=== PATIENT | female | born 1980 | race Caucasian/White ===

== ENCOUNTER 2017-06-18 05:46 | Day surgery (SDC) | payer OTHER ==
[2017-06-13 16:40] VITALS: BMI 28.3
[~2017-06-18 05:46] MED LIST: LACTATED RINGERS 1,000 ML IV SCH; LIDOCAINE 1% 20 ML VIAL (10MG/ML) FOR IV START INTRADERMA PRN
[2017-06-18 06:24] VITALS: TEMP 97.4
[2017-06-18] MEDS ORDERED: PROPOFOL 10 MG/ML 20 ML VIAL IV ONE (07:05)
[2017-06-18 07:39] VITALS: RESP 16
--- NOTE | 2017-06-18 07:56 | PCN ---
PROCEDURE NOTE PROCEDURE: Bone marrow aspirate and biopsy. PREOPERATIVE DIAGNOSIS: Leukocytosis. POSTOPERATIVE DIAGNOSIS: Leukocytosis. SITE: Right iliac crest. ANESTHESIA: Local with IV systemic sedation. DETAILS: Utilizing sterile technique, the skin overlying the right iliac crest was prepared with Betadine and alcohol, and after adequate sterile draping, local anesthesia with 1% lidocaine and systemic sedation, size 11, 4-inch Jamshidi needle was utilized to access the periosteum with ease. A total of 16 mL of aspirate as well as 3 cm bone core biopsies were obtained. The patient tolerated the procedure very well. There was no immediate procedure related complications. TOTAL BLOOD LOSS: Less than 1 mL. RESULTS: Pending. MMODL / IJN: [id number] /
[2017-06-18 08:19] VITALS: BP 124/80; PULSE 71
[2017-06-18 08:49] LABS: Basophils # (A) 0.1 k/uL (0-0.2); Basophils % (A) 1 %; Eosinophils # (A) 0.3 k/uL (0-0.7); Eosinophils % (A) 2 %; HCT 40.3 % (34.0-46.0); HGB 13.6 gm/dL (11.4-16.0); Lymphocytes # (A) 3.4 k/uL (1.0-4.8); Lymphocytes % (A) 24 %; MCH 31.1 pg (25.0-35.0); MCHC 33.9 g/dL (31.0-37.0); MCV 91.8 fL (80.0-100.0); Monocytes # (A) 0.9 k/uL (0-1.0); Monocytes % (A) 6 %; Neutrophils # (A) 9.5 k/uL (1.3-7.7); Neutrophils % (A) 66 %; Platelet Count 343 k/uL (150-450); RBC 4.39 m/uL (3.80-5.40); RDW 12.5 % (11.5-15.5); WBC 14.4 k/uL (3.8-10.6)
== END 2017-06-18 08:38 | disposition home or self-care (01) ==
LOC: OR 05:46
PROVIDERS: ATTEND Internal Medicine Hematology & Oncology
DX: D72.829 Elevated white blood cell count, unspecified (principal); R71.8 Other abnormality of red blood cells; N80.9 Endometriosis, unspecified; I10 Essential (primary) hypertension; K58.9 Irritable bowel syndrome, unspecified; F41.1 Generalized anxiety disorder; F32.9 Major depressive disorder, single episode, unspecified; J45.909 Unspecified asthma, uncomplicated; M19.90 Unspecified osteoarthritis, unspecified site; K21.9 Gastro-esophageal reflux disease without esophagitis; F17.210 Nicotine dependence, cigarettes, uncomplicated; Z86.19 Personal history of other infectious and parasitic diseases; Z79.3 Long term (current) use of hormonal contraceptives; Z79.899 Other long term (current) drug therapy; Z88.8 Allergy status to other drugs, medicaments and biological substances
CPT/HCPCS: 81025; 85025; 38222; J2704

== ENCOUNTER → 2019-07-21 | Outpatient (CLI) | payer OTHER | END | disposition home or self-care (01) | LOC: LABWHC1 09:41 | PROVIDERS: ATTEND Internal Medicine Critical Care Medicine | DX: Z11.59 Encounter for screening for other viral diseases (principal) | CPT/HCPCS: 87635 ==

== ENCOUNTER 2019-07-23 08:40 | Day surgery (SDC) | payer OTHER ==
[2019-07-21 15:13] VITALS: BMI 28.3
[~2019-07-23 08:40] MED LIST changes: +ALBUTEROL NEB (CONC) 2.5 MG/0.5 ML INHALATION ONE; +LIDOCAINE 1% (10MG/ML) FOR IV START INTRADERMA PRN; -LIDOCAINE 1% 20 ML VIAL (10MG/ML) FOR IV START INTRADERMA PRN; +LIDOCAINE 2% (PF) 20 MG/ML 5 ML VIAL INHALATION ONE; +LIDOCAINE VISCOUS 300 MG/15 ML CUP MUCOUS MEM ONE; +SODIUM CHLORIDE 0.9% 1,000 ML IV SCH
--- NOTE | 2019-07-23 10:35 | CT ---
EXAMINATION TYPE: CT Chest wo con Veran Protocol DATE OF EXAM: 07/23/2019 COMPARISON: Chest x-ray dated 03/06/2019 HISTORY: pre veran bronchial navigation for pulmonary nodule CT DLP: 593 mGycm Automated exposure control for dose reduction was used. FINDINGS: LUNGS: There is a 2.3 x 2.0 cm left lower lobe nodule near the interlobar fissure at the border of th e lingula on series 6 image 48 that appears solid on soft tissue algorithm. In the right upper lobe there is a spiculated density anteriorly on image 34 that could represent an area of scarring or small nodule with the epicenter measuring approximately 4 mm. This is marked on i mage 34 of series 6. There is a faint 2 mm pulmonary nodule in the posterior right upper lobe on image 22. This appears so lid. Minimal bibasilar subsegmental atelectasis. No focal consolidation, pleural effusion or pneumothorax. MEDIASTINUM: Lack of intravenous contrast limits evaluation of the mediastinum for adenopathy however no pathologically enlarged lymph nodes are identified. Strand-like density in the anterior superior mediastinum most commonly relates to a small amount of residual thymic tissue. Heart is not enlarged. No pericardial effusion. OTHER: Limited images of the unenhanced upper abdomen are grossly unremarkable. Mild multilevel degen erative change of the spine seen. Evaluation of the spinal canal is limited on CT. IMPRESSION: 1. 2.3 cm left lower lobe nodule for which navigational bronchoscopy will be performed subsequently. 2. Right-sided 4 mm into millimeter pulmonary nodules. Appropriate follow-up should be determined cli nically after biopsy results of the left lower lobe pulmonary nodule.
[2019-07-23] MEDS ORDERED: MIDAZOLAM 2 MG/2 ML VIAL IV ONE (10:40)
[2019-07-23] MEDS ORDERED: ONDANSETRON 4 MG/2 ML VIAL IVP ONE (10:40)
[2019-07-23] MEDS ORDERED: DEXAMETHASONE SOD PHOSPHATE 10 MG/ML 1 ML VIAL IV ONE (10:40)
[2019-07-23] MEDS ORDERED: GLYCOPYRROLATE 0.2 MG/ML 2 ML VIAL ONE (11:40)
[2019-07-23] MEDS ORDERED: SUCCINYLCHOLINE CHLORIDE 100 MG/5 ML SYR IV ONE (11:40)
[2019-07-23] MEDS ORDERED: NEOSTIGMINE 1 MG/ML 10 ML VIAL ONE (11:40)
[2019-07-23] MEDS ORDERED: PROPOFOL 10 MG/ML 20 ML VIAL IV ONE (11:40)
[2019-07-23] MEDS ORDERED: LIDOCAINE 1% INJ 10MG/ML (20 ML MDV) ONE (11:40)
[2019-07-23] MEDS ORDERED: ROCURONIUM BROMIDE 10 MG/ML 5 ML VIAL IV ONE (11:40)
--- NOTE | 2019-07-23 12:49 | P.PCN ---
Date of Procedure: 07/23/19 Preoperative Diagnosis: left lower lobe mass Postoperative Diagnosis: left lower lobe mass Procedure(s) Performed: navigational bronchoscopy, transbronchial biopsy of the left lower lobe mass, transbronchial brushing of the left lower lobe mass, bronchioloalveolar lavage of the left lower lobe anterior segment Anesthesia: PAULA Surgeon: Joan Breaux Estimated Blood Loss (ml): 0 Pathology: other Condition: stable Disposition: same day Description of Procedure: This procedure was done in the operating room under general anesthesia. The patient has a left lower lobe mass. The patient came in to undergo a computed tomography scan of the chest using the VERAN and protocol. The appropriate VPADS were applied to the patient's chest. The CAT scan was completed. Images were uploaded into the system and the left lower lobe mass was identified and was mass. There were 2 rejected easily identified leading to the left lower lobe mass and accordingly the patient was brought into the endoscopy suite and under general anesthesia the procedure was completed. The intubation and sedation processes was taking care of it anesthesia. The patient was intubated by #8 orotracheal tube. After achieving adequate sedation, the flexible bronchoscope was introduced into the orotracheal tube in place advanced into the lower trachea. The tip of the orotracheal tube was seen the centimeters above the alejandro. Adequate airway inspection was done and the visualized airways included the distal trachea, alejandro, bilateral mainstem bronchi, right upper lobe bronchus, bronchus intermedius, right middle lobe bronchus and right lower lobe bronchus, left upper lobe bronchus, lingular segment and left lower lobe bronchus and all of these airways were patent and within normal limits. No endobronchial tumors lesions or abnormalities were noted. All of the segments and subsegments were inspected. Following that, the appropriate calibration was done using the main alejandro and the secondary alejandro on the left. Following that, using an navigational guidance, the flexible bronchoscope was directed to the anterior segment of the left upper lobe and underwent navigational guidance, chest bronchodilators of the left lung mass was done with great accuracy. Transbronchial brushings were also done. At the completion of the procedure, and lavage of the left lower lobe anterior segment was done with a total of 80 mL of fluid was infused and 10 mL were suctioned back. The aspirate was nonbloody. The procedure was completed. The bronchoscope was removed. The patient was extubated. The patient was returned back to recovery in stable condition. Chest x-rays to follow. Discharged to follow.
[2019-07-23 12:53] VITALS: TEMP 97.1
[2019-07-23] MEDS ORDERED: HYDROmorphone 0.5 MG/0.5 ML SYRINGE IVP ONE (13:12)
[2019-07-23 13:14] VITALS: RESP 16
--- NOTE | 2019-07-23 13:27 | XR ---
EXAMINATION TYPE: XR chest 1V DATE OF EXAM: 07/23/2019 COMPARISON: Chest x-ray 03/06/2019, CT chest 07/23/2019 HISTORY: Postbiopsy TECHNIQUE: Single frontal view of the chest is obtained. FINDINGS: There is airspace disease in the left lower lobe. No evident pneumothorax. Heart size is w ithin normal limits. Bones are unremarkable. IMPRESSION: Probable postbiopsy changes are likely, difficult to exclude effusion, hemorrhage, follo w-up as indicated.
[2019-07-23 15:30] VITALS: BP 114/78; PULSE 65
== END 2019-07-23 15:50 | disposition home or self-care (01) ==
LOC: ORWHC2ENDO 08:40
PROVIDERS: ATTEND Internal Medicine Critical Care Medicine
DX: R91.8 Other nonspecific abnormal finding of lung field (principal); I10 Essential (primary) hypertension; D25.9 Leiomyoma of uterus, unspecified; F32.9 Major depressive disorder, single episode, unspecified; F41.9 Anxiety disorder, unspecified; K21.9 Gastro-esophageal reflux disease without esophagitis; F17.210 Nicotine dependence, cigarettes, uncomplicated; Z88.8 Allergy status to other drugs, medicaments and biological substances; Z79.890 Hormone replacement therapy; Z79.1 Long term (current) use of non-steroidal anti-inflammatories (NSAID); Z79.899 Other long term (current) drug therapy; Z90.710 Acquired absence of both cervix and uterus; Z83.3 Family history of diabetes mellitus; Z82.49 Family history of ischemic heart disease and other diseases of the circulatory system
CPT/HCPCS: 87798 ×3; 87496; 87498; 87529; 88108; 88305; 87252; 87502; 87634; 87070; 87205; 87116; 87102; 87206; 71045; 71250; 31628; 31623; 31624; 31627; J2250; J1100; J2710; J2405; J2001; J0330; J2704; J1170; 31625

== ENCOUNTER 2019-10-04 23:56 | Inpatient (IN) | payer OTHER ==
[2019-10-05 00:52] LABS: Appearance,Urine Clear (Clear); Bilirubin,Urine Negative (Negative); Blood,Urine Negative (Negative); Color,Urine Light Yellow; Glucose,Urine (UA) Negative (Negative); Ketones,Urine Negative (Negative); Leukocyte Esterase,Urine Negative (Negative); Nitrite,Urine Negative (Negative); PH, Urine 5.5 (5.0-8.0); Protein,Urine Negative (Negative); Specific Gravity,Urine 1.005 (1.001-1.035); Urobilinogen,Urine <2.0 mg/dL (<2.0)
[2019-10-05 00:53] LABS: Basophils # (A) 0.1 k/uL (0-0.2); Basophils % (A) 1 %; Eosinophils # (A) 0.4 k/uL (0-0.7); Eosinophils % (A) 2 %; HCT 36.4 % (34.0-46.0); HGB 12.1 gm/dL (11.4-16.0); Lymphocytes # (A) 3.6 k/uL (1.0-4.8); Lymphocytes % (A) 22 %; MCH 31.4 pg (25.0-35.0); MCHC 33.2 g/dL (31.0-37.0); MCV 94.7 fL (80.0-100.0); Mean Platelet Volume 7.2; Monocytes # (A) 1.1 k/uL (0-1.0); Monocytes % (A) 7 %; Neutrophils # (A) 10.7 k/uL (1.3-7.7); Neutrophils % (A) 67 %; Platelet Count 446 k/uL (150-450); RBC 3.84 m/uL (3.80-5.40); RDW 12.5 % (11.5-15.5); WBC 16.1 k/uL (3.8-10.6)
[2019-10-05 00:54] LABS: INR 0.9 (<1.2); Partial Thromboplastin Time 26.2 sec (22.0-30.0); Prothrombin Time 9.5 sec (9.0-12.0)
[2019-10-05 00:55] LABS: ALT 14 U/L (4-34); AST 19 U/L (14-36); African American GFR (CKD) >90 (>60 ml/min/1.73 sqM); Albumin 4.3 g/dL (3.5-5.0); Alkaline Phosphatase 115 U/L (38-126); Anion Gap 8 mmol/L; Blood Urea Nitrogen 10 mg/dL (7-17); Calcium 9.8 mg/dL (8.4-10.2); Carbon Dioxide 23 mmol/L (22-30); Chloride 109 mmol/L (98-107); Glucose 106 mg/dL (74-99); Non-African American GFR(CKD) >90 (>60 ml/min/1.73 sqM); Sodium 140 mmol/L (137-145); Total Bilirubin 0.4 mg/dL (0.2-1.3); Total Protein 7.2 g/dL (6.3-8.2)
--- NOTE | 2019-10-05 01:06 | ED ---
General Adult HPI - General Chief complaint: ENT Stated complaint: coughing up blood Time Seen by Provider: 10/05/19 00:08 Source: patient, RN notes reviewed, old records reviewed Mode of arrival: ambulatory Limitations: no limitations - History of Present Illness Initial comments: 38-year-old female patient in CDU chief complaint of hemoptysis. Patient r eports that she has been having hemoptysis for the last few months. Reports that she did have a bronchoscopy with abscess taken which were negative for cancer. She reports that for the last few months she has been having persistent coughing up blood as well as some chest tightness. She is a smoker currently. She has history of hysterectomy. As well as endometriosis. Denies any other acute complaints. Systemic: Pt denies fatigue, fever/chills, rash. Pt denies weakness, night sweats, weight loss. Neuro: Pt denies headache, visual disturbances, syncope or pre-syncope. HEENT: Pt denies ocular discharge or irritation, otalgia, rhinorrhea, pharyngitis or notable lymphadenopathy. Cardiopulmonary: Pt denies , heart palpitations, dyspnea on exertion. Abdominal/GI: Pt denies abdominal pain, n/v/d. : Pt denies dysuria, burning w/ urination, frequency/urgency. Denies new onset urinary or bowel incontinence. MSK: Pt denies myalgia, loss of strength or function in extremities. Neuro: Pt denies new onset weakness, paresthesias. - Related Data Home Medications Medication Instructions Recorded Confirmed Cetirizine HCl [Zyrtec] 10 mg PO HS 06/12/17 07/23/19 Citalopram Hydrobromide [CeleXA] 20 mg PO HS 06/12/17 07/23/19 Famotidine [Pepcid] 20 mg PO TID PRN 06/12/17 07/23/19 amLODIPine [Norvasc] 5 mg PO HS 06/12/17 07/23/19 lisinopriL 40 mg PO HS 06/12/17 07/23/19 Acetaminophen Tab [Tylenol Tab] 1,000 mg PO Q6HR PRN 07/21/19 07/23/19 Bone Nutrient 1 cap PO BID 07/21/19 07/23/19 Ibuprofen [Motrin] 800 mg PO Q8H PRN 07/21/19 07/23/19 L.acidoph,Paracasei, B.lactis 1 cap PO DAILY 07/21/19 07/23/19 [Probiotic] Tri Ease Seasonal Blend 1 cap PO BID 07/21/19 07/23/19 estradioL [Estrace] 1 mg PO DAILY 07/21/19 07/23/19 Allergies Allergy/AdvReac Type Severity Reaction Status Date / Time prochlorperazine Allergy See Comment Unverified 07/23/19 09:00 [From Compazine] Review of Systems ROS Statement: Those systems with pertinent positive or pertinent negative responses have been documented in the HPI. ROS Other: All systems not noted in ROS Statement are negative. Past Medical History Past Medical History: GERD/Reflux, Hypertension, Osteoarthritis (OA) Additional Past Medical History / Comment(s): Endometriosis, constant nasal congestion, bloating, nausea, and IBS. History of Any Multi-Drug Resistant Organisms: None Reported Past Surgical History: Hysterectomy Additional Past Surgical History / Comment(s): laproscopic surgeries for endometriosis, sinus surgery, surgery right wrist for ganglion cyst, colonoscopies. left lung nodule biopsy. Past Anesthesia/Blood Transfusion Reactions: Postoperative Nausea & Vomiting (PONV) Past Psychological History: Anxiety, Depression Smoking Status: Current every day smoker Past Alcohol Use History: None Reported Past Drug Use History: None Reported - Past Family History Mother Family Medical History: No Reported History General Exam - General Exam Comments Initial Comments: Constitutional: NAD, AOX3, Pt has pleasant affect. HEENT: NC/AT, trachea midline, neck supple, no lymphadenopathy. External ears appear normal, without discharge. Mucous membranes moist. EOM intact. There is no scleral icterus. No pallor noted. Cardiopulmonary: RRR, no murmurs, rubs or gallops, no JVD noted. Lungs CTAB in anterior and posterior trammell. No peripheral edema. Abdominal exam: Abdomen soft and non-distended. Abdomen non-tender to palpation in all 4 quadrants. Bowel sounds active in LLQ. No hepatosplenomegaly. No ecchymosis Neuro: CN II-XII grossly intact. MSK: No posterior calf tenderness bilaterally, homans sign negative bilaterally. Posterior tibialis and radial pulse +2 bilaterally. Sensation intact in upper and lower extremities. Full active ROM in upper and lower extremities, 5/5 stregnth. Limitations: no limitations Course Vital Signs 10/04/19 10/05/19 23:59 02:37 Temperature 98.6 F 97.7 F Pulse Rate 92 63 Respiratory 18 16 Rate Blood Pressure 136/86 104/58 O2 Sat by Pulse 98 97 Oximetry Medical Decision Making - Medical Decision Making 39-year-old female patient presents to ED for evaluation of hemoptysis which has been ongoing for months. Patient was found to have lung mass communicates with her heart. This was present back in June however it is now significantly larger. Laboratory investigations revealed mild leukocytosis but are overall unremarkable. Patient admitted for further evaluation. Case discussed with Dr. Tesfaye. - Lab Data Result diagrams: 10/05/19 00:29 10/05/19 00:29 Lab Results 10/05/19 10/05/19 10/05/19 Range/Units 00:29 00:29 00:29 WBC 16.1 H (3.8-10.6) k/uL RBC 3.84 (3.80-5.40) m/uL Hgb 12.1 (11.4-16.0) gm/dL Hct 36.4 (34.0-46.0) % MCV 94.7 (80.0-100.0) fL MCH 31.4 (25.0-35.0) pg MCHC 33.2 (31.0-37.0) g/dL RDW 12.5 (11.5-15.5) % Plt Count 446 (150-450) k/uL Neutrophils % 67 % Lymphocytes % 22 % Monocytes % 7 % Eosinophils % 2 % Basophils % 1 % Neutrophils # 10.7 H (1.3-7.7) k/uL Lymphocytes # 3.6 (1.0-4.8) k/uL Monocytes # 1.1 H (0-1.0) k/uL Eosinophils # 0.4 (0-0.7) k/uL Basophils # 0.1 (0-0.2) k/uL PT 9.5 (9.0-12.0) sec INR 0.9 (<1.2) APTT 26.2 (22.0-30.0) sec Sodium (137-145) mmol/L Potassium (3.5-5.1) mmol/L Chloride (98-107) mmol/L Carbon Dioxide (22-30) mmol/L Anion Gap mmol/L BUN (7-17) mg/dL Creatinine (0.52-1.04) mg/dL Est GFR (CKD-EPI)AfAm (>60 ml/min/1.73 sqM) Est GFR (CKD-EPI)NonAf (>60 ml/min/1.73 sqM) Glucose (74-99) mg/dL Calcium (8.4-10.2) mg/dL Total Bilirubin (0.2-1.3) mg/dL AST (14-36) U/L ALT (4-34) U/L Alkaline Phosphatase (38-126) U/L Troponin I (0.000-0.034) ng/mL NT-Pro-B Natriuret Pep pg/mL Total Protein (6.3-8.2) g/dL Albumin (3.5-5.0) g/dL Urine Color Light Yellow Urine Appearance Clear (Clear) Urine pH 5.5 (5.0-8.0) Ur Specific Martin 1.005 (1.001-1.035) Urine Protein Negative (Negative) Urine Glucose (UA) Negative (Negative) Urine Ketones Negative (Negative) Urine Blood Negative (Negative) Urine Nitrite Negative (Negative) Urine Bilirubin Negative (Negative) Urine Urobilinogen <2.0 (<2.0) mg/dL Ur Leukocyte Esterase Negative (Negative) Urine HCG, Qual (Not Detectd) 10/05/19 10/05/19 10/05/19 Range/Units 00:29 00:29 00:29 WBC (3.8-10.6) k/uL RBC (3.80-5.40) m/uL Hgb (11.4-16.0) gm/dL Hct (34.0-46.0) % MCV (80.0-100.0) fL MCH (25.0-35.0) pg MCHC (31.0-37.0) g/dL RDW (11.5-15.5) % Plt Count (150-450) k/uL Neutrophils % % Lymphocytes % % Monocytes % % Eosinophils % % Basophils % % Neutrophils # (1.3-7.7) k/uL Lymphocytes # (1.0-4.8) k/uL Monocytes # (0-1.0) k/uL Eosinophils # (0-0.7) k/uL Basophils # (0-0.2) k/uL PT (9.0-12.0) sec INR (<1.2) APTT (22.0-30.0) sec Sodium 140 (137-145) mmol/L Potassium 4.0 (3.5-5.1) mmol/L Chloride 109 H (98-107) mmol/L Carbon Dioxide 23 (22-30) mmol/L Anion Gap 8 mmol/L BUN 10 (7-17) mg/dL Creatinine 0.61 (0.52-1.04) mg/dL Est GFR (CKD-EPI)AfAm >90 (>60 ml/min/1.73 sqM) Est GFR (CKD-EPI)NonAf >90 (>60 ml/min/1.73 sqM) Glucose 106 H (74-99) mg/dL Calcium 9.8 (8.4-10.2) mg/dL Total Bilirubin 0.4 (0.2-1.3) mg/dL AST 19 (14-36) U/L ALT 14 (4-34) U/L Alkaline Phosphatase 115 (38-126) U/L Troponin I <0.012 (0.000-0.034) ng/mL NT-Pro-B Natriuret Pep pg/mL Total Protein 7.2 (6.3-8.2) g/dL Albumin 4.3 (3.5-5.0) g/dL Urine Color Urine Appearance (Clear) Urine pH (5.0-8.0) Ur Specific Martin (1.001-1.035) Urine Protein (Negative) Urine Glucose (UA) (Negative) Urine Ketones (Negative) Urine Blood (Negative) Urine Nitrite (Negative) Urine Bilirubin (Negative) Urine Urobilinogen (<2.0) mg/dL Ur Leukocyte Esterase (Negative) Urine HCG, Qual Not Detected (Not Detectd) 10/05/19 Range/Units 00:29 WBC (3.8-10.6) k/uL RBC (3.80-5.40) m/uL Hgb (11.4-16.0) gm/dL Hct (34.0-46.0) % MCV (80.0-100.0) fL MCH (25.0-35.0) pg MCHC (31.0-37.0) g/dL RDW (11.5-15.5) % Plt Count (150-450) k/uL Neutrophils % % Lymphocytes % % Monocytes % % Eosinophils % % Basophils % % Neutrophils # (1.3-7.7) k/uL Lymphocytes # (1.0-4.8) k/uL Monocytes # (0-1.0) k/uL Eosinophils # (0-0.7) k/uL Basophils # (0-0.2) k/uL PT (9.0-12.0) sec INR (<1.2) APTT (22.0-30.0) sec Sodium (137-145) mmol/L Potassium (3.5-5.1) mmol/L Chloride (98-107) mmol/L Carbon Dioxide (22-30) mmol/L Anion Gap mmol/L BUN (7-17) mg/dL Creatinine (0.52-1.04) mg/dL Est GFR (CKD-EPI)AfAm (>60 ml/min/1.73 sqM) Est GFR (CKD-EPI)NonAf (>60 ml/min/1.73 sqM) Glucose (74-99) mg/dL Calcium (8.4-10.2) mg/dL Total Bilirubin (0.2-1.3) mg/dL AST (14-36) U/L ALT (4-34) U/L Alkaline Phosphatase (38-126) U/L Troponin I (0.000-0.034) ng/mL NT-Pro-B Natriuret Pep 24 pg/mL Total Protein (6.3-8.2) g/dL Albumin (3.5-5.0) g/dL Urine Color Urine Appearance (Clear) Urine pH (5.0-8.0) Ur Specific Martin (1.001-1.035) Urine Protein (Negative) Urine Glucose (UA) (Negative) Urine Ketones (Negative) Urine Blood (Negative) Urine Nitrite (Negative) Urine Bilirubin (Negative) Urine Urobilinogen (<2.0) mg/dL Ur Leukocyte Esterase (Negative) Urine HCG, Qual (Not Detectd) - EKG Data -: EKG Interpreted by Me (and Dr. Tesfaye ) EKG Comments: ventricular at 75, MI interval 178, QRS 88, QT/QTC 394/439. Normal sensory r hythm, normal EKG, no concern for acute ischemia. Disposition Clinical Impression: Lung mass, Hemoptysis Disposition: ADMITTED IP TO THIS HOSP Condition: Serious
--- NOTE | 2019-10-05 01:22 | CT ---
EXAMINATION TYPE: CT chest angio for PE DATE OF EXAM: 10/05/2019 COMPARISON: None HISTORY: R/O PE CT DLP: 316.1 mGycm Automated exposure control for dose reduction was used. CONTRAST: Performed with IV Contrast, patient injected with 80 mL of Isovue 370. There are 3-D post processed images. There is minimal atelectasis left lung base. There is no pleural effusion. There is rounded 5 cm low- density mass at the lateral left lung base above the diaphragm. This is mostly fluid density. Heart a ppears normal. There is no pericardial effusion. There are no hilar masses. There is no mediastinal a denopathy. Thoracic aorta is intact. There is no aneurysm or dissection. There is normal contrast opacification of the pulmonary arteries. There are no filling defects. The t horacic spine is intact. Upper abdominal soft tissues are intact. IMPRESSION: No evidence of pulmonary embolism. 5 cm cystic mass in the lateral left lung base in the region of the anterior basal segment left lower lobe that is contiguous with a heart. Origin of this mass is not clear. I would consider possibiliti es of pericardial cyst, bronchogenic cyst or loculated pleural fluid. This is also present on the old exam of 07/15/2019 and much larger in size. Previous exam measures 1.6 cm. Necrotic tumor not exclude d.
[2019-10-05] MEDS ORDERED: SODIUM CHLORIDE 0.9% 500 ML 500 ML IV ONE (03:09)
[2019-10-05] MEDS: SODIUM CHLORIDE 0.9% 1,000 ML IV SCH ×3 (04:32→23:08)
--- NOTE | 2019-10-05 10:46 | P.GSCN ---
History of Present Illness Consult date: 10/05/19 Reason for Consult: Left lower lobe mass, increasing in size Requesting physician: Arvind Edgar History of present illness: This is a 39-year-old female who follows in an outpatient basis with Dr. Jorden Paz. She has a previous medical history of endometriosis status post multiple D&Cs and hysterectomy, hypertension, and current tobacco dependence. She has been followed on an outpatient basis by Dr. Edgar for a mass in the left lower lobe of her lung. Chest CT in June 2019 demonstrated left lower lobe mass measuring 2.3 x 2.0 cm located near the interlobar fissure at the border of the lingula. She underwent navigational bronchoscopy with needle biopsy at that time by Dr. Breaux which demonstrated no malignancy. She was supposed to follow up with further CT scans. Apparently she had a PET scan completed at some point earlier this year at another hospital, report not available, per Dr. Edgar the patient had positive uptake in this mass with an SUV of 4.4. She reported to [facility] emergency room at this morning with complaints of intermittent hemoptysis for the last 6 months, worse last night causing her concern. Chest CTA completed in the emergency room demonstrated increased size in the mass in her left lower lobe, measuring 5 cm per radiology. Other symptoms patient reports are chills, night sweats, mild chest discomfort, and severe fatigue. She denies any fever or weight loss. She was admitted for evaluation and treatment with consultation placed to cardiology and pulmonology. Subsequently Dr. Edgar placed consultation for Dr. Bowser from cardiothoracic surgery for consideration for left lower lobectomy. Review of Systems Review of systems was completed and was negative except as noted - Constitutional Reports fatigue, Reports night sweats - Cardiovascular Reports as per HPI, Reports chest pain - Respiratory Reports as per HPI, Reports hemoptysis Past Medical History Past Medical History: GERD/Reflux, Hypertension, Osteoarthritis (OA) Additional Past Medical History / Comment(s): Endometriosis, constant nasal congestion, bloating, nausea, and IBS. 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 left lung nodule biopsy. Past Anesthesia/Blood Transfusion Reactions: Postoperative Nausea & Vomiting (PONV) Past Psychological History: Anxiety, Depression Smoking Status: Current every day smoker Past Alcohol Use History: None Reported Past Drug Use History: None Reported - Past Family History Mother Family Medical History: No Reported History Father Family Medical History: Diabetes Mellitus, Hypertension Medications and Allergies Home Medications Medication Instructions Recorded Confirmed Type Cetirizine HCl [Zyrtec] 10 mg PO HS 06/12/17 10/05/19 History Citalopram Hydrobromide [CeleXA] 20 mg PO HS 06/12/17 10/05/19 History Famotidine [Pepcid] 20 mg PO TID PRN 06/12/17 10/05/19 History amLODIPine [Norvasc] 5 mg PO HS 06/12/17 10/05/19 History lisinopriL 40 mg PO HS 06/12/17 10/05/19 History Acetaminophen Tab [Tylenol Tab] 1,000 mg PO Q6HR PRN 07/21/19 10/05/19 History Ibuprofen [Motrin] 800 mg PO Q8H PRN 07/21/19 10/05/19 History estradioL [Estrace] 1 mg PO DAILY 07/21/19 10/05/19 History Albuterol Inhaler [Ventolin Hfa 2 puff INHALATION RT-Q6H PRN 10/05/19 10/05/19 History Inhaler] Allergies Allergy/AdvReac Type Severity Reaction Status Date / Time prochlorperazine AdvReac Extreme Verified 10/05/19 09:18 [From Compazine] anxiety Surgical - Exam Vital Signs Temp Pulse Resp BP Pulse Ox 98.6 F 92 18 136/86 98 10/04/19 23:59 10/04/19 23:59 10/04/19 23:59 10/04/19 23:59 10/04/19 23:59 - General well developed, well nourished, no distress, no pain - Eyes PERRL, normal ocular movement - ENT no hearing loss - Neck no masses, no bruits, trachea midline - Respiratory Lungs sounds clear bilaterally. Respirations even, nonlabored. Currently on room air with oxygen saturation 95%. No chest wall deformities. No clubbing or cyanosis present. - Cardiovascular S1, S2 present. Regular rate and rhythm, sinus rhythm on telemetry. Palpable peripheral pulses bilaterally. No edema present. No calf pain or tenderness noted. - Abdomen Abdomen: soft, non tender, bowel sounds - Genitourinary Deferred - Rectum Deferred - Neurologic normal coordination, normal sensation - Musculoskeletal normal gait, normal posture - Psychiatric oriented to time, oriented to person, oriented to place, speech is normal, memory intact Results - Labs 10/05/19 00:29 10/05/19 00:29 Abnormal Lab Results - Last 24 Hours (Table) 10/05/19 10/05/19 Range/Units 00:29 00:29 WBC 16.1 H (3.8-10.6) k/uL Neutrophils # 10.7 H (1.3-7.7) k/uL Monocytes # 1.1 H (0-1.0) k/uL Chloride 109 H (98-107) mmol/L Glucose 106 H (74-99) mg/dL Diabetes panel 10/05/19 Range/Units 00:29 Sodium 140 (137-145) mmol/L Potassium 4.0 (3.5-5.1) mmol/L Chloride 109 H (98-107) mmol/L Carbon Dioxide 23 (22-30) mmol/L BUN 10 (7-17) mg/dL Creatinine 0.61 (0.52-1.04) mg/dL Glucose 106 H (74-99) mg/dL Calcium 9.8 (8.4-10.2) mg/dL AST 19 (14-36) U/L ALT 14 (4-34) U/L Alkaline Phosphatase 115 (38-126) U/L Total Protein 7.2 (6.3-8.2) g/dL Albumin 4.3 (3.5-5.0) g/dL Calcium panel 10/05/19 Range/Units 00:29 Calcium 9.8 (8.4-10.2) mg/dL Albumin 4.3 (3.5-5.0) g/dL Pituitary panel 10/05/19 Range/Units 00:29 Sodium 140 (137-145) mmol/L Potassium 4.0 (3.5-5.1) mmol/L Chloride 109 H (98-107) mmol/L Carbon Dioxide 23 (22-30) mmol/L BUN 10 (7-17) mg/dL Creatinine 0.61 (0.52-1.04) mg/dL Glucose 106 H (74-99) mg/dL Calcium 9.8 (8.4-10.2) mg/dL Adrenal panel 10/05/19 Range/Units 00:29 Sodium 140 (137-145) mmol/L Potassium 4.0 (3.5-5.1) mmol/L Chloride 109 H (98-107) mmol/L Carbon Dioxide 23 (22-30) mmol/L BUN 10 (7-17) mg/dL Creatinine 0.61 (0.52-1.04) mg/dL Glucose 106 H (74-99) mg/dL Calcium 9.8 (8.4-10.2) mg/dL Total Bilirubin 0.4 (0.2-1.3) mg/dL AST 19 (14-36) U/L ALT 14 (4-34) U/L Alkaline Phosphatase 115 (38-126) U/L Total Protein 7.2 (6.3-8.2) g/dL Albumin 4.3 (3.5-5.0) g/dL - Imaging Chest x-ray: report reviewed, image reviewed CT scan - chest: report reviewed, image reviewed Assessment and Plan Assessment: 1. Left lower lobe mass 2. History of endometriosis status post multiple D&Cs and hysterectomy 3. Current tobacco dependence Plan: The patient was seen and examined bedside. Chart/diagnostics reviewed. Will review the case in detail with Dr. Bowser. The patient is currently in no acute distress. She is oxygenating well on room air. Interventional radiology has been consulted for needle biopsy for tissue diagnosis. Counseled patient the importance of smoking cessation. Continue medical management. Other comorbidities per primary care service. More recommendations follow once Dr. Bowser has seen the patient. Thank you Dr. Edgar for this consult. We look forward to working with you in the care of your patient Time with Patient: Greater than 30
--- NOTE | 2019-10-05 11:37 | ECHOF ---
Referral Reason:chest mass, bronchogenic vs cardiac MEASUREMENTS -------- HEIGHT: 160.0 cm WEIGHT: 72.6 kg BP: 127/82 RVIDd: 3.0 cm (< 3.3) IVSd: 1.1 cm (0.6 - 1.1) LVIDd: 4.0 cm (3.9 - 5.3) LVPWd: 1.1 cm (0.6 - 1.1) IVSs: 1.6 cm LVIDs: 2.6 cm LVPWs: 1.9 cm LAESV Index (A-L): 20.22 ml/m Ao Diam: 2.5 cm (2.0 - 3.7) AV Cusp: 2.2 cm (1.5 - 2.6) MV EXCURSION: 13.261 mm (> 18.000) MV EF SLOPE: 85 mm/s (70 - 150) EPSS: 0.6 cm MV E Rambo: 0.98 m/s MV DecT: 188 ms MV A Rambo: 0.67 m/s MV E/A Ratio: 1.47 RAP: 5.00 mmHg RVSP: 18.63 mmHg FINDINGS -------- Sinus rhythm. This was a technically adequate study. The left ventricular size is normal. Left ventricular wall thickness is normal. Overall left vent ricular systolic function is normal with, an EF between 55 - 60 %. The diastolic filling pattern is normal for the age of the patient 9.78. The right ventricle is normal in size. Normal LA size by volume 22+/-6 ml/m2. The right atrium is mildly enlarged. Interatrial and interventricular septum intact. There is no evidence of aortic regurgitation. There is no evidence of aortic stenosis. Mild mitral regurgitation is present. Mild tricuspid regurgitation present. There is no evidence of pulmonary hypertension. The right v entricular systolic pressure, as measured by Doppler, is 18.63mmHg. There is no pulmonic regurgitation present. The aortic root size is normal. Normal inferior vena cava with normal inspiratory collapse consistent with estimated right atrial pre ssure of 5 mmHg. There is no pericardial effusion. CONCLUSIONS -------- 1. The left ventricular size is normal. 2. Left ventricular wall thickness is normal. 3. Overall left ventricular systolic function is normal with, an EF between 55 - 60 %. 4. The diastolic filling pattern is normal for the age of the patient 9.78 5. The right atrium is mildly enlarged. 6. Mild tricuspid regurgitation present. [employer] SALES ADVISOR: Alyssa Chou RDCS
--- NOTE | 2019-10-05 11:57 | CT ---
EXAMINATION TYPE: CT guided aspiration DATE OF EXAM: 10/05/2019 COMPARISON: 10/05/2019 HISTORY: Left lung mass CT DLP: 2080 mGycm The procedure is discussed with the patient, the risks, complications, benefits and alternatives, wer e discussed and any questions were answered. Informed consent was obtained. The patient is placed a oblique position on the CT table, prepped and draped in the usual sterile fashion. Request was for fine-needle aspiration. Utilizing a 20-gauge Chiba needle access into the left lung mass was achieved 5 cc of sample was obta ined. Pathology pending. All elements of maximal barrier and sterile technique were utilized. The patient remained stable throughout the procedure with no immediate postprocedural complication. IMPRESSION: 1. Successful CT guided fine needle aspiration of a left lung mass
--- NOTE | 2019-10-05 12:05 | XR ---
EXAMINATION TYPE: XR chest 1V portable DATE OF EXAM: 10/05/2019 COMPARISON: 07/23/2019 HISTORY: Post lung biopsy TECHNIQUE: Single frontal view of the chest is obtained. FINDINGS: There is a rounded mass in the left lung. No interstitial edema. No pneumothorax. Heart si ze normal. Tiny pleural effusion seen. Stable from prior exam. IMPRESSION: 1. Large left lung mass with tiny pleural effusion stable. No sizable pneumothorax.
[2019-10-05] MEDS: ACETAMINOPHEN TAB 500 MG TAB PO PRN ×2 (12:12→19:37)
--- NOTE | 2019-10-05 12:13 | P.CRDCN ---
History of Present Illness History of present illness: HISTORY OF PRESENTING ILLNESS This is a pleasant 39-year-old female past medical history significant for hypertension and chronic nicotine dependence. She denies prior history of coronary artery disease and does not follow with a global supply chain vice president for any reason. We have been asked to see in consultation for mass noted on CAT scan. She presented to the hospital with symptoms of hemoptysis. She states this has been going on since approximately March. She states they recently bought a new house and had been doing significant amount of renovating since around March of this year. Shortly thereafter she started coughing and noticing blood in her sputum. In June of this year she underwent a bronchoscopy with Dr. Breaux secondary to lung mass. Pathology was nonmalignant. She has not followed up with pulmonary since that time. She states her hemoptysis has been pretty steady since that time but stable. Up until yesterday when the bleeding seems significantly worse. She states at times there was stable spoons worth of blood being coughed up. She states the blood was bright red. She also describes a burning sensation in the midsternal and epigastric region. She denies significant shortness of breath. She has no dizziness or palpitations. Echocardiogram revealed preserved LV systolic function with ejection fraction 55-60%. Mild tricuspid regurgitation noted and no evidence of pericardial cyst. CT of the chest revealed this 5 cm cystic mass in the lateral left lung base in the region of the anterior basal segment of the left lower lobe that is cont iguous with the heart. Origin of the mass is unclear considering pericardial cyst, bronchiogenic cyst or a loculated pleural fluid. It is larger in size than previous exam from June. Needle aspiration CT was performed this morning. Laboratory data reviewed, WBC 16.1, hemoglobin 12.1, platelets 446, sodium 140, potassium 4.0, creatinine 0.61, troponin negative 1 and and she proBNP 24. Currently maintained on amlodipine 5 mg daily and lisinopril 40 mg daily. REVIEW OF SYSTEMS At the time of my exam: CONSTITUTIONAL: Denies fever or chills. CARDIOVASCULAR: Denies chest pain, shortness of breath, orthopnea, PND or palpitations. RESPIRATORY: Denies cough. GASTROINTESTINAL: Denies abdominal pain, diarrhea, constipation, nausea or vomiting. MUSCULOSKELETAL: Denies myalgias. NEUROLOGIC: Denies numbness, tingling or weakness. ENDOCRINE: Denies fatigue, weight change, polydipsia or polyurina. GENITOURINARY: Denies burning, hematuria or urgency with micturation. HEMATOLOGIC: Denies history of anemia or bleeding. PHYSICAL EXAMINATION Blood pressure 138/78 heart rate 88 afebrile and maintaining oxygen saturation on room air. CONSTITUTIONAL: No apparent distress. HEENT: Head is normocephalic. Pupils are equal, round. Sclerae anicteric. Mucous membranes of the mouth are moist. No JVD. No carotid bruit. CHEST EXAMINATION: Lungs are clear to auscultation. No chest wall tenderness is noted on palpation or with deep breathing. HEART EXAMINATION: Regular rate and rhythm. S1, S2 heard. No murmurs, gallops or rub. ABDOMEN: Soft, nontender. Positive bowel sounds. EXTREMITIES: 2+ peripheral pulses, no lower extremity edema and no calf tenderness. NEUROLOGIC EXAMINATION: Patient is awake, alert and oriented x3. ASSESSMENT Hemoptysis Chest pain Lung mass of unclear etiology Hypertension Chronic nicotine dependence PLAN Obtain baseline EKG. Echocardiogram reviewed, no evidence of pericardial cyst. Ongoing medical management and evaluation of lung mass. CT surgery as well as pulmonology are following. Smoking cessation recommended. Thank you kindly for this consultation. Nurse Practitioner note has been reviewed, I agree with a documented findings and plan of care. Patient was seen and examined. Past Medical History Past Medical History: GERD/Reflux, Hypertension, Osteoarthritis (OA) Additional Past Medical History / Comment(s): Endometriosis, constant nasal congestion, bloating, nausea, and IBS. 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 left lung nodule biopsy. Past Anesthesia/Blood Transfusion Reactions: Postoperative Nausea & Vomiting (PONV) Past Psychological History: Anxiety, Depression Smoking Status: Current every day smoker Past Alcohol Use History: None Reported Past Drug Use History: None Reported - Past Family History Mother Family Medical History: No Reported History Father Family Medical History: Diabetes Mellitus, Hypertension Medications and Allergies Home Medications Medication Instructions Recorded Confirmed Type Cetirizine HCl [Zyrtec] 10 mg PO HS 06/12/17 10/05/19 History Citalopram Hydrobromide [CeleXA] 20 mg PO HS 06/12/17 10/05/19 History Famotidine [Pepcid] 20 mg PO TID PRN 06/12/17 10/05/19 History amLODIPine [Norvasc] 5 mg PO HS 06/12/17 10/05/19 History lisinopriL 40 mg PO HS 06/12/17 10/05/19 History Acetaminophen Tab [Tylenol Tab] 1,000 mg PO Q6HR PRN 07/21/19 10/05/19 History Ibuprofen [Motrin] 800 mg PO Q8H PRN 07/21/19 10/05/19 History estradioL [Estrace] 1 mg PO DAILY 07/21/19 10/05/19 History Albuterol Inhaler [Ventolin Hfa 2 puff INHALATION RT-Q6H PRN 10/05/19 10/05/19 History Inhaler] Allergies Allergy/AdvReac Type Severity Reaction Status Date / Time prochlorperazine AdvReac Extreme Verified 10/05/19 09:18 [From Compazine] anxiety Physical Exam Vitals: Vital Signs Temp Pulse Pulse Resp BP BP Pulse Ox 10/05/19 11:41 88 18 138/78 97 10/05/19 11:39 82 18 142/78 96 10/05/19 11:29 80 20 140/77 95 10/05/19 11:10 98 20 134/76 96 10/05/19 07:00 97.7 F 70 18 108/72 95 10/05/19 03:02 97.8 F 68 18 127/82 98 10/05/19 02:37 97.7 F 63 16 104/58 97 10/04/19 23:59 98.6 F 92 18 136/86 98 Intake and Output 10/04/19 10/05/19 10/05/19 22:59 06:59 14:59 Other: Voiding Method Toilet # Voids 1 Weight 72.575 kg Results 10/05/19 00:29 10/05/19 00:29 Cardiac Enzymes 10/05/19 10/05/19 Range/Units 00:29 00:29 AST 19 (14-36) U/L Troponin I <0.012 (0.000-0.034) ng/mL Coagulation 10/05/19 Range/Units 00:29 PT 9.5 (9.0-12.0) sec APTT 26.2 (22.0-30.0) sec CBC 10/05/19 Range/Units 00:29 WBC 16.1 H (3.8-10.6) k/uL RBC 3.84 (3.80-5.40) m/uL Hgb 12.1 (11.4-16.0) gm/dL Hct 36.4 (34.0-46.0) % Plt Count 446 (150-450) k/uL Comprehensive Metabolic Panel 10/05/19 Range/Units 00:29 Sodium 140 (137-145) mmol/L Potassium 4.0 (3.5-5.1) mmol/L Chloride 109 H (98-107) mmol/L Carbon Dioxide 23 (22-30) mmol/L BUN 10 (7-17) mg/dL Creatinine 0.61 (0.52-1.04) mg/dL Glucose 106 H (74-99) mg/dL Calcium 9.8 (8.4-10.2) mg/dL AST 19 (14-36) U/L ALT 14 (4-34) U/L Alkaline Phosphatase 115 (38-126) U/L Total Protein 7.2 (6.3-8.2) g/dL Albumin 4.3 (3.5-5.0) g/dL Current Medications Generic Name Dose Route Start Last Admin Trade Name Freq PRN Reason Stop Dose Admin Acetaminophen 1,000 mg 10/05/19 11:55 Tylenol Tab PO Q6HR PRN Pain Albuterol Sulfate 2.5 mg 10/05/19 11:55 Ventolin Nebulized INHALATION RT-Q6H PRN Shortness Of Breath Amlodipine Besylate 5 mg 10/05/19 21:00 Norvasc PO HS FREDIS Citalopram Hydrobromide 20 mg 10/05/19 21:00 Celexa PO HS FREDIS Estradiol 1 mg 10/06/19 09:00 Estrace PO DAILY FREDIS Famotidine 20 mg 10/05/19 11:55 Pepcid PO TID PRN Indigestion w/Ibuprofen Sodium Chloride 1,000 mls @ 100 mls/hr 10/05/19 03:15 10/05/19 04:32 Saline 0.9% IV 100 mls/hr .Q10H FREDIS Administration Lisinopril 40 mg 10/05/19 21:00 Zestril PO HS FREDIS Loratadine 10 mg 10/05/19 21:00 Claritin PO HS [facility] Intake and Output 10/04/19 10/05/19 10/05/19 22:59 06:59 14:59 Other: Voiding Method Toilet # Voids 1 Weight 72.575 kg 10/05/19 00:29 10/05/19 00:29
[2019-10-05] MEDS ORDERED: HYDROcodone/APAP 5-325MG 1 EACH TAB PO PRN (12:16)
[2019-10-05] MEDS: ALPRAZolam 0.25 MG TAB PO PRN (12:38)
--- NOTE | 2019-10-05 13:30 | P.CNPUL ---
History of Present Illness Consult date: 10/05/19 Requesting physician: Louisa Tesfaye Reason for consult: lung mass, abnormal CXR/CT Chief complaint: Left lower lobe lung mass History of present illness: This is a 39-year-old white female patient with a past medical history of lung nodule in the left lung initially seen on the CT chest on 01/30/2019 in the left lower lobe. On the follow-up CAT scan on 07/06/2019 there was a noted increase in size and another satellite lesion, as well as 5 mm vague right upper lobe nodule. Patient is a chronic smoker, and despite her age concern for malignancy remained a PET scan was done on 02/27/2019 showing metabolic activity with an SUV of 4.4. Patient was given the option of surgical removal of the nodules however patient opted for continued surveillance and navigational bronchoscopy on 07/23/[address] Breaux of the left lower lobe mass, brushing of the left lower lobe and bronchoalveolar lavage. Cytology and biopsy of the left lower lobe were negative. Patient was advised to follow-up in 6 months. Patient did have mild hemoptysis even before the bronchoscopy with biopsies, however she noted a recent increase in the amount of hemoptysis. On 10/05/2019 patient presented today emergency department for evaluation of increased hemoptysis, she states she brought up 5 tablespoonfuls of blood with coughing. He reports some chest tightness, some mild night sweats, she continues to smoke. Room air pulse ox is 97-98%, patient is afebrile. Hemodynamically she is stable. Reports no weight loss, no lower extremity swelling. CTA chest showed no evidence of pulmonary embolism, he showed 5 cm cystic mass in the lateral left lung base in the region of anterior basal segment of left lower lobe above the diaphragm. This is mostly fluid density. There is no evidence of hilar masses, no mediastinal adenopathy. Lab work was reviewed showing white blood cell, 16.1, hemoglobin is 12.1, INR 0.9, electrolytes and renal profile were unremarkable, troponin was negative at 0.012, proBNP was 24, LFTs were within normal limits, urinalysis was negative, urine hCG was nondetected. 2-D echocardiogram showed a preserved left ventricle systolic function with an EF of 55-60%, mild enlargement of right atrium and mild tricuspid regurgitation. The medical history is hypertension, GERD/reflux, endometriosis, status post laparoscopic surgeries and recent hysterectomy, anxiety and depression. Review of Systems All systems: negative Constitutional: Denies chills, Denies fever Eyes: denies blurred vision, denies pain Ears, nose, mouth and throat: Denies headache, Denies sore throat Cardiovascular: Denies chest pain, Denies shortness of breath Respiratory: Reports hemoptysis, Denies cough Gastrointestinal: Denies abdominal pain, Denies diarrhea, Denies nausea, Denies vomiting Genitourinary: Denies dysuria, Denies hematuria Musculoskeletal: Denies myalgias Integumentary: Denies pruritus, Denies rash Neurological: Denies numbness, Denies weakness Psychiatric: Denies anxiety, Denies depression Endocrine: Denies fatigue, Denies weight change Past Medical History Past Medical History: GERD/Reflux, Hypertension, Osteoarthritis (OA) Additional Past Medical History / Comment(s): Endometriosis, constant nasal congestion, bloating, nausea, and IBS. 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 left lung nodule biopsy. Past Anesthesia/Blood Transfusion Reactions: Postoperative Nausea & Vomiting (PONV) Past Psychological History: Anxiety, Depression Smoking Status: Current every day smoker Past Alcohol Use History: None Reported Past Drug Use History: None Reported - Past Family History Mother Family Medical History: No Reported History Father Family Medical History: Diabetes Mellitus, Hypertension Medications and Allergies Home Medications Medication Instructions Recorded Confirmed Type Cetirizine HCl [Zyrtec] 10 mg PO HS 06/12/17 10/05/19 History Citalopram Hydrobromide [CeleXA] 20 mg PO HS 06/12/17 10/05/19 History Famotidine [Pepcid] 20 mg PO TID PRN 06/12/17 10/05/19 History amLODIPine [Norvasc] 5 mg PO HS 06/12/17 10/05/19 History lisinopriL 40 mg PO HS 06/12/17 10/05/19 History Acetaminophen Tab [Tylenol Tab] 1,000 mg PO Q6HR PRN 07/21/19 10/05/19 History Ibuprofen [Motrin] 800 mg PO Q8H PRN 07/21/19 10/05/19 History estradioL [Estrace] 1 mg PO DAILY 07/21/19 10/05/19 History Albuterol Inhaler [Ventolin Hfa 2 puff INHALATION RT-Q6H PRN 10/05/19 10/05/19 History Inhaler] Allergies Allergy/AdvReac Type Severity Reaction Status Date / Time prochlorperazine AdvReac Extreme Verified 10/05/19 09:18 [From Compazine] anxiety Physical Exam Vitals: Vital Signs Temp Pulse Pulse Resp BP BP Pulse Ox 10/05/19 11:41 88 18 138/78 97 10/05/19 11:39 82 18 142/78 96 10/05/19 11:29 80 20 140/77 95 10/05/19 11:10 98 20 134/76 96 10/05/19 07:00 97.7 F 70 18 108/72 95 10/05/19 03:02 97.8 F 68 18 127/82 98 10/05/19 02:37 97.7 F 63 16 104/58 97 10/04/19 23:59 98.6 F 92 18 136/86 98 Intake and Output 10/04/19 10/05/19 10/05/19 22:59 06:59 14:59 Other: Voiding Method Toilet # Voids 1 Weight 72.575 kg GENERAL EXAM: Alert, very pleasant, 39-year-old white female, on room air with a pulse ox of 97%, comfortable in no apparent distress. HEAD: Normocephalic/atraumatic. EYES: Normal reaction of pupils, equal size. Conjunctiva pink, sclera white. NOSE: Clear with pink turbinates. THROAT: No erythema or exudates. NECK: No masses, no JVD, no thyroid enlargement, no adenopathy. CHEST: No chest wall deformity. Symmetrical expansion. LUNGS: Equal air entry with no crackles, wheeze, rhonchi or dullness. CVS: Regular rate and rhythm, normal S1 and S2, no gallops, no murmurs, no rubs ABDOMEN: Soft, nontender. No hepatosplenomegaly, normal bowel sounds, no guarding or rigidity. EXTREMITIES: No clubbing, no edema, no cyanosis, 2+ pulses and upper and lower extremities. MUSCULOSKELETAL: Muscle strength and tone normal. SPINE: No scoliosis or deformity SKIN: No rashes CENTRAL NERVOUS SYSTEM: Alert and oriented -3. No focal deficits, tone is normal in all 4 extremities. PSYCHIATRIC: Alert and oriented -3. Appropriate affect. Intact judgment and insight. Results - Laboratory Findings CBC and BMP: 10/05/19 00:29 10/05/19 00:29 PT/INR, D-dimer PT 9.5 sec (9.0-12.0) 10/05/19 00: INR 0.9 (<1.2) 10/05/19 00:29 Abnormal lab findings: Abnormal Labs 10/05/19 10/05/19 00:29 00:29 WBC 16.1 H Neutrophils # 10.7 H Monocytes # 1.1 H Chloride 109 H Glucose 106 H - Diagnostic Findings CT scan - chest: report reviewed, image reviewed Assessment and Plan Plan: Assessment: #1. Enlarging left lower lung pulmonary mass, first seen on the CT chest on 01/30/2019, and follow-up CT chest on 07/06/2019, there was a 2.5 x 1.9 cm enlarging left lung mass in the left lower lobe just under the fissure to bring the lingular segment of the left lower lobe. On the follow-up CT chest on 07/06/2019 there was a satellite lesion in the left lower lobe and another 5 mm vague right upper lobe nodule, and there was a concern for malignancy despite the young age in the chronic smoker, a PET scan on 02/27/2019 showed metabolic activity with an SUV of 4.4. Patient underwent navigational bronchoscopy with biopsy of the left lower lobe nodule on 07/23/2019, and cytology and biopsy were negative for malignancy. Patient presents on 10/05/2019 with complaints of hemoptysis and some chest tightness, and CT chest reveals enlarging cystic mass in the lateral left lung base at the region of the anterior basal segment of the left lower lobe, contiguous with a heart, with the consideration of pericardial cyst, bronchogenic cyst or loculated pleural fluid. Necrotic tumor is not excluded, pending CT-guided CT needle aspiration #2. Chronic smoker, carries [id number] smoking history #3. Endometriosis, status post laparoscopic surgeries #4. Hemoptysis #5. GERD/reflux #6. Anxiety/depression #7. Uterine Leiomyoma Plan: We consulted interventional radiology for CT-guided needle aspiration of the cystic left lower lobe lung mass, and the fluid was sent for cultures, and cytology. There is still suspicion for underlying malignancy, underlying sarcoma, or endometriosis related lesion in the lung, given the rapid increase in size since June 2019 previous transbronchial biopsy being negative for any evidence of malignancy. We'll consult CT surgery for possibility of surgical resection. We'll continue to closely follow I performed a history & physical examination of the patient and discussed their management with my nurse practitioner, Roberta Spaulding. I reviewed the nurse practitioner's note and agree with the documented findings and plan of care. Lung sounds are positive for clear breath sounds throughout the lung trammell. The findings and the impression was discussed with the patient. I attest to the documentation by the nurse practitioner. Time with Patient: Greater than 30
[2019-10-05] MEDS ORDERED: HYDROcodone/APAP 5-325MG 1 EACH TAB PO STA (13:48)
--- NOTE | 2019-10-05 14:54 | XR ---
EXAMINATION TYPE: XR chest 1V DATE OF EXAM: 10/05/2019 CLINICAL HISTORY: Left lung biopsy. TECHNIQUE: Single AP portable upright view of the chest is obtained. COMPARISON: Chest x-ray and CTA chest from earlier today. FINDINGS: Persistent peripheral left basilar opacity. No new pneumothorax. Right lung base shows new patchy atelectasis. Cardiac silhouette size stable and within normal limits. Osseous structures are intact. IMPRESSION: Persistent lateral left basilar mass and associated atelectatic change. No pneumothorax. No significant change from most recent x-ray.
[2019-10-05] MEDS: HYDROcodone/APAP 10-325MG 1 EACH TAB PO PRN (19:36)
[2019-10-05] MEDS: amLODIPine 5 MG TAB PO SCH (20:33)
[2019-10-05] MEDS: LORATADINE 10 MG TAB PO SCH (20:33)
[2019-10-05] MEDS: CITALOPRAM HYDROBROMIDE 20 MG TAB PO SCH (20:33)
[2019-10-05] MEDS: lisinopriL 20 MG TAB PO SCH (20:33)
[2019-10-05] MEDS: NICOTINE 21MG/24HR PATCH TRANSDERM SCH (21:44)
--- NOTE | 2019-10-06 01:39 | P.HPIM ---
History of Present Illness H&P Date: 10/05/19 Chief Complaint: Hemoptysis Ms. Olvera is a 39 y/o female with a past medical history of GERD, hypertension, endometriosis, IBS coming into the hospital with a chief complaint of hemoptysis. Patient states that she has been having hemoptysis for the past few months along with persistent cough. She was also having difficulty in breathing. Patient has a history of left lung nodule initially seen on CT chest in January 2019. She had a follow-up CAT scan in June 2019 showing increase in the size and another satellite lesion with 5 mm of vague right upper lobe nodule. Patient also had a PET scan done in February 2019 showing increased metabolic activity. At that time she was suggested to have removal of the nodules but patient wanted wanted to wait on it. But eventually due to increase in her hemoptysis she presented to the ER. Patient reports no fever chills or rigors. She denies having any recent weight loss. In the ER patient had CTA of the chest which was negative for PE but was showing increasing her size of old nodule, necrotic tumor not excluded. There was also possibility of pericardial cyst, bronchogenic cyst or loculated pleural e ffusion. So the patient had fine-needle aspiration of the mass done today. She now complains of pain at the site of the procedure. Review of Systems REVIEW OF SYSTEMS: CONSTITUTIONAL: No fever, no malaise, no fatigue. HEENT: No recent visual problems or hearing problems. Denied any sore throat. CARDIOVASCULAR: No orthopnea, PND, no palpitations, no syncope. PULMONARY: As per HPI GASTROINTESTINAL: No diarrhea, no nausea,no abdominal pain. NEUROLOGICAL: No headaches, no weakness, no numbness. HEMATOLOGICAL: Denies any bleeding or petechiae. GENITOURINARY: Denies any burning micturition, frequency, or urgency. MUSCULOSKELETAL/RHEUMATOLOGICAL: No joint swelling or bone pain ENDOCRINE: Denies any polyuria or polydipsia. The rest of the 13-point review of systems is negative. Past Medical History Past Medical History: GERD/Reflux, Hypertension, Osteoarthritis (OA) Additional Past Medical History / Comment(s): Endometriosis, constant nasal congestion, bloating, nausea, and IBS. 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 left lung nodule biopsy. Past Anesthesia/Blood Transfusion Reactions: Postoperative Nausea & Vomiting (PONV) Past Psychological History: Anxiety, Depression Smoking Status: Current every day smoker Past Alcohol Use History: None Reported Past Drug Use History: None Reported - Past Family History Mother Family Medical History: No Reported History Father Family Medical History: Diabetes Mellitus, Hypertension Medications and Allergies Home Medications Medication Instructions Recorded Confirmed Type Cetirizine HCl [Zyrtec] 10 mg PO HS 06/12/17 10/05/19 History Citalopram Hydrobromide [CeleXA] 20 mg PO HS 06/12/17 10/05/19 History Famotidine [Pepcid] 20 mg PO TID PRN 06/12/17 10/05/19 History amLODIPine [Norvasc] 5 mg PO HS 06/12/17 10/05/19 History lisinopriL 40 mg PO HS 06/12/17 10/05/19 History Acetaminophen Tab [Tylenol Tab] 1,000 mg PO Q6HR PRN 07/21/19 10/05/19 History Ibuprofen [Motrin] 800 mg PO Q8H PRN 07/21/19 10/05/19 History estradioL [Estrace] 1 mg PO DAILY 07/21/19 10/05/19 History Albuterol Inhaler [Ventolin Hfa 2 puff INHALATION RT-Q6H PRN 10/05/19 10/05/19 History Inhaler] Allergies Allergy/AdvReac Type Severity Reaction Status Date / Time prochlorperazine AdvReac Extreme Verified 10/05/19 09:18 [From Compazine] anxiety Physical Exam Vitals: Vital Signs Temp Pulse Pulse Resp BP BP Pulse Ox 10/05/19 12:45 71 140/89 10/05/19 12:30 77 153/75 10/05/19 12:15 98.3 F 89 20 153/75 10/05/19 11:41 88 18 138/78 97 10/05/19 11:39 82 18 142/78 96 10/05/19 11:29 80 20 140/77 95 10/05/19 11:10 98 20 134/76 96 10/05/19 07:00 97.7 F 70 18 108/72 95 10/05/19 03:02 97.8 F 68 18 127/82 98 10/05/19 02:37 97.7 F 63 16 104/58 97 10/05/19 01:15 78 114/62 10/05/19 01:00 76 132/78 10/04/19 23:59 98.6 F 92 18 136/86 98 Intake and Output 10/04/19 10/05/19 10/05/19 22:59 06:59 14:59 Other: Voiding Method Toilet # Voids 1 Weight 72.575 kg PHYSICAL EXAMINATION: GENERAL: not in any acute distress. HEENT: Pupils are round and equally reacting to light. EOMI. mild scleral icterus. No conjunctival pallor. Normocephalic, atraumatic. No pharyngeal erythema. No thyromegaly. CARDIOVASCULAR:S1, S2 heard . No additional sounds. PULMONARY: Bilateral breath sounds are positive. No wheeze or crackles. Left side of the chest - is covered in bandage - procedure site ABDOMEN: Soft, nontender, nondistended, normoactive bowel sounds. No palpable organomegaly. MUSCULOSKELETAL: No joint swelling or deformity. EXTREMITIES: No cyanosis, clubbing, or pedal edema. NEUROLOGICAL: AAOX 3 , Gross neurological examination did not reveal any focal deficits. Results CBC & Chem 7: 10/07/19 07:51 10/07/19 07:51 Labs: Abnormal Lab Results - Last 24 Hours (Table) 10/05/19 10/05/19 Range/Units 00:29 00:29 WBC 16.1 H (3.8-10.6) k/uL Neutrophils # 10.7 H (1.3-7.7) k/uL Monocytes # 1.1 H (0-1.0) k/uL Chloride 109 H (98-107) mmol/L Glucose 106 H (74-99) mg/dL Thrombosis Risk Factor Assmnt - Choose All That Apply Any of the Below Risk Factors Present?: Yes Each Factor Represents 1 point: Obesity (BMI >25) Other Risk Factors: No Other congenital or acquired thrombophilia - If yes, enter type in comment: No Thrombosis Risk Factor Assessment Total Risk Factor Score: 1 Thrombosis Risk Factor Assessment Level: Low Risk Assessment and Plan Assessment: ASSESSMENT Hemoptysis Left lower lobe lung mass History of endometriosis Chronic nicotine dependence GERD Anxiety with depression PLAN: Patient had CT-guided biopsy of the lung mass done today, pending pathology and culture. There is a possibility of underlying malignancy. Cardiology, pulmonary on board and following the patient closely. Further recommendations depending on the progress of the patient.
[2019-10-06] MEDS: HYDROcodone/APAP 10-325MG 1 EACH TAB PO PRN ×4 (02:43→22:51)
[2019-10-06 04:21] LABS: Basophils # (A) 0.1 k/uL (0-0.2); Basophils % (A) 1 %; Eosinophils # (A) 0.3 k/uL (0-0.7); Eosinophils % (A) 2 %; HCT 33.8 % (34.0-46.0); HGB 11.1 gm/dL (11.4-16.0); Lymphocytes % (A) 18 %; MCH 31.1 pg (25.0-35.0); MCHC 32.8 g/dL (31.0-37.0); MCV 94.7 fL (80.0-100.0); Monocytes # (A) 1.1 k/uL (0-1.0); Monocytes % (A) 7 %; Neutrophils # (A) 11.9 k/uL (1.3-7.7); Neutrophils % (A) 71 %; Platelet Count 409 k/uL (150-450); RBC 3.56 m/uL (3.80-5.40); RDW 12.1 % (11.5-15.5); WBC 16.7 k/uL (3.8-10.6)
[2019-10-06 04:40] LABS: Cholesterol 173 mg/dL (<200); HDL Cholesterol 25 mg/dL (40-60); LDL Cholesterol,Calculated 118 mg/dL (0-99); Triglycerides 148 mg/dL (<150)
[2019-10-06] MEDS: SODIUM CHLORIDE 0.9% 1,000 ML IV SCH (08:18)
[2019-10-06] MEDS: NICOTINE 21MG/24HR PATCH TRANSDERM SCH (08:18)
--- NOTE | 2019-10-06 09:33 | P.PN ---
Subjective Progress Note Date: 10/06/19 Principal diagnosis: Left lower lobe mass. Previous medical history of endometriosis status post multiple D&Cs and hysterectomy, hypertension, current tobacco dependence. The patient is currently ambulatory in her room in no acute distress. Does state she has continued to have some bloody sputum. She was seen by Dr. Bowser yesterday who reviewed her CT scans and surgical options were discussed. In addition, she had needle biopsy by interventional radiology, pathology pending. No new concerns. Objective - Vital Signs Vital signs: Vital Signs Temp 99.7 F H 10/06/19 07:12 Pulse 89 10/06/19 07:12 Resp 18 10/06/19 07:12 BP 129/74 10/06/19 07:12 Pulse Ox 94 L 10/06/19 07:12 Intake & Output 10/05/19 10/06/19 10/06/19 18:59 06:59 18:59 Intake Total 800 Balance 800 Intake: Intake, IV Titration 800 Amount Sodium Chloride 0.9% 1, 800 000 ml @ 100 mls/hr IV . Q10H [facility] Rx#:[id number] Other: Voiding Method Toilet Toilet Toilet # Voids 3 1 - Constitutional General appearance: Present: cooperative, no acute distress - Respiratory Details: Lungs sounds clear but diminished bilaterally. Respirations even, nonlabored. Currently on room air with oxygen saturation 94%. - Cardiovascular Details: S1, S2 present. Regular rate and rhythm, sinus rhythm on telemetry. Palpable peripheral pulses bilaterally. No edema present. No calf pain or tenderness noted. - Gastrointestinal Gastrointestinal Comment(s): Abdomen soft, nontender, nondistended. Active bowel sounds present 4 quadrants. Tolerating diet. - Genitourinary Genitourinary Comment(s): Continues to void - Integumentary Integumentary Comment(s): Skin is warm and dry with evidence of good perfusion - Neurologic Neurologic: Present: CNII-XII intact - Musculoskeletal Musculoskeletal: Present: gait normal, strength equal bilaterally - Psychiatric Psychiatric: Present: A&O x's 3, appropriate affect, intact judgment & insight - Allied health notes Allied health notes reviewed: nursing - Labs CBC & Chem 7: 10/06/19 04:01 10/05/19 00:29 Labs: Abnormal Lab Results - Last 24 Hours (Table) 10/06/19 10/06/19 Range/Units 04:01 04:01 WBC 16.7 H (3.8-10.6) k/uL RBC 3.56 L (3.80-5.40) m/uL Hgb 11.1 L (11.4-16.0) gm/dL Hct 33.8 L (34.0-46.0) % Neutrophils # 11.9 H (1.3-7.7) k/uL Monocytes # 1.1 H (0-1.0) k/uL LDL Cholesterol, Calc 118 H (0-99) mg/dL HDL Cholesterol 25 L (40-60) mg/dL Microbiology - Last 24 Hours (Table) 10/05/19 09:03 Gram Stain - Preliminary Aspirate Body Fluid Culture - Preliminary 10/05/19 09:03 Acid Fast Bacilli Culture - Preliminary Lung Aspirate - Left 10/05/19 09:03 Fungal Culture - Preliminary Lung Aspirate - Left 10/05/19 11:50 Anaerobic Culture - Preliminary Lung Aspirate - Left Assessment and Plan Assessment: 1. Left lower lobe mass, status post needle biopsy by interventional radiology, pathology pending 2. History of endometriosis status post multiple D&Cs and hysterectomy 3. Current tobacco dependence Plan: 1. Await needle biopsy pathology for surgical recommendations. Decision on wedge resection versus lobectomy will be made once pathology results are finalized 2. Incentive spirometry ordered and encouraged. 3. Counseling regarding importance of smoking cessation offered again 4. Medical management with a comorbidities per primary care service 5. From our standpoint patient can be discharged to home to return next week outpatient for surgery. If it is felt by pulmonology that patient needs to stay inpatient we will schedule surgery as early as scheduling allows once the pathology is finalized. Patient wishes to stay inpatient to keep her from smoking. Decision up to pulmonology. 6. More recommendations to follow Time with Patient: Greater than 30
[2019-10-06] MEDS: FAMOTIDINE 20 MG TAB PO PRN (10:53)
--- NOTE | 2019-10-06 13:26 | P.PN ---
Subjective Progress Note Date: 10/06/19 Principal diagnosis: Left lower lobe lung mass This is a 39-year-old white female patient with a past medical history of lung nodule in the left lung initially seen on the CT chest on 01/30/2019 in the left lower lobe. On the follow-up CAT scan on 07/06/2019 there was a noted increase in size and another satellite lesion, as well as 5 mm vague right upper lobe nodule. Patient is a chronic smoker, and despite her age concern for malignancy remained a PET scan was done on 02/27/2019 showing metabolic activity with an SUV of 4.4. Patient was given the option of surgical removal of the nodules however patient opted for continued surveillance and navigational bronchoscopy on 07/23/[address] Breaux of the left lower lobe mass, brushing of the left lower lobe and bronchoalveolar lavage. Cytology and biopsy of the left lower lobe were negative. Patient was advised to follow-up in 6 months. Patient did have mild hemoptysis even before the bronchoscopy with biopsies, however she noted a recent increase in the amount of hemoptysis. On 10/05/2019 patient presented today emergency department for evaluation of increased hemoptysis, she states she brought up 5 tablespoonfuls of blood with coughing. He reports some chest tightness, some mild night sweats, she continues to smoke. Room air pulse ox is 97-98%, patient is afebrile. Hemodynamically she is stable. Reports no weight loss, no lower extremity swelling. CTA chest showed no evidence of pulmonary embolism, he showed 5 cm cystic mass in the lateral left lung base in the region of anterior basal segment of left lower lobe above the diaphragm. This is mostly fluid density. There is no evidence of hilar masses, no mediastinal adenopathy. Lab work was reviewed showing white blood cell, 16.1, hemoglobin is 12.1, INR 0.9, electrolytes and renal profile were unremarkable, troponin was negative at 0.012, proBNP was 24, LFTs were within normal limits, urinalysis was negative, urine hCG was nondetected. 2-D echocardiogram showed a preserved left ventricle systolic function with an EF of 55-60%, mild enlargement of right atrium and mild tricuspid regurgitation. The medical history is hypertension, GERD/reflux, endometriosis, status post laparoscopic surgeries and recent hysterectomy, anxiety and depression. On 10/06/2019 patient seen in follow-up on the medical surgical floor, she is awake and alert and 3, no acute distress, resting comfortably in bed, she had some small amount of hemoptysis last night, mostly dark old blood tinged sputum, no chest pain, room air pulse ox is 94%, she is having some low-grade fevers with it T-max of 99.7F. Patient is status post CT-guided needle aspiration of the left lower lobe enlarging cystic mass in the lateral left lung base. Patient tolerated procedure well, cytology is pending. No acute issues overnight. Today's labs have been reviewed, white blood cell count is stable, at 16.7, hemoglobin is 11.1. No acute complaints Objective - Vital Signs Vital signs: Vital Signs Temp 99.7 F H 10/06/19 07:12 Pulse 89 10/06/19 07:12 Resp 18 10/06/19 07:12 BP 129/74 10/06/19 07:12 Pulse Ox 94 L 10/06/19 07:12 Intake & Output 10/05/19 10/06/19 10/06/19 18:59 06:59 18:59 Intake Total 800 Balance 800 Intake: Intake, IV Titration 800 Amount Sodium Chloride 0.9% 1, 800 000 ml @ 100 mls/hr IV . Q10H [facility] Rx#:[id number] Other: Voiding Method Toilet Toilet Toilet # Voids 3 1 - Exam GENERAL EXAM: Alert, very pleasant, 39-year-old white female, on room air with a pulse ox of 94%, comfortable in no apparent distress. HEAD: Normocephalic/atraumatic. EYES: Normal reaction of pupils, equal size. Conjunctiva pink, sclera white. NOSE: Clear with pink turbinates. THROAT: No erythema or exudates. NECK: No masses, no JVD, no thyroid enlargement, no adenopathy. CHEST: No chest wall deformity. Symmetrical expansion. LUNGS: Equal air entry with no crackles, wheeze, rhonchi or dullness. CVS: Regular rate and rhythm, normal S1 and S2, no gallops, no murmurs, no rubs ABDOMEN: Soft, nontender. No hepatosplenomegaly, normal bowel sounds, no guarding or rigidity. EXTREMITIES: No clubbing, no edema, no cyanosis, 2+ pulses and upper and lower extremities. MUSCULOSKELETAL: Muscle strength and tone normal. SPINE: No scoliosis or deformity SKIN: No rashes CENTRAL NERVOUS SYSTEM: Alert and oriented -3. No focal deficits, tone is normal in all 4 extremities. PSYCHIATRIC: Alert and oriented -3. Appropriate affect. Intact judgment and insight. - Labs CBC & Chem 7: 10/06/19 04:01 10/05/19 00:29 Labs: Abnormal Lab Results - Last 24 Hours (Table) 10/06/19 10/06/19 Range/Units 04:01 04:01 WBC 16.7 H (3.8-10.6) k/uL RBC 3.56 L (3.80-5.40) m/uL Hgb 11.1 L (11.4-16.0) gm/dL Hct 33.8 L (34.0-46.0) % Neutrophils # 11.9 H (1.3-7.7) k/uL Monocytes # 1.1 H (0-1.0) k/uL LDL Cholesterol, Calc 118 H (0-99) mg/dL HDL Cholesterol 25 L (40-60) mg/dL Microbiology - Last 24 Hours (Table) 10/05/19 09:03 Gram Stain - Preliminary Aspirate Body Fluid Culture - Preliminary 10/05/19 09:03 Acid Fast Bacilli Culture - Preliminary Lung Aspirate - Left 10/05/19 09:03 Fungal Culture - Preliminary Lung Aspirate - Left 10/05/19 11:50 Anaerobic Culture - Preliminary Lung Aspirate - Left Assessment and Plan Plan: Assessment: #1. Enlarging left lower lung pulmonary mass, first seen on the CT chest on 01/30/2019, and follow-up CT chest on 07/06/2019, there was a 2.5 x 1.9 cm enlarging left lung mass in the left lower lobe just under the fissure to bring the lingular segment of the left lower lobe. On the follow-up CT chest on 07/06/2019 there was a satellite lesion in the left lower lobe and another 5 mm vague right upper lobe nodule, and there was a concern for malignancy despite the young age in the chronic smoker, a PET scan on 02/27/2019 showed metabolic activity with an SUV of 4.4. Patient underwent navigational bronchoscopy with biopsy of the left lower lobe nodule on 07/23/2019, and cytology and biopsy were negative for malignancy. Patient presents on 10/05/2019 with complaints of hemoptysis and some chest tightness, and CT chest reveals enlarging cystic mass in the lateral left lung base at the region of the anterior basal segment of the left lower lobe, contiguous with a heart, with the consideration of pericardial cyst, bronchogenic cyst or loculated pleural fluid. Necrotic tumor is not excluded, status post CT-guided CT needle aspiration, postoperative day 1, awaiting results of the needle aspirate cytology #2. Chronic smoker, carries [id number] smoking history #3. Endometriosis, status post laparoscopic surgeries #4. Hemoptysis #5. GERD/reflux #6. Anxiety/depression #7. Uterine Leiomyoma Plan: Awaiting results of the needle aspirate cytology of the left lower lobe cystic mass. Today's chest x-ray has been reviewed showing no evidence of pneumothorax, and persistent lateral left basilar mass and associated atelectasis. Encourage deep breathing and coughing, patient is on room air, no acute events overnight, we'll continue to closely follow with CT surgery. I performed a history & physical examination of the patient and discussed their management with my nurse practitioner, Roberta Spaulding. I reviewed the nurse practitioner's note and agree with the documented findings and plan of care. Lung sounds are positive for clear breath sounds throughout the lung trammell. The findings and the impression was discussed with the patient. I attest to the documentation by the nurse practitioner. Time with Patient: Less than 30
[2019-10-06] MEDS: ONDANSETRON 4 MG/2 ML VIAL IVP PRN (14:24)
[2019-10-06] MEDS ORDERED: LACTULOSE 20 GM/30 ML CUP PO ONE (19:12)
[2019-10-06] MEDS: amLODIPine 5 MG TAB PO SCH (19:42)
[2019-10-06] MEDS: CITALOPRAM HYDROBROMIDE 20 MG TAB PO SCH (19:42)
[2019-10-06] MEDS: LORATADINE 10 MG TAB PO SCH (19:43)
[2019-10-06] MEDS: lisinopriL 20 MG TAB PO SCH (19:43)
[2019-10-07] MEDS: SODIUM CHLORIDE 0.9% 1,000 ML IV SCH ×2 (08:18→17:57)
[2019-10-07] MEDS: NICOTINE 21MG/24HR PATCH TRANSDERM SCH (08:20)
[2019-10-07] MEDS: HYDROcodone/APAP 10-325MG 1 EACH TAB PO PRN ×3 (08:20→20:39)
[2019-10-07 09:19] LABS: Basophils # (A) 0.1 k/uL (0-0.2); Basophils % (A) 1 %; Eosinophils # (A) 0.3 k/uL (0-0.7); Eosinophils % (A) 2 %; HCT 32.7 % (34.0-46.0); HGB 10.3 gm/dL (11.4-16.0); Lymphocytes % (A) 23 %; MCHC 31.6 g/dL (31.0-37.0); MCV 94.8 fL (80.0-100.0); Monocytes # (A) 0.9 k/uL (0-1.0); Monocytes % (A) 6 %; Neutrophils % (A) 67 %; Platelet Count 400 k/uL (150-450); RBC 3.44 m/uL (3.80-5.40); RDW 12.5 % (11.5-15.5); WBC 13.4 k/uL (3.8-10.6)
[2019-10-07 09:48] LABS: African American GFR (CKD) >90 (>60 ml/min/1.73 sqM); Anion Gap 6 mmol/L; Blood Urea Nitrogen 5 mg/dL (7-17); Calcium 8.8 mg/dL (8.4-10.2); Carbon Dioxide 26 mmol/L (22-30); Chloride 107 mmol/L (98-107); Glucose 94 mg/dL (74-99); Non-African American GFR(CKD) >90 (>60 ml/min/1.73 sqM); Potassium 4.4 mmol/L (3.5-5.1); Sodium 139 mmol/L (137-145)
--- NOTE | 2019-10-07 10:13 | P.PN ---
Subjective Progress Note Date: 10/07/19 Principal diagnosis: Left lower lobe mass. Previous medical history of endometriosis status post multiple D&Cs and hysterectomy, hypertension, current tobacco dependence. The patient is currently sitting up in her bed on 4S and is in no acute distress. Does state she has continued to have some bloody sputum with evidence of some red tinged sputum in her kidney basin at her bedside. She had needle biopsy completed on 10/05/2019 by interventional radiology, fine-needle aspira tion results show fibrinopurulent material and histiocytes compatible with acute inflammation or pulmonary abscess. She complains of some postnasal drip and some non-cardiac substernal irritation. Objective - Vital Signs Vital signs: Vital Signs Temp 98.6 F 10/07/19 07:55 Pulse 66 10/07/19 07:55 Resp 20 10/07/19 07:55 BP 117/75 10/07/19 07:55 Pulse Ox 95 10/07/19 07:55 Intake & Output 10/06/19 10/07/19 10/07/19 18:59 06:59 18:59 Intake Total 500 800 Balance 500 800 Intake: Intake, IV Titration 800 Amount Sodium Chloride 0.9% 1, 800 000 ml @ 100 mls/hr IV . Q10H [facility] Rx#:[id number] Oral 500 Other: Voiding Method Toilet Toilet # Voids 3 1 - Constitutional General appearance: Present: cooperative, no acute distress - EENT Eyes: Present: PERRLA ENT: Present: hearing grossly normal - Respiratory Details: Lungs sounds clear but diminished bilaterally. Respirations even, nonlabored. Currently on room air with oxygen saturation 95%. - Cardiovascular Details: S1, S2 present. Regular rate and rhythm. Palpable peripheral pulses bilat erally. No edema present. No calf pain or tenderness noted. - Gastrointestinal Gastrointestinal Comment(s): Abdomen soft, nontender, nondistended. Active bowel sounds present 4 quadrants. Tolerating diet. - Genitourinary Genitourinary Comment(s): Continues to void - Integumentary Integumentary Comment(s): Skin is warm and dry with evidence of good perfusion. - Neurologic Neurologic: Present: CNII-XII intact - Musculoskeletal Musculoskeletal: Present: gait normal, strength equal bilaterally - Psychiatric Psychiatric: Present: A&O x's 3, appropriate affect - Allied health notes Allied health notes reviewed: nursing - Labs CBC & Chem 7: 10/07/19 07:51 10/07/19 07:51 Labs: Microbiology - Last 24 Hours (Table) 10/05/19 09:03 Acid Fast Bacilli Smear - Final Lung Aspirate - Left Acid Fast Bacilli Culture - Preliminary 10/05/19 09:03 Gram Stain - Preliminary Aspirate Body Fluid Culture - Preliminary Assessment and Plan Assessment: 1. Left lower lobe mass, status post needle biopsy by interventional radiology, pathology pending 2. History of endometriosis status post multiple D&Cs and hysterectomy 3. Current tobacco dependence Plan: 1. Fine-needle aspirate showing fibrinopurulent material and histiocytes compatible with acute inflammation or pulmonary abscess. We will consult interventional radiology for pigtail catheter placement. 2. Incentive spirometry ordered and encouraged 10 times every hour while awake. 3. Counseling regarding importance of smoking cessation, reinforced. 4. Medical management with a comorbidities per primary care service 5. Increase activity as tolerated. Out of bed for all meals. 6. More recommendations to follow based on patient's clinical course Time with Patient: Greater than 30
--- NOTE | 2019-10-07 13:52 | P.PN ---
Subjective Progress Note Date: 10/07/19 Principal diagnosis: Left lower lobe lung mass This is a 39-year-old white female patient with a past medical history of lung nodule in the left lung initially seen on the CT chest on 01/30/2019 in the left lower lobe. On the follow-up CAT scan on 07/06/2019 there was a noted increase in size and another satellite lesion, as well as 5 mm vague right upper lobe nodule. Patient is a chronic smoker, and despite her age concern for malignancy remained a PET scan was done on 02/27/2019 showing metabolic activity with an SUV of 4.4. Patient was given the option of surgical removal of the nodules however patient opted for continued surveillance and navigational bronchoscopy on 07/23/[address] Breaux of the left lower lobe mass, brushing of the left lower lobe and bronchoalveolar lavage. Cytology and biopsy of the left lower lobe were negative. Patient was advised to follow-up in 6 months. Patient did have mild hemoptysis even before the bronchoscopy with biopsies, however she noted a recent increase in the amount of hemoptysis. On 10/05/2019 patient presented today emergency department for evaluation of increased hemoptysis, she states she brought up 5 tablespoonfuls of blood with coughing. He reports some chest tightness, some mild night sweats, she continues to smoke. Room air pulse ox is 97-98%, patient is afebrile. Hemodynamically she is stable. Reports no weight loss, no lower extremity swelling. CTA chest showed no evidence of pulmonary embolism, he showed 5 cm cystic mass in the lateral left lung base in the region of anterior basal segment of left lower lobe above the diaphragm. This is mostly fluid density. There is no evidence of hilar masses, no mediastinal adenopathy. Lab work was reviewed showing white blood cell, 16.1, hemoglobin is 12.1, INR 0.9, electrolytes and renal profile were unremarkable, troponin was negative at 0.012, proBNP was 24, LFTs were within normal limits, urinalysis was negative, urine hCG was nondetected. 2-D echocardiogram showed a preserved left ventricle systolic function with an EF of 55-60%, mild enlargement of right atrium and mild tricuspid regurgitation. The medical history is hypertension, GERD/reflux, endometriosis, status post laparoscopic surgeries and recent hysterectomy, anxiety and depression. On 10/06/2019 patient seen in follow-up on the medical surgical floor, she is awake and alert and 3, no acute distress, resting comfortably in bed, she had some small amount of hemoptysis last night, mostly dark old blood tinged sputum, no chest pain, room air pulse ox is 94%, she is having some low-grade fevers with it T-max of 99.7F. Patient is status post CT-guided needle aspiration of the left lower lobe enlarging cystic mass in the lateral left lung base. Patient tolerated procedure well, cytology is pending. No acute issues overnight. Today's labs have been reviewed, white blood cell count is stable, at 16.7, hemoglobin is 11.1. No acute complaints On 10/07/2019 patient seen in follow-up on medical surgical floor, she is awake and alert, in no acute distress, she is on room air, her hemoptysis has significantly decreased, with only small amount she brought up last night, vital signs have been stable, cytology of the left lung mass fine-needle aspiration showed fibrinopurulent material and histiocytes compatible with acute inflammation or pulmonary abscess. patient is on room air, pulse ox is 95%, she has no acute complaints, she was started on IV Kefzol for empiric antibiotic coverage, surgical services are following, and planning on surgical wedge resection of the left lower lobe mass Objective - Vital Signs Vital signs: Vital Signs Temp 98.6 F 10/07/19 07:55 Pulse 66 10/07/19 08:00 Resp 20 10/07/19 07:55 BP 117/75 10/07/19 07:55 Pulse Ox 95 10/07/19 07:55 Intake & Output 10/06/19 10/07/19 10/07/19 18:59 06:59 18:59 Intake Total 500 800 200 Balance 500 800 200 Intake: Intake, IV Titration 800 Amount Sodium Chloride 0.9% 1, 800 000 ml @ 100 mls/hr IV . Q10H [facility] Rx#:[id number] Oral 500 200 Other: Voiding Method Toilet Toilet Toilet # Voids 3 1 - Exam GENERAL EXAM: Alert, very pleasant, 39-year-old white female, on room air with a pulse ox of 95%, comfortable in no apparent distress. HEAD: Normocephalic/atraumatic. EYES: Normal reaction of pupils, equal size. Conjunctiva pink, sclera white. NOSE: Clear with pink turbinates. THROAT: No erythema or exudates. NECK: No masses, no JVD, no thyroid enlargement, no adenopathy. CHEST: No chest wall deformity. Symmetrical expansion. LUNGS: Equal air entry with no crackles, wheeze, rhonchi or dullness. CVS: Regular rate and rhythm, normal S1 and S2, no gallops, no murmurs, no rubs ABDOMEN: Soft, nontender. No hepatosplenomegaly, normal bowel sounds, no guarding or rigidity. EXTREMITIES: No clubbing, no edema, no cyanosis, 2+ pulses and upper and lower extremities. MUSCULOSKELETAL: Muscle strength and tone normal. SPINE: No scoliosis or deformity SKIN: No rashes CENTRAL NERVOUS SYSTEM: Alert and oriented -3. No focal deficits, tone is normal in all 4 extremities. PSYCHIATRIC: Alert and oriented -3. Appropriate affect. Intact judgment and insight. - Labs CBC & Chem 7: 10/07/19 07:51 10/07/19 07:51 Labs: Abnormal Lab Results - Last 24 Hours (Table) 10/07/19 10/07/19 Range/Units 07:51 07:51 WBC 13.4 H (3.8-10.6) k/uL RBC 3.44 L (3.80-5.40) m/uL Hgb 10.3 L (11.4-16.0) gm/dL Hct 32.7 L (34.0-46.0) % Neutrophils # 9.0 H (1.3-7.7) k/uL BUN 5 L (7-17) mg/dL Creatinine 0.49 L (0.52-1.04) mg/dL Microbiology - Last 24 Hours (Table) 10/05/19 09:03 Acid Fast Bacilli Smear - Final Lung Aspirate - Left Acid Fast Bacilli Culture - Preliminary 10/05/19 09:03 Gram Stain - Preliminary Aspirate Body Fluid Culture - Preliminary Assessment and Plan Plan: Assessment: #1. Enlarging left lower lung pulmonary mass, first seen on the CT chest on 01/30/2019, and follow-up CT chest on 07/06/2019, there was a 2.5 x 1.9 cm enlarging left lung mass in the left lower lobe just under the fissure to bring the lingular segment of the left lower lobe. On the follow-up CT chest on 06/25 there was a satellite lesion in the left lower lobe and another 5 mm vague right upper lobe nodule, and there was a concern for malignancy despite the young age in the chronic smoker, a PET scan on 02/27/2019 showed metabolic activity with an SUV of 4.4. Patient underwent navigational bronchoscopy with biopsy of the left lower lobe nodule on 07/23/2019, and cytology and biopsy were negative for malignancy. Patient presents on 10/05/2019 with complaints of hemoptysis and some chest tightness, and CT chest reveals enlarging cystic mass in the lateral left lung base at the region of the anterior basal segment of the left lower lobe, contiguous with a heart, with the consideration of pericardial cyst, bronchogenic cyst or loculated pleural fluid. Necrotic tumor is not excluded, status post CT-guided CT needle aspiration, cytology showed fibrinopurulent material or histiocytes compatible with acute inflammation or pulmonary abscess, no evidence of malignancy #2. Chronic smoker, carries [id number] smoking history #3. Endometriosis, status post laparoscopic surgeries #4. Hemoptysis #5. GERD/reflux #6. Anxiety/depression #7. Uterine Leiomyoma Plan: Clinically stable, results of the cytology have been noted, case was discussed with CT surgery, and the plan is to proceed with surgical wedge resection of the left lower lobe mass which appears to be inflammatory/ possibly infectious etiology. I performed a history & physical examination of the patient and discussed their management with my nurse practitioner, Roberta Spaulding. I reviewed the nurse practitioner's note and agree with the documented findings and plan of care. Lung sounds are positive for clear breath sounds throughout the lung trammell. The findings and the impression was discussed with the patient. I attest to the documentation by the nurse practitioner. Time with Patient: Less than 30
[2019-10-07] MEDS: FAMOTIDINE 20 MG TAB PO PRN (19:10)
[2019-10-07] MEDS: CITALOPRAM HYDROBROMIDE 20 MG TAB PO SCH (20:39)
[2019-10-07] MEDS: LORATADINE 10 MG TAB PO SCH (20:39)
[2019-10-07] MEDS: lisinopriL 20 MG TAB PO SCH (20:39)
[2019-10-07] MEDS: amLODIPine 5 MG TAB PO SCH (20:39)
--- NOTE | 2019-10-08 00:22 | P.PN ---
Subjective Progress Note Date: 10/06/19 Ms. Olvera is a 39 y/o female with a past medical history of GERD, hypertension, endometriosis, IBS coming into the hospital with a chief complaint of hemoptysis. Patient states that she has been having hemoptysis for the past few months along with persistent cough. She was also having difficulty in breathing. Patient has a history of left lung nodule initially seen on CT chest in January 2019. She had a follow-up CAT scan in June 2019 showing increase in the size and another satellite lesion with 5 mm of vague right upper lobe nodule. Patient also had a PET scan done in February 2019 showing increased metabolic activity. At that time she was suggested to have removal of the nodul es but patient wanted wanted to wait on it. But eventually due to increase in her hemoptysis she presented to the ER. Patient reports no fever chills or rigors. She denies having any recent weight loss. In the ER patient had CTA of the chest which was negative for PE but was showing increasing her size of old nodule, necrotic tumor not excluded. There was also possibility of pericardial cyst, bronchogenic cyst or loculated pleural effusion. So the patient had fine-needle aspiration of the mass done today. She now complains of pain at the site of the procedure. On 10/06/2019 -patient was sitting up in the bed appears to be in no acute distress. Patient states that she is still coughing up blood. She denies having any difficulty in breathing. Overnight no acute events reported. Patient's vitals stable and T-max 99.7 saturating about 90 on room air. Patient labs reviewed showing white count of 16.7, hemoglobin around 9.1. Objective - Vital Signs Vital signs: Vital Signs Temp 98.4 F 10/06/19 19:26 Pulse 89 10/06/19 23:22 Resp 14 10/06/19 23:22 BP 115/65 10/06/19 19:26 Pulse Ox 95 10/06/19 19:26 Intake & Output 10/06/19 10/06/19 10/07/19 06:59 18:59 06:59 Intake Total 800 500 800 Balance 800 500 800 Intake: Intake, IV Titration 800 800 Amount Sodium Chloride 0.9% 1, 800 800 000 ml @ 100 mls/hr IV . Q10H [facility] Rx#:[id number] Oral 500 Other: Voiding Method Toilet Toilet Toilet # Voids 1 3 1 - Exam PHYSICAL EXAMINATION: GENERAL: not in any acute distress. HEENT: Pupils are round and equally reacting to light. EOMI. mild scleral icterus. No conjunctival pallor. CARDIOVASCULAR:S1, S2 heard . No additional sounds. PULMONARY: Bilateral breath sounds are positive. No wheeze or crackles. Left side of the chest - is covered in bandage - procedure site ABDOMEN: Soft, nontender, nondistended, normoactive bowel sounds. No palpable organomegaly. MUSCULOSKELETAL: No joint swelling or deformity. EXTREMITIES: No cyanosis, clubbing, or pedal edema. NEUROLOGICAL: AAOX 3 , Gross neurological examination did not reveal any focal deficits. - Labs CBC & Chem 7: 10/07/19 07:51 10/07/19 07:51 Labs: Abnormal Lab Results - Last 24 Hours (Table) 10/06/19 10/06/19 Range/Units 04:01 04:01 WBC 16.7 H (3.8-10.6) k/uL RBC 3.56 L (3.80-5.40) m/uL Hgb 11.1 L (11.4-16.0) gm/dL Hct 33.8 L (34.0-46.0) % Neutrophils # 11.9 H (1.3-7.7) k/uL Monocytes # 1.1 H (0-1.0) k/uL LDL Cholesterol, Calc 118 H (0-99) mg/dL HDL Cholesterol 25 L (40-60) mg/dL Microbiology - Last 24 Hours (Table) 10/05/19 09:03 Acid Fast Bacilli Smear - Final Lung Aspirate - Left Acid Fast Bacilli Culture - Preliminary 10/05/19 09:03 Gram Stain - Preliminary Aspirate Body Fluid Culture - Preliminary 10/05/19 09:03 Fungal Culture - Preliminary Lung Aspirate - Left 10/05/19 11:50 Anaerobic Culture - Preliminary Lung Aspirate - Left Assessment and Plan Assessment: ASSESSMENT Hemoptysis Left lower lobe lung mass History of endometriosis Chronic nicotine dependence GERD Anxiety with depression PLAN: Patient had CT-guided biopsy of the lung mass done yesterday, pending pathology and culture. There is a possibility of underlying malignancy. Cardiology, pulmonary on board and following the patient closely. Further recommendations depending on the progress of the patient.
--- NOTE | 2019-10-08 00:27 | P.PN ---
Subjective Progress Note Date: 10/07/19 Principal diagnosis: Hemoptysis Ms. Olvera is a 39 y/o female with a past medical history of GERD, hypertension, endometriosis, IBS coming into the hospital with a chief complaint of hemoptysis. Patient states that she has been having hemoptysis for the past few months along with persistent cough. She was also having difficulty in breathing. Patient has a history of left lung nodule initially seen on CT chest in January 2019. She had a follow-up CAT scan in June 2019 showing increase in the size and another satellite lesion with 5 mm of vague right upper lobe nodule. Patient also had a PET scan done in February 2019 showing increased metabolic activity. At that time she was suggested to have removal of the nodules but patient wanted wanted to wait on it. But eventually due to increase in her hemoptysis she presented to the ER. Patient reports no fever chills or rigors. She denies having any recent weight loss. In the ER patient had CTA of the chest which was negative for PE but was showing increasing her size of old nodule, necrotic tumor not excluded. There was also possibility of pericardial cyst, bronchogenic cyst or loculated pleural ef fusion. So the patient had fine-needle aspiration of the mass done today. She now complains of pain at the site of the procedure. On 10/06/2019 -patient was sitting up in the bed appears to be in no acute distress. Patient states that she is still coughing up blood. She denies having any difficulty in breathing. Overnight no acute events reported. Patient's vitals stable and T-max 99.7 saturating about 90 on room air. Patient labs reviewed showing white count of 16.7, hemoglobin around 9.1. On 10/07/2019-patient is sitting up in the bed appears to be in no acute distress. The results of the cytology showed fibrinopurulent material and hist iocytes compatible with acute inflammation or pulmonary abscess. She was started on cefazolin by pulmonary. Patient's vitals have been stable overnight. On review of systems she denies having any fevers chills or rigors. No chest pain or palpitations. No abdominal pain nausea vomiting or diarrhea. No dysuria or hematuria. Active Medications Acetaminophen (Tylenol Tab) 1,000 mg PO Q6HR PRN PRN Reason: Pain Last Admin: 10/05/19 19:37 Dose: 1,000 mg Documented by: Hydrocodone Bitart/Acetaminophen ([place] 10) 1 each PO Q6H PRN PRN Reason: Pain Last Admin: 10/07/19 20:39 Dose: 1 each Documented by: Albuterol Sulfate (Ventolin Nebulized) 2.5 mg INHALATION RT-Q6H PRN PRN Reason: Shortness Of Breath Alprazolam (Xanax) 0.25 mg PO QID PRN PRN Reason: Anxiety Last Admin: 10/05/19 12:38 Dose: 0.25 mg Documented by: Amlodipine Besylate (Norvasc) 5 mg PO [facility] Last Admin: 10/07/19 20:39 Dose: 5 mg Documented by: Citalopram Hydrobromide (Celexa) 20 mg PO [facility] Last Admin: 10/07/19 20:39 Dose: 20 mg Documented by: Estradiol (Estrace) 1 mg PO DAILY [facility] Last Admin: 10/07/19 08:20 Dose: 1 mg Documented by: Famotidine (Pepcid) 20 mg PO TID PRN PRN Reason: Indigestion w/Ibuprofen Last Admin: 10/07/19 19:10 Dose: 20 mg Documented by: Hydromorphone HCl (Dilaudid) 0.5 mg IVP Q5M PRN PRN Reason: Pain Control Stop: 10/08/19 22:22 Sodium Chloride (Saline 0.9%) 1,000 mls @ 100 mls/hr IV .Q10H [facility] Last Admin: 10/07/19 17:57 Dose: Not Given Documented by: Cefazolin Sodium 2 gm/ Sodium (Chloride) 50 mls @ 100 mls/hr IVPB ONCE ONE Stop: 10/08/19 09:29 Lactated Ringer's (Lactated Ringers) 1,000 mls @ 20 mls/hr IV .Q24H [facility] Lisinopril (Zestril) 40 mg PO [facility] Last Admin: 10/07/19 20:39 Dose: 40 mg Documented by: Loratadine (Claritin) 10 mg PO HS [facility] Last Admin: 10/07/19 20:39 Dose: Not Given Documented by: Nicotine (Habitrol 21mg/24hr Patch) 1 patch TRANSDERM DAILY [facility] Last Admin: 10/07/19 08:20 Dose: Not Given Documented by: Ondansetron HCl (Zofran) 4 mg IVP Q6HR PRN PRN Reason: Nausea And Vomiting Last Admin: 10/06/19 14:24 Dose: 4 mg Documented by: Objective - Vital Signs Vital signs: Vital Signs Temp 98.6 F 10/07/19 07:55 Pulse 66 10/07/19 08:00 Resp 20 10/07/19 07:55 BP 117/75 10/07/19 07:55 Pulse Ox 95 10/07/19 07:55 Intake & Output 10/06/19 10/07/19 10/07/19 18:59 06:59 18:59 Intake Total 500 800 200 Balance 500 800 200 Intake: Intake, IV Titration 800 Amount Sodium Chloride 0.9% 1, 800 000 ml @ 100 mls/hr IV . Q10H [facility] Rx#:[id number] Oral 500 200 Other: Voiding Method Toilet Toilet Toilet # Voids 3 1 1 - Exam PHYSICAL EXAMINATION: GENERAL: not in any acute distress. HEENT: Pupils are round and equally reacting to light. EOMI. No scleral icterus. No conjunctival pallor. CARDIOVASCULAR:S1, S2 heard . No additional sounds. PULMONARY: Bilateral breath sounds are positive. No wheeze or crackles. Left side of the chest - is covered in bandage - procedure site ABDOMEN: Soft, nontender, nondistended, normoactive bowel sounds. No palpable organomegaly. MUSCULOSKELETAL: No joint swelling or deformity. EXTREMITIES: No cyanosis, clubbing, or pedal edema. NEUROLOGICAL: AAOX 3 , Gross neurological examination did not reveal any focal deficits. - Labs CBC & Chem 7: 10/07/19 07:51 10/07/19 07:51 Labs: Abnormal Lab Results - Last 24 Hours (Table) 10/07/19 10/07/19 Range/Units 07:51 07:51 WBC 13.4 H (3.8-10.6) k/uL RBC 3.44 L (3.80-5.40) m/uL Hgb 10.3 L (11.4-16.0) gm/dL Hct 32.7 L (34.0-46.0) % Neutrophils # 9.0 H (1.3-7.7) k/uL BUN 5 L (7-17) mg/dL Creatinine 0.49 L (0.52-1.04) mg/dL Microbiology - Last 24 Hours (Table) 10/05/19 09:03 Acid Fast Bacilli Smear - Final Lung Aspirate - Left Acid Fast Bacilli Culture - Preliminary 10/05/19 09:03 Gram Stain - Preliminary Aspirate Body Fluid Culture - Preliminary Assessment and Plan Assessment: ASSESSMENT Hemoptysis Left lower lobe lung mass History of endometriosis Chronic nicotine dependence GERD Anxiety with depression PLAN: Discussed the results of biopsy and patient has been started on IV cefazolin. Initially the plan was to put in a pigtail catheter for the abscess to be drained but after having a discussion with pulmonary and CT surgery the final plan is to do surgical wedge resection of the left lower lobe. Continue with the current medication regimen for now. Further recommendations depending on the progress of the patient.
[2019-10-08] MEDS: SODIUM CHLORIDE 0.9% 1,000 ML IV SCH ×3 (07:45→23:21)
[2019-10-08] MEDS: LACTATED RINGERS 1,000 ML IV SCH ×2 (07:45→08:26)
[2019-10-08] MEDS: NICOTINE 21MG/24HR PATCH TRANSDERM SCH (07:52)
[2019-10-08] MEDS: HYDROcodone/APAP 10-325MG 1 EACH TAB PO PRN ×3 (08:04→20:40)
[2019-10-08] MEDS: ALPRAZolam 0.25 MG TAB PO PRN ×2 (08:04→20:37)
[2019-10-08] MEDS: ONDANSETRON 4 MG/2 ML VIAL IVP PRN (08:05)
[2019-10-08] MEDS ORDERED: IV FLUID CONTINUATION 975 ML IV ONE (08:41)
[2019-10-08] MEDS ORDERED: MIDAZOLAM 2 MG/2 ML VIAL IV ONE (08:59)
[2019-10-08] MEDS ORDERED: HYDROmorphone (PF) 1 MG/ML ONE (09:22)
[2019-10-08] MEDS ORDERED: PROPOFOL 10 MG/ML 20 ML VIAL IV ONE (09:22)
[2019-10-08] MEDS ORDERED: LIDOCAINE 1% INJ 10MG/ML (20 ML MDV) ONE (09:22)
[2019-10-08] MEDS ORDERED: GLYCOPYRROLATE 0.2 MG/ML 2 ML VIAL ONE (09:22)
[2019-10-08] MEDS ORDERED: fentaNYL (PF) 50 MCG/ML 2 ML AMP ONE (09:22)
[2019-10-08] MEDS ORDERED: SUCCINYLCHOLINE CHLORIDE 100 MG/5 ML SYR IV ONE (09:22)
[2019-10-08] MEDS ORDERED: NEOSTIGMINE 1 MG/ML 10 ML VIAL ONE (09:22)
[2019-10-08] MEDS ORDERED: MIDAZOLAM 2 MG/2 ML VIAL ONE (09:22)
[2019-10-08] MEDS ORDERED: ROCURONIUM 10 MG/ML (5 ML VIAL) IV ONE (09:22)
[2019-10-08] MEDS ORDERED: BUPIVACAINE (PF) 0.5% 30 ML VIAL SQ ONE (10:08)
[2019-10-08] MEDS ORDERED: SODIUM CHLORIDE 0.9% 100 ML with ceFAZolin 1,000 MG IV ONE ×4 (10:14)
--- NOTE | 2019-10-08 11:32 | P.OP ---
Date of Procedure: 10/08/19 Preoperative Diagnosis: 5 cm left lower lobe lung mass Postoperative Diagnosis: Same, lung abscess Procedure(s) Performed: Left thoracoscopy, wedge resection left lower lobe Anesthesia: PAULA Surgeon: Glenn Bowser Estimated Blood Loss (ml): 5 IV fluids (ml): 200 Urine output (ml): 550 Pathology: other (Wedge resection left lower lobe) Condition: stable Disposition: PACU Indications for Procedure: 39-year-old female was initially diagnosed with a small lung mass in March. That time she was referred to thoracic surgery but then pulmonology decided to do bronchoscopy. This was nondiagnostic. She was never referred to thoracic surgery. In the colorectal endemic hip. She presented at this time with some chest pain and shortness of breath. His found to have now a 5 cm mass. Needle biopsy showed necrotic tissue and white blood cells consistent with possible necrotic tumor or abscess. Resection was requested by pulmonology and felt to be appropriate. Operative Findings: Was a large mass in the anterior basilar segment of the left lower lobe. There were mild adhesions to the lingula. Mass was excised in its entirety with intact staple lines and brought out through the chest wall with the Endo Catch bag. There was some purulent drainage which was cultured. It was sent for frozen section. This revealed lung abscess with no evidence of malignancy. Description of Procedure: The patient was brought to the operating room, placed supine on the operating table, anesthetized and intubated with a double-lumen endotracheal tube. Tube was positioned with fiberoptic Kosko P and secured. Patient was turned in the right lateral position and the left chest sterilely prepped and draped. A small incision was made in the sixth interspace in the anterior axillary line under the mammary fold and dissection carried into the pleural space. Thoracoscope was placed. The lung was still ventilated. Tube was then repositioned and this resecured. Now made a second incision in the seventh interspace in the posterior axillary line. We were now able to visualize the lung mass. A third incision was made in the seventh interspace in the anterior axillary line. 45 mm medium thick stapler was used to separate the lingula and the left lower lobe. Multiple further firings of a 45 mm medium thick stapler were used to wedge out the mass in the left lower lobe. The mass was placed in an Endo Catch bag. Posterior most incision was enlarged and the Endo Catch bag and brought through this incision. Specimen was examined on the back table. There was some purulent drainage. This was cultured. The specimen was sent for frozen section. Good hemostasis was noted throughout. The staple line was intact. The chest was irrigated with warm saline. Chest tube was placed through the second incision and positioned posterior apically. It was secured with an 0 Ethibond suture. Incisions were then closed with layers of Vicryl suture after reinflating the lung and ensuring good inflation under thoracoscopic guidance. Staple lines were intact. Once the incisions were closed with did rib blocks at the level of the incisions with half percent Marcaine. Dry sterile dressings were applied. The chest tube was connected to a Pleur-evac. Patient was turned supine and extubated and transferred to recovery room in stable condition. The frozen section showed lung abscess with no evidence of malignancy.
[2019-10-08] MEDS: HYDROmorphone 0.5 MG/0.5 ML SYRINGE IVP PRN ×4 (11:46→12:27)
[2019-10-08] MEDS: fentaNYL (PF) 50 MCG/ML 2 ML AMP IVP ONE ×2 (12:05→12:11)
--- NOTE | 2019-10-08 12:18 | XR ---
EXAMINATION TYPE: XR chest 1V portable DATE OF EXAM: 10/08/2019 COMPARISON: 10/05/2019 HISTORY: Post lung biopsy TECHNIQUE: Single frontal view of the chest is obtained. FINDINGS: There is an approximate 10% left-sided pneumothorax with bilateral consolidation and pleur al effusion. Heart size is prominent. No overt failure. Chest tube noted in position. Soft tissue emp hysema on the left noted. IMPRESSION: 1. Bilateral consolidation and pleural effusion with approximate 10% left-sided pneumothorax. Underly ing venous congestion not excluded.
[2019-10-08] MEDS: KETOROLAC 15 MG/ML 1 ML VIAL IVP SCH ×2 (12:59→17:31)
--- NOTE | 2019-10-08 14:28 | P.PN ---
Subjective Progress Note Date: 10/08/19 Principal diagnosis: Left lower lobe mass This is a 39-year-old white female patient with a past medical history of lung nodule in the left lung initially seen on the CT chest on 01/30/2019 in the left lower lobe. On the follow-up CAT scan on 07/06/2019 there was a noted increase in size and another satellite lesion, as well as 5 mm vague right upper lobe nodule. Patient is a chronic smoker, and despite her age concern for malignancy remained a PET scan was done on 02/27/2019 showing metabolic activity with an SUV of 4.4. Patient was given the option of surgical removal of the nodules however patient opted for continued surveillance and navigational bronchoscopy on 07/23/[address] Breaux of the left lower lobe mass, brushing of the left lower lobe and bronchoalveolar lavage. Cytology and biopsy of the left lower lobe were negative. Patient was advised to follow-up in 6 months. Patient did have mild hemoptysis even before the bronchoscopy with biopsies, however she noted a recent increase in the amount of hemoptysis. On 10/05/2019 patient presented today emergency department for evaluation of increased hemoptysis, she states she brought up 5 tablespoonfuls of blood with coughing. He reports some chest tightness, some mild night sweats, she continues to smoke. Room air pulse ox is 97-98%, patient is afebrile. Hemodynamically she is stable. Reports no weight loss, no lower extremity swelling. CTA chest showed no evidence of pulmonary embolism, he showed 5 cm cystic mass in the lateral left lung base in the region of anterior basal segment of left lower lobe above the diaphragm. This is mostly fluid density. There is no evidence of hilar masses, no mediastinal adenopathy. Lab work was reviewed showing white blood cell, 16.1, hemoglobin is 12.1, INR 0.9, electrolytes and renal profile were unremarkable, troponin was negative at 0.012, proBNP was 24, LFTs were within normal limits, urinalysis was negative, urine hCG was nondetected. 2-D echocardiogram showed a preserved left ventricle systolic function with an EF of 55-60%, mild enlargement of right atrium and mild tricuspid regurgitation. The medical history is hypertension, GERD/reflux, endometriosis, status post laparoscopic surgeries and recent hysterectomy, anxiety and depression. On 10/06/2019 patient seen in follow-up on the medical surgical floor, she is awake and alert and 3, no acute distress, resting comfortably in bed, she had some small amount of hemoptysis last night, mostly dark old blood tinged sputum, no chest pain, room air pulse ox is 94%, she is having some low-grade fevers with it T-max of 99.7F. Patient is status post CT-guided needle aspiration of the left lower lobe enlarging cystic mass in the lateral left lung base. Patient tolerated procedure well, cytology is pending. No acute issues overnight. Today's labs have been reviewed, white blood cell count is stable, at 16.7, hemoglobin is 11.1. No acute complaints On 10/07/2019 patient seen in follow-up on medical surgical floor, she is awake and alert, in no acute distress, she is on room air, her hemoptysis has significantly decreased, with only small amount she brought up last night, vital signs have been stable, cytology of the left lung mass fine-needle aspiration showed fibrinopurulent material and histiocytes compatible with acute inflammation or pulmonary abscess. patient is on room air, pulse ox is 95%, she has no acute complaints, she was started on IV Kefzol for empiric antibiotic coverage, surgical services are following, and planning on surgical wedge res ection of the left lower lobe mass Patient was seen today on 10/08/19, patient just came back from wedge resection of left lower lobe mass. She had basically uneventful surgery, 5 cm mass was resected from the left lower lobe area, frozen section is consistent with lung, no evidence of malignancy. Previous cultures have remained negative, more cultures are pending. In the meantime I have recommended starting the patient on Zosyn empirically. Patient is doing well postoperatively, she had left-sided chest tube in place, she is on few liters nasal cannula, and in no distress. Objective - Vital Signs Vital signs: Vital Signs Temp 96.5 F L 10/08/19 11:20 Pulse 63 10/08/19 12:16 Resp 18 10/08/19 12:16 BP 124/63 10/08/19 12:16 Pulse Ox 93 L 10/08/19 12:16 Intake & Output 10/07/19 10/08/19 10/08/19 18:59 06:59 18:59 Intake Total 200 1600 575 Output Total 710 Balance 200 1600 -135 Intake: IV 575 Intake, IV Titration 1600 Amount Sodium Chloride 0.9% 1, 1600 000 ml @ 100 mls/hr IV . Q10H [facility] Rx#:[id number] Oral 200 Output: Drainage 55 Left Chest 55 Urine 650 Estimated Blood Loss 5 Other: Voiding Method Toilet Toilet # Voids 1 2 - Exam GENERAL EXAM: Alert, very pleasant, 39-year-old white female, on 2 L nasal cannula. HEENT: PERRLA, EOMI, no neck masses, no JVD, no stridor. CHEST: No chest wall deformity. Left-sided chest tube is noted in place. LUNGS: Clear breath sounds on the right side, crackles at the left base. CVS: Regular rate and rhythm, normal S1 and S2, no gallops, no murmurs, no rubs ABDOMEN: Soft, nontender. No hepatosplenomegaly, normal bowel sounds, no guarding or rigidity. EXTREMITIES: No clubbing, no edema, no cyanosis, 2+ pulses and upper and lower extremities. MUSCULOSKELETAL: Muscle strength and tone normal. SPINE: No scoliosis or deformity SKIN: No rashes CENTRAL NERVOUS SYSTEM: Alert and oriented -3. No focal deficits, tone is normal in all 4 extremities. PSYCHIATRIC: Alert and oriented -3. Appropriate affect. Intact judgment and insight. - Labs CBC & Chem 7: 10/07/19 07:51 10/07/19 07:51 Labs: Microbiology - Last 24 Hours (Table) 10/05/19 11:50 Anaerobic Culture - Preliminary Lung Aspirate - Left 10/05/19 09:03 Gram Stain - Preliminary Aspirate Body Fluid Culture - Preliminary Assessment and Plan Assessment: Impression: Left lower lobe mass, steadily increasing in size over the last few months, Status post wedge resection of left lower lobe mass. Postoperative day #0. [id number] smoking history. History of endometriosis. History of uterine leiomyoma. History of nondiagnostic bronchoscopy. Recommendation: Continue present postoperative care. Continue incentive spirometry. Empiric antibiotics in the form of Zosyn. Based on the final pathology and cultures, further recommendations will follow. We will continue to follow Time with Patient: Less than 30
[2019-10-08] MEDS: PIPERACILLIN-TAZOBACTAM 3.375 GM in SODIUM CHLORIDE 0.9% 100 ML IVPB SCH (15:57)
[2019-10-08] MEDS: ALBUTEROL NEBULIZED 2.5 MG/3 ML INHALATION PRN (16:15)
[2019-10-08] MEDS: lisinopriL 20 MG TAB PO SCH (20:37)
[2019-10-08] MEDS: LORATADINE 10 MG TAB PO SCH (20:37)
[2019-10-08] MEDS: CITALOPRAM HYDROBROMIDE 20 MG TAB PO SCH (20:37)
[2019-10-08] MEDS: amLODIPine 5 MG TAB PO SCH (20:37)
[2019-10-09] MEDS: PIPERACILLIN-TAZOBACTAM 3.375 GM in SODIUM CHLORIDE 0.9% 100 ML IVPB SCH ×4 (00:01→23:26)
--- NOTE | 2019-10-09 02:09 | P.PN ---
Subjective Progress Note Date: 10/08/19 Principal diagnosis: Hemoptysis Ms. Olvera is a 39 y/o female with a past medical history of GERD, hypertension, endometriosis, IBS coming into the hospital with a chief complaint of hemoptysis. Patient states that she has been having hemoptysis for the past few months along with persistent cough. She was also having difficulty in breathing. Patient has a history of left lung nodule initially seen on CT chest in January 2019. She had a follow-up CAT scan in June 2019 showing increase in the size and another satellite lesion with 5 mm of vague right upper lobe nodule. Patient also had a PET scan done in February 2019 showing increased metabolic activity. At that time she was suggested to have removal of the nodules but patient wanted wanted to wait on it. But eventually due to increase in her hemoptysis she presented to the ER. Patient reports no fever chills or rigors. She denies having any recent weight loss. In the ER patient had CTA of the chest which was negative for PE but was showing increasing her size of old nodule, necrotic tumor not excluded. There was also possibility of pericardial cyst, bronchogenic cyst or loculated pleural ef fusion. So the patient had fine-needle aspiration of the mass done today. She now complains of pain at the site of the procedure. On 10/06/2019 -patient was sitting up in the bed appears to be in no acute distress. Patient states that she is still coughing up blood. She denies having any difficulty in breathing. Overnight no acute events reported. Patient's vitals stable and T-max 99.7 saturating about 90 on room air. Patient labs reviewed showing white count of 16.7, hemoglobin around 9.1. On 10/07/2019-patient is sitting up in the bed appears to be in no acute distress. The results of the cytology showed fibrinopurulent material and hist iocytes compatible with acute inflammation or pulmonary abscess. She was started on cefazolin by pulmonary. Patient's vitals have been stable overnight. On review of systems she denies having any fevers chills or rigors. No chest pain or palpitations. No abdominal pain nausea vomiting or diarrhea. No dysuria or hematuria. On 10/08/2019-patient had the left lobe resection done today and has a left-sided chest tube in place. Patient is sitting up in the bed and states that she has been at the site of the chest tube. Patient denies having any chest pain or palpitations. No cough or difficulty breathing. No abdominal pain nausea vomiting or diarrhea. No dysuria or hematuria. On reviewing the vitals post op patient's temperature 97.7, heart rate 56, blood pressure 103/63, saturating at 94% on 2 L of nasal cannula. Active Medications Acetaminophen (Tylenol Tab) 1,000 mg PO Q6HR PRN PRN Reason: Pain Last Admin: 10/05/19 19:37 Dose: 1,000 mg Documented by: Hydrocodone Bitart/Acetaminophen ([place] 10) 1 each PO Q6H PRN PRN Reason: Pain Last Admin: 10/08/19 20:40 Dose: 1 each Documented by: Albuterol Sulfate (Ventolin Nebulized) 2.5 mg INHALATION RT-Q6H PRN PRN Reason: Shortness Of Breath Last Admin: 10/08/19 16:15 Dose: 2.5 mg Documented by: Alprazolam (Xanax) 0.25 mg PO QID PRN PRN Reason: Anxiety Last Admin: 10/08/19 20:37 Dose: 0.25 mg Documented by: Amlodipine Besylate (Norvasc) 5 mg PO [facility] Last Admin: 10/08/19 20:37 Dose: 5 mg Documented by: Citalopram Hydrobromide (Celexa) 20 mg PO [facility] Last Admin: 10/08/19 20:37 Dose: 20 mg Documented by: Estradiol (Estrace) 1 mg PO DAILY [facility] Last Admin: 10/08/19 08:04 Dose: 1 mg Documented by: Famotidine (Pepcid) 20 mg PO TID PRN PRN Reason: Indigestion w/Ibuprofen Last Admin: 10/07/19 19:10 Dose: 20 mg Documented by: Sodium Chloride (Saline 0.9%) 1,000 mls @ 100 mls/hr IV .Q10H [facility] Last Admin: 10/08/19 23:21 Dose: Not Given Documented by: Lactated Ringer's (Lactated Ringers) 1,000 mls @ 20 mls/hr IV .Q24H [facility] Last Admin: 10/08/19 08:26 Dose: 20 mls/hr Documented by: Piperacillin Sod/Tazobactam (Sod 3.375 gm/ Sodium Chloride) 100 mls @ 25 mls/hr IVPB Q8HR [facility] Last Admin: 10/09/19 00:01 Dose: 25 mls/hr Documented by: Ketorolac Tromethamine (Toradol) 15 mg IVP Q6HR [facility] Stop: 10/11/19 12:41 Last Admin: 10/09/19 00:00 Dose: 15 mg Documented by: Lisinopril (Zestril) 40 mg PO [facility] Last Admin: 10/08/19 20:37 Dose: 40 mg Documented by: Loratadine (Claritin) 10 mg PO [facility] Last Admin: 10/08/19 20:37 Dose: Not Given Documented by: Nicotine (Habitrol 21mg/24hr Patch) 1 patch TRANSDERM DAILY [facility] Last Admin: 10/08/19 07:52 Dose: Not Given Documented by: Ondansetron HCl (Zofran) 4 mg IVP Q6HR PRN PRN Reason: Nausea And Vomiting Last Admin: 10/08/19 08:05 Dose: 4 mg Documented by: Objective - Vital Signs Vital signs: Vital Signs Temp 96.5 F L 10/08/19 11:20 Pulse 63 10/08/19 12:16 Resp 18 10/08/19 12:16 BP 124/63 10/08/19 12:16 Pulse Ox 93 L 10/08/19 12:16 Intake & Output 10/07/19 10/08/19 10/08/19 18:59 06:59 18:59 Intake Total 200 1600 575 Output Total 710 Balance 200 1600 -135 Intake: IV 575 Intake, IV Titration 1600 Amount Sodium Chloride 0.9% 1, 1600 000 ml @ 100 mls/hr IV . Q10H [facility] Rx#:[id number] Oral 200 Output: Drainage 55 Left Chest 55 Urine 650 Estimated Blood Loss 5 Other: Voiding Method Toilet Toilet # Voids 1 2 - Exam PHYSICAL EXAMINATION: GENERAL: not in any acute distress. HEENT: Pupils are round and equally reacting to light. EOMI. No scleral icterus. No conjunctival pallor. CARDIOVASCULAR:S1, S2 heard . No additional sounds. PULMONARY: Bilateral breath sounds are positive. No wheeze or crackles. Left side chest tube in place with 70 ml of sanginous fluid. ABDOMEN: Soft, nontender, nondistended, normoactive bowel sounds. No palpable organomegaly. MUSCULOSKELETAL: No joint swelling or deformity. EXTREMITIES: No cyanosis, clubbing, or pedal edema. NEUROLOGICAL: AAOX 3 , Gross neurological examination did not reveal any focal deficits. - Labs CBC & Chem 7: 10/07/19 07:51 10/07/19 07:51 Labs: Microbiology - Last 24 Hours (Table) 10/05/19 11:50 Anaerobic Culture - Preliminary Lung Aspirate - Left 10/05/19 09:03 Gram Stain - Preliminary Aspirate Body Fluid Culture - Preliminary Assessment and Plan Assessment: ASSESSMENT Hemoptysis Left lower lobe lung mass- s/p resction done on 10/08/19 History of endometriosis Chronic nicotine dependence GERD Anxiety with depression PLAN:s/p surgical wedge resection of the left lower lobe done on 10/08/19 , empirically started on Zosyn . Continue with the current medication regimen for now. Further recommendations depending on the progress of the patient.
[2019-10-09] MEDS: HYDROcodone/APAP 10-325MG 1 EACH TAB PO PRN ×4 (03:03→21:11)
[2019-10-09] MEDS: ONDANSETRON 4 MG/2 ML VIAL IVP PRN ×2 (03:08→23:26)
[2019-10-09] MEDS: KETOROLAC 15 MG/ML 1 ML VIAL IVP SCH ×5 (05:14→23:26)
[2019-10-09] MEDS: ALPRAZolam 0.25 MG TAB PO PRN ×2 (05:28→21:11)
--- NOTE | 2019-10-09 07:31 | XR ---
EXAMINATION TYPE: XR chest 1V portable DATE OF EXAM: 10/09/2019 Comparison: 10/14/2019 Clinical History: 39-year-old female post vats Findings: Heart normal size. Left apical chest tube is present. Some mild subcutaneous emphysema remains lower left hemithorax. Trace left-sided pneumothorax is also redemonstrated currently measuring 4 mm versus 5 mm, previously. Medial component is better seen on the present exam. Continued retrocardiac and le ft basilar opacity. Suspect a small right pleural effusion as well, unchanged from prior. The adjacen t patchy opacity shows some improvement in the interval. Impression: 1. Apically directed left-sided chest tube remains in place with a similar trace 4 mm left-sided pneu mothorax. Medial component of the pneumothorax is also better seen on the present exam. 2. Continued small left pleural effusion with retrocardiac and left basilar atelectasis and consolida tion. 3. Small right pleural effusion also redemonstrated but with improving adjacent atelectasis/consolida tion.
--- NOTE | 2019-10-09 07:50 | P.PN ---
Subjective Progress Note Date: 10/09/19 Principal diagnosis: Left lower lobe mass/abscess. Previous medical history of endometriosis status post multiple D&Cs and hysterectomy, hypertension, current tobacco dependence. POD #1 left thoracoscopy, wedge resection left lower lobe The patient is currently sitting up in bed in no acute distress. Does complain of left-sided chest pain related to her chest tube, requesting more pain medication. She has been ambulatory in her room. Left sided chest tube present to waterseal, 180 mL serosanguineous drainage, no air leak present Objective - Vital Signs Vital signs: Vital Signs Temp 98.6 F 10/09/19 01:57 Pulse 64 10/09/19 01:57 Resp 16 10/09/19 01:57 BP 108/68 10/09/19 01:57 Pulse Ox 93 L 10/09/19 01:57 Intake & Output 10/08/19 10/09/19 10/09/19 18:59 06:59 18:59 Intake Total 575 Output Total 755 Balance -180 Intake: IV 575 Output: Drainage 100 Left Chest 100 Urine 650 Estimated Blood Loss 5 Other: Voiding Method Toilet # Voids 1 2 - Constitutional General appearance: Present: cooperative, no acute distress - Respiratory Details: Lungs sounds clear but diminished bilaterally. Respirations even, nonlabored. Currently on room air with oxygen saturation 94%. Barely able to achieve 500 mL on incentive spirometry. Left pleural chest tube present to waterseal, 180 mL serosanguineous drainage since surgery yesterday, no air leak present. - Cardiovascular Details: S1, S2 present. Regular rate and rhythm, sinus rhythm on telemetry. Palpable peripheral pulses bilaterally. No edema present. No calf pain or tenderness noted. - Gastrointestinal Gastrointestinal Comment(s): Abdomen soft, nontender, nondistended. Active bowel sounds present 4 quadrants. Tolerating diet. - Genitourinary Genitourinary Comment(s): Continues to void - Integumentary Integumentary Comment(s): Skin is warm and dry with evidence of good perfusion - Neurologic Neurologic: Present: CNII-XII intact - Musculoskeletal Musculoskeletal: Present: gait normal, strength equal bilaterally - Psychiatric Psychiatric: Present: A&O x's 3, appropriate affect - Allied health notes Allied health notes reviewed: nursing - Labs CBC & Chem 7: 10/07/19 07:51 10/07/19 07:51 Labs: Microbiology - Last 24 Hours (Table) 10/05/19 09:03 Gram Stain - Preliminary Aspirate Body Fluid Culture - Preliminary 10/08/19 10:43 Wound Culture - Preliminary Lung - Left Lower Lobe 10/08/19 10:43 Anaerobic Culture - Preliminary Lung - Left Lower Lobe - Imaging and Cardiology Chest x-ray: report reviewed, image reviewed Assessment and Plan Assessment: 1. Left lower lobe mass, status post needle biopsy by interventional radiology, pathology consistent with fibrinopurulent material, pus, and histiocytes compatible with acute inflammation/pulmonary abscess, status post left thoracostomy tube placement 2. History of endometriosis status post multiple D&Cs and hysterectomy 3. Current tobacco dependence Plan: 1. Will discontinue left pleural chest tube today. Repeat chest x-ray 2 hours. If stable may discharge to home from cardiothoracic standpoint when okay with other consultants 2. Encourage continued incentive spirometry use 3. Counseling regarding importance of smoking cessation offered again 4. Medical management with a comorbidities per primary care service Time with Patient: Greater than 30
[2019-10-09] MEDS: NICOTINE 21MG/24HR PATCH TRANSDERM SCH (08:13)
[2019-10-09] MEDS: ALBUTEROL NEBULIZED 2.5 MG/3 ML INHALATION PRN (08:59)
[2019-10-09 09:09] LABS: Basophils # (A) 0.1 k/uL (0-0.2); Basophils % (A) 1 %; Eosinophils # (A) 0.4 k/uL (0-0.7); Eosinophils % (A) 2 %; HCT 32.9 % (34.0-46.0); HGB 10.5 gm/dL (11.4-16.0); Lymphocytes # (A) 3.6 k/uL (1.0-4.8); Lymphocytes % (A) 21 %; MCH 30.4 pg (25.0-35.0); MCV 94.9 fL (80.0-100.0); Mean Platelet Volume 7.8; Monocytes # (A) 0.8 k/uL (0-1.0); Monocytes % (A) 4 %; Neutrophils # (A) 12.4 k/uL (1.3-7.7); Neutrophils % (A) 71 %; Platelet Count 425 k/uL (150-450); RBC 3.47 m/uL (3.80-5.40); RDW 12.9 % (11.5-15.5); WBC 17.4 k/uL (3.8-10.6)
[2019-10-09 09:18] LABS: African American GFR (CKD) >90 (>60 ml/min/1.73 sqM); Anion Gap 5 mmol/L; Blood Urea Nitrogen 9 mg/dL (7-17); Calcium 8.7 mg/dL (8.4-10.2); Carbon Dioxide 28 mmol/L (22-30); Chloride 106 mmol/L (98-107); Glucose 128 mg/dL (74-99); Non-African American GFR(CKD) >90 (>60 ml/min/1.73 sqM); Potassium 3.9 mmol/L (3.5-5.1); Sodium 139 mmol/L (137-145)
--- NOTE | 2019-10-09 12:30 | XR ---
EXAMINATION TYPE: XR chest 2V DATE OF EXAM: 10/09/2019 COMPARISON: 10/09/2019, earlier today HISTORY: 39-year-old female status post VATS TECHNIQUE: PA and lateral views FINDINGS: Left-sided chest tube removed in the interval. Subtle curvilinear density along the left mid to lower lung may correspond to the tract of the prior chest tube rather than a pleural edge. Otherwise, pneu mothorax measures 3 mm along the lateral upper lung. New apical component measures 4 mm. Trace medial component is redemonstrated. Small effusions redemonstrated. Heart normal size. Left-sided subcutane ous emphysema. IMPRESSION: 1. Left-sided chest tube removed in the interval. Redemonstrated left-sided pneumothorax. A trace 4 m m left apical component is now seen suggesting slight interval enlargement. The lateral upper compone nt is 3 mm versus 4 mm, previously. The medial component remains trace. 2. Close follow-up recommended as there is a new curvilinear density projecting at the left mid and l ower lung. This may represent the tract of the previous chest tube rather then a new pleural edge. Ag ain, close follow-up recommended. 3. Correlate for possible developing mild pulmonary vascular congestion and small effusions.
--- NOTE | 2019-10-09 13:25 | P.PN ---
Subjective Progress Note Date: 10/09/19 Principal diagnosis: Left lower lobe lung mass This is a 39-year-old white female patient with a past medical history of lung nodule in the left lung initially seen on the CT chest on 01/30/2019 in the left lower lobe. On the follow-up CAT scan on 07/06/2019 there was a noted increase in size and another satellite lesion, as well as 5 mm vague right upper lobe nodule. Patient is a chronic smoker, and despite her age concern for malignancy remained a PET scan was done on 02/27/2019 showing metabolic activity with an SUV of 4.4. Patient was given the option of surgical removal of the nodules however patient opted for continued surveillance and navigational bronchoscopy on 07/23/[address] Breaux of the left lower lobe mass, brushing of the left lower lobe and bronchoalveolar lavage. Cytology and biopsy of the left lower lobe were negative. Patient was advised to follow-up in 6 months. Patient did have mild hemoptysis even before the bronchoscopy with biopsies, however she noted a recent increase in the amount of hemoptysis. On 10/05/2019 patient presented today emergency department for evaluation of increased hemoptysis, she states she brought up 5 tablespoonfuls of blood with coughing. He reports some chest tightness, some mild night sweats, she continues to smoke. Room air pulse ox is 97-98%, patient is afebrile. Hemodynamically she is stable. Reports no weight loss, no lower extremity swelling. CTA chest showed no evidence of pulmonary embolism, he showed 5 cm cystic mass in the lateral left lung base in the region of anterior basal segment of left lower lobe above the diaphragm. This is mostly fluid density. There is no evidence of hilar masses, no mediastinal adenopathy. Lab work was reviewed showing white blood cell, 16.1, hemoglobin is 12.1, INR 0.9, electrolytes and renal profile were unremarkable, troponin was negative at 0.012, proBNP was 24, LFTs were within normal limits, urinalysis was negative, urine hCG was nondetected. 2-D echocardiogram showed a preserved left ventricle systolic function with an EF of 55-60%, mild enlargement of right atrium and mild tricuspid regurgitation. The medical history is hypertension, GERD/reflux, endometriosis, status post laparoscopic surgeries and recent hysterectomy, anxiety and depression. On 10/06/2019 patient seen in follow-up on the medical surgical floor, she is awake and alert and 3, no acute distress, resting comfortably in bed, she had some small amount of hemoptysis last night, mostly dark old blood tinged sputum, no chest pain, room air pulse ox is 94%, she is having some low-grade fevers with it T-max of 99.7F. Patient is status post CT-guided needle aspiration of the left lower lobe enlarging cystic mass in the lateral left lung base. Patient tolerated procedure well, cytology is pending. No acute issues overnight. Today's labs have been reviewed, white blood cell count is stable, at 16.7, hemoglobin is 11.1. No acute complaints On 10/07/2019 patient seen in follow-up on medical surgical floor, she is awake and alert, in no acute distress, she is on room air, her hemoptysis has significantly decreased, with only small amount she brought up last night, vital signs have been stable, cytology of the left lung mass fine-needle aspiration showed fibrinopurulent material and histiocytes compatible with acute inflammation or pulmonary abscess. patient is on room air, pulse ox is 95%, she has no acute complaints, she was started on IV Kefzol for empiric antibiotic coverage, surgical services are following, and planning on surgical wedge resection of the left lower lobe mass On 10/09/2019 patient seen in follow-up on medical surgical floor, she is status post left lower lobe mass/abscess wedge resection, today is postoperative day # 1. This morning's chest x-ray showed apical directed left-sided chest tube in place with trace 4 mm left-sided pneumothorax small left pleural effusion with retrocardiac and left basilar atelectasis and consolidation, and small right pleural effusion with improving adjacent atelectasis. There has been only 100 mL of output from the left chest tube in the last 24 hours since surgery, hemodynamically patient is stable, no significant pneumothorax on chest x-ray, CT surgery has discontinued the chest tube. All cultures and surgical specimen biopsy are pending. Clinically patient stable, she is a little sore at the site of the incision but no acute distress, no shortness of breath. Room air pulse ox is 94%, no acute events overnight, she is achieving only 500 mL on her incentive spirometer. Lung sounds are clear, diminished at the bases. Objective - Vital Signs Vital signs: Vital Signs Temp 98.5 F 10/09/19 07:00 Pulse 66 10/09/19 09:11 Resp 17 10/09/19 08:00 BP 108/66 10/09/19 07:00 Pulse Ox 94 L 10/09/19 07:00 Intake & Output 10/08/19 10/09/19 10/09/19 18:59 06:59 18:59 Intake Total 575 Output Total 755 Balance -180 Intake: IV 575 Output: Drainage 100 Left Chest 100 Urine 650 Estimated Blood Loss 5 Other: Voiding Method Toilet Toilet # Voids 1 2 - Exam GENERAL EXAM: Alert, very pleasant, 39-year-old white female, on room air with a pulse ox of 94%, comfortable in no apparent distress. HEAD: Normocephalic/atraumatic. EYES: Normal reaction of pupils, equal size. Conjunctiva pink, sclera white. NOSE: Clear with pink turbinates. THROAT: No erythema or exudates. NECK: No masses, no JVD, no thyroid enlargement, no adenopathy. CHEST: No chest wall deformity. Symmetrical expansion. Left chest incision clean dry and intact, covered with surgical dressing, chest tube site covered with the dressing LUNGS: Equal air entry with no crackles, wheeze, rhonchi or dullness. CVS: Regular rate and rhythm, normal S1 and S2, no gallops, no murmurs, no rubs ABDOMEN: Soft, nontender. No hepatosplenomegaly, normal bowel sounds, no guarding or rigidity. EXTREMITIES: No clubbing, no edema, no cyanosis, 2+ pulses and upper and lower extremities. MUSCULOSKELETAL: Muscle strength and tone normal. SPINE: No scoliosis or deformity SKIN: No rashes CENTRAL NERVOUS SYSTEM: Alert and oriented -3. No focal deficits, tone is normal in all 4 extremities. PSYCHIATRIC: Alert and oriented -3. Appropriate affect. Intact judgment and insight. - Labs CBC & Chem 7: 10/09/19 08:56 10/09/19 08:56 Labs: Abnormal Lab Results - Last 24 Hours (Table) 10/09/19 10/09/19 Range/Units 08:56 08:56 WBC 17.4 H (3.8-10.6) k/uL RBC 3.47 L (3.80-5.40) m/uL Hgb 10.5 L (11.4-16.0) gm/dL Hct 32.9 L (34.0-46.0) % Neutrophils # 12.4 H (1.3-7.7) k/uL Glucose 128 H (74-99) mg/dL Microbiology - Last 24 Hours (Table) 10/08/19 10:43 Gram Stain - Preliminary Lung - Left Lower Lobe Wound Culture - Preliminary 10/05/19 09:03 Gram Stain - Preliminary Aspirate Body Fluid Culture - Preliminary 10/08/19 10:43 Anaerobic Culture - Preliminary Lung - Left Lower Lobe Assessment and Plan Plan: Assessment: #1. Enlarging left lower lung pulmonary mass, first seen on the CT chest on 01/30/2019, and follow-up CT chest on 07/06/2019, there was a 2.5 x 1.9 cm enlarging left lung mass in the left lower lobe just under the fissure to bring the lingular segment of the left lower lobe. On the follow-up CT chest on 07/06/2019 there was a satellite lesion in the left lower lobe and another 5 mm vague right upper lobe nodule, and there was a concern for malignancy despite the young age in the chronic smoker, a PET scan on 02/27/2019 showed metabolic activity with an SUV of 4.4. Patient underwent navigational bronchoscopy with biopsy of the left lower lobe nodule on 07/23/2019, and cytology and biopsy were negative for malignancy. Patient presents on 10/05/2019 with complaints of hemoptysis and some chest tightness, and CT chest reveals enlarging cystic mass in the lateral left lung base at the region of the anterior basal segment of the left lower lobe, contiguous with a heart, with the consideration of pericardial cyst, bronchogenic cyst or loculated pleural fluid. Necrotic tumor is not exclud ed, status post CT-guided CT needle aspiration, cytology showed fibrinopurulent material or histiocytes compatible with acute inflammation or pulmonary abscess, no evidence of malignancy #2. Status post thoracoscopy, wedge resection of the left lower lobe of the small lung mass in the left lower lobe, postoperative day #1, surgical biopsies and cultures are pending at this time #3. Chronic smoker, carries [id number] smoking history #4. Endometriosis, status post laparoscopic surgeries #5. Hemoptysis #6. GERD/reflux #7. Anxiety/depression #8. Uterine Leiomyoma Plan: Patient is doing well, left-sided chest tube has been discontinued by CT surgery this morning, no significant output from it since surgery, tiny left apical pneumothorax, otherwise doing well, maintain pain control, encourage deep breathing and coughing, encourage ambulation, follow-up chest x-ray in the [facility], will await results of the cystic mass cultures to make a decision on antibiotics to discharge the patient home on. We'll continue to follow I performed a history & physical examination of the patient and discussed their management with my nurse practitioner, Roberta Spaulding. I reviewed the nurse practitioner's note and agree with the documented findings and plan of care. Lung sounds are positive for clear breath sounds throughout the lung trammell. The findings and the impression was discussed with the patient. I attest to the documentation by the nurse practitioner. Time with Patient: Less than 30
[2019-10-09] MEDS: SODIUM CHLORIDE 0.9% 1,000 ML IV SCH ×2 (18:42→20:23)
[2019-10-09] MEDS: lisinopriL 20 MG TAB PO SCH (21:11)
[2019-10-09] MEDS: amLODIPine 5 MG TAB PO SCH (21:11)
[2019-10-09] MEDS: LORATADINE 10 MG TAB PO SCH (21:11)
[2019-10-09] MEDS: CITALOPRAM HYDROBROMIDE 20 MG TAB PO SCH (21:11)
[2019-10-09] MEDS: LACTATED RINGERS 1,000 ML IV SCH (23:01)
--- NOTE | 2019-10-10 02:15 | P.PN ---
Subjective Progress Note Date: 10/09/19 Principal diagnosis: Hemoptysis Ms. Olvera is a 39 y/o female with a past medical history of GERD, hypertension, endometriosis, IBS coming into the hospital with a chief complaint of hemoptysis. Patient states that she has been having hemoptysis for the past few months along with persistent cough. She was also having difficulty in breathing. Patient has a history of left lung nodule initially seen on CT chest in January 2019. She had a follow-up CAT scan in June 2019 showing increase in the size and another satellite lesion with 5 mm of vague right upper lobe nodule. Patient also had a PET scan done in February 2019 showing increased metabolic activity. At that time she was suggested to have removal of the nodules but patient wanted wanted to wait on it. But eventually due to increase in her hemoptysis she presented to the ER. Patient reports no fever chills or rigors. She denies having any recent weight loss. In the ER patient had CTA of the chest which was negative for PE but was showing increasing her size of old nodule, necrotic tumor not excluded. There was also possibility of pericardial cyst, bronchogenic cyst or loculated pleural ef fusion. So the patient had fine-needle aspiration of the mass done today. She now complains of pain at the site of the procedure. On 10/06/2019 -patient was sitting up in the bed appears to be in no acute distress. Patient states that she is still coughing up blood. She denies having any difficulty in breathing. Overnight no acute events reported. Patient's vitals stable and T-max 99.7 saturating about 90 on room air. Patient labs reviewed showing white count of 16.7, hemoglobin around 9.1. On 10/07/2019-patient is sitting up in the bed appears to be in no acute distress. The results of the cytology showed fibrinopurulent material and hist iocytes compatible with acute inflammation or pulmonary abscess. She was started on cefazolin by pulmonary. Patient's vitals have been stable overnight. On review of systems she denies having any fevers chills or rigors. No chest pain or palpitations. No abdominal pain nausea vomiting or diarrhea. No dysuria or hematuria. On 10/08/2019-patient had the left lobe resection done today and has a left-sided chest tube in place. Patient is sitting up in the bed and states that she has been at the site of the chest tube. Patient denies having any chest pain or palpitations. No cough or difficulty breathing. No abdominal pain nausea vomiting or diarrhea. No dysuria or hematuria. On reviewing the vitals post op patient's temperature 97.7, heart rate 56, blood pressure 103/63, saturating at 94% on 2 L of nasal cannula. On 10/09/19 - overnight she complained that her pain was not under good control. Patient denies having any chest pain or palpitations. No cough or difficulty breathing. No abdominal pain nausea vomiting or diarrhea. No dysuria or hematuria. CXR done after the removal of the chest tube showing small left sided pneumothorax. New density at the mid and lower lung, suggested close follow up. She is on Zosyn currently. Vitals have been WNL. Active Medications Acetaminophen (Tylenol Tab) 1,000 mg PO Q6HR PRN PRN Reason: Pain Last Admin: 10/05/19 19:37 Dose: 1,000 mg Documented by: Hydrocodone Bitart/Acetaminophen (Viola 10) 1 each PO Q6H PRN PRN Reason: Pain Last Admin: 10/09/19 21:11 Dose: 1 each Documented by: Albuterol Sulfate (Ventolin Nebulized) 2.5 mg INHALATION RT-Q6H PRN PRN Reason: Shortness Of Breath Last Admin: 10/09/19 08:59 Dose: 2.5 mg Documented by: Alprazolam (Xanax) 0.25 mg PO QID PRN PRN Reason: Anxiety Last Admin: 10/09/19 21:11 Dose: 0.25 mg Documented by: Amlodipine Besylate (Norvasc) 5 mg PO HS [facility] Last Admin: 10/09/19 21:11 Dose: 5 mg Documented by: Citalopram Hydrobromide (Celexa) 20 mg PO HS [facility] Last Admin: 10/09/19 21:11 Dose: 20 mg Documented by: Estradiol (Estrace) 1 mg PO DAILY [facility] Last Admin: 10/09/19 08:13 Dose: 1 mg Documented by: Famotidine (Pepcid) 20 mg PO TID PRN PRN Reason: Indigestion w/Ibuprofen Last Admin: 10/07/19 19:10 Dose: 20 mg Documented by: Sodium Chloride (Saline 0.9%) 1,000 mls @ 100 mls/hr IV .Q10H [facility] Last Admin: 10/09/19 20:23 Dose: Not Given Documented by: Lactated Ringer's (Lactated Ringers) 1,000 mls @ 20 mls/hr IV .Q24H [facility] Last Admin: 10/09/19 23:01 Dose: Not Given Documented by: Piperacillin Sod/Tazobactam (Sod 3.375 gm/ Sodium Chloride) 100 mls @ 25 mls/hr IVPB Q8HR [facility] Last Admin: 10/09/19 23:26 Dose: 25 mls/hr Documented by: Ketorolac Tromethamine (Toradol) 15 mg IVP Q6HR [facility] Stop: 10/11/19 12:41 Last Admin: 10/09/19 23:26 Dose: 15 mg Documented by: Lisinopril (Zestril) 40 mg PO [facility] Last Admin: 10/09/19 21:11 Dose: 40 mg Documented by: Loratadine (Claritin) 10 mg PO [facility] Last Admin: 10/09/19 21:11 Dose: Not Given Documented by: Nicotine (Habitrol 21mg/24hr Patch) 1 patch TRANSDERM DAILY [facility] Last Admin: 10/09/19 08:13 Dose: Not Given Documented by: Ondansetron HCl (Zofran) 4 mg IVP Q6HR PRN PRN Reason: Nausea And Vomiting Last Admin: 10/09/19 23:26 Dose: 4 mg Documented by: Objective - Vital Signs Vital signs: Vital Signs Temp 98.8 F 10/09/19 19:45 Pulse 71 10/09/19 19:45 Resp 18 10/09/19 19:45 BP 134/75 10/09/19 19:45 Pulse Ox 97 10/09/19 19:45 Intake & Output 10/09/19 10/09/19 10/10/19 06:59 18:59 06:59 Intake Total 450 Balance 450 Intake: Intake, IV Titration 100 Amount Piperacillin-Tazobactam 3 100 .375 gm In Sodium Chloride 0.9% 100 ml @ 25 mls/hr IVPB Q8HR [facility] Rx# :[id number] Oral 350 Other: Voiding Method Toilet Toilet # Voids 2 - Exam PHYSICAL EXAMINATION: GENERAL: not in any acute distress. HEENT: Pupils are round and equally reacting to light. EOMI. No scleral icterus. No conjunctival pallor. CARDIOVASCULAR:S1, S2 heard . No additional sounds. PULMONARY: Bilateral breath sounds are positive. No wheeze or crackles. Left chest removed. ABDOMEN: Soft, nontender, nondistended, normoactive bowel sounds. No palpable organomegaly. MUSCULOSKELETAL: No joint swelling or deformity. EXTREMITIES: No cyanosis, clubbing, or pedal edema. NEUROLOGICAL: AAOX 3 , Gross neurological examination did not reveal any focal deficits. - Labs CBC & Chem 7: 10/09/19 08:56 10/09/19 08:56 Labs: Abnormal Lab Results - Last 24 Hours (Table) 10/09/19 10/09/19 Range/Units 08:56 08:56 WBC 17.4 H (3.8-10.6) k/uL RBC 3.47 L (3.80-5.40) m/uL Hgb 10.5 L (11.4-16.0) gm/dL Hct 32.9 L (34.0-46.0) % Neutrophils # 12.4 H (1.3-7.7) k/uL Glucose 128 H (74-99) mg/dL Microbiology - Last 24 Hours (Table) 10/05/19 11:50 Anaerobic Culture - Final Lung Aspirate - Left 10/05/19 09:03 Gram Stain - Final Aspirate Body Fluid Culture - Final 10/08/19 10:43 Gram Stain - Preliminary Lung - Left Lower Lobe Wound Culture - Preliminary Assessment and Plan Assessment: ASSESSMENT Hemoptysis Left lower lobe lung mass History of endometriosis Chronic nicotine dependence GERD Anxiety with depression PLAN: S/p removal of the chest tube and and post CXR showing small left sided pneumothorax and also showing a New density at the mid and lower lung, suggested close follow up. She is on Zosyn . Continue with the current medication regimen for now. DVT prophylaxis - pt is ambulating . Further recommendations depending on the progress of the patient.
[2019-10-10] MEDS: HYDROcodone/APAP 10-325MG 1 EACH TAB PO PRN ×3 (02:58→13:45)
[2019-10-10] MEDS: SODIUM CHLORIDE 0.9% 1,000 ML IV SCH ×2 (05:30→13:46)
[2019-10-10] MEDS: KETOROLAC 15 MG/ML 1 ML VIAL IVP SCH ×2 (05:30→13:46)
--- NOTE | 2019-10-10 07:25 | XR ---
EXAMINATION TYPE: XR chest 2V DATE OF EXAM: 10/10/2019 COMPARISON: Chest x-ray from yesterday. HISTORY: Post open VATS procedure. TECHNIQUE: Frontal and lateral views of the chest are obtained. FINDINGS: There is stable tiny upper lateral left-sided pneumothorax. There is adjacent subcutaneous emphysema lower lateral chest wall near site of prior chest tube redemonstrated. Persistent left gre ater than right bibasilar opacities. The cardiac silhouette size remains within normal limits. The osseous structures are intact. IMPRESSION: Stable tiny left pneumothorax. Persistent left greater than right bibasilar acute infilt rate and atelectasis and small to tiny bilateral pleural effusions. No significant change from one da y earlier.
[2019-10-10 08:18] LABS: Basophils # (A) 0.1 k/uL (0-0.2); Basophils % (A) 1 %; Eosinophils # (A) 0.4 k/uL (0-0.7); Eosinophils % (A) 4 %; HCT 30.4 % (34.0-46.0); HGB 9.8 gm/dL (11.4-16.0); Lymphocytes % (A) 20 %; MCH 30.6 pg (25.0-35.0); MCHC 32.3 g/dL (31.0-37.0); MCV 94.6 fL (80.0-100.0); Mean Platelet Volume 7.6; Monocytes # (A) 0.6 k/uL (0-1.0); Monocytes % (A) 7 %; Neutrophils # (A) 6.7 k/uL (1.3-7.7); Neutrophils % (A) 68 %; Platelet Count 457 k/uL (150-450); RBC 3.21 m/uL (3.80-5.40); RDW 12.8 % (11.5-15.5); WBC 9.8 k/uL (3.8-10.6)
[2019-10-10] MEDS: PIPERACILLIN-TAZOBACTAM 3.375 GM in SODIUM CHLORIDE 0.9% 100 ML IVPB SCH (08:26)
[2019-10-10] MEDS: NICOTINE 21MG/24HR PATCH TRANSDERM SCH ×2 (08:27→08:28)
[2019-10-10] MEDS: ALBUTEROL NEBULIZED 2.5 MG/3 ML INHALATION PRN (08:44)
[2019-10-10 12:17] VITALS: BP 107/67; PULSE 83; RESP 16; TEMP 98
--- NOTE | 2019-10-10 12:53 | P.PN ---
Subjective Progress Note Date: 10/10/19 Principal diagnosis: Left lower lobe lung mass The patient is seen today 10/10/2019 in follow-up on the regular medical floor. She is status post left lower lobe mass/abscess wedge resection. Postoperative day #2. Cultures are revealing no growth to date. Today's chest x-ray reveals a stable tiny upper lateral left-sided pneumothorax. She is sitting up in bed. Awake and alert in no acute distress. Maintaining good O2 saturations in the mid 90s on room air. She's afebrile. Hemodynamically stable. White count 9.8. Hemoglobin 9.8. She is continued on antibiotics in the form of Zosyn. Objective - Vital Signs Vital signs: Vital Signs Temp 98.0 F 10/10/19 07:00 Pulse 65 10/10/19 08:53 Resp 16 10/10/19 07:00 BP 107/67 10/10/19 07:00 Pulse Ox 96 10/10/19 08:44 Intake & Output 10/09/19 10/10/19 10/10/19 18:59 06:59 18:59 Intake Total 450 Balance 450 Intake: Intake, IV Titration 100 Amount Piperacillin-Tazobactam 3 100 .375 gm In Sodium Chloride 0.9% 100 ml @ 25 mls/hr IVPB Q8HR [facility] Rx# :[id number] Oral 350 Other: Voiding Method Toilet Toilet # Voids 2 - Exam GENERAL EXAM: Alert, active, pleasant 39-year-old female patient, on room air, comfortable in no apparent distress. HEAD: Normocephalic. EYES: Normal reaction of pupils, equal size. NOSE: Clear with pink turbinates. THROAT: No erythema or exudates. NECK: No masses, no JVD. CHEST: No chest wall deformity. Left chest dressing intact. LUNGS: Equal air entry with few scattered rhonchi more so on the left. CVS: S1 and S2 normal with no audible murmur, regular rhythm. ABDOMEN: No hepatosplenomegaly, normal bowel sounds, no guarding or rigidity. SPINE: No scoliosis or deformity SKIN: No rashes CENTRAL NERVOUS SYSTEM: No focal deficits, tone is normal in all 4 extremities. EXTREMITIES: There is no peripheral edema. No clubbing, no cyanosis. Peripheral pulses are intact. - Labs CBC & Chem 7: 10/10/19 07:03 10/09/19 08:56 Labs: Abnormal Lab Results - Last 24 Hours (Table) 10/10/19 Range/Units 07:03 RBC 3.21 L (3.80-5.40) m/uL Hgb 9.8 L (11.4-16.0) gm/dL Hct 30.4 L (34.0-46.0) % Plt Count 457 H (150-450) k/uL Microbiology - Last 24 Hours (Table) 10/08/19 10:43 Anaerobic Culture - Preliminary Lung - Left Lower Lobe 10/08/19 10:43 Gram Stain - Final Lung - Left Lower Lobe Wound Culture - Final 10/05/19 11:50 Anaerobic Culture - Final Lung Aspirate - Left 10/05/19 09:03 Gram Stain - Final Aspirate Body Fluid Culture - Final Assessment and Plan Assessment: #1. Enlarging left lower lung pulmonary mass, first seen on the CT chest on 01/30/2019, and follow-up CT chest on 07/06/2019, there was a 2.5 x 1.9 cm enlarging left lung mass in the left lower lobe just under the fissure to bring the lingular segment of the left lower lobe. On the follow-up CT chest on 07/06/2019 there was a satellite lesion in the left lower lobe and another 5 mm vague right upper lobe nodule, and there was a concern for malignancy despite the young age in the chronic smoker, a PET scan on 02/27/2019 showed metabolic activity with an SUV of 4.4. Patient underwent navigational bronchoscopy with biopsy of the left lower lobe nodule on 07/23/2019, and cytology and biopsy were negative for malignancy. Patient presents on 10/05/2019 with complaints of hemoptysis and some chest tightness, and CT chest reveals enlarging cystic mass in the lateral left lung base at the region of the anterior basal segment of the left lower lobe, contiguous with a heart, with the consideration of pericardial cyst, bronchogenic cyst or loculated pleural fluid. Necrotic tumor is not excluded, status post CT-guided CT needle aspiration, cytology showed fibrinopurulent material or histiocytes compatible with acute inflammation or pulmonary abscess, no evidence of malignancy #2. Status post thoracoscopy, wedge resection of the left lower lobe of the small lung mass in the left lower lobe, postoperative day #2, surgical biopsies revealed pulmonary abscess with fibrosis and focal organization. No evidence of malignancy. Cultures reveal no growth to date. #3. Chronic smoker, carries [id number] smoking history #4. Endometriosis, status post laparoscopic surgeries #5. Hemoptysis #6. GERD/reflux #7. Anxiety/depression #8. Uterine Leiomyoma Plan: The patient was seen and evaluated by Dr. Edgar Chest x-ray and labs reviewed Cleared for discharge from the pulmonary standpoint Augmentin 875 twice a day 10 days Follow-up in the office in 1-2 weeks' time I, the cosigning physician, performed a history & physical examination of the patient. Lungs sounds with few scattered rhonchi more so on the left. Maintaining good O2 saturations in the 90s on room air. I discussed the assessment and plan of care with my nurse practitioner, Reny Gibbons. I attest to the above note as dictated by her.
--- NOTE | 2019-10-10 13:02 | P.PN ---
Subjective Progress Note Date: 10/10/19 Principal diagnosis: Left lower lobe mass/abscess. Past medical history significant for endometriosis status post multiple D&Cs and hysterectomy, hypertension, current tobacco dependence. POD #2 left thoracoscopy, wedge resection left lower lobe. The patient was seen in follow-up today at her bedside on the cardiac stepdown unit. She is awake, alert and oriented 3 and is in no acute distress. Denies any complaints of shortness of breath or pain. Her left pleural chest tube was removed yesterday without incident. Oxygen saturations are 96% on room air and she is achieving 750 mL on her incentive spirometry as much encouragement. Pathology results of the left lower lobe lung lesion, thoracoscopic wedge resection shows pulmonary abscess with fibrosis and focal organized patient. The pathology report was discussed with the patient by Dr. Glenn Bowser. Objective - Vital Signs Vital signs: Vital Signs Temp 98.0 F 10/10/19 07:00 Pulse 65 10/10/19 08:53 Resp 16 10/10/19 07:00 BP 107/67 10/10/19 07:00 Pulse Ox 96 10/10/19 08:44 Intake & Output 10/09/19 10/10/19 10/10/19 18:59 06:59 18:59 Intake Total 450 Balance 450 Intake: Intake, IV Titration 100 Amount Piperacillin-Tazobactam 3 100 .375 gm In Sodium Chloride 0.9% 100 ml @ 25 mls/hr IVPB Q8HR [facility] Rx# :[id number] Oral 350 Other: Voiding Method Toilet Toilet # Voids 2 - Constitutional General appearance: Present: cooperative, no acute distress, obese - EENT Eyes: Present: PERRLA, normal appearance ENT: Present: hearing grossly normal - Neck Details: Neck is supple, no JVD. - Respiratory Details: Lung sounds essentially clear throughout, diminished to her left lower lobe. Respirations are symmetrical and nonlabored. Oxygen saturation 96% on room air. Achieving 750 mL on her incentive spirometry. - Cardiovascular Details: Regular rhythm and rate. S1 and S2 present, negative for S3, gallop or murmur. Remote telemetry showing normal sinus rhythm heart rate 87 BPM. No edema p resent. - Gastrointestinal Gastrointestinal Comment(s): Abdomen is soft, nontender and nondistended. Active bowel sounds present all 4 abdominal quadrants. No guarding or rigidity. No organomegaly appreciated. - Genitourinary Genitourinary Comment(s): Continues to void. - Integumentary Integumentary Comment(s): Skin is warm and dry. No clubbing or cyanosis is present. Left chest thoracoscopic incision sites clean, dry and approximated. No drainage or redness is present. Dressings are clean, dry and intact. - Neurologic Neurologic: Present: CNII-XII intact - Musculoskeletal Musculoskeletal: Present: gait normal, strength equal bilaterally - Psychiatric Psychiatric: Present: A&O x's 3, appropriate affect, intact judgment & insight - Allied health notes Allied health notes reviewed: nursing - Labs CBC & Chem 7: 10/10/19 07:03 10/09/19 08:56 Labs: Abnormal Lab Results - Last 24 Hours (Table) 10/10/19 Range/Units 07:03 RBC 3.21 L (3.80-5.40) m/uL Hgb 9.8 L (11.4-16.0) gm/dL Hct 30.4 L (34.0-46.0) % Plt Count 457 H (150-450) k/uL Microbiology - Last 24 Hours (Table) 10/08/19 10:43 Anaerobic Culture - Preliminary Lung - Left Lower Lobe 10/08/19 10:43 Gram Stain - Final Lung - Left Lower Lobe Wound Culture - Final 10/05/19 11:50 Anaerobic Culture - Final Lung Aspirate - Left 10/05/19 09:03 Gram Stain - Final Aspirate Body Fluid Culture - Final - Imaging and Cardiology Chest x-ray: report reviewed, image reviewed Assessment and Plan Assessment: 1. Left lower lobe mass, status post needle biopsy by interventional radiology, pathology consistent with fibrinopurulent material, pus, and histiocytes compatible with acute inflammation/pulmonary abscess, status post left thoracostomy tube placement 2. History of endometriosis status post multiple D&Cs and hysterectomy 3. Current tobacco dependence Plan: 1. The patient is cleared per the cardiothoracic surgery standpoint to be discharged home when okay with primary care service and other consulting physicians. 2. Incentive spirometry ordered and encouraged 10 times every hour while awake. 3. Counseling regarding importance of smoking cessation, reinforced. 4. Medical management with a comorbidities per primary care service 5. Increase activity as tolerated. Out of bed for all meals. 6. We will continue to follow the patient on an as-needed basis. Time with Patient: Less than 30
--- NOTE | 2019-10-10 20:07 | DS ---
DISCHARGE SUMMARY DATE OF SERVICE: 10/10/2019 FINAL DIAGNOSES: 1. Hemoptysis, present on admission secondary to enlarging left lower lung pulmonary mass status post left thoracoscopy and wedge resection of the left lower lobe with pulmonary abscess with fibrosis and focal organization and biopsy. 2. History of endometriosis. 3. Chronic nicotine dependence. 4. Gastroesophageal reflux disease. 5. Anxiety, depression. DISCHARGE DISPOSITION: The patient being discharged in stable condition with guarded prognosis. Discharge cleared by multiple consultants including pulmonary and as well as thoracic surgery. Total time taken: 35 minutes. HISTORY OF PRESENT ILLNESS: This 39 -year-old woman with a past medical history of multiple medical problems being followed by Kelli Noel in the outpatient setting was admitted with enlarging pulmonary mass and hemoptysis. The patient underwent a wedge biopsy by Dr. Bowser. No evidence of malignancy is noted, but however the cultures are negative so far. The fungal cultures and AFB cultures are pending at this time. The patient improved significantly and Pulmonary and Dr. Bowser recommend the patient be discharged. On exam, vitals are stable. Cardiovascular: S1, S2. Respiration: A few scattered rhonchi. ABDOMEN: Soft. Nervous system: No focal deficits. DISCHARGE ADVICE AND MEDICATIONS: 1. Diet is cardiac diet. 2. Activity limited until followup. 3. Follow up with Dr. Jorden Paz and Kelli Noel in 1-2 days. 4. Follow up with Dr. Edgar. 5. Follow up with Dr. Bowser. 6. Follow with Cardiology as recommended. 7. Medications are Augmentin per Pulmonary. 8. Medications are Celexa 20 mg q.h.s. 9. Estrace 1 mg p.o. daily. 10.Lisinopril 40 mg q.h.s. 11.Motrin p.r.n. 12.Norvasc 5 mg q.h.s. 13.Pepcid b.i.d. 14.Tylenol p.r.n. 15.Xalatan q.h.s. 16.Habitrol 21. 17.No smoking. 18.Ventolin 2 puffs q.i.d. and p.r.n. MMODL / CARMINAN: [id number] /
== END 2019-10-10 15:15 | disposition home or self-care (01) | DRG 164 ==
LOC: EC 23:56 → 4SSUR 10-05 01:55
PROVIDERS: ADMIT Hospitalist; ATTEND Hospitalist
PROC: 0B9L3ZX Drainage of Left Lung, Percutaneous Approach, Diagnostic (ICD-10-PCS; 2019-10-05)
PROC: 0BBJ4ZZ Excision of Left Lower Lung Lobe, Percutaneous Endoscopic Approach (ICD-10-PCS; principal; 2019-10-08 09:30)
DX: J85.2 Abscess of lung without pneumonia (principal); R04.2 Hemoptysis; J93.9 Pneumothorax, unspecified; J84.10 Pulmonary fibrosis, unspecified; F17.210 Nicotine dependence, cigarettes, uncomplicated; K21.9 Gastro-esophageal reflux disease without esophagitis; I10 Essential (primary) hypertension; M19.90 Unspecified osteoarthritis, unspecified site; K58.9 Irritable bowel syndrome, unspecified; R09.82 Postnasal drip; F41.8 Other specified anxiety disorders; Z71.6 Tobacco abuse counseling; Z79.3 Long term (current) use of hormonal contraceptives; Z79.899 Other long term (current) drug therapy; Z90.710 Acquired absence of both cervix and uterus; Z87.42 Personal history of other diseases of the female genital tract; Z98.890 Other specified postprocedural states; Z77.090 Contact with and (suspected) exposure to asbestos; Z90.49 Acquired absence of other specified parts of digestive tract; Z88.8 Allergy status to other drugs, medicaments and biological substances; Z83.3 Family history of diabetes mellitus; Z82.49 Family history of ischemic heart disease and other diseases of the circulatory system
CPT/HCPCS: 36415; 71045; 71046; 71275; 77012; 80048; 80053; 80061; 81003; 81025; 83880; 84484; 85025; 85610; 85730; 87070; 87075; 87102; 87116; 87205; 87206; 88173; 88305; 88307; 88309; 88331; 93005; 93306; 94640; 94760; 99285

== ENCOUNTER 2022-10-10 10:58 | Inpatient (IN) | payer OTHER ==
[2022-10-10] MEDS ORDERED: MAG HYDROX/AL HYDROX/SIMETH 30 ML, HYOSCYAMINE ELIXIR 10 ML, LIDOCAINE 2% GLYDO JELLY 1... PO STA ×3 (11:36)
--- NOTE | 2022-10-10 11:45 | ED ---
Chest Pain HPI - General Chief Complaint: Upper Respiratory Infection Stated Complaint: coughing up blood Time Seen by Provider: 10/10/22 11:27 Source: patient, RN notes reviewed Mode of arrival: ambulatory Limitations: no limitations - History of Present Illness Initial Comments: This is a 42-year-old female who presents to the emergency department for chest pain, hemoptysis, and shortness of breath. States that this started approximately 2 weeks ago. She first noticed blood in her sputum about a week ago, and again noticed it today. She's been on a course of antibiotics and steroids without relief. The chest pain is centralized and intermittent in nature. She does have a history of wedge resection of the left lower lobe secondary to necrosis. Additionally, patient has a history of endometriosis requiring multiple surgeries, but is unsure if this has ever spread to her lungs. Also states that she has acid reflux, and feels like she has some pressure and swelling in her throat. She is on Pepcid and denies any burning in her chest and throat. Denies any fevers, chills, palpitations, abdominal pain, nausea, vomiting, diarr hea, back pain, or headaches. MD Complaint: chest pain Onset/Timin -: week(s) - Related Data Home Medications Medication Instructions Recorded Confirmed Citalopram Hydrobromide [CeleXA] 20 mg PO HS 06/12/17 10/10/22 Famotidine [Pepcid] 40 mg PO BID 06/12/17 10/10/22 amLODIPine [Norvasc] 5 mg PO HS 06/12/17 10/10/22 lisinopriL 40 mg PO HS 06/12/17 10/10/22 Ibuprofen [Motrin] 800 mg PO BID 07/21/19 10/10/22 estradioL [Estrace] 1 mg PO DAILY 07/21/19 10/10/22 Levocetirizine Dihydrochloride 5 mg PO DAILY 01/01/22 10/10/22 [Xyzal] Montelukast [Singulair] 10 mg PO DAILY 01/01/22 10/10/22 ALPRAZolam [Xanax] 0.5 mg PO DAILY PRN 10/10/22 10/10/22 ALPRAZolam [Xanax] 0.5 mg PO HS 10/10/22 10/10/22 Albuterol Inhaler [Ventolin Hfa 2 puff INHALATION RT-Q6H PRN 10/10/22 10/10/22 Inhaler] Gabapentin 300 mg PO HS 10/10/22 10/10/22 Multivitamin Gummy With Immune 1 tab PO DAILY 10/10/22 10/10/22 Support Allergies Allergy/AdvReac Type Severity Reaction Status Date / Time prochlorperazine AdvReac Extreme Verified 10/10/22 16:19 [From Compazine] anxiety Review of Systems ROS Statement: Those systems with pertinent positive or pertinent negative responses have been documented in the HPI. ROS Other: All systems not noted in ROS Statement are negative. Past Medical History Past Medical History: GERD/Reflux, Hypertension, Osteoarthritis (OA) Additional Past Medical History / Comment(s): Endometriosis, constant nasal congestion, bloating, nausea, and IBS. 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 left lung nodule biopsy. Wedge resection left lower lobe Past Anesthesia/Blood Transfusion Reactions: Postoperative Nausea & Vomiting (PONV) Past Psychological History: Anxiety, Depression Smoking Status: Current every day smoker Past Alcohol Use History: None Reported Past Drug Use History: None Reported - Past Family History Mother Family Medical History: No Reported History Father Family Medical History: Diabetes Mellitus, Hypertension General Exam Limitations: no limitations General appearance: alert, in no apparent distress Head exam: Present: atraumatic, normocephalic, normal inspection ENT exam: Present: normal exam, normal oropharynx, mucous membranes moist Respiratory exam: Present: normal lung sounds bilaterally. Absent: respiratory distress, wheezes, rales, rhonchi, stridor, chest wall tenderness Cardiovascular Exam: Present: regular rate, normal rhythm, normal heart sounds. Absent: systolic murmur, diastolic murmur, rubs, gallop, clicks GI/Abdominal exam: Present: soft, normal bowel sounds. Absent: distended, tenderness, guarding, rebound, rigid Neurological exam: Present: alert, oriented X3, CN II-XII intact Psychiatric exam: Present: normal affect, normal mood Skin exam: Present: warm, dry, intact, normal color. Absent: rash Course Vital Signs 10/10/22 10/10/22 11:22 15:25 Temperature 98.3 F Pulse Rate 76 72 Respiratory 20 18 Rate Blood Pressure 146/86 152/92 O2 Sat by Pulse 97 97 Oximetry Chest Pain MDM - MDM This is a 42-year-old female who presents to the emergency department for chest pain, shortness of breath, and hemoptysis. Was pt. sent in by a medical professional or institution? @ -No Did you speak to anyone other than the patient for history? @ -No Did you review nursing and triage notes? @ -Yes, and I agree, it is accurate with regards to the patient's symptoms. Were old charts reviewed? @ -Yes, pathology of the lung mass aspiration from 10/08/2019, which was consistent with a pulmonary abscess. Differential Diagnosis? @ -Differential Chest Pain: Stable Angina, Unstable Angina, STEMI, NSTEMI Aortic Dissection, Pneumothorax, Musculoskeletal, Esophageal Spasm GERD, Cholecystitis, Pancreatitis, Zoster, this is not meant to be an all-inclusive list. EKG interpreted by me (3pts min.)? @ -EKG interpreted by me demonstrating the following: Sinus rhythm. Ventricular rate 68 beats per minute, CO interval 164 ms, QRS duration 89 ms, QTC 427 ms. X-rays interpreted by me (1pt min.)? @ -Chest x-ray obtained, my interpretation identifies no localized consolidations or infiltrates. CT interpreted by me (1pt min.)? @ -CT scan of the chest and abdomen obtained. My interpretation identifies a left basilar mass. U/S interpreted by me (1pt. min.)? @ -Not obtained What testing was considered but not performed? (CT, X-rays, U/S, labs)? Why? @ -None What meds were considered but not given? Why? @ -None Did you discuss the management of the patient with other professionals? @ -Yes, Dr. Patton, who accepts the patient for admission. Did you reconcile home meds? @ -Yes Was smoking cessation discussed for >3mins.? @ -No Was critical care preformed (if so, how long)? @ -No Were there social determinants of health that impacted care today? How? (Homeles sness, low income, unemployed, alcoholism, drug addiction, transportation, low edu. Level, literacy, decrease access to med. care, long term, rehab)? @ -No Was there de-escalation of care discussed even if they declined? (Discuss DNR or withdrawal of care, Hospice)? @ -No What co-morbidities impacted this encounter? (DM, HTN, Smoking, COPD, CAD, Cancer, CVA, Hep., AIDS, mental health diagnosis, sleep apnea, morbid obesity)? @ -GERD Was patient admitted / discharged? @ -Admitted. Lab work obtained revealing leukocytosis. Chest x-ray obtained revealing a possible small pleural effusion at the left costophrenic angle without any suspicious infiltrates. Given the leukocytosis with the severity of the patient's symptoms, we did obtain a computed tomography scan of the chest and abdomen. This revealed recurrence of a left basilar cystic mass that had been drained in 2019. Pathology at that time revealed that this was a pulmonary abscess. The lung mass does have internal fluid and a focus of air that radiology states may reflect a cavitary neoplasm or abscess. Patient admitted to medicine for further evaluation. Pulmonology listed as consult. She was started on ceftriaxone, Zithromax, and Flagyl for further management. Undiagnosed new problem with uncertain prognosis? @ -None Drug Therapy requiring intensive monitoring for toxicity (Heparin, Nitro, Insulin, Cardizem)? @ -None Were any procedures done? @ -None Diagnosis/symptom? @ -Left lung mass, hemoptysis Acute, or Chronic, or Acute on Chronic? @ -Acute Uncomplicated (without systemic symptoms) or Complicated (systemic symptoms)? @ -Complicated Side effects of treatment? @ -None Exacerbation, Progression, or Severe Exacerbation] @ -Not applicable Poses a threat to life or bodily function? @ -Yes This case was discussed in detail with the attending ED physician, Dr. Hoang. Presentation, findings, and treatment plan discussed in detail as well. Disposition Clinical Impression: Cavitating mass of lung, Mass of left lung, Hemoptysis Disposition: ADMITTED IP TO THIS HOSP
[2022-10-10 12:24] LABS: Basophils # (A) 0.1 k/uL (0-0.2); Basophils % (A) 1 %; Eosinophils # (A) 0.2 k/uL (0-0.7); Eosinophils % (A) 1 %; HCT 41.2 % (34.0-46.0); HGB 14.4 gm/dL (11.4-16.0); Lymphocytes # (A) 2.8 k/uL (1.0-4.8); Lymphocytes % (A) 14 %; MCH 32.5 pg (25.0-35.0); MCV 92.8 fL (80.0-100.0); Monocytes # (A) 0.6 k/uL (0-1.0); Monocytes % (A) 3 %; Neutrophils # (A) 16.1 k/uL (1.3-7.7); Neutrophils % (A) 81 %; Platelet Count 372 k/uL (150-450); RBC 4.44 m/uL (3.80-5.40); RDW 12.9 % (11.5-15.5); WBC 19.9 k/uL (3.8-10.6)
--- NOTE | 2022-10-10 12:24 | XR ---
EXAMINATION TYPE: XR chest 2V DATE OF EXAM: 10/10/2022 COMPARISON: 10/10/2019 INDICATION: Difficulty breathing, pneumothorax TECHNIQUE: Frontal and lateral views of the chest are obtained. FINDINGS: The heart size is normal. The pulmonary vasculature is normal. May be a minimal left costophrenic angle pleural effusion. No suspicious infiltrates are evident. IMPRESSION: 1. Very minimal left pleural effusion may be at the costophrenic angle.
[2022-10-10 12:44] LABS: INR 0.9 (<1.2); Partial Thromboplastin Time 23.9 sec (22.0-30.0); Prothrombin Time 9.9 sec (9.0-12.0)
[2022-10-10 12:48] LABS: ALT 21 U/L (4-34); AST 19 U/L (14-36); African American GFR (CKD) >90 (>60 ml/min/1.73 sqM); Albumin 4.3 g/dL (3.5-5.0); Alkaline Phosphatase 110 U/L (38-126); Anion Gap 7 mmol/L; Blood Urea Nitrogen 15 mg/dL (7-17); Carbon Dioxide 28 mmol/L (22-30); Chloride 100 mmol/L (98-107); Glucose 279 mg/dL (74-99); Non-African American GFR(CKD) >90 (>60 ml/min/1.73 sqM); Potassium 4.1 mmol/L (3.5-5.1); Sodium 135 mmol/L (137-145); Total Bilirubin 0.8 mg/dL (0.2-1.3); Total Protein 7.4 g/dL (6.3-8.2)
--- NOTE | 2022-10-10 13:42 | CT ---
EXAMINATION TYPE: CT chest abdomen w con DATE OF EXAM: 10/10/2022 COMPARISON: 04/26/2022 and 10/05/2019 HISTORY: epigastric pain, chest pain, hemoptysis CT DLP: 780.9 mGycm CONTRAST: CT scan of the chest, abdomen is performed without Oral Contrast and with IV Contrast, patient inject ed with 100 mL of Isovue 300. CT Chest: LUNGS: Left basilar lung mass has enlarged in the interval and currently measures 3.2 x 3.0 cm versus prior measurement of 1.9 x 1.3 cm. There is internal fluid and focus of air which may reflect cavita ry neoplasm or abscess. There are adjacent sutures at the left lung base with postoperative changes n oted. The lungs are otherwise clear with no additional mass seen. MEDIASTINUM: Thoracic aorta is of normal caliber. The heart is not enlarged. No evidence for media stinal mass or adenopathy. HILAR STRUCTURES: No evidence for mass. No hilar adenopathy is appreciated. OTHER: No significant abnormality. CONTRAST CT ABDOMEN AND PELVIS FINDINGS: LIVER/GB: No calcified gallstones. There is mild hepatomegaly with underlying hepatic steatosis. N o space occupying hepatic lesion. Biliary tree is of normal caliber. PANCREAS: No inflammation. No distinct mass. SPLEEN: No splenic enlargement. No lesion seen. ADRENALS: No nodule. No thickening. KIDNEYS/BLADDER: No hydronephrosis. No nephrolithiasis. No distinct renal mass. BOWEL: Normal appendix. Normal bowel caliber. No inflammation. LYMPH NODES: No greater than 1cm abdominal or pelvic lymph nodes are appreciated. AORTA: No significant abnormality. OSSEOUS STRUCTURES: No significant abnormality is seen. OTHER: No significant additional abnormality is seen. IMPRESSION: 1. Reoccurrence of a left basilar cystic mass which was drained in September 2019. Correlate with prior pathology. Cavitary neoplasm or infected collection is not excluded. 2. Hepatic steatosis and mild hepatomegaly.
[2022-10-10] MEDS ORDERED: AZITHROMYCIN 500 MG in SODIUM CHLORIDE 0.9% 250 ML IVPB STA (15:39)
[2022-10-10] MEDS ORDERED: PNEUMONIA PROTOCOL UTILIZED 1 EACH MISC PO PRN (15:39)
[2022-10-10] MEDS ORDERED: NALOXONE 0.4 MG/ML 1 ML VIAL IV PRN (15:46)
[2022-10-10] MEDS ORDERED: KETOROLAC 15 MG/ML 1 ML VIAL IVP PRN (15:46)
[2022-10-10] MEDS ORDERED: ONDANSETRON 4 MG/2 ML VIAL IVP PRN (15:46)
[2022-10-10] MEDS ORDERED: ACETAMINOPHEN TAB 325 MG TAB PO PRN (15:46)
[2022-10-10] MEDS ORDERED: DEXTROSE 50% SYRINGE 50 ML IVP PRN ×2 (15:52)
[2022-10-10] MEDS ORDERED: ALPRAZolam 0.5 MG TAB PO PRN (16:41)
[2022-10-10] MEDS ORDERED: ALBUTEROL NEBULIZED 2.5 MG/3 ML INHALATION PRN (16:41)
[2022-10-10] MEDS: metroNIDAZOLE-NS PMX 500 MG in SALINE 1 100ML.BAG IVPB SCH (17:39)
[2022-10-10 18:09] LABS: Glucose,Whole Blood 149 mg/dL (70-110)
[2022-10-10] MEDS: INSULIN ASPART (NovoLOG) 100 UNIT/ML VIAL SQ SCH ×2 (18:10→21:59)
[2022-10-10] MEDS: HYDROcodone/APAP 5-325MG 1 EACH TAB PO PRN (18:19)
[2022-10-10] MEDS: FAMOTIDINE 20 MG TAB PO SCH (21:02)
[2022-10-10] MEDS: ALPRAZolam 0.5 MG TAB PO SCH (21:02)
[2022-10-10] MEDS: lisinopriL 20 MG TAB PO SCH (21:02)
[2022-10-10 21:03] LABS: Glucose,Whole Blood 222 mg/dL (70-110)
[2022-10-10] MEDS: amLODIPine 5 MG TAB PO SCH (21:03)
[2022-10-10] MEDS: GABAPENTIN 300 MG CAP PO SCH (21:03)
[2022-10-10] MEDS: IBUPROFEN 800 MG TAB PO SCH (21:03)
[2022-10-10] MEDS: CITALOPRAM HYDROBROMIDE 20 MG TAB PO SCH (21:03)
--- NOTE | 2022-10-10 23:54 | P.HPIM ---
History of Present Illness H&P Date: 10/10/22 Chief Complaint: Coughing up blood Patient is a 42-year-old female with a known history of hypertension, osteoarthritis, GERD and and history of endometriosis, anxiety/depression and currently everyday smoking/vaping presents to ER with complaints of chest pains, shortness of breath and hemoptysis. Patient stated she noticed blood in the sputum about 2 weeks ago initially. She was treated with antibiotics and steroids without significant relief. Last night patient developed chest pain/irritation in the chest and also felt very tired and lack of energy and had an episode of teaspoonful on bright red blood in the sputum. Feels nauseous and irritation in the throat. Denies any fever or chills. Cough with thick, clear sputum production denies any loss of weight or appetite. Chest pain is mainly in the mid retrosternal, intermittent heaviness. Patient states that she has occupational exposure to asbestos in 2019 and had left lower lobe wedge resection and left lung nodule biopsy. Chest x-ray showed very minimal left pleural effusion may be at the costophrenic angle. CT of the abdomen pelvis and chest showed reoccurrence of a left basilar cystic mass which was draining September 2019 correlate with prior pathology. Cavity neoplasm not infected collection is not excluded. Hepatic steatosis and mild hepatomegaly. Review of Systems Constitutional: Patient denies any fever or chills . generalized weakness. Abdomen: Patient denied any nausea or vomiting or abd. pain Cardiovascular: Patient is complaining of intermittent chest pain and no leg swelling. Short of breath no palpitations. Respiratory: patient does have cough with whitish sputum production. Patient does have shortness of breath Neurologic: Patient denied any numbness or tingling headache. Musculoskeletal: Patient denies any complaints of joint swelling or deformity. Skin: Negative Psychiatric: Negative Endocrine: No heat or cold intolerance. No recent weight gain. Genitourinary: No dysuria or hematuria. All other 14 point ROS negative except the above Past Medical History Past Medical History: GERD/Reflux, Hypertension, Osteoarthritis (OA) Additional Past Medical History / Comment(s): Endometriosis, constant nasal congestion, bloating, nausea, and IBS. Occupational exposure to asbestos 2019 History of Any Multi-Drug Resistant Organisms: None Reported Past Surgical History: Appendectomy, Hysterectomy Additional Past Surgical History / Comment(s): laproscopic surgeries for endometriosis, sinus surgery, surgery right wrist for ganglion cyst, colonoscopies. left lung nodule biopsy. Wedge resection left lower lobe Past Anesthesia/Blood Transfusion Reactions: Postoperative Nausea & Vomiting (PONV) Past Psychological History: Anxiety, Depression Smoking Status: Current every day smoker Past Alcohol Use History: None Reported Additional Past Alcohol Use History / Comment(s): Has been smoking 1 PPD for 15+ yrs. Past Drug Use History: None Reported - Past Family History Mother Family Medical History: No Reported History Father Family Medical History: Diabetes Mellitus, Hypertension Medications and Allergies Home Medications Medication Instructions Recorded Confirmed Type Citalopram Hydrobromide [CeleXA] 20 mg PO HS 06/12/17 10/10/22 History Famotidine [Pepcid] 40 mg PO BID 06/12/17 10/10/22 History amLODIPine [Norvasc] 5 mg PO HS 06/12/17 10/10/22 History lisinopriL 40 mg PO HS 06/12/17 10/10/22 History Ibuprofen [Motrin] 800 mg PO BID 07/21/19 10/10/22 History estradioL [Estrace] 1 mg PO DAILY 07/21/19 10/10/22 History Levocetirizine Dihydrochloride 5 mg PO DAILY 01/01/22 10/10/22 History [Xyzal] Montelukast [Singulair] 10 mg PO DAILY 01/01/22 10/10/22 History ALPRAZolam [Xanax] 0.5 mg PO DAILY PRN 10/10/22 10/10/22 History ALPRAZolam [Xanax] 0.5 mg PO HS 10/10/22 10/10/22 History Albuterol Inhaler [Ventolin Hfa 2 puff INHALATION RT-Q6H PRN 10/10/22 10/10/22 History Inhaler] Gabapentin 300 mg PO HS 10/10/22 10/10/22 History Multivitamin Gummy With Immune 1 tab PO DAILY 10/10/22 10/10/22 History Support Allergies Allergy/AdvReac Type Severity Reaction Status Date / Time prochlorperazine AdvReac Extreme Verified 10/10/22 16:19 [From Compazine] anxiety Physical Exam Vitals: Vital Signs Temp Pulse Pulse Resp BP BP Pulse Ox 10/10/22 22:17 97.6 F 57 L 16 123/72 96 10/10/22 21:00 59 L 18 145/89 96 10/10/22 18:18 60 18 136/80 96 10/10/22 15:25 72 18 152/92 97 10/10/22 11:22 98.3 F 76 20 146/86 97 Intake and Output 10/10/22 10/10/22 10/11/22 14:59 22:59 06:59 Other: Voiding Method Toilet # Voids 1 Weight 72.575 kg 72.575 kg PHYSICAL EXAMINATION: Patient is lying in the bed comfortably, no acute distress, awake alert and oriented.. HEENT: Normocephalic. Neck is supple. Pupils reactive. Nostrils clear. Oral cavity is moist. Neck reveals no JVD, carotid bruits, or thyromegaly. CHEST EXAMINATION: Trachea is central. Symmetrical expansion. Lung trammell clear to auscultation and percussion. CARDIAC: Normal S1, S2 with no gallops. No murmurs ABDOMEN: Soft. Bowel sounds present. Nontender. No organomegaly. No abdominal bruits. Extremities: reveal no edema. No clubbing or cyanosis Neurologically awake, alert, oriented x3 with well-coordinated movements. No focal deficits noted Skin: No rash or skin lesions. Psychiatric: Coperative. Nonsuicidal, Musculoskeletal: No joint swelling or deformity. Normal range of motion. Results CBC & Chem 7: 10/10/22 12:05 10/10/22 12:05 Labs: Abnormal Lab Results - Last 24 Hours (Table) 10/10/22 10/10/22 10/10/22 Range/Units 12:05 12:05 18:08 WBC 19.9 H (3.8-10.6) k/uL Neutrophils # 16.1 H (1.3-7.7) k/uL Sodium 135 L (137-145) mmol/L Glucose 279 H (74-99) mg/dL POC Glucose (mg/dL) 149 H (70-110) mg/dL 10/10/22 Range/Units 21:00 WBC (3.8-10.6) k/uL Neutrophils # (1.3-7.7) k/uL Sodium (137-145) mmol/L Glucose (74-99) mg/dL POC Glucose (mg/dL) 222 H (70-110) mg/dL Thrombosis Risk Factor Assmnt - DVT/VTE Prophylaxis DVT/VTE Prophylaxis: Mechanical Prophylaxis ordered Assessment and Plan Assessment: Hemoptysis Chest pain/tightness intermittently Left basilar cystic mass recurrence with history of drain in September 2019. Possible cavitary neoplasm versus infected fluid collection. Prior history of asbestos exposure. History of left lower lobe wedge resection Hypertension GERD Osteoarthritis Hematemesis with history of multiple and laparoscopic procedures Anxiety/depression Prior history of smoking and currently vaping on a daily basis DVT prophylaxis with SCDs due to hemoptysis. Plan: Patient will be continued on antibiotics ceftriaxone, azithromycin and Flagyl and follow-up sputum cultures and urine Legionella antigen was sent. Pulmonary was consulted due to recurrence of the cystic mass. Continue with home medications and pain management. Continue to follow closely. Prognosis is guarded at this time. Patient was counseled for smoking cessation. Time with Patient: Greater than 30
[2022-10-11] MEDS: metroNIDAZOLE-NS PMX 500 MG in SALINE 1 100ML.BAG IVPB SCH (00:01)
--- NOTE | 2022-10-11 03:38 | P.CNPUL ---
History of Present Illness Consult date: 10/11/22 Requesting physician: Alice Stephenson Reason for consult: lung mass Chief complaint: Hemoptysis and chest pain History of present illness: I am seeing this patient in new consultation today 10/11/2022 for an enlarging 3.2 x 3 cm cavitating left lung mass. Patient is a 42-year-old white female w ith past medical history significant for previous lung abscess status post drainage and ultimately wedge resection in 2019, GERD, seasonal ALLERGIES, hypertension, endometriosis status post hysterectomy. She no longer smokes cigarettes, but vapes daily. Cytology and culture of the previous abscess were negative. Patient presents to the emergency room yesterday morning complaining of intermittent shortness of breath, left-sided chest pain, and hemoptysis which started on Saturday, but she's had prior episodes in the past. She states that when she has hemoptysis, it's about 2 teaspoons of bright red blood. She denies any fevers, chills, myalgias. Denies sick contacts or recent travel. She recent ly had a CT of the chest on 04/26/2022 which showed a 1.9 x 1.3 cm cavitating nodule at the left lung base near the previous postsurgical area. She was recently treated in the office by Dr. Edgar, back on September 13 with a round of Augmentin and prednisone taper. She was scheduled to follow-up with Dr. Edgar in the office, but missed her follow-up appointment, and has not rescheduled yet. Patient is currently sitting up in bed, on room air, in no acute distress. A repeat chest and abdomen CT with contrast shows an interval enlargement of the left basilar cavitating mass measuring 3.2 x 3 cm. Patient has been placed on a combination of azithromycin, Rocephin, and Flagyl. CBC shows leukocytosis with WBC count of 19.9, hemoglobin 14.4, hematocrit 41.2, platelets 372. BMP on arrival was unremarkable. Negative for influenza, RSV, COVID-19. Patient appears nontoxic and hemodynamically stable Review of Systems REVIEW OF SYSTEMS: CONSTITUTIONAL: Denies any recent significant weight loss or weight gain. Denies fever EYES: Denies change in vision. EARS, NOSE, MOUTH, THROAT: Denies headaches, denies sore throat. CARDIOVASCULAR: Denies palpitations or syncopal episodes. RESPIRATORY: See HPI. GASTROINTESTINAL: Denies change in appetite, abdominal pain, nausea and vomiting, or diarrhea GENITOURINARY: Denies hematuria, denies infections. MUSKULOSKELETAL: Denies pain, denies swelling. INTEGUMENTARY: Denies rash, denies eczema. NEUROLOGICAL: Denies recent memory loss, no recent seizure activity. PSYCHIATRIC: Denies anxiety, denies depression. HEMATOLOGIC/LYMPHATIC: Denies anemia, denies enlarged lymph node Past Medical History Past Medical History: GERD/Reflux, Hypertension, Osteoarthritis (OA) Additional Past Medical History / Comment(s): Endometriosis, constant nasal congestion, bloating, nausea, and IBS. 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 left lung nodule biopsy. Wedge resection left lower lobe Past Anesthesia/Blood Transfusion Reactions: Postoperative Nausea & Vomiting (PONV) Past Psychological History: Anxiety, Depression Smoking Status: Current every day smoker Past Alcohol Use History: None Reported Additional Past Alcohol Use History / Comment(s): Has been smoking 1 PPD for 15+ yrs. Past Drug Use History: None Reported - Past Family History Mother Family Medical History: No Reported History Father Family Medical History: Diabetes Mellitus, Hypertension Medications and Allergies Home Medications Medication Instructions Recorded Confirmed Type Citalopram Hydrobromide [CeleXA] 20 mg PO HS 06/12/17 10/10/22 History Famotidine [Pepcid] 40 mg PO BID 06/12/17 10/10/22 History amLODIPine [Norvasc] 5 mg PO HS 06/12/17 10/10/22 History lisinopriL 40 mg PO HS 06/12/17 10/10/22 History Ibuprofen [Motrin] 800 mg PO BID 07/21/19 10/10/22 History estradioL [Estrace] 1 mg PO DAILY 07/21/19 10/10/22 History Levocetirizine Dihydrochloride 5 mg PO DAILY 01/01/22 10/10/22 History [Xyzal] Montelukast [Singulair] 10 mg PO DAILY 01/01/22 10/10/22 History ALPRAZolam [Xanax] 0.5 mg PO DAILY PRN 10/10/22 10/10/22 History ALPRAZolam [Xanax] 0.5 mg PO HS 10/10/22 10/10/22 History Albuterol Inhaler [Ventolin Hfa 2 puff INHALATION RT-Q6H PRN 10/10/22 10/10/22 History Inhaler] Gabapentin 300 mg PO HS 10/10/22 10/10/22 History Multivitamin Gummy With Immune 1 tab PO DAILY 10/10/22 10/10/22 History Support Allergies Allergy/AdvReac Type Severity Reaction Status Date / Time prochlorperazine AdvReac Extreme Verified 10/10/22 16:19 [From Compazine] anxiety Physical Exam Vitals: Vital Signs Temp Pulse Pulse Resp BP BP Pulse Ox 10/10/22 22:17 97.6 F 57 L 16 123/72 96 10/10/22 21:00 59 L 18 145/89 96 10/10/22 18:18 60 18 136/80 96 10/10/22 15:25 72 18 152/92 97 10/10/22 11:22 98.3 F 76 20 146/86 97 Intake and Output 10/10/22 10/10/22 10/11/22 14:59 22:59 06:59 Other: Voiding Method Toilet # Voids 1 Weight 72.575 kg 72.575 kg GENERAL EXAM: Alert, 42-year-old white female, comfortable in no apparent distress. HEAD: Normocephalic and atraumatic EYES: Normal reaction of pupils, equal size. NOSE: Clear with pink turbinates. THROAT: No erythema or exudates. NECK: No masses, no JVD. CHEST: No chest wall deformity. LUNGS: Equal air entry with no crackles, wheeze, rhonchi or dullness. On room air. No conversational dyspnea or accessory muscle use.. CVS: S1 and S2 normal with no audible murmur, regular rhythm. No extra heart sounds ABDOMEN: No hepatosplenomegaly, active bowel sounds, no guarding or rigidity. SPINE: No scoliosis or deformity SKIN: No rashes CENTRAL NERVOUS SYSTEM: No focal deficits, tone is normal in all 4 extremities. EXTREMITIES: There is no peripheral edema, clubbing, or cyanosis. Peripheral pulses are intact. Results - Laboratory Findings CBC and BMP: 10/10/22 12:05 10/10/22 12:05 PT/INR, D-dimer PT 9.9 sec (9.0-12.0) 10/10/22 12:05 INR 0.9 (<1.2) 10/10/22 12:05 D-Dimer <0.17 mg/L FEU (<0.60) 10/10/22 12:05 Abnormal lab findings: Abnormal Labs 10/10/22 10/10/22 10/10/22 12:05 12:05 18:08 WBC 19.9 H Neutrophils # 16.1 H Sodium 135 L Glucose 279 H POC Glucose (mg/dL) 149 H 10/10/22 21:00 WBC Neutrophils # Sodium Glucose POC Glucose (mg/dL) 222 H - Diagnostic Findings Chest x-ray: image reviewed CT scan - chest: image reviewed Assessment and Plan Assessment: Enlarging 3.2 x 3 cm cavitating left lung mass. Previous imaging on 04/26/2022 showed a 1.9 x 1.3 cm cavitating nodule at the lung left lung base near the previous postsurgical area. Patient was treated outpatient with a combination of Augmentin and prednisone taper. Most recent chest CT from yesterday shows that the cavitating left lung mass has enlarged to 3.2 x 3 cm. History of lung abscess, status post thorascopic wedge resection in 2019, with possible recurrence Hemoptysis, secondary to above Leukocytosis Essential hypertension GERD Chronic ongoing nicotine dependence, vapes daily Plan: Patient's medications, labs, and imaging reviewed Patient is currently on triple antibiotic therapy with azithromycin, ceftriaxone, and metronidazole Patient may benefit from bronchoscopy, and I will discuss this with Dr. Goodrich. Patient appears nontoxic and is hemodynamically stable. On room air. Smoking cessation counseling performed We will continue to follow, and further recommendations are forthcoming I have personally seen and examined the patient, performed the documentation and the assessment and plan as written. Number of minutes spent on the visit:20 Time with Patient: Greater than 30
[2022-10-11 05:42] LABS: Glucose,Whole Blood 98 mg/dL (70-110)
[2022-10-11] MEDS: INSULIN ASPART (NovoLOG) 100 UNIT/ML VIAL SQ SCH ×4 (05:52→20:57)
[2022-10-11] MEDS: HYDROcodone/APAP 5-325MG 1 EACH TAB PO PRN ×2 (05:58→19:52)
[2022-10-11] MEDS ORDERED: AZITHROMYCIN 500 MG TAB PO SCH (09:00)
[2022-10-11] MEDS: LORATADINE 10 MG TAB PO SCH (09:41)
[2022-10-11] MEDS: AMOXIC-POT CLAV 875-125MG 1 EACH TAB PO SCH ×2 (09:41→20:56)
[2022-10-11] MEDS: PANTOPRAZOLE 40 MG/10 ML VIAL IV SCH (09:42)
[2022-10-11] MEDS: MONTELUKAST 10 MG TAB PO SCH (09:42)
[2022-10-11] MEDS: MULTIVITAMINS, THERA 1 EACH TAB PO SCH (09:42)
[2022-10-11] MEDS: FAMOTIDINE 20 MG TAB PO SCH ×2 (09:42→19:52)
[2022-10-11] MEDS: IBUPROFEN 800 MG TAB PO SCH ×2 (09:42→19:51)
[2022-10-11 10:57] LABS: HCT 40.5 % (37.2-50.0); HGB 13.3 d/dL (12.0-17.0); MCH 30.6 pg (27.0-32.0); MCHC 32.8 d/dL (32.0-37.0); MCV 93.1 FL (80.0-97.0); Mean Platelet Volume 10.3 FL (9.5-12.2); NRBC Per 100 WBC 0 X 10*3/uL (0.00-0.01); Platelet Count 377 X 10*3/uL (140-440); RBC 4.35 X 10*6/uL (4.10-5.60); RDW 12.4 % (11.5-14.5); WBC 18.72 X 10*3/uL (4.50-10.00)
[2022-10-11 11:13] LABS: BUN/Creat Ratio 17.43 Ratio (12.00-20.00); Blood Urea Nitrogen 12.2 mg/dL (9.0-27.0); Calcium 9.8 mg/dL (8.7-10.3); Carbon Dioxide 26.9 mmol/L (21.6-31.8); Chloride 103 mmol/L (96-109); Glucose 90 mg/dL (70-110); Potassium 3.9 mmol/L (3.5-5.5); Sodium 141 mmol/L (135-145)
[2022-10-11 11:53] LABS: Glucose,Whole Blood 109 mg/dL (70-110)
[2022-10-11 12:39] LABS: Basophils # (M) 0 X 10*3/uL (0.00-0.10); Eosinophils # (M) 0.37 X 10*3/uL (0.04-0.35); Lymphocytes # (M) 8.61 X 10*3/uL (0.90-5.00); Monocytes # (M) 0.56 X 10*3/uL (0.20-1.00); Neutrophils # (M) 9.17 X 10*3/uL (1.80-7.70); Neutrophils % (M) 49 %
[2022-10-11 17:05] LABS: Glucose,Whole Blood 134 mg/dL (70-110)
[2022-10-11] MEDS: ALPRAZolam 0.5 MG TAB PO SCH (19:51)
[2022-10-11] MEDS: amLODIPine 5 MG TAB PO SCH (19:52)
[2022-10-11] MEDS: lisinopriL 20 MG TAB PO SCH (19:52)
[2022-10-11] MEDS: CITALOPRAM HYDROBROMIDE 20 MG TAB PO SCH (19:52)
[2022-10-11] MEDS: GABAPENTIN 300 MG CAP PO SCH (19:52)
[2022-10-11 20:43] LABS: Glucose,Whole Blood 180 mg/dL (70-110)
--- NOTE | 2022-10-11 21:19 | P.PN ---
Subjective Progress Note Date: 10/11/22 Patient is a 42-year-old female with a known history of hypertension, osteoarthritis, GERD and and history of endometriosis, anxiety/depression and currently everyday smoking/vaping presents to ER with complaints of chest pains, shortness of breath and hemoptysis. Patient stated she noticed blood in the sputum about 2 weeks ago initially. She was treated with antibiotics and steroids without significant relief. Last night patient developed chest pain/irritation in the chest and also felt very tired and lack of energy and had an episode of teaspoonful on bright red blood in the sputum. Feels nauseous and irritation in the throat. Denies any fever or chills. Cough with thick, clear sputum production denies any loss of weight or appetite. Chest pain is mainly in the mid retrosternal, intermittent heaviness. Patient states that she has occupational exposure to asbestos in 2019 and had left lower lobe wedge resection and left lung nodule biopsy. Chest x-ray showed very minimal left pleural effusion may be at the costophrenic angle. CT of the abdomen pelvis and chest showed reoccurrence of a left basilar cystic mass which was draining September 2019 correlate with prior pathology. Cavity neoplasm not infected collection is not excluded. Hepatic steatosis and mild hepatomegaly. 10/11/2022 Patient seen and evaluated in follow-up today and being monitored closely with pulmonary following. Pulmonary recommend discharging home on antibiotics for a prolonged course and has consulted infectious disease for input and recommendations. Patient is afebrile continues to report some shortness of breath with exertion although has improved and patient denies any further hemoptysis. Patient is continued on antibiotic therapy currently in the form of augmentin per pulmonary and have discontinued Zithromax and ceftriaxone. Patient white count remains elevated although patient is afebrile. Patient denies chest pain or palpitations. No reported nausea or vomiting and patient is tolerating diet. Review of systems: Constitutional: No reports of fatigue, fever, or chills Cardiovascular: No reports of chest pain or palpitations Respiratory: No reports of shortness of breath or cough GI: No reports of nausea, vomiting, or diarrhea : No reports of dysuria or retention Neurovascular: No reports of weakness or numbness All medications have been reviewed Physical exam: Patient is sitting up in the bed comfortably, no acute distress, awake alert and oriented.. HEENT: Normocephalic. Neck is supple. Pupils reactive. Nostrils clear. Oral cavity is moist. Neck reveals no JVD, carotid bruits, or thyromegaly. CHEST EXAMINATION: Trachea is central. Symmetrical expansion. Lung trammell clear to auscultation and percussion. CARDIAC: Normal S1, S2 with no gallops. No murmurs ABDOMEN: Soft. Bowel sounds present. Nontender. No organomegaly. No abdominal bruits. Extremities: reveal no edema. No clubbing or cyanosis Neurologically awake, alert, oriented x3 with well-coordinated movements. No focal deficits noted Skin: No rash or skin lesions. Psychiatric: Cooperative. Non-suicidal, Musculoskeletal: No joint swelling or deformity. Normal range of motion. Assessment: Hemoptysis, improved Chest pain/tightness intermittently Left basilar cystic mass recurrence with history of drain in September 2019. Possible cavitary neoplasm versus infected fluid collection. Prior history of asbestos exposure. History of left lower lobe wedge resection Hypertension GERD Osteoarthritis Hematemesis with history of multiple and laparoscopic procedures Anxiety/depression Prior history of smoking and currently vaping on a daily basis DVT prophylaxis with SCDs due to hemoptysis. GI prophylaxis Full code Plan: Patient will be continued on antibiotics that have been transitioned to oral Augmentin per pulmonary and pulmonary has cleared the patient for discharge recommending prolonged antibiotic therapy and have consulted infectious disease. Sputum culture ordered and pending Urine Legionella was negative White count remains elevated and will follow-up on repeat labs in the a.m. Discussed with infectious disease and recommending interventional radiology consult for evaluation of this cystic mass Patient does vape and discussed the importance again of complete cessation. Will await interventional radiology input and recommendations Possible Discharge in the next 24-48 hours The impression and plan of care has been dictated by Nurse Jose Rafael Serrano as directed. Dr. Pooja MD I have performed a history and examination and MDM of this patient, discussed the same with the dictator, and agree with the dictator's assessment and plan as written ,documented as a scribe. Based on total visit time, I have performed more than 50% of the visit. Objective - Vital Signs Vital signs: Vital Signs Temp 98.4 F 10/11/22 06:40 Pulse 98 10/11/22 06:40 Resp 16 10/11/22 06:40 BP 135/80 10/11/22 06:40 Pulse Ox 98 10/11/22 08:29 FiO2 21 10/11/22 08:29 Intake & Output 10/10/22 10/11/22 10/11/22 18:59 06:59 18:59 Intake Total 118 Balance 118 Weight 72.575 kg Intake: Oral 118 Other: Voiding Method Toilet # Voids 2 - Labs CBC & Chem 7: 10/11/22 06:41 10/11/22 06:41 Labs: Abnormal Lab Results - Last 24 Hours (Table) 10/10/22 10/10/22 10/10/22 Range/Units 12:05 12:05 18:08 WBC 19.9 H (3.8-10.6) k/uL Neutrophils # 16.1 H (1.3-7.7) k/uL Sodium 135 L (137-145) mmol/L Glucose 279 H (74-99) mg/dL POC Glucose (mg/dL) 149 H (70-110) mg/dL 10/10/22 Range/Units 21:00 WBC (3.8-10.6) k/uL Neutrophils # (1.3-7.7) k/uL Sodium (137-145) mmol/L Glucose (74-99) mg/dL POC Glucose (mg/dL) 222 H (70-110) mg/dL
--- NOTE | 2022-10-11 23:14 | P.CONS ---
History of Present Illness - Reason for Consult Consult date: 10/11/22 - History of Present Illness Patient is a 42-year-old female with a past medical history pain of hypertension reflux endometriosis patient did have a admission to [facility] from 10/05/2019 till 10/10/2019 and this patient presented with hemoptysis patient did have a CT angiogram of the chest which shows 5 cm cystic mass in the left lateral lung base patient is status post CT-guided needle aspiration FNA was negative for any malignancy concerning for possible abscess patient subsequently evaluated by CT surgery and did have a left thoracoscopy with wedge resection of the left lower lobe cultures were negative and is not very clear why the patient was discharged home on Augmentin, infectious disease did not see the patient on that admission. Patient is now presenting back to the hospital yesterday morning for evaluation of left-sided chest pain shortness of breath and hemoptysis patient's symptom has been going on for 2 weeks patient mentions she noticed some blood in her sputum about a week ago and noticed it again today patient has been course of antibiotic and steroids without relief pain has been mostly centralized intermittent in nature intensity 7- 8 out of 10 and no radiation, patient denies any high-grade fever or chills patient on presentation to the hospital was afebrile and no fever has been recorded subsequently patient is currently breathing comfortably on room air patient did have white count 19.9 with a left shift kidney function has been normal liver enzymes are normal influenza RSV and COVID testing was negative patient did have a chest x-ray minimal left effusion patient also have a CT of the chest and abdomen which did shows left basilar cystic mass neoplasm or an infected collection is excluded patient did received a dose of Rocephin and Zithromax in the ER infectious disease was consulted for further management of antibiotic therapy Past Medical History Past Medical History: GERD/Reflux, Hypertension, Osteoarthritis (OA) Additional Past Medical History / Comment(s): Endometriosis, constant nasal congestion, bloating, nausea, and IBS. Occupational exposure to asbestos 2019 History of Any Multi-Drug Resistant Organisms: None Reported Past Surgical History: Appendectomy, Hysterectomy Additional Past Surgical History / Comment(s): laproscopic surgeries for endometriosis, sinus surgery, surgery right wrist for ganglion cyst, colonoscopies. left lung nodule biopsy. Wedge resection left lower lobe Past Anesthesia/Blood Transfusion Reactions: Postoperative Nausea & Vomiting (PONV) Past Psychological History: Anxiety, Depression Smoking Status: Current every day smoker Past Alcohol Use History: None Reported Additional Past Alcohol Use History / Comment(s): Has been smoking 1 PPD for 15+ yrs. Past Drug Use History: None Reported - Past Family History Mother Family Medical History: No Reported History Father Family Medical History: Diabetes Mellitus, Hypertension Medications and Allergies Home Medications Medication Instructions Recorded Confirmed Type Citalopram Hydrobromide [CeleXA] 20 mg PO HS 06/12/17 10/10/22 History Famotidine [Pepcid] 40 mg PO BID 06/12/17 10/10/22 History amLODIPine [Norvasc] 5 mg PO HS 06/12/17 10/10/22 History lisinopriL 40 mg PO HS 06/12/17 10/10/22 History Ibuprofen [Motrin] 800 mg PO BID 07/21/19 10/10/22 History estradioL [Estrace] 1 mg PO DAILY 07/21/19 10/10/22 History Levocetirizine Dihydrochloride 5 mg PO DAILY 01/01/22 10/10/22 History [Xyzal] Montelukast [Singulair] 10 mg PO DAILY 01/01/22 10/10/22 History ALPRAZolam [Xanax] 0.5 mg PO DAILY PRN 10/10/22 10/10/22 History ALPRAZolam [Xanax] 0.5 mg PO HS 10/10/22 10/10/22 History Albuterol Inhaler [Ventolin Hfa 2 puff INHALATION RT-Q6H PRN 10/10/22 10/10/22 History Inhaler] Gabapentin 300 mg PO HS 10/10/22 10/10/22 History Multivitamin Gummy With Immune 1 tab PO DAILY 10/10/22 10/10/22 History Support Allergies Allergy/AdvReac Type Severity Reaction Status Date / Time prochlorperazine AdvReac Extreme Verified 10/10/22 16:19 [From Compazine] anxiety Physical Exam Vitals: Vital Signs Temp Pulse Pulse Resp BP BP Pulse Ox 10/11/22 08:29 98 10/11/22 06:40 98.4 F 98 16 135/80 98 10/11/22 01:14 97.9 F 72 16 119/74 96 08/16/23 22:17 97.6 F 57 L 16 123/72 96 10/10/22 21:00 59 L 18 145/89 96 10/10/22 18:18 60 18 136/80 96 10/10/22 15:25 72 18 152/92 97 10/10/22 11:22 98.3 F 76 20 146/86 97 FiO2 10/11/22 08:29 21 10/11/22 06:40 10/11/22 01:14 10/10/22 22:17 10/10/22 21:00 10/10/22 18:18 10/10/22 15:25 10/10/22 11:22 Intake and Output 10/10/22 10/11/22 10/11/22 22:59 06:59 14:59 Intake Total 118 Balance 118 Intake: Oral 118 Other: Voiding Method Toilet Toilet # Voids 1 2 Weight 72.575 kg Results CBC & Chem 7: 10/11/22 06:41 10/11/22 06:41 Labs: Abnormal Lab Results - Last 24 Hours (Table) 10/10/22 10/10/22 10/10/22 Range/Units 12:05 12:05 18:08 WBC 19.9 H (3.8-10.6) k/uL Neutrophils # 16.1 H (1.3-7.7) k/uL Sodium 135 L (137-145) mmol/L Glucose 279 H (74-99) mg/dL POC Glucose (mg/dL) 149 H (70-110) mg/dL 10/10/22 Range/Units 21:00 WBC (3.8-10.6) k/uL Neutrophils # (1.3-7.7) k/uL Sodium (137-145) mmol/L Glucose (74-99) mg/dL POC Glucose (mg/dL) 222 H (70-110) mg/dL Assessment and Plan Plan: 1patient with recurrent left lower lobe abnormality initially presented with hemoptysis in September 2019 at that point the patient did have fine-needle aspiration suggestive of possible abscess s/p wedge resection that was suggestive of the abscess on the biopsy however cultures are negative and the patient was treated with oral Augmentin now 3 years later presenting with similar symptoms of hemoptysis shortness of breath and chest pain patient did have elevated white count but no fever and does not look toxic 2-we will obtain IR consult for drainage of this fluid collection which should be sent for Gram stain culture as well as AFB and fungal cultures 3-we will check fungal serology 4-we will hold on antibiotic therapy at this point increase yield of any cultures as the patient does not look toxic We will follow on clinical condition and cultures to further adjust medication i f needed Thank you for this consultation we will follow the patient along with you Dictation was produced using [employer] dictation software. please excuse any grammatical, word or spelling errors. Time with Patient: Greater than 30
[2022-10-12] MEDS: HYDROcodone/APAP 5-325MG 1 EACH TAB PO PRN ×3 (05:23→20:53)
[2022-10-12 06:28] LABS: Glucose,Whole Blood 132 mg/dL (70-110)
[2022-10-12] MEDS: INSULIN ASPART (NovoLOG) 100 UNIT/ML VIAL SQ SCH ×4 (06:33→20:57)
[2022-10-12] MEDS: MULTIVITAMINS, THERA 1 EACH TAB PO SCH (08:17)
[2022-10-12] MEDS: IBUPROFEN 800 MG TAB PO SCH ×2 (08:17→20:53)
[2022-10-12] MEDS: MONTELUKAST 10 MG TAB PO SCH (08:18)
[2022-10-12] MEDS: FAMOTIDINE 20 MG TAB PO SCH ×2 (08:18→20:53)
[2022-10-12] MEDS: LORATADINE 10 MG TAB PO SCH (08:18)
[2022-10-12] MEDS: PANTOPRAZOLE 40 MG/10 ML VIAL IV SCH (08:19)
--- NOTE | 2022-10-12 10:55 | P.PN ---
Subjective Progress Note Date: 10/12/22 I am seeing this patient in new consultation today 10/11/2022 for an enlarging 3.2 x 3 cm cavitating left lung mass. Patient is a 42-year-old white female with past medical history significant for previous lung abscess status post drainage and ultimately wedge resection in 2019, GERD, seasonal ALLERGIES, hypertension, endometriosis status post hysterectomy. She no longer smokes cigarettes, but vapes daily. Cytology and culture of the previous abscess were negative. Patient presents to the emergency room yesterday morning complaining of intermittent shortness of breath, left-sided chest pain, and hemoptysis which started on Saturday, but she's had prior episodes in the past. She states that when she has hemoptysis, it's about 2 teaspoons of bright red blood. She denies any fevers, chills, myalgias. Denies sick contacts or recent travel. She recently had a CT of the chest on 04/26/2022 which showed a 1.9 x 1.3 cm cavitating nodule at the left lung base near the previous postsurgical area. She was recently treated in the office by Dr. Edgar, back on September 13 with a round of Augmentin and prednisone taper. She was scheduled to follow-up with Dr. Edgar in the office, but missed her follow-up appointment, and has not rescheduled yet. Patient is currently sitting up in bed, on room air, in no acute distress. A repeat chest and abdomen CT with contrast shows an interval enlargement of the left basilar cavitating mass measuring 3.2 x 3 cm. Patient has been placed on a combination of azithromycin, Rocephin, and Flagyl. CBC shows leukocytosis with WBC count of 19.9, hemoglobin 14.4, hematocrit 41.2, platelets 372. BMP on arrival was unremarkable. Negative for influenza, RSV, COVID-19. Patient appears nontoxic and hemodynamically stable The patient is seen today 10/12/2022 in follow-up on the regular medical floor. She is resting comfortable in bed. Awake and alert in no acute distress. Maintaining O2 saturations in the 90s on room air. Blood cultures reveal no growth. Blood glucose 132. Her Augmentin had been discontinued her ID service. Objective - Vital Signs Vital signs: Vital Signs Temp 98.0 F 10/12/22 07:00 Pulse 67 10/12/22 07:00 Resp 16 10/12/22 07:00 BP 112/71 10/12/22 07:00 Pulse Ox 96 10/12/22 08:42 FiO2 21 10/12/22 08:42 Intake & Output 10/11/22 10/12/22 10/12/22 18:59 06:59 18:59 Intake Total 458 Balance 458 Intake: Oral 458 Other: Voiding Method Toilet # Voids 1 2 - Exam GENERAL EXAM: Alert, active, 42-year-old female, on room air, comfortable in no apparent distress. HEAD: Normocephalic. EYES: Normal reaction of pupils, equal size. NOSE: Clear with pink turbinates. THROAT: No erythema or exudates. NECK: No masses, no JVD. CHEST: No chest wall deformity. LUNGS: Equal air entry with no crackles, wheeze, rhonchi or dullness. CVS: S1 and S2 normal with no audible murmur, regular rhythm. ABDOMEN: No hepatosplenomegaly, normal bowel sounds, no guarding or rigidity. SPINE: No scoliosis or deformity SKIN: No rashes CENTRAL NERVOUS SYSTEM: No focal deficits, tone is normal in all 4 extremities. EXTREMITIES: There is no peripheral edema. No clubbing, no cyanosis. P eripheral pulses are intact. - Labs CBC & Chem 7: 10/11/22 06:41 10/11/22 06:41 Labs: Abnormal Lab Results - Last 24 Hours (Table) 10/11/22 10/11/22 10/11/22 Range/Units 06:41 06:41 17:03 WBC 18.72 H (4.50-10.00) X 10*3/uL Lymphocytes # (Manual) 8.61 H (0.90-5.00) X 10*3/uL Eosinophils # (Manual) 0.37 H (0.04-0.35) X 10*3/uL POC Glucose (mg/dL) 134 H (70-110) mg/dL Hemoglobin A1c 6.9 H (<=6.0) % 10/11/22 10/12/22 Range/Units 20:42 06:27 WBC (4.50-10.00) X 10*3/uL Lymphocytes # (Manual) (0.90-5.00) X 10*3/uL Eosinophils # (Manual) (0.04-0.35) X 10*3/uL POC Glucose (mg/dL) 180 H 132 H (70-110) mg/dL Hemoglobin A1c (<=6.0) % Microbiology - Last 24 Hours (Table) 10/10/22 17:35 Blood Culture - Preliminary Blood 10/10/22 17:20 Blood Culture - Preliminary Blood Assessment and Plan Assessment: Enlarging 3.2 x 3 cm cavitating left lung mass. Previous imaging on 04/26/2022 showed a 1.9 x 1.3 cm cavitating nodule at the lung left lung base near the previous postsurgical area. Patient was treated outpatient with a combination of Augmentin and prednisone taper. Most recent chest CT from yesterday shows that the cavitating left lung mass has enlarged to 3.2 x 3 cm. History of lung abscess, status post thorascopic wedge resection in 2019, with possible recurrence Hemoptysis, secondary to above Leukocytosis Essential hypertension GERD Chronic ongoing nicotine dependence, vapes daily Lang: The patient was seen and evaluated Stable and on room air Could be discharged home Recommend a course of antibiotics for 6-8 weeks Follow-up computed tomography scan of the chest in 6-8 weeks We do not feel a needle aspirate of the abscess is necessary at this time She is again educated regarding the importance of complete smoking cessation, vaping cessation I have personally seen and examined the patient, performed the documentation and the assessment and plan as written. Number of minutes spent on the visit: 10.
[2022-10-12 11:06] LABS: Basophils # (A) 0.13 X 10*3/uL (0.00-0.10); Basophils % (A) 0.9 %; Eosinophils # (A) 0.35 X 10*3/uL (0.04-0.35); Eosinophils % (A) 2.5 %; HCT 42.7 % (37.2-50.0); HGB 14.1 d/dL (12.0-17.0); Lymphocytes # (A) 4.88 X 10*3/uL (0.90-5.00); Lymphocytes % (A) 34.3 %; MCH 31.2 pg (27.0-32.0); MCV 94.5 FL (80.0-97.0); Mean Platelet Volume 10.1 FL (9.5-12.2); Monocytes # (A) 1.23 X 10*3/uL (0.20-1.00); Monocytes % (A) 8.6 %; NRBC Per 100 WBC 0 X 10*3/uL (0.00-0.01); Neutrophils # (A) 7.46 X 10*3/uL (1.80-7.70); Neutrophils % (A) 52.4 %; Platelet Count 372 X 10*3/uL (140-440); RBC 4.52 X 10*6/uL (4.10-5.60); RDW 12.5 % (11.5-14.5); WBC 14.23 X 10*3/uL (4.50-10.00)
[2022-10-12] MEDS: MORPHINE SULFATE 4 MG/ML SYRINGE IV PRN (11:51)
--- NOTE | 2022-10-12 13:11 | XR ---
EXAMINATION TYPE: XR chest 1V portable DATE OF EXAM: 10/12/2022 COMPARISON: 10/10/2022 HISTORY: Chest pain TECHNIQUE: Single frontal view of the chest is obtained. FINDINGS: There is no focal air space opacity, pleural effusion, or pneumothorax seen. The cardiac silhouette size is within normal limits. The osseous structures are intact. IMPRESSION: 1. No acute process.
[2022-10-12 13:20] LABS: ALT 17 U/L (8-49); AST 14 U/L (13-35); Albumin 4.3 d/dL (3.8-4.9); Albumin/Globulin Ratio 1.95 Ratio (1.60-3.17); Alkaline Phosphatase 91 U/L (41-126); BUN/Creat Ratio 28.29 Ratio (12.00-20.00); Blood Urea Nitrogen 19.8 mg/dL (9.0-27.0); Calcium 9.8 mg/dL (8.7-10.3); Carbon Dioxide 26.4 mmol/L (21.6-31.8); Chloride 101 mmol/L (96-109); Globulin 2.2 d/dL (1.6-3.3); Glucose 115 mg/dL (70-110); Potassium 4.4 mmol/L (3.5-5.5); Sodium 139 mmol/L (135-145); Total Bilirubin 0.4 mg/dL (0.3-1.2); Total Protein 6.5 d/dL (6.2-8.2)
--- NOTE | 2022-10-12 14:21 | XR ---
EXAMINATION TYPE: XR chest 1V DATE OF EXAM: 10/12/2022 COMPARISON: Same day HISTORY: Status post left lung aspiration TECHNIQUE: Single frontal view of the chest is obtained. FINDINGS: There is no focal air space opacity, pleural effusion, or pneumothorax seen. The cardiac silhouette size is within normal limits. Stable left basilar pleural-parenchymal density. The osseous structures are intact. IMPRESSION: 1. No pneumothorax visualized.
--- NOTE | 2022-10-12 14:26 | CT ---
EXAMINATION TYPE: CT guided abscess drainage DATE OF EXAM: 10/12/2022 COMPARISON: 10/10/2022 HISTORY: abscess drainage CT DLP: 2369 mGycm The procedure is discussed with the patient, the risks, complications, benefits and alternatives, wer e discussed and any questions were answered. Informed consent was obtained. The patient is placed p dennis on the CT table, prepped and draped in the usual sterile fashion. Utilizing a 8 Chiba needle access into the requested left lower lobe abscess\June was achieved with no sample being able to be aspirated. Referring physician notified.. All elements of maximal barrier t echnique were utilized. The patient remained stable throughout the procedure with a tiny postprocedu ral pneumothorax. IMPRESSION: 1. Request was for fine-needle aspiration of possible left lower lobe abscess. Successful CT guided fine needle placement within the suspected abscess cavity. However the material was too thick for as piration.
[2022-10-12] MEDS: AMPICILLIN-SULBACTAM 3 GM in SODIUM CHLORIDE 0.9% 100 ML IVPB SCH ×2 (15:14→19:09)
--- NOTE | 2022-10-12 15:47 | P.PN ---
Subjective Progress Note Date: 10/12/22 Patient is a 42-year-old female with a known history of hypertension, osteoarthritis, GERD and and history of endometriosis, anxiety/depression and currently everyday smoking/vaping presents to ER with complaints of chest pains, shortness of breath and hemoptysis. Patient stated she noticed blood in the sputum about 2 weeks ago initially. She was treated with antibiotics and steroids without significant relief. Last night patient developed chest pain/irritation in the chest and also felt very tired and lack of energy and had an episode of teaspoonful on bright red blood in the sputum. Feels nauseous and irritation in the throat. Denies any fever or chills. Cough with thick, clear sputum production denies any loss of weight or appetite. Chest pain is mainly in the mid retrosternal, intermittent heaviness. Patient states that she has occupational exposure to asbestos in 2019 and had left lower lobe wedge resection and left lung nodule biopsy. Chest x-ray showed very minimal left pleural effusion may be at the costophrenic angle. CT of the abdomen pelvis and chest showed reoccurrence of a left basilar cystic mass which was draining September 2019 correlate with prior pathology. Cavity neoplasm not infected collection is not excluded. Hepatic steatosis and mild hepatomegaly. 10/11/2022 Patient seen and evaluated in follow-up today and being monitored closely with pulmonary following. Pulmonary recommend discharging home on antibiotics for a prolonged course and has consulted infectious disease for input and recommendations. Patient is afebrile continues to report some shortness of breath with exertion although has improved and patient denies any further hemoptysis. Patient is continued on antibiotic therapy currently in the form of augmentin per pulmonary and have discontinued Zithromax and ceftriaxone. Patient white count remains elevated although patient is afebrile. Patient denies chest pain or palpitations. No reported nausea or vomiting and patient is tolerating diet. 10/12/2022 Patient is seen and evaluated and follow-up post interventional radiology a ttempted aspiration of the abscess in the left lung. Per radiologist there is a concern that is a solid mass in the aspirate was too dense to aspirate anything. Infectious disease notified and follow-up chest x-ray was done as there was concern of a possible tiny pneumothorax on the left from the procedure. Patient is continued on antibiotics and has been switched to Unasyn and will continue Au gmentin on discharge. Patient to be monitored overnight with a follow-up chest x-ray in the a.m. Pulmonary has cleared the patient for discharge recommending outpatient follow-up in the next few weeks and repeat imaging. Patient will go on prolonged oral Augmentin twice daily for 6 weeks and close outpatient follow- up with infectious disease as well. Patient is currently afebrile denies chest pain or shortness of breath. No reported nausea or vomiting and patient tolerating diet. Review of systems: Constitutional: No reports of fatigue, fever, or chills Cardiovascular: No reports of chest pain or palpitations Respiratory: No reports of worsening shortness of breath or cough GI: No reports of nausea, vomiting, or diarrhea : No reports of dysuria or retention Neurovascular: No reports of weakness or numbness All medications have been reviewed Physical exam: Patient is sitting up in the bed comfortably, no acute distress, awake alert and oriented.. HEENT: Normocephalic. Neck is supple. Pupils reactive. Nostrils clear. Oral cavity is moist. Neck reveals no JVD, carotid bruits, or thyromegaly. CHEST EXAMINATION: Trachea is central. Symmetrical expansion. Lung trammell clear to auscultation and percussion. Diminished CARDIAC: Normal S1, S2 with no gallops. No murmurs ABDOMEN: Soft. Bowel sounds present. Nontender. No organomegaly. No abdominal bruits. Extremities: reveal no edema. No clubbing or cyanosis Neurologically awake, alert, oriented x3 with well-coordinated movements. No focal deficits noted Skin: No rash or skin lesions. Psychiatric: Cooperative. Non-suicidal Musculoskeletal: No joint swelling or deformity. Normal range of motion. Assessment: Hemoptysis, improved Chest pain/tightness intermittently possibly secondary to the left basilar cy stic mass Left basilar cystic mass recurrence with history of drain in September 2019. Possible cavitary neoplasm versus infected fluid collection. Prior history of asbestos exposure. History of left lower lobe wedge resection Hypertension GERD Osteoarthritis Hematemesis with history of multiple and laparoscopic procedures Anxiety/depression Prior history of smoking and currently vaping on a daily basis DVT prophylaxis with SCDs due to hemoptysis. GI prophylaxis Full code Plan: Patient will be continued on antibiotics that have been transitioned to IV Zosyn with infectious disease following. Will continue oral Augmentin twice daily for 6 weeks course and close outpatient follow-up with pulmonary and infectious disease on discharge White count remains elevated although trending down and cu rrently 14.23 today and will follow-up on repeat labs in the a.m. Patient underwent attempt to aspirate the abscess of the left lung with interventional radiology and was felt to have a possible tiny pneumothorax from the procedure as well as unable to obtain any aspirate with concerns of being a solid mass. Infectious disease recommend monitoring overnight and follow-up with repeat chest x-ray with possible discharge in 24 hours Patient does vape and discussed the importance again of complete cessation. Possible Discharge in the next 24 hours The impression and plan of care has been dictated by Louisa Mobley, Nurse Practitioner as directed. Dr. Pooja MD I have performed a history and examination and MDM of this patient, discussed the same with the dictator, and agree with the dictator's assessment and plan as written ,documented as a scribe. Based on total visit time, I have performed more than 50% of the visit. Objective - Vital Signs Vital signs: Vital Signs Temp 98.0 F 10/12/22 07:00 Pulse 67 10/12/22 07:00 Resp 16 10/12/22 07:00 BP 112/71 10/12/22 07:00 Pulse Ox 96 10/12/22 08:42 FiO2 21 10/12/22 08:42 Intake & Output 10/11/22 10/12/22 10/12/22 18:59 06:59 18:59 Intake Total 458 Balance 458 Intake: Oral 458 Other: Voiding Method Toilet # Voids 1 2 - Labs CBC & Chem 7: 10/12/22 06:05 10/12/22 06:05 Labs: Abnormal Lab Results - Last 24 Hours (Table) 10/11/22 10/11/22 10/11/22 Range/Units 06:41 17:03 20:42 WBC (4.50-10.00) X 10*3/uL Lymphocytes # (Manual) 8.61 H (0.90-5.00) X 10*3/uL Monocytes # (0.20-1.00) X 10*3/uL Eosinophils # (Manual) 0.37 H (0.04-0.35) X 10*3/uL Basophils # (0.00-0.10) X 10*3/uL POC Glucose (mg/dL) 134 H 180 H (70-110) mg/dL 10/12/22 10/12/22 Range/Units 06:05 06:27 WBC 14.23 H (4.50-10.00) X 10*3/uL Lymphocytes # (Manual) (0.90-5.00) X 10*3/uL Monocytes # 1.23 H (0.20-1.00) X 10*3/uL Eosinophils # (Manual) (0.04-0.35) X 10*3/uL Basophils # 0.13 H (0.00-0.10) X 10*3/uL POC Glucose (mg/dL) 132 H (70-110) mg/dL Microbiology - Last 24 Hours (Table) 10/10/22 17:35 Blood Culture - Preliminary Blood 10/10/22 17:20 Blood Culture - Preliminary Blood
--- NOTE | 2022-10-12 16:36 | P.PN ---
Subjective Progress Note Date: 10/12/22 Principal diagnosis: Abdominal CT and a question of abscess Patient is a 42-year-old female with a past medical history pain of hypertension reflux endometriosis patient did have a admission to [facility] from 10/05/2019 till 10/10/2019 and this patient presented with hemoptysis patient did have a CT angiogram of the chest which shows 5 cm cystic mass in the left lateral lung base, status post CT-guided aspirate followed by wedge resection biopsy was suggestive of abscess however culture were negative, patient presented back to the hospital with similar symptoms with abnormality on the CT. On today's evaluation that is 10/12/2022, the patient denies having any fever or any chills she did complete a mostly central chest pain did have an episode of hemoptysis this morning no purulent sputum no nausea no vomiting no diarrhea patient denies having any dental issues or any dental workup done recently Objective - Vital Signs Vital signs: Vital Signs Temp 98.0 F 10/12/22 07:00 Pulse 67 10/12/22 07:00 Resp 16 10/12/22 07:00 BP 112/71 10/12/22 07:00 Pulse Ox 96 10/12/22 08:42 FiO2 21 10/12/22 08:42 Intake & Output 10/11/22 10/12/22 10/12/22 18:59 06:59 18:59 Intake Total 458 Balance 458 Intake: Oral 458 Other: Voiding Method Toilet # Voids 1 2 - Exam GENERAL DESCRIPTION: A middle-age female lying in bed in no distress RESPIRATORY SYSTEM: Unlabored breathing , decreased breath sounds at bases HEART: S1 S2 regular rate and rhythm , ABDOMEN: Soft , no tenderness EXTREMITIES: No edema feet - Labs CBC & Chem 7: 10/12/22 06:05 10/12/22 06:05 Labs: Abnormal Lab Results - Last 24 Hours (Table) 10/11/22 10/11/22 10/11/22 Range/Units 06:41 17:03 20:42 WBC (4.50-10.00) X 10*3/uL Lymphocytes # (Manual) 8.61 H (0.90-5.00) X 10*3/uL Monocytes # (0.20-1.00) X 10*3/uL Eosinophils # (Manual) 0.37 H (0.04-0.35) X 10*3/uL Basophils # (0.00-0.10) X 10*3/uL POC Glucose (mg/dL) 134 H 180 H (70-110) mg/dL 10/12/22 10/12/22 Range/Units 06:05 06:27 WBC 14.23 H (4.50-10.00) X 10*3/uL Lymphocytes # (Manual) (0.90-5.00) X 10*3/uL Monocytes # 1.23 H (0.20-1.00) X 10*3/uL Eosinophils # (Manual) (0.04-0.35) X 10*3/uL Basophils # 0.13 H (0.00-0.10) X 10*3/uL POC Glucose (mg/dL) 132 H (70-110) mg/dL Microbiology - Last 24 Hours (Table) 10/10/22 17:35 Blood Culture - Preliminary Blood 10/10/22 17:20 Blood Culture - Preliminary Blood Assessment and Plan (1) Mass of lower lobe of left lung Current Visit: No Status: Acute Code(s): R91.8 - OTHER NONSPECIFIC ABNORMAL FINDING OF LUNG FIELD SNOMED Code(s): 472241892 Plan: 1patient with recurrent left lower lobe abnormality initially presented with hemoptysis in September 2019 at that point the patient did have fine-needle aspiration suggestive of possible abscess s/p wedge resection that was suggestive of the abscess on the biopsy however cultures are negative and the patient was treated with oral Augmentin now 3 years later presenting with similar symptoms of hemoptysis shortness of breath and chest pain patient did have elevated white count but no fever and does not look toxic 2-we're currently waiting for INR drainage of this fluid collection which should be sent for Gram stain culture as well as AFB and fungal cultures 3-after procedure the patient will be started on Unasyn that'll be converted to oral Augmentin on discharge and close outpatient follow-up as has been discussed in detail with the pulmonary as well as the medical team Dictation was produced using [employer] dictation software. please excuse any grammatical, word or spelling errors. Time with Patient: Less than 30
[2022-10-12 18:47] LABS: Glucose,Whole Blood 206 mg/dL (70-110)
[2022-10-12 20:36] LABS: Glucose,Whole Blood 164 mg/dL (70-110)
[2022-10-12] MEDS: lisinopriL 20 MG TAB PO SCH (20:52)
[2022-10-12] MEDS: amLODIPine 5 MG TAB PO SCH (20:53)
[2022-10-12] MEDS: GABAPENTIN 300 MG CAP PO SCH (20:53)
[2022-10-12] MEDS: ALPRAZolam 0.5 MG TAB PO SCH (20:54)
[2022-10-12] MEDS: CITALOPRAM HYDROBROMIDE 20 MG TAB PO SCH (20:54)
[2022-10-13] MEDS: AMPICILLIN-SULBACTAM 3 GM in SODIUM CHLORIDE 0.9% 100 ML IVPB SCH ×5 (00:56→23:18)
[2022-10-13] MEDS: HYDROcodone/APAP 5-325MG 1 EACH TAB PO PRN ×5 (02:00→21:14)
[2022-10-13 06:20] LABS: Glucose,Whole Blood 130 mg/dL (70-110)
[2022-10-13] MEDS: INSULIN ASPART (NovoLOG) 100 UNIT/ML VIAL SQ SCH ×4 (06:43→21:35)
--- NOTE | 2022-10-13 06:58 | XR ---
EXAMINATION TYPE: XR chest 1V portable DATE OF EXAM: 10/13/2022 6:50 AM COMPARISON: Chest radiographs from 10/12/2022 CT chest abdomen 10/10/2022. TECHNIQUE: XR chest 1V portable Portable AP radiograph of the chest. CLINICAL INDICATION:Female, 42 years old with history of recent lung biopsy, concern for pneumo; FINDINGS: Lungs/Pleura: There is no evidence of pleural effusion, or pneumothorax. Left basilar cystic mass is better appreciated on prior CT. Pulmonary vascularity: Unremarkable. Heart/mediastinum: Cardiomediastinal silhouette is unremarkable. Musculoskeletal: No acute osseous pathology. IMPRESSION: No pneumothorax.
[2022-10-13] MEDS: IBUPROFEN 800 MG TAB PO SCH ×2 (08:59→21:10)
[2022-10-13] MEDS: PANTOPRAZOLE 40 MG/10 ML VIAL IV SCH (08:59)
[2022-10-13] MEDS: FAMOTIDINE 20 MG TAB PO SCH ×2 (09:00→21:10)
[2022-10-13] MEDS: LORATADINE 10 MG TAB PO SCH (09:00)
[2022-10-13] MEDS: MONTELUKAST 10 MG TAB PO SCH (09:00)
[2022-10-13] MEDS: MULTIVITAMINS, THERA 1 EACH TAB PO SCH (09:00)
--- NOTE | 2022-10-13 11:13 | P.PN ---
Subjective Progress Note Date: 10/13/22 I am seeing this patient in new consultation today 10/11/2022 for an enlarging 3.2 x 3 cm cavitating left lung mass. Patient is a 42-year-old white female with past medical history significant for previous lung abscess status post drainage and ultimately wedge resection in 2019, GERD, seasonal ALLERGIES, hypertension, endometriosis status post hysterectomy. She no longer smokes cigarettes, but vapes daily. Cytology and culture of the previous abscess were negative. Patient presents to the emergency room yesterday morning complaining of intermittent shortness of breath, left-sided chest pain, and hemoptysis which started on Saturday, but she's had prior episodes in the past. She states that when she has hemoptysis, it's about 2 teaspoons of bright red blood. She denies any fevers, chills, myalgias. Denies sick contacts or recent travel. She recently had a CT of the chest on 04/26/2022 which showed a 1.9 x 1.3 cm cavitating nodule at the left lung base near the previous postsurgical area. She was recently treated in the office by Dr. Edgar, back on September 13 with a round of Augmentin and prednisone taper. She was scheduled to follow-up with Dr. Edgar in the office, but missed her follow-up appointment, and has not rescheduled yet. Patient is currently sitting up in bed, on room air, in no acute distress. A repeat chest and abdomen CT with contrast shows an interval enlargement of the left basilar cavitating mass measuring 3.2 x 3 cm. Patient has been placed on a combination of azithromycin, Rocephin, and Flagyl. CBC shows leukocytosis with WBC count of 19.9, hemoglobin 14.4, hematocrit 41.2, platelets 372. BMP on arrival was unremarkable. Negative for influenza, RSV, COVID-19. Patient appears nontoxic and hemodynamically stable The patient is seen today 10/12/2022 in follow-up on the regular medical floor. She is resting comfortable in bed. Awake and alert in no acute distress. Maintaining O2 saturations in the 90s on room air. Blood cultures reveal no growth. Blood glucose 132. Her Augmentin had been discontinued her ID service. The patient is seen today 10/13/2022 in follow-up on the regular medical floor. She is resting comfortably in bed. Awake and alert in no acute distress. Maintaining good O2 saturations in the 90s on room air. She did end up undergoing an attempted fine-needle aspirate of the left lower lobe abscess. The material was too thick for aspiration and no cultures obtained. She has been initiated on Unasyn per ID services. Today's chest x-ray shows similar left basilar cystic mass. No evidence of pneumothorax. Objective - Vital Signs Vital signs: Vital Signs Temp 98.3 F 10/13/22 07:00 Pulse 68 10/13/22 07:00 Resp 14 10/13/22 07:00 BP 113/76 10/13/22 07:00 Pulse Ox 96 10/13/22 07:00 FiO2 21 10/12/22 08:42 Intake & Output 10/12/22 10/13/22 10/13/22 18:59 06:59 18:59 Intake Total 118 Balance 118 Intake: Oral 118 Other: Voiding Method Toilet # Voids 2 2 - Exam GENERAL EXAM: Alert, 42-year-old female, on room air, comfortable in no apparent distress. HEAD: Normocephalic. EYES: Normal reaction of pupils, equal size. NOSE: Clear with pink turbinates. THROAT: No erythema or exudates. NECK: No masses, no JVD. CHEST: No chest wall deformity. LUNGS: Equal air entry with no crackles, wheeze, rhonchi or dullness. CVS: S1 and S2 normal with no audible murmur, regular rhythm. ABDOMEN: No hepatosplenomegaly, normal bowel sounds, no guarding or rigidity. SPINE: No scoliosis or deformity SKIN: No rashes CENTRAL NERVOUS SYSTEM: No focal deficits, tone is normal in all 4 extremities. EXTREMITIES: There is no peripheral edema. No clubbing, no cyanosis. Peripheral pulses are intact. - Labs CBC & Chem 7: 10/12/22 06:05 10/12/22 06:05 Labs: Abnormal Lab Results - Last 24 Hours (Table) 10/12/22 10/12/22 10/12/22 Range/Units 06:05 18:45 20:34 BUN/Creatinine Ratio 28.29 H (12.00-20.00) Ratio Glucose 115 H (70-110) mg/dL POC Glucose (mg/dL) 206 H 164 H (70-110) mg/dL C-Reactive Protein 2.10 H (0.00-0.80) mg/dL 10/13/22 Range/Units 06:19 BUN/Creatinine Ratio (12.00-20.00) Ratio Glucose (70-110) mg/dL POC Glucose (mg/dL) 130 H (70-110) mg/dL C-Reactive Protein (0.00-0.80) mg/dL Microbiology - Last 24 Hours (Table) 10/12/22 05:15 Gram Stain - Preliminary Sputum 10/10/22 17:35 Blood Culture - Preliminary Blood 10/10/22 17:20 Blood Culture - Preliminary Blood Assessment and Plan Assessment: Enlarging 3.2 x 3 cm cavitating left lung mass. Previous imaging on 04/26/2022 showed a 1.9 x 1.3 cm cavitating nodule at the lung left lung base near the previous postsurgical area. Patient was treated outpatient with a combination of Augmentin and prednisone taper. Most recent chest CT from yesterday shows that the cavitating left lung mass has enlarged to 3.2 x [address]-guided FNA was attempted 10/12/2022 however the fluid was too thick to be aspirated and no cultures available. History of lung abscess, status post thorascopic wedge resection in 2019, with possible recurrence Hemoptysis, secondary to above Leukocytosis Essential hypertension GERD Chronic ongoing nicotine dependence, vapes daily Plan: The patient was seen and evaluated Chest x-ray and medications reviewed Stable and on room air Currently on Unasyn per ID services We will see as needed I have personally seen and examined the patient, performed the documentation and the assessment and plan as written. Number of minutes spent on the visit: 10.
[2022-10-13 11:55] LABS: Glucose,Whole Blood 270 mg/dL (70-110)
--- NOTE | 2022-10-13 15:18 | P.PN ---
Subjective Progress Note Date: 10/13/22 Principal diagnosis: Abdominal CT and a question of abscess Patient is a 42-year-old female with a past medical history pain of hypertension reflux endometriosis patient did have a admission to [facility] from 10/05/2019 till 10/10/2019 and this patient presented with hemoptysis patient did have a CT angiogram of the chest which shows 5 cm cystic mass in the left lateral lung base, status post CT-guided aspirate followed by wedge resection biopsy was suggestive of abscess however culture were negative, patient presented back to the hospital with similar symptoms with abnormality on the CT. On today's evaluation that is 10/13/2022 the patient denies having any fever or any chills has been complaining of pain to the left lower chest area especially taking a deep breath patient continued complaint of hemoptysis denies any purulent sputum no nausea no vomiting no diarrhea. No labs were drawn today blood culture has been negative so far Objective - Vital Signs Vital signs: Vital Signs Temp 98.3 F 10/13/22 07:00 Pulse 68 10/13/22 07:00 Resp 14 10/13/22 07:00 BP 113/76 10/13/22 07:00 Pulse Ox 96 10/13/22 07:00 FiO2 21 10/12/22 08:42 Intake & Output 10/12/22 10/13/22 10/13/22 18:59 06:59 18:59 Intake Total 118 Balance 118 Intake: Oral 118 Other: Voiding Method Toilet # Voids 2 2 - Exam GENERAL DESCRIPTION: A middle-age female lying in bed in no distress RESPIRATORY SYSTEM: Unlabored breathing , decreased breath sounds at bases HEART: S1 S2 regular rate and rhythm , ABDOMEN: Soft , no tenderness EXTREMITIES: No edema feet - Labs CBC & Chem 7: 10/12/22 06:05 10/12/22 06:05 Labs: Abnormal Lab Results - Last 24 Hours (Table) 10/12/22 10/12/22 10/12/22 Range/Units 06:05 06:05 18:45 WBC 14.23 H (4.50-10.00) X 10*3/uL Monocytes # 1.23 H (0.20-1.00) X 10*3/uL Basophils # 0.13 H (0.00-0.10) X 10*3/uL BUN/Creatinine Ratio 28.29 H (12.00-20.00) Ratio Glucose 115 H (70-110) mg/dL POC Glucose (mg/dL) 206 H (70-110) mg/dL C-Reactive Protein 2.10 H (0.00-0.80) mg/dL 10/12/22 10/13/22 Range/Units 20:34 06:19 WBC (4.50-10.00) X 10*3/uL Monocytes # (0.20-1.00) X 10*3/uL Basophils # (0.00-0.10) X 10*3/uL BUN/Creatinine Ratio (12.00-20.00) Ratio Glucose (70-110) mg/dL POC Glucose (mg/dL) 164 H 130 H (70-110) mg/dL C-Reactive Protein (0.00-0.80) mg/dL Microbiology - Last 24 Hours (Table) 10/12/22 05:15 Gram Stain - Preliminary Sputum 10/10/22 17:35 Blood Culture - Preliminary Blood 10/10/22 17:20 Blood Culture - Preliminary Blood Assessment and Plan (1) Mass of lower lobe of left lung Current Visit: No Status: Acute Code(s): R91.8 - OTHER NONSPECIFIC ABNORMAL FINDING OF LUNG FIELD SNOMED Code(s): 402788141 Plan: 1patient with recurrent left lower lobe abnormality initially presented with hemoptysis in September 2019 at that point the patient did have fine-needle aspira tion suggestive of possible abscess s/p wedge resection that was suggestive of the abscess on the biopsy however cultures are negative and the patient was treated with oral Augmentin now 3 years later presenting with similar symptoms of hemoptysis shortness of breath and chest pain patient did have elevated white count but no fever and does not look toxic 2-Unfortunately IR was not able to do the biopsy or the drainage procedure however he mentioned it was mostly a mass then fluid collection patient did have a history of endometriosis and a question of possible pulmonary endometriosis should be in the differential we will get 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 please excuse any grammatical, word or spelling errors.
[2022-10-13 17:29] LABS: Glucose,Whole Blood 117 mg/dL (70-110)
[2022-10-13] MEDS: ALPRAZolam 0.5 MG TAB PO SCH (21:10)
[2022-10-13] MEDS: amLODIPine 5 MG TAB PO SCH (21:10)
[2022-10-13] MEDS: CITALOPRAM HYDROBROMIDE 20 MG TAB PO SCH (21:10)
[2022-10-13] MEDS: GABAPENTIN 300 MG CAP PO SCH (21:10)
[2022-10-13] MEDS: lisinopriL 20 MG TAB PO SCH (21:10)
[2022-10-13 21:34] LABS: Glucose,Whole Blood 178 mg/dL (70-110)
[2022-10-13] MEDS: MORPHINE SULFATE 4 MG/ML SYRINGE IV PRN (23:26)
[2022-10-14] MEDS: AMPICILLIN-SULBACTAM 3 GM in SODIUM CHLORIDE 0.9% 100 ML IVPB SCH ×3 (06:16→17:23)
[2022-10-14] MEDS: INSULIN ASPART (NovoLOG) 100 UNIT/ML VIAL SQ SCH ×4 (06:20→20:53)
[2022-10-14 06:21] LABS: Glucose,Whole Blood 102 mg/dL (70-110)
[2022-10-14] MEDS: HYDROcodone/APAP 5-325MG 1 EACH TAB PO PRN ×2 (06:23→17:14)
[2022-10-14] MEDS: FAMOTIDINE 20 MG TAB PO SCH ×2 (09:04→20:03)
[2022-10-14] MEDS: LORATADINE 10 MG TAB PO SCH (09:04)
[2022-10-14] MEDS: IBUPROFEN 800 MG TAB PO SCH ×2 (09:04→20:12)
[2022-10-14] MEDS: MULTIVITAMINS, THERA 1 EACH TAB PO SCH (09:04)
[2022-10-14] MEDS: MONTELUKAST 10 MG TAB PO SCH (09:05)
[2022-10-14] MEDS: PANTOPRAZOLE 40 MG/10 ML VIAL IV SCH (09:05)
--- NOTE | 2022-10-14 09:05 | P.OBCN ---
History of Present Illness Consult date: 10/14/22 Reason for consult: other (Endometriosis) Chief complaint: Chest pain, hemoptysis, known history of endometriosis History of present illness: This is a 42-year-old female that presented to the hospital with complaints of increasing chest pain and hemoptysis. Patient states she had a similar episode in 2019, she was seen and underwent lung resection/wedge biopsy which was consistent with probable abscess. Patient states she recently had return of symptoms similar to 2019 and she presented back to the hospital. Patient states she has been coughing up "blood". Patient underwent drainage with interventional radiology 2 days ago and material was "thick" and unable to be removed. Patient states she has significant concerns that she has thoracic/lung endometriosis, given this finding on IR drainage. She states she has had multiple episodes similar to this one for which she is treated with antibiotics symptoms improve but never totally go away. On computed tomography scan 3 cm left basilar lung mass is appreciated. Patient is a 0 para 0 states she underwent 1 cycle of IVF that was unsuccessful. Patient underwent menarche at age 13, menstrual cycles were regular but painful throughout, patient underwent surgery in 2009 when she was diagnosed with endometriosis. Patient states she had expiratory laparotomy in her left fallopian tube was removed at that time. Patient states she is undergone multiple surgeries since that time with resection of endometrial implants. At age 39 she underwent laparoscopic hysterectomy with bilateral salpingo- oophorectomy at [facility]. Patient was placed on 1 mg of estradiol orally at that time and she continues this to this date. Review of Systems Constitutional: Reports fatigue, Denies chills, Denies fever Ears, nose, mouth and throat: Denies headache Cardiovascular: Denies edema Respiratory: Reports cough with sputum, Reports hemoptysis, Denies dyspnea Past Medical History Past Medical History: GERD/Reflux, Hypertension, Osteoarthritis (OA) Additional Past Medical History / Comment(s): Endometriosis, constant nasal congestion, bloating, nausea, and IBS. Occupational exposure to asbestos 2019 History of Any Multi-Drug Resistant Organisms: None Reported Past Surgical History: Appendectomy, Hysterectomy Additional Past Surgical History / Comment(s): laproscopic surgeries for endometriosis, sinus surgery, surgery right wrist for ganglion cyst, colonoscopies. left lung nodule biopsy. Wedge resection left lower lobe Past Anesthesia/Blood Transfusion Reactions: Postoperative Nausea & Vomiting (PONV) Past Psychological History: Anxiety, Depression Smoking Status: Current every day smoker Past Alcohol Use History: None Reported Additional Past Alcohol Use History / Comment(s): Has been smoking 1 PPD for 15+ yrs. Past Drug Use History: None Reported - Past Family History Mother Family Medical History: No Reported History Father Family Medical History: Diabetes Mellitus, Hypertension Medications and Allergies Home Medications Medication Instructions Recorded Confirmed Type Citalopram Hydrobromide [CeleXA] 20 mg PO HS 06/12/17 10/10/22 History Famotidine [Pepcid] 40 mg PO BID 06/12/17 10/10/22 History amLODIPine [Norvasc] 5 mg PO HS 06/12/17 10/10/22 History lisinopriL 40 mg PO HS 06/12/17 10/10/22 History Ibuprofen [Motrin] 800 mg PO BID 07/21/19 10/10/22 History estradioL [Estrace] 1 mg PO DAILY 07/21/19 10/10/22 History Levocetirizine Dihydrochloride 5 mg PO DAILY 01/01/22 10/10/22 History [Xyzal] Montelukast [Singulair] 10 mg PO DAILY 01/01/22 10/10/22 History ALPRAZolam [Xanax] 0.5 mg PO DAILY PRN 10/10/22 10/10/22 History ALPRAZolam [Xanax] 0.5 mg PO HS 10/10/22 10/10/22 History Albuterol Inhaler [Ventolin Hfa 2 puff INHALATION RT-Q6H PRN 10/10/22 10/10/22 History Inhaler] Gabapentin 300 mg PO HS 10/10/22 10/10/22 History Multivitamin Gummy With Immune 1 tab PO DAILY 10/10/22 10/10/22 History Support Amoxic-Pot Clav 875-125Mg 1 tab PO Q12HR 42 Days #84 tab 10/12/22 Rx [Augmentin 875-125] HYDROcodone/APAP 5-325MG [[place] 1 each PO Q4HR PRN #6 tab 10/12/22 Rx 5-325] Allergies Allergy/AdvReac Type Severity Reaction Status Date / Time prochlorperazine AdvReac Extreme Verified 10/10/22 16:19 [From Compazine] anxiety Exam Osteopathic Statement: *. No significant issues noted on an osteopathic structural exam other than those noted in the History and Physical/Consult. 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 She is without concerns this morning. Breathing appears nonlabored, heart has a regular rate and rhythm. Pelvic exam is deferred. Assessment/Plan 3 cm left basilar lung mass on CT scan h/o endometriosis approximately 3 years ago she underwent laparoscopic hysterectomy with BSO and continues on 1 mg of oral estradiol. This would be a very unusual presentation of endometriosis given her history of hysterectomy and bilateral salpingo-oophorectomy. The minimal dose of 1 mg of oral estradiol would be unlikely to stimulate endometrial implants. In addition on wedge resection done in 2019 pathology should've been consistent with endometriosis if this was a concern. Discussion with patient regarding thoracic endometriosis and multiple questions were answered. Patient still has significant concerns this could be rested endometriosis and is requesting resection or consult with Dr. Bowser her prior CT surgeon. The only recommendation I would have would be to discontinue her 1 mg of oral estradiol and consider switching to estradiol patch. Results Result Diagrams: 10/12/22 06:05 10/12/22 06:05 Abnormal Lab Results - Last 24 Hours (Table) 10/13/22 10/13/22 10/13/22 Range/Units 11:52 17:27 21:27 POC Glucose (mg/dL) 270 H 117 H 178 H (70-110) mg/dL Microbiology - Last 24 Hours (Table) 10/10/22 17:35 Blood Culture - Preliminary Blood 10/10/22 17:20 Blood Culture - Preliminary Blood 10/12/22 05:15 Gram Stain - Preliminary Sputum
--- NOTE | 2022-10-14 09:14 | P.PN ---
Subjective Progress Note Date: 10/14/22 Patient is a 42-year-old female with a known history of hypertension, osteoarthritis, GERD and and history of endometriosis, anxiety/depression and currently everyday smoking/vaping presents to ER with complaints of chest pains, shortness of breath and hemoptysis. Patient stated she noticed blood in the sputum about 2 weeks ago initially. She was treated with antibiotics and steroids without significant relief. Last night patient developed chest pain/irritation in the chest and also felt very tired and lack of energy and had an episode of teaspoonful on bright red blood in the sputum. Feels nauseous and irritation in the throat. Denies any fever or chills. Cough with thick, clear sputum production denies any loss of weight or appetite. Chest pain is mainly in the mid retrosternal, intermittent heaviness. Patient states that she has occupational exposure to asbestos in 2019 and had left lower lobe wedge resection and left lung nodule biopsy. Chest x-ray showed very minimal left pleural effusion may be at the costophrenic angle. CT of the abdomen pelvis and chest showed reoccurrence of a left basilar cystic mass which was draining September 2019 correlate with prior pathology. Cavity neoplasm not infected collection is not excluded. Hepatic steatosis and mild hepatomegaly. 10/11/2022 Patient seen and evaluated in follow-up today and being monitored closely with pulmonary following. Pulmonary recommend discharging home on antibiotics for a prolonged course and has consulted infectious disease for input and recommendations. Patient is afebrile continues to report some shortness of breath with exertion although has improved and patient denies any further hemoptysis. Patient is continued on antibiotic therapy currently in the form of augmentin per pulmonary and have discontinued Zithromax and ceftriaxone. Patient white count remains elevated although patient is afebrile. Patient denies chest pain or palpitations. No reported nausea or vomiting and patient is tolerating diet. 10/12/2022 Patient is seen and evaluated and follow-up post interventional radiology a ttempted aspiration of the abscess in the left lung. Per radiologist there is a concern that is a solid mass in the aspirate was too dense to aspirate anything. Infectious disease notified and follow-up chest x-ray was done as there was concern of a possible tiny pneumothorax on the left from the procedure. Patient is continued on antibiotics and has been switched to Zosyn and will continue Aug mentin on discharge. Patient to be monitored overnight with a follow-up chest x-ray in the a.m. Pulmonary has cleared the patient for discharge recommending outpatient follow-up in the next few weeks and repeat imaging. Patient will go on prolonged oral Augmentin twice daily for 6 weeks and close outpatient follow- up with infectious disease as well. Patient is currently afebrile denies chest pain or shortness of breath. No reported nausea or vomiting and patient tolerating diet. 10/13/2022 Patient is seen in follow-up today with infectious disease and pulmonary following. Patient is status post attempted aspiration of the left lung mass which was unsuccessful to aspirate and maintained on antibiotics in the form of Zosyn with infectious disease following an recommending gynecology consult with concerns of possible pulmonary endometriosis. Patient has significant history of endometriosis status post hysterectomy. Awaiting input recommendations. Patient is currently afebrile denies chest pain or worsening shortness of breath. Patient continues with pain and recommend limiting IV narcotics. Encouraged to increase activity as tolerated. Follow-up chest x-ray shows no pneumothorax this morning. Review of systems: Constitutional: No reports of fatigue, fever, or chills Cardiovascular: No reports of chest pain or palpitations Respiratory: No reports of worsening shortness of breath or cough GI: No reports of nausea, vomiting, or diarrhea : No reports of dysuria or retention Neurovascular: No reports of weakness or numbness All medications have been reviewed Physical exam: Patient is sitting up in the bed comfortably, no acute distress, awake alert and oriented.. HEENT: Normocephalic. Neck is supple. Pupils reactive. Nostrils clear. Oral cavity is moist. Neck reveals no JVD, carotid bruits, or thyromegaly. CHEST EXAMINATION: Trachea is central. Symmetrical expansion. Lung trammell clear to auscultation and percussion. Diminished CARDIAC: Normal S1, S2 with no gallops. No murmurs ABDOMEN: Soft. Bowel sounds present. Nontender. No organomegaly. No abdominal bruits. Extremities: reveal no edema. No clubbing or cyanosis Neurologically awake, alert, oriented x3 with well-coordinated movements. No focal deficits noted Skin: No rash or skin lesions. Psychiatric: Cooperative. Non-suicidal Musculoskeletal: No joint swelling or deformity. Normal range of motion. Assessment: Hemoptysis, improved Chest pain/tightness intermittently possibly secondary to the left basilar cystic mass Left basilar cystic mass recurrence with history of drain in September 2019. Possible cavitary neoplasm versus infected fluid collection. Unable to aspirate with interventional radiology As mass was somewhat solid. Possible concern for pulmonary endometriosis per ID, SCHOOL PSYCHOLOGIST ASSISTANT consulted Prior history of asbestos exposure. History of left lower lobe wedge resection Hypertension GERD Osteoarthritis Hematemesis with history of multiple and laparoscopic procedures Anxiety/depression Prior history of smoking and currently vaping on a daily basis DVT prophylaxis with SCDs due to hemoptysis. GI prophylaxis Full code Plan: Patient will be continued on antibiotics that have been transitioned to IV Zosyn with infectious disease following. Will continue oral Augmentin twice daily for 6 weeks course and close outpatient follow-up with pulmonary and infectious disease on discharge Will repeat labs as white count was elevated. Patient is afebrile Follow-up chest x-ray shows no pneumothorax Patient does vape and discussed the importance again of complete cessation. Per ID recommendations SCHOOL PSYCHOLOGIST ASSISTANT consult was placed as there is concern for possible pulmonary endometriosis?? The impression and plan of care has been dictated as a scribe by Louisa Mobley, Nurse Practitioner as directed. Dr. Pooja MD I have performed a history and examination and MDM of this patient, discussed the same with the dictator, and will be documented as a scribe. Based on total visit time, I have performed more than 50% of the visit. Objective - Vital Signs Vital signs: Vital Signs Temp 98.1 F 10/13/22 14:24 Pulse 84 10/13/22 14:24 Resp 15 10/13/22 14:24 BP 113/74 10/13/22 14:24 Pulse Ox 95 10/13/22 14:24 FiO2 21 10/12/22 08:42 Intake & Output 10/12/22 10/13/22 10/13/22 18:59 06:59 18:59 Intake Total 118 Balance 118 Intake: Oral 118 Other: Voiding Method Toilet # Voids 2 2 - Labs CBC & Chem 7: 10/12/22 06:05 10/12/22 06:05 Labs: Abnormal Lab Results - Last 24 Hours (Table) 10/12/22 10/12/22 10/13/22 Range/Units 18:45 20:34 06:19 POC Glucose (mg/dL) 206 H 164 H 130 H (70-110) mg/dL 10/13/22 Range/Units 11:52 POC Glucose (mg/dL) 270 H (70-110) mg/dL Microbiology - Last 24 Hours (Table) 10/12/22 05:15 Gram Stain - Preliminary Sputum 10/10/22 17:35 Blood Culture - Preliminary Blood 10/10/22 17:20 Blood Culture - Preliminary Blood
--- NOTE | 2022-10-14 10:35 | P.PN ---
Subjective Progress Note Date: 10/14/22 Patient is a 42-year-old female with a known history of hypertension, osteoarthritis, GERD and and history of endometriosis, anxiety/depression and currently everyday smoking/vaping presents to ER with complaints of chest pains, shortness of breath and hemoptysis. Patient stated she noticed blood in the sputum about 2 weeks ago initially. She was treated with antibiotics and steroids without significant relief. Last night patient developed chest pain/irritation in the chest and also felt very tired and lack of energy and had an episode of teaspoonful on bright red blood in the sputum. Feels nauseous and irritation in the throat. Denies any fever or chills. Cough with thick, clear sputum production denies any loss of weight or appetite. Chest pain is mainly in the mid retrosternal, intermittent heaviness. Patient states that she has occupational exposure to asbestos in 2019 and had left lower lobe wedge resection and left lung nodule biopsy. Chest x-ray showed very minimal left pleural effusion may be at the costophrenic angle. CT of the abdomen pelvis and chest showed reoccurrence of a left basilar cystic mass which was draining September 2019 correlate with prior pathology. Cavity neoplasm not infected collection is not excluded. Hepatic steatosis and mild hepatomegaly. 10/11/2022 Patient seen and evaluated in follow-up today and being monitored closely with pulmonary following. Pulmonary recommend discharging home on antibiotics for a prolonged course and has consulted infectious disease for input and recommendations. Patient is afebrile continues to report some shortness of breath with exertion although has improved and patient denies any further hemoptysis. Patient is continued on antibiotic therapy currently in the form of augmentin per pulmonary and have discontinued Zithromax and ceftriaxone. Patient white count remains elevated although patient is afebrile. Patient denies chest pain or palpitations. No reported nausea or vomiting and patient is tolerating diet. 10/12/2022 Patient is seen and evaluated and follow-up post interventional radiology a ttempted aspiration of the abscess in the left lung. Per radiologist there is a concern that is a solid mass in the aspirate was too dense to aspirate anything. Infectious disease notified and follow-up chest x-ray was done as there was concern of a possible tiny pneumothorax on the left from the procedure. Patient is continued on antibiotics and has been switched to Zosyn and will continue Aug mentin on discharge. Patient to be monitored overnight with a follow-up chest x-ray in the a.m. Pulmonary has cleared the patient for discharge recommending outpatient follow-up in the next few weeks and repeat imaging. Patient will go on prolonged oral Augmentin twice daily for 6 weeks and close outpatient follow- up with infectious disease as well. Patient is currently afebrile denies chest pain or shortness of breath. No reported nausea or vomiting and patient tolerating diet. 10/13/2022 Patient is seen in follow-up today with infectious disease and pulmonary following. Patient is status post attempted aspiration of the left lung mass which was unsuccessful to aspirate and maintained on antibiotics in the form of Zosyn with infectious disease following an recommending gynecology consult with concerns of possible pulmonary endometriosis. Patient has significant history of endometriosis status post hysterectomy. Awaiting input recommendations. Patient is currently afebrile denies chest pain or worsening shortness of breath. Patient continues with pain and recommend limiting IV narcotics. Encouraged to increase activity as tolerated. Follow-up chest x-ray shows no pneumothorax this morning. 10/14/2022 Patient is seen in follow-up this morning and has been evaluated by HIDE SPREADER and suspicion for thoracic endometriosis is low and had thorough detailed conversation with patient and is agreeable to a consult to be placed for cardiothoracic surgery Dr. Bowser who patient is known to for previous lung mass. Patient is on antibiotics with infectious disease following and will follow-up on labs that are currently pending for this morning. Patient remains afebrile with no reports of chest pain or shortness of breath. Patient is reporting pain at the biopsy site and was continued on morphine and [place] every 4. Per nursing staff patient is requesting pain medications around the clock and will decrease and titrate the doses. Discontinue IV narcotics as patient will not be going home on those. Patient has been encouraged to increase activity as tolerated and up and ambulate in the halls frequently. Review of systems: Constitutional: No reports of fatigue, fever, or chills Cardiovascular: No reports of chest pain or palpitations Respiratory: No reports of worsening shortness of breath or cough GI: No reports of nausea, vomiting, or diarrhea : No reports of dysuria or retention Neurovascular: No reports of weakness or numbness All medications have been reviewed Physical exam: Patient is sitting up in the bed comfortably, no acute distress, awake alert and oriented.. HEENT: Normocephalic. Neck is supple. Pupils reactive. Nostrils clear. Oral cavity is moist. Neck reveals no JVD, carotid bruits, or thyromegaly. CHEST EXAMINATION: Trachea is central. Symmetrical expansion. Lung trammell clear to auscultation and percussion. Diminished CARDIAC: Normal S1, S2 with no gallops. No murmurs ABDOMEN: Soft. Bowel sounds present. Nontender. No organomegaly. No abdominal bruits. Extremities: reveal no edema. No clubbing or cyanosis Neurologically awake, alert, oriented x3 with well-coordinated movements. No focal deficits noted Skin: No rash or skin lesions. Psychiatric: Cooperative. Non-suicidal Musculoskeletal: No joint swelling or deformity. Normal range of motion. Assessment: Hemoptysis, resolved Chest pain/tightness intermittently possibly secondary to the left basilar cystic mass Left basilar cystic mass recurrence with history of drain in September 2019. Possible cavitary neoplasm versus infected fluid collection. Unable to aspirate with interventional radiology As mass was somewhat solid. Possible concern for pulmonary endometriosis per ID, HIDE SPREADER evaluated the patient Prior history of asbestos exposure. History of left lower lobe wedge resection Hypertension GERD Osteoarthritis Hematemesis with history of multiple and laparoscopic procedures Anxiety/depression Prior history of smoking and currently vaping on a daily basis DVT prophylaxis with SCDs due to hemoptysis. GI prophylaxis Full code Plan: Patient will be continued on antibiotics that have been transitioned to IV Unasyn with infectious disease following. Will continue oral Augmentin twice daily for 6 weeks course and close outpatient follow-up with pulmonary and infectious disease on discharge Will repeat labs as white count was elevated. Patient is afebrile HIDE SPREADER followed up with the patient and suspicion for thoracic endometriosis is extremely low and recommends CT surgery consult as patient was previously treated by Dr. Bowser with her left lower lobe wedge resection. CT surgery consulted and pending Will titrate down the dose of pain medications and discontinue IV pain medications and encourage the patient increase ambulation and activity as tolerated. Patient does vape and discussed the importance again of complete cessation. We'll monitor the patient closely overnight with probable discharge in 24 hours The impression and plan of care has been dictated as a scribe by Louisa Mobley, Nurse Practitioner as directed. Dr. Pooja MD I have performed a history and examination and MDM of this patient, discussed the same with the dictator, and will be documented as a scribe. Based on total visit time, I have performed more than 50% of the visit. Objective - Vital Signs Vital signs: Vital Signs Temp 98.1 F 10/14/22 06:58 Pulse 66 10/14/22 06:58 Resp 17 10/14/22 06:58 BP 112/74 10/14/22 06:58 Pulse Ox 97 10/14/22 09:13 FiO2 21 10/12/22 08:42 Intake & Output 10/13/22 10/14/22 10/14/22 18:59 06:59 18:59 Intake Total 736 Balance 736 Intake: Oral 736 Other: Voiding Method Toilet # Voids 2 1 # Bowel Movements 0 - Labs CBC & Chem 7: 10/12/22 06:05 10/12/22 06:05 Labs: Abnormal Lab Results - Last 24 Hours (Table) 10/13/22 10/13/22 10/13/22 Range/Units 11:52 17:27 21:27 POC Glucose (mg/dL) 270 H 117 H 178 H (70-110) mg/dL Microbiology - Last 24 Hours (Table) 10/10/22 17:35 Blood Culture - Preliminary Blood 10/10/22 17:20 Blood Culture - Preliminary Blood 10/12/22 05:15 Gram Stain - Preliminary Sputum
[2022-10-14 11:08] LABS: HCT 37.4 % (34.0-46.0); HGB 12.7 gm/dL (11.4-16.0); MCV 94.2 fL (80.0-100.0); RBC 3.97 m/uL (3.80-5.40); WBC 12.3 k/uL (3.8-10.6)
[2022-10-14 11:09] LABS: Basophils # (A) 0.1 k/uL (0-0.2); Basophils % (A) 0 %; Eosinophils # (A) 0.4 k/uL (0-0.7); Eosinophils % (A) 3 %; Lymphocytes # (A) 3.3 k/uL (1.0-4.8); Lymphocytes % (A) 27 %; MCH 31.9 pg (25.0-35.0); MCHC 33.9 g/dL (31.0-37.0); Mean Platelet Volume 8.1; Monocytes # (A) 0.7 k/uL (0-1.0); Monocytes % (A) 6 %; Neutrophils # (A) 7.7 k/uL (1.3-7.7); Neutrophils % (A) 63 %; Platelet Count 286 k/uL (150-450); RDW 12.5 % (11.5-15.5)
[2022-10-14 11:29] LABS: African American GFR (CKD) >90 (>60 ml/min/1.73 sqM); Anion Gap 7 mmol/L; Blood Urea Nitrogen 12 mg/dL (7-17); Calcium 9.2 mg/dL (8.4-10.2); Carbon Dioxide 27 mmol/L (22-30); Chloride 102 mmol/L (98-107); Glucose 183 mg/dL (74-99); Non-African American GFR(CKD) >90 (>60 ml/min/1.73 sqM); Sodium 136 mmol/L (137-145)
[2022-10-14 11:41] LABS: Glucose,Whole Blood 150 mg/dL (70-110)
[2022-10-14 17:15] LABS: Glucose,Whole Blood 126 mg/dL (70-110)
[2022-10-14] MEDS: lisinopriL 20 MG TAB PO SCH (20:04)
[2022-10-14] MEDS: GABAPENTIN 300 MG CAP PO SCH (20:04)
[2022-10-14] MEDS: amLODIPine 5 MG TAB PO SCH (20:04)
[2022-10-14] MEDS: CITALOPRAM HYDROBROMIDE 20 MG TAB PO SCH (20:04)
[2022-10-14] MEDS: ALPRAZolam 0.5 MG TAB PO SCH (20:04)
[2022-10-14 20:51] LABS: Glucose,Whole Blood 236 mg/dL (70-110)
[2022-10-14 21:10] VITALS: RESP 16
[2022-10-15] MEDS: AMPICILLIN-SULBACTAM 3 GM in SODIUM CHLORIDE 0.9% 100 ML IVPB SCH ×3 (00:04→13:05)
[2022-10-15] MEDS: HYDROcodone/APAP 5-325MG 1 EACH TAB PO PRN ×3 (00:10→13:54)
[2022-10-15 06:13] LABS: Glucose,Whole Blood 136 mg/dL (70-110)
[2022-10-15] MEDS: INSULIN ASPART (NovoLOG) 100 UNIT/ML VIAL SQ SCH ×2 (06:16→13:03)
[2022-10-15] MEDS: FAMOTIDINE 20 MG TAB PO SCH (08:20)
[2022-10-15] MEDS: MONTELUKAST 10 MG TAB PO SCH (08:20)
[2022-10-15] MEDS: PANTOPRAZOLE 40 MG/10 ML VIAL IV SCH (08:20)
[2022-10-15] MEDS: MULTIVITAMINS, THERA 1 EACH TAB PO SCH (08:20)
[2022-10-15] MEDS: IBUPROFEN 800 MG TAB PO SCH (08:21)
[2022-10-15] MEDS: LORATADINE 10 MG TAB PO SCH (08:21)
--- NOTE | 2022-10-15 08:52 | P.PN ---
Subjective Progress Note Date: 10/14/22 Principal diagnosis: Abdominal CT and a question of abscess Patient is a 42-year-old female with a past medical history pain of hypertension reflux endometriosis patient did have a admission to [facility] from 10/05/2019 till 10/10/2019 and this patient presented with hemoptysis patient did have a CT angiogram of the chest which shows 5 cm cystic mass in the left lateral lung base, status post CT-guided aspirate followed by wedge resection biopsy was suggestive of abscess however culture were negative, patient presented back to the hospital with similar symptoms with abnormality on the CT. On today's evaluation that is 10/14/2022 the patient remains to be afebrile patient left-sided chest pain has slightly decreased in intensity she is breathing comfortably on room air no nausea vomiting no abdominal pain and no diarrhea. No blood work was done today blood culture has been negative sputum cultures so far negative Objective - Vital Signs Vital signs: Vital Signs Temp 98.1 F 10/14/22 06:58 Pulse 66 10/14/22 06:58 Resp 17 10/14/22 06:58 BP 112/74 10/14/22 06:58 Pulse Ox 97 10/14/22 09:13 FiO2 21 10/12/22 08:42 Intake & Output 10/13/22 10/14/22 10/14/22 18:59 06:59 18:59 Intake Total 736 Balance 736 Intake: Oral 736 Other: Voiding Method Toilet # Voids 2 1 # Bowel Movements 0 - Exam GENERAL DESCRIPTION: A middle-age female lying in bed in no distress RESPIRATORY SYSTEM: Unlabored breathing , decreased breath sounds at bases HEART: S1 S2 regular rate and rhythm , ABDOMEN: Soft , no tenderness EXTREMITIES: No edema feet - Labs CBC & Chem 7: 10/14/22 10:52 10/14/22 10:52 Labs: Abnormal Lab Results - Last 24 Hours (Table) 10/13/22 10/13/22 10/14/22 Range/Units 17:27 21:27 10:52 WBC 12.3 H (3.8-10.6) k/uL Sodium (137-145) mmol/L Glucose (74-99) mg/dL POC Glucose (mg/dL) 117 H 178 H (70-110) mg/dL 10/14/22 10/14/22 Range/Units 10:52 11:40 WBC (3.8-10.6) k/uL Sodium 136 L (137-145) mmol/L Glucose 183 H (74-99) mg/dL POC Glucose (mg/dL) 150 H (70-110) mg/dL Microbiology - Last 24 Hours (Table) 10/12/22 05:15 Gram Stain - Preliminary Sputum Sputum Culture - Final 10/10/22 17:35 Blood Culture - Preliminary Blood 10/10/22 17:20 Blood Culture - Preliminary Blood Assessment and Plan (1) Mass of lower lobe of left lung Current Visit: No Status: Acute Code(s): R91.8 - OTHER NONSPECIFIC ABNORMAL FINDING OF LUNG FIELD SNOMED Code(s): 368042955 Plan: 1patient with recurrent left lower lobe abnormality initially presented with hemoptysis in September 2019 at that point the patient did have fine-needle a spiration suggestive of possible abscess s/p wedge resection that was suggestive of the abscess on the biopsy however cultures are negative and the patient was treated with oral Augmentin now 3 years later presenting with similar symptoms of hemoptysis shortness of breath and chest pain patient did have elevated white count but no fever and does not look toxic 2-Unfortunately IR was not able to do the biopsy or the drainage procedure however he mentioned it was mostly a mass then fluid collection patient did have a history of endometriosis and a question of possible pulmonary endometriosis should be in the differential Patient has been evaluated by RADIOACTIVITY TECHNICIAN and seem to be not concern for pulmonary endometriosis,. 3CT surgery has been consulted for repeat resection and biopsy follow-up cont inue with Unasyn multiple question concern answered Dictation was produced using Thumb dictation software. please excuse any grammatical, word or spelling errors. Time with Patient: Less than 30
[2022-10-15 08:59] VITALS: BP 136/84; PULSE 63; TEMP 97.5
--- NOTE | 2022-10-15 09:42 | P.GSCN ---
History of Present Illness Consult date: 10/15/22 Reason for Consult: Recurrent left lower lobe lung mass Requesting physician: Louisa Mobley History of present illness: This is a 42-year-old female patient who follows on an outpatient basis with Dr. Jorden Paz for her primary care. She has a past medical history for a 5 cm left lower lobe lung abscess, status post left thoracoscopy wedge resection left lower lobe in September 2019, endometriosis status post multiple D&Cs and total hysterectomy, hypertension, GERD, anxiety, depression, new onset diabetes mellitus type 2 with a hemoglobin A1c of 6.9, and chronic ongoing nicotine dependence in the form of vaping. On 10/10/2022 she presented to the emergency department here at [facility] with complaints of shortness of breath, burning type chest pain/epigastric pain, and hemoptysis which is been ongoing for about a 1 month period. She denies any fever, chills, nausea, vomiting, hematemesis, diarrhea, constipation, headache, lightheadedness, palpitations, weakness, presyncope or syncope. Due to the patient's above- mentioned symptoms she was treated with a course of antibiotics and steroids on an outpatient basis without relief. In April [address] of the chest with contrast due to her history of pulmonary nodule which demonstrated a left lower lobe 1.9 x 1.3 cm nodular component at the site of her previous surgery. On admission to the emergency department her initial laboratory results showed a WBC count of 19.9, hemoglobin 14.4, hematocrit 41.2, platelets 372, neutrophils 16.1, PT 9.9, INR 0.9, PTT 23.9, d-dimer less than 0.17, sodium 135, potassium 4.1, chloride 100, CO2 28, BUN 15, creatinine 0.64, glucose 279, plastic lactic acid venous 2.0, calcium 10.0, troponins less than 0.012 and her serology was negative for influenza type A, type B, RSV or COVID-19. She did have a hemoglobin A1c completed which showed a value of 6.9. A chest x-ray was completed which showed a very minimal left pleural effusion at the costophrenic angle. For further evaluation a computed tomography scan of the chest/abdomen with contrast was completed due to her presenting symptoms which demonstrated recurrence of the left basilar cystic mass which is now measuring 3.2 x 3.0 cm, hepatic steatosis and mild hepatomegaly. Due to the increasing size of the left lower lobe mass, interventional radiology was consulted and a CT guided abscess drainage was performed on 10/12/2022, however the material was too thick for aspiration. The patient remained hemodynamically stable and is currently on no inotropic or pressor support. Oxygen saturation are 96% on room air, and she has been afebrile since admission. Infectious disease has been consulted and is following the patient, and the patient is currently receiving Unasyn for antibiotic coverage. Subsequently, due the unsuccessful biopsy or drainage procedure a consult was placed to cardiothoracic surgery for further evaluation and treatment recommendations. Review of Systems A 14 point review of systems was completed and was negative except as mentioned in the HPI. Past Medical History Past Medical History: Diabetes Mellitus (Hemoglobin A1c 6.9 and blood glucose 279 on admission), GERD/Reflux, Hypertension, Osteoarthritis (OA) Additional Past Medical History / Comment(s): Endometriosis, constant nasal congestion, bloating, nausea, and IBS. 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 left lung nodule biopsy. Wedge resection left lower lobe September 2019 Past Anesthesia/Blood Transfusion Reactions: Postoperative Nausea & Vomiting (PONV) Past Psychological History: Anxiety, Depression Smoking Status: Current every day smoker, Vaper Past Alcohol Use History: None Reported Additional Past Alcohol Use History / Comment(s): Has been smoking 1 PPD for 15+ yrs. Past Drug Use History: None Reported - Past Family History Mother Family Medical History: Hypertension Additional Family Medical History / Comment(s): Rosacea Father Family Medical History: Diabetes Mellitus, Hyperlipidemia, Hypertension Additional Family Medical History / Comment(s): EtOH abuse Medications and Allergies Home Medications Medication Instructions Recorded Confirmed Type Citalopram Hydrobromide [CeleXA] 20 mg PO HS 06/12/17 10/10/22 History Famotidine [Pepcid] 40 mg PO BID 06/12/17 10/10/22 History amLODIPine [Norvasc] 5 mg PO HS 06/12/17 10/10/22 History lisinopriL 40 mg PO HS 06/12/17 10/10/22 History Ibuprofen [Motrin] 800 mg PO BID 07/21/19 10/10/22 History estradioL [Estrace] 1 mg PO DAILY 07/21/19 10/10/22 History Levocetirizine Dihydrochloride 5 mg PO DAILY 01/01/22 10/10/22 History [Xyzal] Montelukast [Singulair] 10 mg PO DAILY 01/01/22 10/10/22 History ALPRAZolam [Xanax] 0.5 mg PO DAILY PRN 10/10/22 10/10/22 History ALPRAZolam [Xanax] 0.5 mg PO HS 10/10/22 10/10/22 History Albuterol Inhaler [Ventolin Hfa 2 puff INHALATION RT-Q6H PRN 10/10/22 10/10/22 History Inhaler] Gabapentin 300 mg PO HS 10/10/22 10/10/22 History Multivitamin Gummy With Immune 1 tab PO DAILY 10/10/22 10/10/22 History Support Amoxic-Pot Clav 875-125Mg 1 tab PO Q12HR 42 Days #84 tab 10/12/22 Rx [Augmentin 875-125] HYDROcodone/APAP 5-325MG [[place] 1 each PO Q4HR PRN #6 tab 10/12/22 Rx 5-325] Allergies Allergy/AdvReac Type Severity Reaction Status Date / Time prochlorperazine AdvReac Extreme Verified 10/10/22 16:19 [From Compazine] anxiety Surgical - Exam Vital Signs Temp Pulse Resp BP Pulse Ox 98.3 F 76 20 146/86 97 10/10/22 11:22 10/10/22 11:22 10/10/22 11:22 10/10/22 11:22 10/10/22 11:22 - General well developed, well nourished, no distress, no pain - Eyes PERRL, normal ocular movement, no pale, no icteric - ENT Nasal congestion normal pinna, normal nares, normal mucosa, no hearing loss - Neck Neck is supple, no lymphadenopathy no masses, no bruits, trachea midline, no venous distension - Respiratory Lungs essentially clear throughout. No wheezes, rhonchi or crackles. Respirations are symmetrical and nonlabored. Oxygen saturation are 96% on room air. - Cardiovascular Regular rhythm and rate. S1 and S2 present, negative for S3, gallop or murmur. - Abdomen Abdomen is soft, nontender and nondistended. Active bowel sounds present in all 4 abdominal quadrants. No guarding or rigidity. No organomegaly appreciated. - Genitourinary Deferred - Rectum Deferred - Integumentary Skin is warm and dry. No clubbing or cyanosis is present. no rash, no growths, no abnormal pigmentation - Neurologic No focal deficits. normal coordination, normal sensation - Musculoskeletal Moves all 4 extremities with equal strength bilaterally. normal gait, normal posture - Psychiatric oriented to time, oriented to person, oriented to place, speech is normal, me duke intact Results - Labs 10/14/22 10:52 10/14/22 10:52 Abnormal Lab Results - Last 24 Hours (Table) 10/14/22 10/14/22 10/14/22 Range/Units 10:52 10:52 11:40 WBC 12.3 H (3.8-10.6) k/uL Sodium 136 L (137-145) mmol/L Glucose 183 H (74-99) mg/dL POC Glucose (mg/dL) 150 H (70-110) mg/dL 10/14/22 10/14/22 10/15/22 Range/Units 17:13 20:50 06:12 WBC (3.8-10.6) k/uL Sodium (137-145) mmol/L Glucose (74-99) mg/dL POC Glucose (mg/dL) 126 H 236 H 136 H (70-110) mg/dL Microbiology - Last 24 Hours (Table) 10/12/22 05:15 Gram Stain - Preliminary Sputum Sputum Culture - Final 10/10/22 17:35 Blood Culture - Preliminary Blood 10/10/22 17:20 Blood Culture - Preliminary Blood Diabetes panel 10/14/22 Range/Units 10:52 Sodium 136 L (137-145) mmol/L Potassium 4.0 (3.5-5.1) mmol/L Chloride 102 (98-107) mmol/L Carbon Dioxide 27 (22-30) mmol/L BUN 12 (7-17) mg/dL Creatinine 0.55 (0.52-1.04) mg/dL Glucose 183 H (74-99) mg/dL Calcium 9.2 (8.4-10.2) mg/dL Calcium panel 10/14/22 Range/Units 10:52 Calcium 9.2 (8.4-10.2) mg/dL Pituitary panel 10/14/22 Range/Units 10:52 Sodium 136 L (137-145) mmol/L Potassium 4.0 (3.5-5.1) mmol/L Chloride 102 (98-107) mmol/L Carbon Dioxide 27 (22-30) mmol/L BUN 12 (7-17) mg/dL Creatinine 0.55 (0.52-1.04) mg/dL Glucose 183 H (74-99) mg/dL Calcium 9.2 (8.4-10.2) mg/dL Adrenal panel 10/14/22 Range/Units 10:52 Sodium 136 L (137-145) mmol/L Potassium 4.0 (3.5-5.1) mmol/L Chloride 102 (98-107) mmol/L Carbon Dioxide 27 (22-30) mmol/L BUN 12 (7-17) mg/dL Creatinine 0.55 (0.52-1.04) mg/dL Glucose 183 H (74-99) mg/dL Calcium 9.2 (8.4-10.2) mg/dL - Imaging Chest x-ray: report reviewed, image reviewed CT scan - chest: report reviewed, image reviewed US - abdomen: report reviewed Assessment and Plan Assessment: Enlarging left lower lobe cavitating lung mass measuring 3.2 x 3.0 cm, computed tomography scan of the chest from 04/26/2022 showed the left lower lobe lung ma ss measuring 1.9 x 1.3 cm. History of left lower lung abscess status post left lower lobe wedge resection in September 2019 Hemoptysis, likely secondary to above Leukocytosis, possibly secondary to above, treated with Augmentin and steroid Dosepak as an outpatient Hypertension Chronic ongoing tobacco dependence, vapes daily History of Depression History of anxiety New-onset diabetes mellitus, admission hemoglobin A1c was 6.9 and serum glucose was 279 History of endometriosis status post hysterectomy Plan: The patient was seen and examined at her bedside on the sixth floor medical surgical unit. Her chart and diagnostics reviewed. Her case was discussed in detail with Dr. Franco Ruiz from cardiothoracic surgery. At this time no surgical intervention is warranted, continue to treat with antibiotics per infectious disease recommendations. White count is trending down and the patient remains afebrile and no further complaints of hemoptysis. Incentive spirometry has been ordered and we will encourage use 10 times every hour while awake. Importance of cessation from a pain and smoking has been discussed with the patient and the patient has been offered information with the [id number]. Medical management and other comorbidities per primary care service and other consultants. More recommendations to follow based on patient's clinical course. Thank you for this consult and we look for to working with you in the care of this patient. I have personally seen and examined the patient, performed the documentation and the assessment and plan as written. Number of minutes spent on the visit, 30 minutes . Andrey SUC Attending addendum: The patient was evaluated with the TORCH STRAIGHTENER above. Agree with his assessment and plan. This patient is a 42 y/o F with a hx of a lung abscess s/p resection by Dr. Bowser in 2019. She presents with recurrent lung abscess of the LLL. At this point, the abscess is small and should be treated with abx. If she fails abx tx, we can consider repeat resection. I spent 30 minutes evaluating the patient and discussing findings with the care team. Time with Patient: Greater than 30
[2022-10-15 12:01] LABS: Glucose,Whole Blood 149 mg/dL (70-110)
[2022-10-17 15:50] LABS: Histoplasma Abs by ID Not Detected (Not Detected); Histoplasma Abs by Mycelia, CF <1:8 (<1:8)
== END 2022-10-15 13:58 | disposition home or self-care (01) | DRG 145 ==
LOC: EC 10:58 → 6NMEDSUR 15:27 → 5NMEDONC 19:39 → 6NMEDSUR 20:59 → OBSVTOIN 10-12 11:05
PROVIDERS: ADMIT Internal Medicine; ATTEND Internal Medicine
DX: R04.2 Hemoptysis (principal); E11.9 Type 2 diabetes mellitus without complications; F17.290 Nicotine dependence, other tobacco product, uncomplicated; F32.A Depression, unspecified; F41.9 Anxiety disorder, unspecified; I10 Essential (primary) hypertension; K21.9 Gastro-esophageal reflux disease without esophagitis; K76.0 Fatty (change of) liver, not elsewhere classified; K92.0 Hematemesis; M19.90 Unspecified osteoarthritis, unspecified site; Z20.822 Contact with and (suspected) exposure to COVID-19; Z77.090 Contact with and (suspected) exposure to asbestos; Z79.890 Hormone replacement therapy; Z79.899 Other long term (current) drug therapy; Z82.49 Family history of ischemic heart disease and other diseases of the circulatory system; Z83.3 Family history of diabetes mellitus; Z90.710 Acquired absence of both cervix and uterus; Z88.8 Allergy status to other drugs, medicaments and biological substances
CPT/HCPCS: 36415; 71045; 71046; 71260; 74160; 75989; 80048; 80053; 83036; 83605; 84145; 84484; 85025; 85379; 85610; 85730; 86140; 86606; 86698; 87040; 87070; 87205; 87327; 87449; 87636; 93005; 94760; 96365; 96366; 96368; 96375; 99285

== ENCOUNTER → 2023-01-08 | Outpatient (CLI) | payer OTHER ==
--- NOTE | 2023-01-08 12:25 | CT ---
EXAMINATION TYPE: CT chest w con DATE OF EXAM: 01/08/2023 COMPARISON: 11/19/2022 HISTORY: f/u lung mass, pneumonia CT DLP: 532 mGycm Automated exposure control for dose reduction was used. CONTRAST: CT scan of the chest is performed with IV Contrast, patient injected with 100 mL of Isovue 300. FINDINGS: LUNGS: Patchy infiltrate lateral segment right middle lobe and right lower lobe as well as the superi or segment left lower lobe. There is also a cavitary mass left lower lobe measuring 2.0 x 1.9 cm whic h could reflect cavitary pneumonia although neoplasm is not excluded. No additional nodules or masses seen. No evidence of pleural effusion or volume loss. MEDIASTINUM: Subcarinal adenopathy measuring 2.2 cm. AP window adenopathy measuring 1.3 cm. Precarina l adenopathy measuring 1.1 cm. Low right paratracheal lymph node measuring 8.3 mm. High right paratra cheal lymph node measuring 9 mm. UPPER ABDOMEN: No significant abnormality appreciated. OTHER: No additional significant abnormality is seen. IMPRESSION: 1. Cavitary mass left lower lobe which may reflect cavitary pneumonia or atypical pneumonia however n eoplasm is not excluded. 2. Areas of patchy infiltrate bilaterally compatible with pneumonia. 3. Adenopathy as discussed.
== END | disposition home or self-care (01) ==
LOC: RADCTMAIN 11:18
PROVIDERS: ATTEND Internal Medicine Infectious Disease
DX: J18.1 Lobar pneumonia, unspecified organism (principal); R59.0 Localized enlarged lymph nodes; R91.8 Other nonspecific abnormal finding of lung field
CPT/HCPCS: 71260; Q9967

== ENCOUNTER 2023-01-09 09:43 | Inpatient (IN) | payer OTHER ==
[2023-01-09] MEDS ORDERED: KETOROLAC 15 MG/ML 1 ML VIAL IVP STA (10:14)
[2023-01-09] MEDS ORDERED: ONDANSETRON 4 MG/2 ML VIAL IVP STA (10:14)
--- NOTE | 2023-01-09 10:20 | ED ---
URI HPI - General Chief Complaint: Upper Respiratory Infection Stated Complaint: chest congestion Time Seen by Provider: 01/09/23 10:02 Source: patient, RN notes reviewed Mode of arrival: ambulatory Limitations: no limitations - History of Present Illness Initial Comments: Patient is a 42 year old female presenting ER with chief complaint of shortness of breath and chest pain. Patient states she was seen yesterday by Dr. Reynoso and received a chest CT which may show pneumonia. She admits to vaping daily and history of smoking cigarettes. Patient states she's been having URI symptoms for the past couple of weeks. She's been treated multiple times with amoxicillin without improvement of her symptoms. Patient states she is in constant shortness of breath and having chest pain from a productive cough. She admits to recent chills but denies fevers or nightsweats. Patient states her whole body aches. She denies any recent weight loss, vomiting, abdominal pain, constipation/diarrhea, or urinary symptoms. - Related Data Home Medications Medication Instructions Recorded Confirmed Citalopram Hydrobromide [CeleXA] 20 mg PO HS 06/12/17 10/10/22 Famotidine [Pepcid] 40 mg PO BID 06/12/17 10/10/22 amLODIPine [Norvasc] 5 mg PO HS 06/12/17 10/10/22 lisinopriL 40 mg PO HS 06/12/17 10/10/22 Ibuprofen [Motrin] 800 mg PO BID 07/21/19 10/10/22 estradioL [Estrace] 1 mg PO DAILY 07/21/19 10/10/22 Levocetirizine Dihydrochloride 5 mg PO DAILY 01/01/22 10/10/22 [Xyzal] Montelukast [Singulair] 10 mg PO DAILY 01/01/22 10/10/22 ALPRAZolam [Xanax] 0.5 mg PO DAILY PRN 10/10/22 10/10/22 ALPRAZolam [Xanax] 0.5 mg PO HS 10/10/22 10/10/22 Albuterol Inhaler [Ventolin Hfa 2 puff INHALATION RT-Q6H PRN 10/10/22 10/10/22 Inhaler] Gabapentin 300 mg PO HS 10/10/22 10/10/22 Multivitamin Gummy With Immune 1 tab PO DAILY 10/10/22 10/10/22 Support Previous Rx's Medication Instructions Recorded Amoxic-Pot Clav 875-125Mg 1 tab PO Q12HR 42 Days #84 tab 10/12/22 [Augmentin 875-125] HYDROcodone/APAP 5-325MG [[place] 1 each PO Q4HR PRN #6 tab 10/12/22 5-325] Allergies Allergy/AdvReac Type Severity Reaction Status Date / Time prochlorperazine AdvReac Extreme Verified 01/09/23 09:58 [From Compazine] anxiety Review of Systems ROS Statement: Those systems with pertinent positive or pertinent negative responses have been documented in the HPI. ROS Other: All systems not noted in ROS Statement are negative. Past Medical History Past Medical History: Diabetes Mellitus, GERD/Reflux, Hypertension, Osteoa rthritis (OA) Additional Past Medical History / Comment(s): Endometriosis, constant nasal congestion, bloating, nausea, and IBS. 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 left lung nodule biopsy. Wedge resection left lower lobe September 2019 Past Anesthesia/Blood Transfusion Reactions: Postoperative Nausea & Vomiting (PONV) Past Psychological History: Anxiety, Depression Smoking Status: Current every day smoker, Vaper - Past Family History Mother Family Medical History: No Reported History Additional Family Medical History / Comment(s): Rosacea Father Family Medical History: Diabetes Mellitus, Hypertension Additional Family Medical History / Comment(s): EtOH abuse General Exam Limitations: no limitations General appearance: alert, in no apparent distress Head exam: Present: atraumatic, normocephalic, normal inspection Eye exam: Present: normal appearance, PERRL, EOMI. Absent: scleral icterus, conjunctival injection, periorbital swelling ENT exam: Present: normal exam, mucous membranes moist, TM's normal bilaterally, normal external ear exam Neck exam: Present: normal inspection, other (tender occipital area). Absent: tenderness, meningismus, lymphadenopathy Respiratory exam: Present: normal lung sounds bilaterally. Absent: respiratory distress, wheezes, rales, rhonchi, stridor Cardiovascular Exam: Present: regular rate, normal rhythm, normal heart sounds. Absent: systolic murmur, diastolic murmur, rubs, gallop, clicks GI/Abdominal exam: Present: soft, normal bowel sounds. Absent: distended, tenderness, guarding, rebound, rigid Neurological exam: Present: alert, oriented X3, CN II-XII intact Psychiatric exam: Present: normal affect, normal mood Skin exam: Present: warm, dry, intact, normal color. Absent: rash Course Vital Signs 01/09/23 01/09/23 01/09/23 09:55 10:20 12:00 Temperature 98.3 F Pulse Rate 77 64 Respiratory 16 18 18 Rate Blood Pressure 140/92 133/79 O2 Sat by Pulse 96 96 Oximetry Medical Decision Making - Medical Decision Making Was pt. sent in by a medical professional or institution (, PA, MINE INSPECTOR [employer], urgent care, hospital, or fci...) When possible be specific @ -Dr. Reynoso Did you speak to anyone other than the patient for history (EMS, parent, family, police, friend...)? What history was obtained from this source @ -No Did you review nursing and triage notes (agree or disagree)? Why? @ -I reviewed and agree with nursing and triage notes Were old charts reviewed (outside hosp., previous admission, EMS record, old EKG, old radiological studies, urgent care reports/EKG's, fci records)? Report findings @ -Yes, I reviewed CT chest scan from 01/08/23 which showed a cavitary mass lesion in the left lung. Differential Diagnosis (chest pain, altered mental status, abdominal pain women, abdominal pain men, vaginal bleeding, weakness, fever, dyspnea, syncope, he adache, dizziness, GI bleed, back pain, seizure, CVA, palpatations, mental health, musculoskeletal)? @ -Differential Dyspnea: Coronary syndrome, arrhythmia, tamponade, asthma, EXTRUSION TECHNICIAN D, pulmonary embolism, pneumonia, pneumothorax, pulmonary effusion, anaphylaxis, diabetic ketoacidosis, flailed chest, pulmonary contusion, diaphragmatic rupture, anemia, neuromuscular, this is not meant to be an all-inclusive list. EKG interpreted by me (3pts min.). @ -As above X-rays interpreted by me (1pt min.). @ -None done CT interpreted by me (1pt min.). @ -None done U/S interpreted by me (1pt. min.). @ -None done What testing was considered but not performed or refused? (CT, X-rays, U/S, labs)? Why? @ -None What meds were considered but not given or refused? Why? @ -None Did you discuss the management of the patient with other professionals (professionals i.e. DrChrist, PA, MINE INSPECTOR [employer], lab, RT, psych nurse, addiction social worker, metal finisher, teacher, safety patrol officer, keycase assembler)? Give summary @ -Yes, Dr. Yanes for admission. Was smoking cessation discussed for >3mins.? @ -No Was critical care preformed (if so, how long)? @ -No Were there social determinants of health that impacted care today? How? (Homelessness, low income, unemployed, alcoholism, drug addiction, transportation, low edu. Level, literacy, decrease access to med. care, snf, rehab)? @ -No Was there de-escalation of care discussed even if they declined (Discuss DNR or withdrawal of care, Hospice)? DNR status @ -No What co-morbidities impacted this encounter? (DM, HTN, Smoking, COPD, CAD, Cance r, CVA, ARF, Chemo, Hep., AIDS, mental health diagnosis, sleep apnea, morbid obesity)? @ -HTN and DM Was patient admitted / discharged? Hospital course, mention meds given and route, prescriptions, significant lab abnormalities, going to OR and other pertinent info. @ -Admitted. Patient was sent here from Dr. Reynoso's office for further workup abnormal chest CT. CT chest scan ordered by Dr. Reynoso from 01/08/23 showed a cavitary mass lesion of the left lung. Labs obtained in the ER were within normal limits. In the ER the patient received IV Toradol and Zofran for symptom control. Patient will be admitted under Dr. yanes with consults to pulmonology and Dr. Ryenoso. IV fluids, 2g Rocephin and 500mg Azithromycin will be started in the ER. Patient expressed understanding and agreement with care plan. Undiagnosed new problem with uncertain prognosis? @ -No Drug Therapy requiring intensive monitoring for toxicity (Heparin, Nitro, Insulin, Cardizem)? @ -No Were any procedures done? @ -No Diagnosis/symptom? @ -Pneumonia/ cavitary lung lesion Acute, or Chronic, or Acute on Chronic? @ -Acute Uncomplicated (without systemic symptoms) or Complicated (systemic symptoms)? @ -Complicated Side effects of treatment? @ -No Exacerbation, Progression, or Severe Exacerbation? @ -[No Poses a threat to life or bodily function? How? (Chest pain, [place], [place], pneumonia, PE, COPD, DKA, ARF, appy, cholecystitis, CVA, Diverticulitis, Homicidal, Suicidal, threat to staff... and all critical care pts) @ -Yes, pneumonia or possible neoplasm. - Lab Data Result diagrams: 01/09/23 10:01/09/23 10: Lab Results 01/09/23 01/09/23 01/09/23 Range/Units 10: 10:17 12: WBC 9.7 (3.8-10.6) k/uL RBC 4.41 (3.80-5.40) m/uL Hgb 13.7 (11.4-16.0) gm/dL Hct 40.1 (34.0-46.0) % MCV 90.8 (80.0-100.0) fL MCH 30.9 (25.0-35.0) pg MCHC 34.1 (31.0-37.0) g/dL RDW 12.8 (11.5-15.5) % Plt Count 293 (150-450) k/uL MPV 7.8 Neutrophils % 63 % Lymphocytes % 23 % Monocytes % 7 % Eosinophils % 3 % Basophils % 1 % Neutrophils # 6.1 (1.3-7.7) k/uL Lymphocytes # 2.2 (1.0-4.8) k/uL Monocytes # 0.6 (0-1.0) k/uL Eosinophils # 0.3 (0-0.7) k/uL Basophils # 0.1 (0-0.2) k/uL Sodium 141 (137-145) mmol/L Potassium 4.4 (3.5-5.1) mmol/L Chloride 105 (98-107) mmol/L Carbon Dioxide 25 (22-30) mmol/L Anion Gap 11 mmol/L BUN 7 (7-17) mg/dL Creatinine 0.55 (0.52-1.04) mg/dL Est GFR (CKD-EPI)AfAm >90 (>60 ml/min/1.73 sqM) Est GFR (CKD-EPI)NonAf >90 (>60 ml/min/1.73 sqM) Glucose 105 H (74-99) mg/dL Plasma Lactic Acid Saw 1.0 (0.7-2.0) mmol/L Calcium 10.1 (8.4-10.2) mg/dL Total Bilirubin 0.6 (0.2-1.3) mg/dL AST 30 (14-36) U/L ALT 31 (4-34) U/L Alkaline Phosphatase 93 (38-126) U/L Troponin I (0.000-0.034) ng/mL Total Protein 7.6 (6.3-8.2) g/dL Albumin 4.5 (3.5-5.0) g/dL Urine Color Urine Appearance (Clear) Urine pH (5.0-8.0) Ur Specific [place] (1.001-1.035) Urine Protein (Negative) Urine Glucose (UA) (Negative) Urine Ketones (Negative) Urine Blood (Negative) Urine Nitrite (Negative) Urine Bilirubin (Negative) Urine Urobilinogen (<2.0) mg/dL Ur Leukocyte Esterase (Negative) Urine HCG, Qual (Not Detectd) Influenza Type A (PCR) (Not Detectd) Influenza Type B (PCR) (Not Detectd) RSV (PCR) (Not Detectd) SARS-CoV-2 (PCR) (Not Detectd) 01/09/23 01/09/23 01/09/23 Range/Units 10:23 10:23 10:23 WBC (3.8-10.6) k/uL RBC (3.80-5.40) m/uL Hgb (11.4-16.0) gm/dL Hct (34.0-46.0) % MCV (80.0-100.0) fL MCH (25.0-35.0) pg MCHC (31.0-37.0) g/dL RDW (11.5-15.5) % Plt Count (150-450) k/uL MPV Neutrophils % % Lymphocytes % % Monocytes % % Eosinophils % % Basophils % % Neutrophils # (1.3-7.7) k/uL Lymphocytes # (1.0-4.8) k/uL Monocytes # (0-1.0) k/uL Eosinophils # (0-0.7) k/uL Basophils # (0-0.2) k/uL Sodium (137-145) mmol/L Potassium (3.5-5.1) mmol/L Chloride (98-107) mmol/L Carbon Dioxide (22-30) mmol/L Anion Gap mmol/L BUN (7-17) mg/dL Creatinine (0.52-1.04) mg/dL Est GFR (CKD-EPI)AfAm (>60 ml/min/1.73 sqM) Est GFR (CKD-EPI)NonAf (>60 ml/min/1.73 sqM) Glucose (74-99) mg/dL Plasma Lactic Acid Saw (0.7-2.0) mmol/L Calcium (8.4-10.2) mg/dL Total Bilirubin (0.2-1.3) mg/dL AST (14-36) U/L ALT (4-34) U/L Alkaline Phosphatase (38-126) U/L Troponin I <0.012 (0.000-0.034) ng/mL Total Protein (6.3-8.2) g/dL Albumin (3.5-5.0) g/dL Urine Color Colorless Urine Appearance Clear (Clear) Urine pH 6.0 (5.0-8.0) Ur Specific [place] 1.006 (1.001-1.035) Urine Protein Negative (Negative) Urine Glucose (UA) Negative (Negative) Urine Ketones Negative (Negative) Urine Blood Negative (Negative) Urine Nitrite Negative (Negative) Urine Bilirubin Negative (Negative) Urine Urobilinogen <2.0 (<2.0) mg/dL Ur Leukocyte Esterase Negative (Negative) Urine HCG, Qual (Not Detectd) Influenza Type A (PCR) Not Detected (Not Detectd) Influenza Type B (PCR) Not Detected (Not Detectd) RSV (PCR) Not Detected (Not Detectd) SARS-CoV-2 (PCR) Not Detected (Not Detectd) 01/09/23 Range/Units 10:23 WBC (3.8-10.6) k/uL RBC (3.80-5.40) m/uL Hgb (11.4-16.0) gm/dL Hct (34.0-46.0) % MCV (80.0-100.0) fL MCH (25.0-35.0) pg MCHC (31.0-37.0) g/dL RDW (11.5-15.5) % Plt Count (150-450) k/uL MPV Neutrophils % % Lymphocytes % % Monocytes % % Eosinophils % % Basophils % % Neutrophils # (1.3-7.7) k/uL Lymphocytes # (1.0-4.8) k/uL Monocytes # (0-1.0) k/uL Eosinophils # (0-0.7) k/uL Basophils # (0-0.2) k/uL Sodium (137-145) mmol/L Potassium (3.5-5.1) mmol/L Chloride (98-107) mmol/L Carbon Dioxide (22-30) mmol/L Anion Gap mmol/L BUN (7-17) mg/dL Creatinine (0.52-1.04) mg/dL Est GFR (CKD-EPI)AfAm (>60 ml/min/1.73 sqM) Est GFR (CKD-EPI)NonAf (>60 ml/min/1.73 sqM) Glucose (74-99) mg/dL Plasma Lactic Acid Saw (0.7-2.0) mmol/L Calcium (8.4-10.2) mg/dL Total Bilirubin (0.2-1.3) mg/dL AST (14-36) U/L ALT (4-34) U/L Alkaline Phosphatase (38-126) U/L Troponin I (0.000-0.034) ng/mL Total Protein (6.3-8.2) g/dL Albumin (3.5-5.0) g/dL Urine Color Urine Appearance (Clear) Urine pH (5.0-8.0) Ur Specific [place] (1.001-1.035) Urine Protein (Negative) Urine Glucose (UA) (Negative) Urine Ketones (Negative) Urine Blood (Negative) Urine Nitrite (Negative) Urine Bilirubin (Negative) Urine Urobilinogen (<2.0) mg/dL Ur Leukocyte Esterase (Negative) Urine HCG, Qual Not Detected (Not Detectd) Influenza Type A (PCR) (Not Detectd) Influenza Type B (PCR) (Not Detectd) RSV (PCR) (Not Detectd) SARS-CoV-2 (PCR) (Not Detectd) - EKG Data -: EKG Interpreted by Me EKG Comments: EKG taken at 10:01 shows normal sinus rhythm with no acute T-wave abnormalities noted. Ventricular rate 70, NV interval 175, QRS duration 95, QT/QTC 416/436. Disposition Clinical Impression: Pneumonia Disposition: ADMITTED IP TO THIS HOSP Condition: Stable Referrals: Jorden Paz MD [Primary Care Provider] - 1-2 days Time of Disposition: 12:55
[2023-01-09 10:54] LABS: Basophils # (A) 0.1 k/uL (0-0.2); Basophils % (A) 1 %; Eosinophils # (A) 0.3 k/uL (0-0.7); Eosinophils % (A) 3 %; HCT 40.1 % (34.0-46.0); HGB 13.7 gm/dL (11.4-16.0); Lymphocytes # (A) 2.2 k/uL (1.0-4.8); Lymphocytes % (A) 23 %; MCH 30.9 pg (25.0-35.0); MCHC 34.1 g/dL (31.0-37.0); MCV 90.8 fL (80.0-100.0); Mean Platelet Volume 7.8; Monocytes # (A) 0.6 k/uL (0-1.0); Monocytes % (A) 7 %; Neutrophils # (A) 6.1 k/uL (1.3-7.7); Neutrophils % (A) 63 %; Platelet Count 293 k/uL (150-450); RBC 4.41 m/uL (3.80-5.40); RDW 12.8 % (11.5-15.5); WBC 9.7 k/uL (3.8-10.6)
[2023-01-09 10:59] LABS: Appearance,Urine Clear (Clear); Bilirubin,Urine Negative (Negative); Blood,Urine Negative (Negative); Color,Urine Colorless; Glucose,Urine (UA) Negative (Negative); Ketones,Urine Negative (Negative); Leukocyte Esterase,Urine Negative (Negative); Nitrite,Urine Negative (Negative); Protein,Urine Negative (Negative); Specific Gravity,Urine 1.006 (1.001-1.035); Urobilinogen,Urine <2.0 mg/dL (<2.0)
[2023-01-09 11:02] LABS: ALT 31 U/L (4-34); AST 30 U/L (14-36); African American GFR (CKD) >90 (>60 ml/min/1.73 sqM); Albumin 4.5 g/dL (3.5-5.0); Alkaline Phosphatase 93 U/L (38-126); Anion Gap 11 mmol/L; Blood Urea Nitrogen 7 mg/dL (7-17); Calcium 10.1 mg/dL (8.4-10.2); Carbon Dioxide 25 mmol/L (22-30); Chloride 105 mmol/L (98-107); Glucose 105 mg/dL (74-99); Non-African American GFR(CKD) >90 (>60 ml/min/1.73 sqM); Potassium 4.4 mmol/L (3.5-5.1); Sodium 141 mmol/L (137-145); Total Bilirubin 0.6 mg/dL (0.2-1.3); Total Protein 7.6 g/dL (6.3-8.2)
[2023-01-09] MEDS ORDERED: ONDANSETRON 4 MG/2 ML VIAL IVP PRN (12:21)
[2023-01-09] MEDS ORDERED: NALOXONE 0.4 MG/ML 1 ML VIAL IV PRN (12:21)
[2023-01-09] MEDS ORDERED: AZITHROMYCIN 500 MG in SODIUM CHLORIDE 0.9% 250 ML IVPB STA (12:24)
[2023-01-09] MEDS: SODIUM CHLORIDE 0.9% 1,000 ML IV SCH (12:54)
[2023-01-09] MEDS ORDERED: FLUCONAZOLE 150 MG TAB PO PRN (15:11)
[2023-01-09] MEDS: KETOROLAC 15 MG/ML 1 ML VIAL IVP PRN (15:47)
[2023-01-09] MEDS: IBUPROFEN 800 MG TAB PO SCH (17:42)
--- NOTE | 2023-01-09 19:06 | P.CNPUL ---
History of Present Illness Consult date: 01/09/23 Reason for consult: dyspnea, pneumonia History of present illness: This is a 42-year-old female patient who follows on an outpatient basis with Dr. Jorden Paz for her primary care. The patient was hospitalized because of worsening shortness of breath and chest pain. The patient has chronic problems with pulmonary masses and lesions and recurrent pneumonias and she has been followed up by pulmonology, cardiothoracic surgery and infectious disease. She has been having symptoms of URI along with increased cough and congestion and chest pain. The patient has been treated on multiple occasions with antibiotics including Augmentin. She continued to have difficulties in breathing and her symptoms remains unchanged and the patient decided to come into the hospital. Denies having any fever or chills. She has body aches. No nausea or vomiting or emesis. The patient had a WBC count of 9.7 with a hemoglobin 15.7 and a platelet count of 293. Renal function is stable with a BUN of 7 with a creatinine of 0.55 and a sodium level is 141. UA is negative. Troponins are negative. CRP is at 1.9. The viral screen is negative. A computed tomography scan of the chest was done and this was compared to the earlier CAT scan from 11/19/2022 and the patient was found to have a cavitary mass in the left lower lobe which may reflect a cavitating pneumonia. Areas of patchy infiltrates bilaterally compatible with pneumonia and the patient has a subcarinal adenopathy measuring up to 2.2 cm in size and the precarinal lymphadenopathy measuring 1.1 cm in size in the low right paratracheal lymph node measuring 8.3 mm in size and the height paratracheal lymph node measuring 9 mm in size. The patient's past medical history is quite extensive. She has a previous history of a 5 cm left lower lobe lung abscess, status post left thoracoscopy wedge resection left lower lobe in September 2019 and the pathology back then was consistent with abscess and all of the cultures came back negative. The patient also has endometriosis status post multiple D&Cs and total hysterectomy, hypertension, GERD, anxiety, depression, new onset diabetes mellitus type 2 with a hemoglobin A1c of 6.9, and chronic ongoing nicotine dependence in the form of vaping. On 10/10/2022 she presented to the emergency department here at [facility] with complaints of shortness of breath, burning type chest pain/epigastric pain, and hemoptysis which is been ongoing for about a 1 month period. Due to the patient's above-mentioned symptoms she was treated with a course of antibiotics and steroids on an outpatient basis without relief. In April [address] of the chest with contrast due to her history of pulmonary nodule which demonstrated a left lower lobe 1.9 x 1.3 cm nodular component at the site of her previous surgery. On CAT scan of the chest that was on 01/08/2023, the mass is measuring 2 x 1.9 cm size. Note that back in September 2022 and due to to the increasing size of the left lower lobe mass, interventional radiology was consulted and a CT guided abscess drainage was performed on 10/12/2022, however the material was too thick for aspiration. All of the cultures came back negative. Cytology came back negative. She has had a previous bronchoscopy on 07/22/2021 that showed no fungal elements, no TB or AFB elements and her AFB cultures were all negative. Her Aspergillus titers are negative. Fungal cultures are negative in the lungs. Cryptococcal antigen in the serum has been negative. Histoplasma antibodies are negative. Legionella urine antigen has been negative. Review of Systems CONSTITUTIONAL: Denies any recent significant weight loss or weight gain. Denies fever EYES: Denies change in vision. EARS, NOSE, MOUTH, THROAT: Denies headaches, denies sore throat. CARDIOVASCULAR: Denies palpitations or syncopal episodes. RESPIRATORY: See HPI. GASTROINTESTINAL: Denies change in appetite, abdominal pain, nausea and vomiting, or diarrhea GENITOURINARY: Denies hematuria, denies infections. MUSKULOSKELETAL: Denies pain, denies swelling. INTEGUMENTARY: Denies rash, denies eczema. NEUROLOGICAL: Denies recent memory loss, no recent seizure activity. PSYCHIATRIC: Denies anxiety, denies depression. HEMATOLOGIC/LYMPHATIC: Denies anemia, denies enlarged lymph node Past Medical History Past Medical History: Diabetes Mellitus, GERD/Reflux, Hypertension, Osteoarthritis (OA) Additional Past Medical History / Comment(s): Endometriosis, constant nasal congestion, bloating, nausea, and IBS. 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 left lung nodule biopsy. Wedge resection left lower lobe September 2019 Past Anesthesia/Blood Transfusion Reactions: Postoperative Nausea & Vomiting (PONV) Past Psychological History: Anxiety, Depression Smoking Status: Former smoker Past Alcohol Use History: None Reported Additional Past Alcohol Use History / Comment(s): Has been smoking 1 PPD for 15+ yrs. Past Drug Use History: None Reported - Past Family History Mother Family Medical History: No Reported History Additional Family Medical History / Comment(s): Rosacea Father Family Medical History: Diabetes Mellitus, Hypertension Additional Family Medical History / Comment(s): EtOH abuse Medications and Allergies Home Medications Medication Instructions Recorded Confirmed Type Citalopram Hydrobromide [CeleXA] 20 mg PO HS 06/12/17 01/09/23 History Famotidine [Pepcid] 40 mg PO BID 06/12/17 01/09/23 History amLODIPine [Norvasc] 5 mg PO HS 06/12/17 01/09/23 History lisinopriL 40 mg PO HS 06/12/17 01/09/23 History Ibuprofen [Motrin] 800 mg PO BID 07/21/19 01/09/23 History estradioL [Estrace] 1 mg PO DAILY 07/21/19 01/09/23 History Levocetirizine Dihydrochloride 5 mg PO DAILY 01/01/22 01/09/23 History [Xyzal] Montelukast [Singulair] 10 mg PO DAILY 01/01/22 01/09/23 History ALPRAZolam [Xanax] 0.5 mg PO DAILY PRN 10/10/22 01/09/23 History ALPRAZolam [Xanax] 0.5 mg PO HS 10/10/22 01/09/23 History Albuterol Inhaler [Ventolin Hfa 2 puff INHALATION RT-Q6H PRN 10/10/22 01/09/23 History Inhaler] Gabapentin 300 mg PO HS 10/10/22 01/09/23 History Multivitamin Gummy With Immune 1 tab PO DAILY 10/10/22 01/09/23 History Support Amoxic-Pot Clav 875-125Mg 1 tab PO Q12HR 42 Days #84 tab 10/12/22 01/09/23 Rx [Augmentin 875-125] Fluconazole [Diflucan] 150 mg PO Q72H PRN 01/09/23 01/09/23 History Allergies Allergy/AdvReac Type Severity Reaction Status Date / Time prochlorperazine AdvReac Extreme Verified 01/09/23 13:20 [From Compazine] anxiety Physical Exam Vitals: Vital Signs Temp Pulse Resp BP Pulse Ox 01/09/23 12:00 64 18 133/79 96 01/09/23 10:20 18 01/09/23 09:55 98.3 F 77 16 140/92 96 Intake and Output 01/09/23 01/09/23 01/09/23 06:59 14:59 22:59 Other: Weight 70.307 kg GENERAL EXAM: Alert, 42-year-old white female, comfortable in no apparent distress. The patient is currently on room air oxygen with a pulse ox of 96% HEAD: Normocephalic and atraumatic EYES: Normal reaction of pupils, equal size. NOSE: Clear with pink turbinates. THROAT: No erythema or exudates. NECK: No masses, no JVD. CHEST: No chest wall deformity. LUNGS: Equal air entry with no crackles, wheeze, rhonchi or dullness. On room air. No conversational dyspnea or accessory muscle use.. CVS: S1 and S2 normal with no audible murmur, regular rhythm. No extra heart sounds ABDOMEN: No hepatosplenomegaly, active bowel sounds, no guarding or rigidity. SPINE: No scoliosis or deformity SKIN: No rashes CENTRAL NERVOUS SYSTEM: No focal deficits, tone is normal in all 4 extremities. EXTREMITIES: There is no peripheral edema, clubbing, or cyanosis. Peripheral pulses are intact. Results - Laboratory Findings CBC and BMP: 01/09/23 10:23 01/09/23 10:23 Abnormal lab findings: Abnormal Labs 01/09/23 10:23 Glucose 105 H - Diagnostic Findings Chest x-ray: image reviewed CT scan - chest: image reviewed Assessment and Plan Plan: Persistent recurrent pneumonia of unknown cause. The patient is presenting with worsening shortness of breath and the patient had a repeat CAT scan of the chest that showed patchy infiltrates in the right middle lobe and the right lower lobe as well as in the superior segment of the left lower lobe and the patient continues to have a cavitating mass in the left lower lobe measuring 2 x 1.9 cm in size. Extensive workup including microbial cultures and serologic markers were negative. History of lung abscess with a previous wedge resection that was done in 2019 and the cultures were all negative History of a cavitating left lower lobe pulmonary nodule of varying size. Previous fine-needle aspirate showed no microbial growth Mediastinal lymphadenopathy largest in the subcarinal area measuring 2.2 cm in size Episodic Hemoptysis, secondary to above Essential hypertension GERD Chronic ongoing nicotine dependence, vapes daily Chronic depression Chronic anxiety History of endometriosis Plan Exact nature of the pulmonary infiltrates is not clear. Previous microbial cultures have been negative. Previous wedge resection of the left lower lobe opacity air turning machine feeder to be an abscess with negative cultures. Review of the series of CAT scans since and the patient has a slightly enlarging cavitating left lower lobe pulmonary lesion in addition to development of mediastinal lymphadenopathy and new pulmonary infiltrates as discussed above. Consider inflammatory causes/connective tissue disease. Consider pulmonary endometriosis. Consider recurrent infections. We'll consult infectious disease. The patient will be covered with empiric antibiotics including Rocephin and Zithromax Check WILMER, p and c ANCA , SEDIMENTATION RATE , anti-GBM antibodies, rheumatoid factor We'll discuss the case with CT surgery. We'll consider another bronchoscopy and biopsies with endobronchial ultrasound of the mediastinal lymph nodes at the later stage. We'll follow Time with Patient: Greater than 30
[2023-01-09] MEDS: CITALOPRAM HYDROBROMIDE 20 MG TAB PO SCH (20:56)
[2023-01-09] MEDS: FAMOTIDINE 20 MG TAB PO SCH (20:56)
[2023-01-09] MEDS: ACETAMINOPHEN TAB 500 MG TAB PO PRN (20:56)
[2023-01-09] MEDS: GABAPENTIN 300 MG CAP PO SCH (20:56)
[2023-01-09] MEDS: amLODIPine 5 MG TAB PO SCH (20:56)
[2023-01-09] MEDS: lisinopriL 20 MG TAB PO SCH (20:56)
[2023-01-09] MEDS: ALPRAZolam 0.5 MG TAB PO PRN (21:02)
--- NOTE | 2023-01-10 02:51 | HP ---
HISTORY AND PHYSICAL CHIEF COMPLAINT: Chest congestion. HISTORY OF PRESENT ILLNESS: This 42-year-old woman with a past history of multiple problems was evaluated for left lower lung abscess. Previous CT-guided aspiration was not unsuccessful because of thick drainage. The patient apparently on IV antibiotics. The patient also with history of vaping and smoking. The patient is being followed byDr. Reynoso in outpatient setting. The patient was complaining of some rigors and chills and productive cough. The patient was admitted to the hospital There is no history of fever, rigors, or chills. The most recent CAT scan was done yesterday, which I reviewed personally, showed cavity/mass in the left lower lobe, atypical pneumonia. Adenopathy was also noted. There is no history of headache, loss of consciousness, seizures. PAST MEDICAL HISTORY: Reviewed include diabetes mellitus. Rest of the history and rest of the chart are also reviewed. HOME MEDICATIONS: Reviewed include Diflucan. Dose and rest of medications noted. ALLERGIES: Compazine. FAMILY HISTORY: Rosacea. SOCIAL HISTORY: Smoking, vaping. REVIEW OF SYSTEMS: 14-point review is negative except as mentioned earlier. PHYSICAL EXAMINATION: VITAL SIGNS: Pulse is 64, blood pressure 130/70, respirations 18. HEENT: Conjunctivae are normal. NECK: No JVD. CARDIOVASCULAR: S1, S2. RESPIRATIONS: Few scattered rhonchi. ABDOMEN: Soft, nontender. LEGS: No edema. NERVOUS SYSTEM: n LABORATORY DATA: CBC and CMP noted. ASSESSMENT: 1. Possible left lower lobe lung abscess with failure of outpatient treatment, rule out atypical/fungal infections. 2. Diabetes mellitus, type 2 3. Hypertension. 4. History of degenerative joint disease. 5. History of endometriosis. 6. History of left lower lung abscess. 7. History of wedge resection regarding I recommend to follow closely with Infectious Disease and Pulmonary. Prognosis guarded. Further recommendations to follow. See orders for details. MMODL / IJN: [id number] / MTDD
[2023-01-10] MEDS: SODIUM CHLORIDE 0.9% 1,000 ML IV SCH (03:17)
[2023-01-10] MEDS: KETOROLAC 15 MG/ML 1 ML VIAL IVP PRN ×3 (03:33→20:41)
[2023-01-10] MEDS: ACETAMINOPHEN TAB 500 MG TAB PO PRN ×2 (03:34→10:23)
[2023-01-10] MEDS: ALBUTEROL NEBULIZED 2.5 MG/3 ML INHALATION PRN ×2 (08:21→11:54)
[2023-01-10] MEDS: FAMOTIDINE 20 MG TAB PO SCH ×2 (09:14→20:34)
[2023-01-10] MEDS: MONTELUKAST 10 MG TAB PO SCH (09:15)
[2023-01-10] MEDS: LORATADINE 10 MG TAB PO SCH (09:15)
[2023-01-10] MEDS: MULTIVITAMINS, THERA 1 EACH TAB PO SCH (09:15)
[2023-01-10] MEDS: IBUPROFEN 800 MG TAB PO SCH ×2 (09:15→20:32)
--- NOTE | 2023-01-10 11:57 | P.PN ---
Subjective Progress Note Date: 01/10/23 Principal diagnosis: Reason for follow-up is left lower lobe cavitating lesion question of atypical infection Patient is a 33-year-old female with a past medical history significant for recurrent admission Hospital for left lower lobe cystic mass/cavitating pneumonia did have a CT-guided aspiration FNA back in September 2019 that was negative for any malignancy and culture were negative now presented to hospital with worsening symptoms CT of the chest did shows cavitat ing mass left lower lobe may reflect cavitating pneumonia versus atypical infection. On today's evaluation that is01/10/2023, the patient remains to be afebrile , the patient is breathing comfortably on room air , continue complaining of shortness of breath did have a cough with some blood stained sputum , patient denies abdominal pain, no nausea/vomiting and no diarrhea has been reported . No new labs has been obtained today Objective - Vital Signs Vital signs: Vital Signs Temp 97.6 F 01/10/23 08:01 Pulse 77 01/10/23 09:25 Resp 16 01/10/23 09:25 BP 118/71 01/10/23 08:01 Pulse Ox 93 L 01/10/23 08:01 FiO2 Intake & Output 01/09/23 01/10/23 01/10/23 18:59 06:59 18:59 Weight 70.307 kg Other: # Voids 2 2 - Exam GENERAL DESCRIPTION: A middle-age female up in bed in no distress RESPIRATORY SYSTEM: Unlabored breathing , coarse sounds with occasional wheeze HEART: S1 S2 regular rate and rhythm , ABDOMEN: Soft , no tenderness EXTREMITIES: No edema feet - Labs CBC & Chem 7: 01/09/23 10:23 01/09/23 10:23 Labs: Abnormal Lab Results - Last 24 Hours (Table) 01/09/23 Range/Units 10:23 ESR 35 H (0-20) mm/Hr Assessment and Plan (1) Pneumonia Current Visit: Yes Status: Acute Code(s): J18.9 - PNEUMONIA, UNSPECIFIED ORGANISM SNOMED Code(s): 813934655 (2) Cavitating mass of lung Current Visit: No Status: Acute Code(s): J98.4 - OTHER DISORDERS OF LUNG SNOMED Code(s): 469031372 Plan: 1-patient presented to the hospital with increasing shortness of breath or cough did have hemoptysis in this patient who did have a left lower lobe cavitary lesion with concern for possible infectious versus noninfectious etiology in this patient has been treated with a prolonged course of oral antibiotic for presumed aspiration and has not responded well to it 2-patient currently waiting for bronchoscopy biopsy as well as culture for AFB as well as fungal pathogen 3- patient will monitor closely off antibiotic therapy at this point Dictation was produced using [employer] dictation software. please excuse any grammatical, word or spelling errors.
--- NOTE | 2023-01-10 11:57 | P.CONS ---
History of Present Illness - Reason for Consult Consult date: 01/09/23 Pneumonia Requesting physician: Kiera Roberts - Chief Complaint Increasing shortness of breath or cough and hemoptysis x few days - History of Present Illness Patient is a 42-year-old female with a past medical history pain of hypertension reflux endometriosis patient did have a admission to [facility] from 10/05/2019 till 10/10/2019 and this patient presented with hemoptysis patient did have a CT angiogram of the chest which shows 5 cm cystic mass in the left lateral lung base patient is status post CT-guided needle aspiration FNA was negative for any malignancy concerning for possible abscess that was treated with a course of antibiotics, subsequently readmission to the hospital from 10/10/2022 until 10/15/2022 with similar symptoms patient was evaluated both by pulmonary and CT surgery recommended no bronchoscopy or surgical intervention and advised a course of oral antibiotic therapy patient has been on oral Augmentin for almost 2 months now and is presenting back to the hospital on 01/09/2023 concerning for any getting the shortness of breath and chest pain did have some preceding URI symptoms now bothering him mostly shortness of breath and central chest pain which is mostly sharp mild to moderate intensity without any radiation patient also complaining of cough and did have hemoptysis, with January the patient was evaluated upon presentation to the hospital was afebrile and a few have been recorded subsequently patient w as not tachycardic and hypotensive or hypoxic and no need for supplemental oxygen, patient did have a white count of 9.7 creatinine 0.55 mg a normal sed rate is 35, procalcitonin 0.08 urine is negative influenza RSV and covid19 PCR were negative, patient did have a CT of the chest done on 01/08/2023 with did show cavitating mass left lower lobe which may reflect cavitatry pneumonia adenopathy patient has been admitted to hospital infectious disease was consulted for further management, patient has been evaluated by pulmonary and possible planning for bronchoscopy Review of Systems Positive point and negatives has been mentioned in the HPI, complete review of systems was performed and all other systems are negative Past Medical History Past Medical History: Diabetes Mellitus, GERD/Reflux, Hypertension, Osteoarthritis (OA) Additional Past Medical History / Comment(s): Endometriosis, constant nasal congestion, bloating, nausea, and IBS. Occupational exposure to asbestos 2019, history of left lower lobe lung abscess in September 2019, status post wedge resection History of Any Multi-Drug Resistant Organisms: None Reported Past Surgical History: Appendectomy, Hysterectomy Additional Past Surgical History / Comment(s): laproscopic surgeries for endometriosis, sinus surgery, surgery right wrist for ganglion cyst, colo noscopies. left lung nodule biopsy. Wedge resection left lower lobe September 2019 Past Anesthesia/Blood Transfusion Reactions: Postoperative Nausea & Vomiting (PONV) Past Psychological History: Anxiety, Depression Smoking Status: Former smoker Past Alcohol Use History: None Reported Additional Past Alcohol Use History / Comment(s): Has been smoking 1 PPD for 15+ yrs. Past Drug Use History: None Reported - Past Family History Mother Family Medical History: No Reported History Additional Family Medical History / Comment(s): Rosacea Father Family Medical History: Diabetes Mellitus, Hypertension Additional Family Medical History / Comment(s): EtOH abuse Medications and Allergies Home Medications Medication Instructions Recorded Confirmed Type Citalopram Hydrobromide [CeleXA] 20 mg PO HS 06/12/17 01/09/23 History Famotidine [Pepcid] 40 mg PO BID 06/12/17 01/09/23 History amLODIPine [Norvasc] 5 mg PO HS 06/12/17 01/09/23 History lisinopriL 40 mg PO HS 06/12/17 01/09/23 History Ibuprofen [Motrin] 800 mg PO BID 07/21/19 01/09/23 History estradioL [Estrace] 1 mg PO DAILY 07/21/19 01/09/23 History Levocetirizine Dihydrochloride 5 mg PO DAILY 01/01/22 01/09/23 History [Xyzal] Montelukast [Singulair] 10 mg PO DAILY 01/01/22 01/09/23 History ALPRAZolam [Xanax] 0.5 mg PO DAILY PRN 10/10/22 01/09/23 History ALPRAZolam [Xanax] 0.5 mg PO HS 10/10/22 01/09/23 History Albuterol Inhaler [Ventolin Hfa 2 puff INHALATION RT-Q6H PRN 10/10/22 01/09/23 History Inhaler] Gabapentin 300 mg PO HS 10/10/22 01/09/23 History Multivitamin Gummy With Immune 1 tab PO DAILY 10/10/22 01/09/23 History Support Acetaminophen Tab [Tylenol] 1,000 mg PO Q6HR PRN tab 01/14/23 Rx Nicotine 14Mg/24Hr Patch [Habitrol] 1 patch TRANSDERM DAILY patch 01/14/23 Rx Allergies Allergy/AdvReac Type Severity Reaction Status Date / Time prochlorperazine AdvReac Extreme Verified 01/11/23 15:33 [From Compazine] anxiety Physical Exam Vitals: Vital Signs Temp Pulse Resp BP Pulse Ox 01/09/23 12:00 64 18 133/79 96 01/09/23 10:20 18 01/09/23 09:55 98.3 F 77 16 140/92 96 Intake and Output 01/09/23 01/09/23 01/09/23 06:59 14:59 22:59 Other: Weight 70.307 kg GENERAL DESCRIPTION: Middle-aged female lying in bed, no distress. No tachypnea or accessory muscle of respiration use. HEENT: Shows Pallor , no scleral icterus. Oral mucous membrane is dry. No pharyngeal erythema or thrush NECK: Trachea central, no thyromegaly. LUNGS: Unlabored breathing. Coarse breath sound at the base HEART: S1, S2, regular rate and rhythm. No loud murmur ABDOMEN: Soft, no tenderness , guarding or rigidity, no organomegaly EXTREMITIES: No edema of feet. SKIN: No rash, no masses palpable. NEUROLOGICAL: The patient is awake, alert, oriented x3, mood and affect normal. Results CBC & Chem 7: 01/11/23 07:16 01/11/23 07:16 Labs: Abnormal Lab Results - Last 24 Hours (Table) 01/09/23 Range/Units 10:23 Glucose 105 H (74-99) mg/dL Assessment and Plan (1) Pneumonia Current Visit: Yes Status: Acute Code(s): J18.9 - PNEUMONIA, UNSPECIFIED ORGANISM SNOMED Code(s): 693945213 (2) Cavitating mass of lung Current Visit: No Status: Acute Code(s): J98.4 - OTHER DISORDERS OF LUNG SNOMED Code(s): 477664188 Plan: 1-patient presented to the hospital with increasing shortness of breath or cough did have hemoptysis in this patient who did have a left lower lobe cavitary lesion with concern for possible infectious versus noninfectious etiology in this patient has been treated with a prolonged course of oral antibiotic for presumed aspiration and has not responded well to it 2-patient benefit from bronchoscopy biopsy as well as culture for AFB as well as fungal pathogen 3-for now we'll monitor the patient closely off antibiotic therapy as the patient does not look toxic not running any fever or white count is normal and did have normal procalcitonin We will follow on clinical condition and cultures to further adjust medication if needed Thank you for this consultation will follow this patient with you Dictation was produced using [employer] dictation software. please excuse any grammatical, word or spelling errors. Time with Patient: Greater than 30
--- NOTE | 2023-01-10 14:36 | XR ---
EXAMINATION TYPE: XR chest 1V portable DATE OF EXAM: 01/10/2023 COMPARISON: 10/13/2022 INDICATION: Left pneumonia TECHNIQUE: Single frontal view of the chest is obtained. FINDINGS: The heart size is normal. The pulmonary vasculature is normal. There may be some minimal in the left diaphragm and blunting the costophrenic angle. Correlate subseg mental atelectasis. Small effusion may be present. IMPRESSION: 1. Minimal infiltrate left lung base. Correlate for subsegmental atelectasis with minimal effusion
[2023-01-10] MEDS ORDERED: LACTULOSE 20 GM/30 ML CUP PO PRN (14:52)
--- NOTE | 2023-01-10 15:08 | P.PN ---
Subjective Progress Note Date: 01/10/23 This is a 42-year-old female patient who follows on an outpatient basis with Dr. Jorden Paz for her primary care. The patient was hospitalized because of worsening shortness of breath and chest pain. The patient has chronic problems with pulmonary masses and lesions and recurrent pneumonias and she has been followed up by pulmonology, cardiothoracic surgery and infectious disease. She has been having symptoms of URI along with increased cough and congestion and chest pain. The patient has been treated on multiple occasions with antibiotics including Augmentin. She continued to have difficulties in breathing and her symptoms remains unchanged and the patient decided to come into the hospital. Denies having any fever or chills. She has body aches. No nausea or vomiting or emesis. The patient had a WBC count of 9.7 with a hemoglobin 15.7 and a platelet count of 293. Renal function is stable with a BUN of 7 with a creatinine of 0.55 and a sodium level is 141. UA is negative. Troponins are negative. CRP is at 1.9. The viral screen is negative. A computed tomography scan of the chest was done and this was compared to the earlier CAT scan from 11/19/2022 and the patient was found to have a cavitary mass in the left lower lobe which may reflect a cavitating pneumonia. Areas of patchy infiltrates bilaterally compatible with pneumonia and the patient has a subcarinal adenopat hy measuring up to 2.2 cm in size and the precarinal lymphadenopathy measuring 1.1 cm in size in the low right paratracheal lymph node measuring 8.3 mm in size and the height paratracheal lymph node measuring 9 mm in size. The patient's past medical history is quite extensive. She has a previous h istory of a 5 cm left lower lobe lung abscess, status post left thoracoscopy wedge resection left lower lobe in September 2019 and the pathology back then was consistent with abscess and all of the cultures came back negative. The patient also has endometriosis status post multiple D&Cs and total hysterectomy, hypertension, GERD, anxiety, depression, new onset diabetes mellitus type 2 with a hemoglobin A1c of 6.9, and chronic ongoing nicotine dependence in the form of vaping. On 10/10/2022 she presented to the emergency department here at [facility] with complaints of shortness of breath, burning type chest pain/epigastric pain, and hemoptysis which is been ongoing for about a 1 month period. Due to the patient's above-mentioned symptoms she was treated with a course of antibiotics and steroids on an outpatient basis without relief. In April [address] of the chest with contrast due to her history of pulmonary nodule which demonstrated a left lower lobe 1.9 x 1.3 cm nodular component at the site of her previous surgery. On CAT scan of the chest that was on 01/08/2023, the mass is measuring 2 x 1.9 cm size. Note that back in September 2022 and due to to the increasing size of the left lower lobe mass, interventional radiology was consulted and a CT guided abscess drainage was performed on 10/12/2022, however the material was too thick for aspiration. All of the cultures came back negative. Cytology came back negative. She has had a previous bronchoscopy on 07/22/2021 that showed no fungal elements, no TB or AFB elements and her AFB cultures were all negative. Her Aspergillus titers are negative. Fungal cultures are negative in the lungs. Cryptococcal antigen in the serum has been negative. Histoplasma antibodies are negative. Legionella urine antigen has been negative. On today's evaluation of 01/10/2023, the patient is essentially the same condition. She has no new complaints. She remains on room air oxygen. WILMER was negative, rheumatoid factor was negative, progesterone level was low at 0.08. The patient will benefit from of the bronchoscopy, biopsies and endobronchial ultrasound and subcarinal lymph node biopsy. Objective - Vital Signs Vital signs: Vital Signs Temp 98.1 F 01/10/23 13:34 Pulse 75 01/10/23 13:34 Resp 20 01/10/23 13:34 BP 143/81 01/10/23 13:34 Pulse Ox 96 01/10/23 13:34 FiO2 Intake & Output 01/09/23 01/10/23 01/10/23 18:59 06:59 18:59 Weight 70.307 kg Other: # Voids 2 2 - Exam GENERAL EXAM: Alert, 42-year-old white female, comfortable in no apparent distress. The patient is currently on room air oxygen with a pulse ox of 96% HEAD: Normocephalic and atraumatic EYES: Normal reaction of pupils, equal size. NOSE: Clear with pink turbinates. THROAT: No erythema or exudates. NECK: No masses, no JVD. CHEST: No chest wall deformity. LUNGS: Equal air entry with no crackles, wheeze, rhonchi or dullness. On room air. No conversational dyspnea or accessory muscle use.. CVS: S1 and S2 normal with no audible murmur, regular rhythm. No extra heart sounds ABDOMEN: No hepatosplenomegaly, active bowel sounds, no guarding or rigidity. SPINE: No scoliosis or deformity SKIN: No rashes CENTRAL NERVOUS SYSTEM: No focal deficits, tone is normal in all 4 extremities. EXTREMITIES: There is no peripheral edema, clubbing, or cyanosis. Peripheral pulses are intact. - Labs CBC & Chem 7: 01/09/23 10:23 01/09/23 10:23 Labs: Abnormal Lab Results - Last 24 Hours (Table) 01/09/23 Range/Units 10: ESR 35 H (0-20) mm/Hr Assessment and Plan Plan: Persistent recurrent pneumonia of unknown cause. The patient is presenting with worsening shortness of breath and the patient had a repeat CAT scan of the chest that showed patchy infiltrates in the right middle lobe and the right lower lobe as well as in the superior segment of the left lower lobe and the patient continues to have a cavitating mass in the left lower lobe measuring 2 x 1.9 cm in size. Extensive workup including microbial cultures and serologic markers were negative. History of lung abscess with a previous wedge resection that was done in 2019 and the cultures were all negative History of a cavitating left lower lobe pulmonary nodule of varying size. Previous fine-needle aspirate showed no microbial growth Mediastinal lymphadenopathy largest in the subcarinal area measuring 2.2 cm in size Episodic Hemoptysis, secondary to above Essential hypertension GERD Chronic ongoing nicotine dependence, vapes daily Chronic depression Chronic anxiety History of endometriosis Plan Exact nature of the pulmonary infiltrates is not clear. Previous microbial cultures have been negative. Previous wedge resection of the left lower lobe opacity mill turner to be an abscess with negative cultures. Review of the series of CAT scans since and the patient has a slightly enlarging cavitating left lower lobe pulmonary lesion in addition to development of mediastinal lymphadenopathy and new pulmonary infiltrates as discussed above. Consider inf lammatory causes/connective tissue disease. Consider pulmonary endometriosis. Consider recurrent infections. We'll consult infectious disease. The patient will be covered with empiric antibiotics including Rocephin and Zithromax Awaiting complete inflammatory markers profile, noted WILMER and over the affected were negative. Pro-calcitonin level was low. Planning to do a robotic bronchoscopy and biopsies of the right upper lobe and the left lower lobe and endobronchial ultrasound and biopsy of the subcarinal lymph node. Patient was agreeable. Keep the after midnight.
[2023-01-10] MEDS: NICOTINE 14MG/24HR PATCH TRANSDERM SCH (17:16)
[2023-01-10] MEDS: HYDROcodone/APAP 5-325MG 1 EACH TAB PO PRN (17:19)
[2023-01-10] MEDS: GABAPENTIN 300 MG CAP PO SCH (20:32)
[2023-01-10] MEDS: lisinopriL 20 MG TAB PO SCH (20:33)
[2023-01-10] MEDS: amLODIPine 5 MG TAB PO SCH (20:34)
[2023-01-10] MEDS: CITALOPRAM HYDROBROMIDE 20 MG TAB PO SCH (20:34)
[2023-01-10] MEDS: ALPRAZolam 0.5 MG TAB PO PRN (20:41)
--- NOTE | 2023-01-10 21:22 | PN ---
PROGRESS NOTE DATE OF SERVICE: 01/10/2023 SUBJECTIVE: This is a 42-year-old woman, who was admitted with possible left lower lobe lung abscess, being closely monitored. The patient is on broad-spectrum IV antibiotics. The patient previously had a wedge resection. PAST MEDICAL HISTORY: Reviewed. PREOPERATIVE DIAGNOSIS: VITAL SIGNS: Pulse is 77, blood pressure is 118/70, respirations 20. CHEST: Few scattered rhonchi and crackles. ABDOMEN: Soft. NERVOUS SYSTEM: Nonfocal. LABORATORY DATA: Reviewed. ASSESSMENT: 1. Possible left lower lobe lung abscess with failure of outpatient treatment. Rule out atypical fungal infection. 2. Diabetes mellitus, type 2. 3. Hypertension. 4. History of degenerative joint disease. 5. History of endometriosis. 6. History of lower lung abscess and wedge resection. RECOMMENDATIONS: Recommend to continue current medications. Continue symptomatic treatment. Otherwise, at this time, I recommend to continue with empiric antibiotics, closely follow with Infectious Disease and Pulmonary. Further recommendations to follow. Possible bronchoscopy. MMODL / IJN: [id number] /
[2023-01-11] MEDS: HYDROcodone/APAP 5-325MG 1 EACH TAB PO PRN ×2 (07:02→22:37)
[2023-01-11] MEDS: KETOROLAC 15 MG/ML 1 ML VIAL IVP PRN ×3 (07:03→18:04)
[2023-01-11] MEDS: SODIUM CHLORIDE 0.9% 1,000 ML IV SCH ×3 (07:51→18:15)
--- NOTE | 2023-01-11 09:50 | CT ---
EXAMINATION TYPE: CT chest wo con DATE OF EXAM: 01/11/2023 COMPARISON: 01/08/2023 and 11/19/2022 HISTORY: 42-year-old female pre- ion relaxed bronchoscopy chest TECHNIQUE: CT of the chest without contrast. Imaging for robotic bronchoscopic purposes. Coronal/sagi ttal reconstructions performed. CT DLP: 286.9mGycm. Automatic exposure control utilized for a dose reduction. FINDINGS: The heart is normal size without pericardial effusion. Aorta normal caliber with conventional arch vessel branching anatomy. Redemonstrated mediastinal adenopathy with subcarinal nodes thickened up to 2.1 cm. Multifocal groundglass infiltrates redemonstrated throughout the mid and lower lungs. More focal cons olidation with early cavitation measuring 3.3 cm posterior left base. There seems to be a staple line near reflecting prior surgery. This focal opacity is increased in size compared to 11/19/2022 but the other groundglass changes are new from that time. No pleural effusion. Visualized upper abdomen shows no gross abnormality. Bones: Scattered mild degenerative disc disease throughout. IMPRESSION: 1. Imaging for robotic bronchoscopy. 2. Multifocal groundglass infiltrates redemonstrated mid and lower lungs with focal consolidation/ear ly cavitating lesion at the posterior left base measuring 3.3 cm, increased from 2.4 cm on 11/19/2022. Some surgical material also present here. 3. Subcarinal adenopathy redemonstrated along with some scattered borderline sized paratracheal nodes .
[2023-01-11] MEDS: IBUPROFEN 800 MG TAB PO SCH ×2 (10:31→20:45)
[2023-01-11] MEDS: FAMOTIDINE 20 MG TAB PO SCH ×2 (10:31→20:44)
[2023-01-11] MEDS: MULTIVITAMINS, THERA 1 EACH TAB PO SCH (10:31)
[2023-01-11] MEDS: MONTELUKAST 10 MG TAB PO SCH (10:31)
[2023-01-11] MEDS: LORATADINE 10 MG TAB PO SCH (10:31)
[2023-01-11] MEDS: NICOTINE 14MG/24HR PATCH TRANSDERM SCH (10:35)
[2023-01-11 10:52] LABS: Basophils % (A) 0.9 %; Eosinophils # (A) 0.34 X 10*3/uL (0.04-0.35); Eosinophils % (A) 2.9 %; HCT 38.9 % (37.2-50.0); HGB 13.2 g/dL (12.0-17.0); Lymphocytes # (A) 2.85 X 10*3/uL (0.90-5.00); Lymphocytes % (A) 24.3 %; MCH 31.9 pg (27.0-32.0); MCHC 33.9 g/dL (32.0-37.0); Mean Platelet Volume 10.2 FL (9.5-12.2); Monocytes # (A) 1.03 X 10*3/uL (0.20-1.00); Monocytes % (A) 8.8 %; NRBC Per 100 WBC 0 X 10*3/uL (0.00-0.01); Neutrophils # (A) 7.36 X 10*3/uL (1.80-7.70); Neutrophils % (A) 62.8 %; Platelet Count 323 X 10*3/uL (140-440); RBC 4.14 X 10*6/uL (4.10-5.60); RDW 12.7 % (11.5-14.5); WBC 11.72 X 10*3/uL (4.50-10.00)
[2023-01-11 11:17] LABS: BUN/Creat Ratio 14.33 Ratio (12.00-20.00); Blood Urea Nitrogen 8.6 mg/dL (9.0-27.0); Calcium 9.7 mg/dL (8.7-10.3); Carbon Dioxide 23.3 mmol/L (21.6-31.8); Chloride 103 mmol/L (96-109); Glucose 125 mg/dL (70-110); Potassium 4.4 mmol/L (3.5-5.5); Sodium 139 mmol/L (135-145)
--- NOTE | 2023-01-11 12:46 | P.PN ---
Subjective Progress Note Date: 01/11/23 Principal diagnosis: Reason for follow-up is left lower lobe cavitating lesion question of atypical infection Patient is a 33-year-old female with a past medical history significant for recurrent admission Hospital for left lower lobe cystic mass/cavitating pneumonia did have a CT-guided aspiration FNA back in September 2019 that was negative for any malignancy and culture were negative now presented to hospital with worsening symptoms CT of the chest did shows cavitat ing mass left lower lobe may reflect cavitating pneumonia versus atypical infection. On today's evaluation that is 01/11/2023, the patient denies any fever or chills, the patient is breathing comfortably on room air and no need for any supplemental oxygen the patient did have improvement in her chest pain still complaining of cough with occasional sputum production , patient denies nausea/vomiting, no abdominal pain, and no diarrhea Patient did have white count of 11.72, creatinine 0.6 Objective - Vital Signs Vital signs: Vital Signs Temp 98.3 F 01/11/23 07:23 Pulse 69 01/11/23 07:23 Resp 18 01/11/23 08:00 BP 114/76 01/11/23 07:23 Pulse Ox 93 L 01/11/23 07:23 FiO2 Intake & Output 01/10/23 01/11/23 01/11/23 18:59 06:59 18:59 Other: Voiding Method Toilet # Voids 2 0 - Exam GENERAL DESCRIPTION: A middle-age female up in bed in no distress RESPIRATORY SYSTEM: Unlabored breathing , coarse sounds with occasional wheeze HEART: S1 S2 regular rate and rhythm , ABDOMEN: Soft , no tenderness EXTREMITIES: No edema feet - Labs CBC & Chem 7: 01/11/23 07:16 01/11/23 07:16 Labs: Abnormal Lab Results - Last 24 Hours (Table) 01/10/23 01/11/23 01/11/23 Range/Units 15:22 07:16 07:16 WBC 11.72 H (4.50-10.00) X 10*3/uL Monocytes # 1.03 H (0.20-1.00) X 10*3/uL Anion Gap 12.70 H (4.00-12.00) mmol/L BUN 8.6 L (9.0-27.0) mg/dL Glucose 125 H (70-110) mg/dL C-Reactive Protein 3.3 H (<1.0) mg/dL Microbiology - Last 24 Hours (Table) 01/09/23 10:35 Blood Culture - Preliminary Blood 01/09/23 10:20 Blood Culture - Preliminary Blood Assessment and Plan (1) Pneumonia Current Visit: Yes Status: Acute Code(s): J18.9 - PNEUMONIA, UNSPECIFIED ORGANISM SNOMED Code(s): 310228784 (2) Cavitating mass of lung Current Visit: No Status: Acute Code(s): J98.4 - OTHER DISORDERS OF LUNG SNOMED Code(s): 049755976 Plan: 1-patient presented to the hospital with increasing shortness of breath or cough did have hemoptysis in this patient who did have a left lower lobe cavitary lesion with concern for possible infectious versus noninfectious etiology in this patient has been treated with a prolonged course of oral antibiotic for presumed aspiration and has not responded well to it 2-patient is currently waiting for bronchoscopy biopsy as well as culture for AFB as well as fungal pathogen 3- patient seemed to be doing well off antibiotics and will monitor closely off antibiotic therapy Dictation was produced using [employer] dictation software. please excuse any grammatical, word or spelling errors. Time with Patient: Less than 30
[2023-01-11 12:51] LABS: Anti-Glomerular Basement Memb <1.5 U/mL (<7.0)
--- NOTE | 2023-01-11 13:05 | P.PN ---
Subjective Progress Note Date: 01/11/23 This is a 42-year-old female patient who follows on an outpatient basis with Dr. Jorden Paz for her primary care. The patient was hospitalized because of worsening shortness of breath and chest pain. The patient has chronic problems with pulmonary masses and lesions and recurrent pneumonias and she has been followed up by pulmonology, cardiothoracic surgery and infectious disease. She has been having symptoms of URI along with increased cough and congestion and chest pain. The patient has been treated on multiple occasions with antibiotics including Augmentin. She continued to have difficulties in breathing and her symptoms remains unchanged and the patient decided to come into the hospital. Denies having any fever or chills. She has body aches. No nausea or vomiting or emesis. The patient had a WBC count of 9.7 with a hemoglobin 15.7 and a platelet count of 293. Renal function is stable with a BUN of 7 with a creatinine of 0.55 and a sodium level is 141. UA is negative. Troponins are negative. CRP is at 1.9. The viral screen is negative. A computed tomography scan of the chest was done and this was compared to the earlier CAT scan from 11/19/2022 and the patient was found to have a cavitary mass in the left lower lobe which may reflect a cavitating pneumonia. Areas of patchy infiltrates bilaterally compatible with pneumonia and the patient has a subcarinal adenopat hy measuring up to 2.2 cm in size and the precarinal lymphadenopathy measuring 1.1 cm in size in the low right paratracheal lymph node measuring 8.3 mm in size and the height paratracheal lymph node measuring 9 mm in size. The patient's past medical history is quite extensive. She has a previous h istory of a 5 cm left lower lobe lung abscess, status post left thoracoscopy wedge resection left lower lobe in September 2019 and the pathology back then was consistent with abscess and all of the cultures came back negative. The patient also has endometriosis status post multiple D&Cs and total hysterectomy, hypertension, GERD, anxiety, depression, new onset diabetes mellitus type 2 with a hemoglobin A1c of 6.9, and chronic ongoing nicotine dependence in the form of vaping. On 10/10/2022 she presented to the emergency department here at [facility] with complaints of shortness of breath, burning type chest pain/epigastric pain, and hemoptysis which is been ongoing for about a 1 month period. Due to the patient's above-mentioned symptoms she was treated with a course of antibiotics and steroids on an outpatient basis without relief. In April [address] of the chest with contrast due to her history of pulmonary nodule which demonstrated a left lower lobe 1.9 x 1.3 cm nodular component at the site of her previous surgery. On CAT scan of the chest that was on 01/08/2023, the mass is measuring 2 x 1.9 cm size. Note that back in September 2022 and due to to the increasing size of the left lower lobe mass, interventional radiology was consulted and a CT guided abscess drainage was performed on 10/12/2022, however the material was too thick for aspiration. All of the cultures came back negative. Cytology came back negative. She has had a previous bronchoscopy on 07/22/2021 that showed no fungal elements, no TB or AFB elements and her AFB cultures were all negative. Her Aspergillus titers are negative. Fungal cultures are negative in the lungs. Cryptococcal antigen in the serum has been negative. Histoplasma antibodies are negative. Legionella urine antigen has been negative. On today's evaluation of 01/10/2023, the patient is essentially the same condition. She has no new complaints. She remains on room air oxygen. WILMER was negative, rheumatoid factor was negative, progesterone level was low at 0.08. The patient will benefit from of the bronchoscopy, biopsies and endobronchial ultrasound and subcarinal lymph node biopsy. On 01/11/2023, the patient is nothing by mouth awaiting a bronchoscopy as mentioned earlier. She has no new complaints. The white cell count is 11.7 with a hemoglobin 13.2, the sedimentation rate was 35 and the level dropped down to 18. The pro-calcitonin level on 2 separate occasions were low and the levels are 0.08 and 0.06. WILMER, rheumatoid factor, anti-GBM antibodies are all negative. Patient remains on room air oxygen. She is also normal saline at rate of 75 mL an hour. Home medications have been resumed. No antibiotics for now. Objective - Vital Signs Vital signs: Vital Signs Temp 98.3 F 01/11/23 07:23 Pulse 69 01/11/23 07:23 Resp 18 01/11/23 07:23 BP 114/76 11/17/23 07:23 Pulse Ox 93 L 01/11/23 07:23 FiO2 Intake & Output 01/10/23 01/11/23 01/11/23 18:59 06:59 18:59 Other: # Voids 2 0 - Exam GENERAL EXAM: Alert, 42-year-old white female, comfortable in no apparent distress. The patient is currently on room air oxygen with a pulse ox of 96% HEAD: Normocephalic and atraumatic EYES: Normal reaction of pupils, equal size. NOSE: Clear with pink turbinates. THROAT: No erythema or exudates. NECK: No masses, no JVD. CHEST: No chest wall deformity. LUNGS: Equal air entry with no crackles, wheeze, rhonchi or dullness. On room a ir. No conversational dyspnea or accessory muscle use.. CVS: S1 and S2 normal with no audible murmur, regular rhythm. No extra heart sounds ABDOMEN: No hepatosplenomegaly, active bowel sounds, no guarding or rigidity. SPINE: No scoliosis or deformity SKIN: No rashes CENTRAL NERVOUS SYSTEM: No focal deficits, tone is normal in all 4 extremities. EXTREMITIES: There is no peripheral edema, clubbing, or cyanosis. Peripheral pulses are intact. - Labs CBC & Chem 7: 01/11/23 07:16 01/11/23 07:16 Labs: Abnormal Lab Results - Last 24 Hours (Table) 01/10/23 Range/Units 15:22 C-Reactive Protein 3.3 H (<1.0) mg/dL Microbiology - Last 24 Hours (Table) 01/09/23 10:35 Blood Culture - Preliminary Blood 01/09/23 10:20 Blood Culture - Preliminary Blood Assessment and Plan Plan: Persistent recurrent pneumonia of unknown cause. The patient is presenting with worsening shortness of breath and the patient had a repeat CAT scan of the chest that showed patchy infiltrates in the right middle lobe and the right lower lobe as well as in the superior segment of the left lower lobe and the patient continues to have a cavitating mass in the left lower lobe measuring 2 x 1.9 cm in size. Extensive workup including microbial cultures and serologic markers were negative. History of lung abscess with a previous wedge resection that was done in 2019 and the cultures were all negative History of a cavitating left lower lobe pulmonary nodule of varying size. Previous fine-needle aspirate showed no microbial growth Mediastinal lymphadenopathy largest in the subcarinal area measuring 2.2 cm in size Episodic Hemoptysis, secondary to above Essential hypertension GERD Chronic ongoing nicotine dependence, vapes daily Chronic depression Chronic anxiety History of endometriosis Plan Clinically stable on room air oxygen Exact nature of the pulmonary infiltrates is not clear. Previous microbial cultures have been negative. Previous wedge resection of the left lower lobe opacity returned goods inspector to be an abscess with negative cultures. Review of the series of CAT scans since and the patient has a slightly enlarging cavitating left lower lobe pulmonary lesion in addition to development of mediastinal lymphadenopathy and new pulmonary infiltrates as discussed above. Consider inflammatory causes/connective tissue disease. Consider pulmonary endometriosis. Consider recurrent infections. Inflammatory markers are negat yesica thus far. We'll consult infectious disease, there is appreciated. Antibiotics on hold for now Awaiting complete inflammatory markers profile, noted WILMER and over the affected were negative. Pro-calcitonin level was low. The anti-GBM antibodies are negative Planning to do a robotic bronchoscopy and biopsies of the right upper lobe and the left lower lobe and endobronchial ultrasound and biopsy of the subcarinal lymph node. Patient was agreeable. The patient did be able to the get disc harged home following the bronchoscopy.
--- NOTE | 2023-01-11 13:49 | PN ---
PROGRESS NOTE DATE OF SERVICE: 01/11/2023 SUBJECTIVE: This is a 42-year-old woman, who was admitted with left lower lobe abscess, being closely monitored. The chest CT was reviewed. Multifocal abnormalities are noted. Infectious Disease and Pulmonary are following the patient closely. PAST MEDICAL HISTORY: Reviewed. PHYSICAL EXAMINATION: VITAL SIGNS: Pulse is 69, blood pressure 140/73, respirations 18. CHEST: Few scattered rhonchi and crackles. ABDOMEN: Soft. NERVOUS SYSTEM: Nonfocal. LABORATORY DATA: Reviewed. ASSESSMENT: 1. Possible multifocal bilateral lung abscess versus pneumonia with failure of outpatient treatment, left more than right. Rule out atypical or fungal infections. 2. Diabetes mellitus, type 2. 3. Hypertension. 4. History of degenerative joint disease. 5. History of endometriosis. 6. History of lower lung abscess and wedge resection. RECOMMENDATIONS: Recommend to continue current medications. Continue symptomatic treatment. Otherwise, follow the cultures. Possible bronchoscopy. Other cultures are negative so far. Further recommendations to follow. MMODL / IJN: [id number] /
[2023-01-11 14:52] LABS: C-ANCA <1:20 Titer (<1:20)
[2023-01-11] MEDS: HYDROmorphone 0.5 MG/0.5 ML SYRINGE IVP PRN (15:06)
[2023-01-11] MEDS ORDERED: ONDANSETRON 4 MG/2 ML VIAL IVP ONE (15:45)
[2023-01-11] MEDS ORDERED: LACTATED RINGERS 1,000 ML IV ONE ×2 (15:45→18:10)
[2023-01-11 15:49] LABS: Glucose,Whole Blood 96 mg/dL (70-110)
[2023-01-11] MEDS ORDERED: MIDAZOLAM 2 MG/2 ML VIAL ONE (16:00)
[2023-01-11] MEDS ORDERED: ROCURONIUM 10 MG/ML (5 ML VIAL) IV ONE (16:00)
[2023-01-11] MEDS ORDERED: LIDOCAINE 1% INJ 10MG/ML (20 ML MDV) ONE (16:00)
[2023-01-11] MEDS ORDERED: SUCCINYLCHOLINE CHLORIDE 200 MG/10 ML VIAL IV ONE (16:00)
[2023-01-11] MEDS ORDERED: PROPOFOL 10 MG/ML 20 ML VIAL IV ONE (16:00)
[2023-01-11] MEDS ORDERED: GLYCOPYRROLATE 0.2 MG/ML 2 ML VIAL ONE (16:00)
[2023-01-11] MEDS ORDERED: fentaNYL (PF) 50 MCG/ML 2 ML AMP ONE (16:00)
[2023-01-11] MEDS ORDERED: NEOSTIGMINE 1 MG/ML 10 ML VIAL ONE (16:00)
--- NOTE | 2023-01-11 17:31 | P.PCN ---
Date of Procedure: 01/11/23 Operative Findings: Preoperative Diagnosis: Lower lobe mass Right middle lobe pulmonary infiltrates Subcarinal lymphadenopathy Postoperative Diagnosis: Lower lobe mass Right middle lobe pulmonary infiltrates Subcarinal lymphadenopathy Procedure(s) Performed: Flexible bronchoscopy Robotic-assisted bronchoscopy and addition to radial ultrasound evaluation of the pulmonary mass Robotic-assisted transbronchial needle aspirate, transbronchial biopsies, transbronchial brushing of the left lower lobe mass in addition to a bronchioloalveolar lavage Robotic-assisted transbronchial transbronchial biopsies of a right middle lobe pulmonary infiltrates in addition to a bronchioloalveolar lavage Endobronchial ultrasound Transbronchial needle aspirate of subcarinal lymph node, EBUS guided Anesthesia: GETA Surgeon: Joan Breaux Estimated Blood Loss (ml): 0 Pathology: other Condition: stable Disposition: same day Operative Findings: A physical exam was performed. Informed consent was obtained from the patient after explaining all the risks (pneumothorax, life threatening bleeding, infection and adverse effects due to medications), benefits and alternatives to the procedure which the patient appeared to understand and so stated. The patient was connected to the monitoring devices. General anesthesia was induced and the patient was intubated by anesthesia. A final timeout was performed and the procedure confirmed by the attending staff bronchoscopist. The bronchoscope was inserted and the airway examined. The flexible bronchoscope was removed and the robotic bronchoscope was inserted. Registration was completed. I next guided the robotic bronchoscope using the navigation system into the left lower lobe posterior segment. Once in proper position, the bronchoscope was frozen. The radial EBUS probe was placed through the bronchoscope and confirmed abnormal u/s images vs normal lung. A needle was placed through the working channel and under fluoroscopic guidance, we sampled the area thought to have the nodule twice. We then used a cloud biopsy pattern with ultrasound confirmation for 2 additional passes with the needle. U/S evaluation was then used to reconfirm location. Forceps were next introduced through working channel and extended the appropriate distance and 3 transbronchial biopsies were performed using fluoroscopic guidance. The u/s probe was then reinserted to confirm location. When confirmed this process was repeated for a total of 8-10 transbronchial biopsies. After reassessment with EBUS, a brush was placed through the extendable working channel for 1 pass with fluoroscopic guidance. U/S evaluation was then used to confirm location. 40ml of saline was then instilled into the area of the lesion. The robotic bronchoscope was removed and the airway inspected with a flexible bronchoscope and 10 ml of effluent from the BAL was collected. The aspirate was bloody and ultimately declotted and based on that, the sample was discarded. Following that,, the robotic bronchoscope was reinserted and was directed to the lateral segment of the right middle lobe. Once in proper position, the bronchoscope was frozen. Forceps were next introduced through working channel and extended the appropriate distance and transbronchial biopsies were performed using fluoroscopic guidance a total of 8-10 transbronchial biopsies. 40ml of saline was then instilled into the area of the lesion. The robotic bronchoscope was removed and the airway inspected with a flexible bronchoscope and 10 ml of effluent from the BAL was collected Fluoroscopic check for pneumothorax was negative upon completion of the procedure. There was 0 ml blood loss with the procedure. Following that, the endobronchial ultrasound was inserted. Direct measurement of the subcarinal lymph node revealed multiple aggregates of lymph nodes the largest measuring 3 x 18 mm in size. Under direct ultrasonic visualization, transbronchial needle aspirate of the subcarinal lymph node was done using 22 gauge vizishot needle and a total of 6 passes were done without any complications. The EBUS was removed. The flexible bronchoscope was inserted and regular suctioning was done. At the completion of the procedure, no residual secretions or bloody material within the airway. The bronchoscope was removed. The patient was extubated. FINDINGS: 1.The airways appeared abnormal as the patient had some irregularities in the mucosa in the bilateral mainstem bronchi and the main trachea. 2 Successful navigation, ultrasonographic identification, and biopsies of left lower lobe pulmonary mass, right middle lobe infiltrate 3.The the radial ultrasound view was (Concentric/Eccentric)} in the LLL 4. Mediastinal adenopathy, station 7 RECOMMENDATIONS: Await pathology and cytology results The referring physician will be alerted to the results when available. The patient was advised to follow up with the referring physician with the biopsy results Patient will be called with results.
[2023-01-11] MEDS: CITALOPRAM HYDROBROMIDE 20 MG TAB PO SCH (20:44)
[2023-01-11] MEDS: amLODIPine 5 MG TAB PO SCH (20:44)
[2023-01-11] MEDS: GABAPENTIN 300 MG CAP PO SCH (20:44)
[2023-01-11] MEDS: lisinopriL 20 MG TAB PO SCH (20:45)
--- NOTE | 2023-01-11 21:18 | XR ---
EXAMINATION TYPE: XR chest 1V DATE OF EXAM: 01/11/2023 COMPARISON: 01/10/2023, CT same day HISTORY: 42 year-old female post biopsy TECHNIQUE: Single frontal view of the chest is obtained. FINDINGS: Heart normal size. Bibasilar opacities are noted, increased from 10/10/2022. There is a small right ap ical pneumothorax estimated at 5% measuring 9 mm. Possible development of a trace left pleural effusi on. IMPRESSION: 1. Bibasilar opacities have increased. Possible development of a trace left pleural effusion. 2. Development of a small, 5% right upper lung pneumothorax measuring 9 mm. Called to nurse Berto on 4SSUR at 9:14pm.
[2023-01-11] MEDS: ALPRAZolam 0.5 MG TAB PO PRN (22:37)
--- NOTE | 2023-01-11 23:04 | FL ---
EXAMINATION TYPE: FL bronchoscopy DATE OF EXAM: 01/11/2023 FLUOROSCOPY Fluoroscopy time of 1 minute 32 seconds was used during bronchoscopy with biopsy. 11 image/s documen t/s the procedure. DAP 7.3733 mGycm2.
[2023-01-12] MEDS: KETOROLAC 15 MG/ML 1 ML VIAL IVP PRN (02:18)
[2023-01-12] MEDS: LORATADINE 10 MG TAB PO SCH (07:49)
[2023-01-12] MEDS: MONTELUKAST 10 MG TAB PO SCH (07:49)
[2023-01-12] MEDS: FAMOTIDINE 20 MG TAB PO SCH ×2 (07:49→20:37)
[2023-01-12] MEDS: IBUPROFEN 800 MG TAB PO SCH ×2 (07:50→20:36)
[2023-01-12] MEDS: MULTIVITAMINS, THERA 1 EACH TAB PO SCH (07:50)
[2023-01-12] MEDS: HYDROcodone/APAP 5-325MG 1 EACH TAB PO PRN ×3 (07:50→18:37)
[2023-01-12] MEDS: NICOTINE 14MG/24HR PATCH TRANSDERM SCH (07:51)
[2023-01-12] MEDS: SODIUM CHLORIDE 0.9% 1,000 ML IV SCH ×2 (08:27→20:19)
[2023-01-12] MEDS: HYDROmorphone 0.5 MG/0.5 ML SYRINGE IVP PRN ×3 (10:33→21:43)
--- NOTE | 2023-01-12 13:57 | P.PN ---
Subjective Progress Note Date: 01/12/23 This is a 42-year-old female patient who follows on an outpatient basis with Dr. Jorden Paz for her primary care. The patient was hospitalized because of worsening shortness of breath and chest pain. The patient has chronic problems with pulmonary masses and lesions and recurrent pneumonias and she has been followed up by pulmonology, cardiothoracic surgery and infectious disease. She has been having symptoms of URI along with increased cough and congestion and chest pain. The patient has been treated on multiple occasions with antibiotics including Augmentin. She continued to have difficulties in breathing and her symptoms remains unchanged and the patient decided to come into the hospital. Denies having any fever or chills. She has body aches. No nausea or vomiting or emesis. The patient had a WBC count of 9.7 with a hemoglobin 15.7 and a platelet count of 293. Renal function is stable with a BUN of 7 with a creatinine of 0.55 and a sodium level is 141. UA is negative. Troponins are negative. CRP is at 1.9. The viral screen is negative. A computed tomography scan of the chest was done and this was compared to the earlier CAT scan from 11/19/2022 and the patient was found to have a cavitary mass in the left lower lobe which may reflect a cavitating pneumonia. Areas of patchy infiltrates bilaterally compatible with pneumonia and the patient has a subcarinal adenopat hy measuring up to 2.2 cm in size and the precarinal lymphadenopathy measuring 1.1 cm in size in the low right paratracheal lymph node measuring 8.3 mm in size and the height paratracheal lymph node measuring 9 mm in size. The patient's past medical history is quite extensive. She has a previous h istory of a 5 cm left lower lobe lung abscess, status post left thoracoscopy wedge resection left lower lobe in September 2019 and the pathology back then was consistent with abscess and all of the cultures came back negative. The patient also has endometriosis status post multiple D&Cs and total hysterectomy, hypertension, GERD, anxiety, depression, new onset diabetes mellitus type 2 with a hemoglobin A1c of 6.9, and chronic ongoing nicotine dependence in the form of vaping. On 10/10/2022 she presented to the emergency department here at [facility] with complaints of shortness of breath, burning type chest pain/epigastric pain, and hemoptysis which is been ongoing for about a 1 month period. Due to the patient's above-mentioned symptoms she was treated with a course of antibiotics and steroids on an outpatient basis without relief. In April [address] of the chest with contrast due to her history of pulmonary nodule which demonstrated a left lower lobe 1.9 x 1.3 cm nodular component at the site of her previous surgery. On CAT scan of the chest that was on 01/08/2023, the mass is measuring 2 x 1.9 cm size. Note that back in September 2022 and due to to the increasing size of the left lower lobe mass, interventional radiology was consulted and a CT guided abscess drainage was performed on 10/12/2022, however the material was too thick for aspiration. All of the cultures came back negative. Cytology came back negative. She has had a previous bronchoscopy on 07/22/2021 that showed no fungal elements, no TB or AFB elements and her AFB cultures were all negative. Her Aspergillus titers are negative. Fungal cultures are negative in the lungs. Cryptococcal antigen in the serum has been negative. Histoplasma antibodies are negative. Legionella urine antigen has been negative. On today's evaluation of 01/10/2023, the patient is essentially the same condition. She has no new complaints. She remains on room air oxygen. WILMER was negative, rheumatoid factor was negative, progesterone level was low at 0.08. The patient will benefit from of the bronchoscopy, biopsies and endobronchial ultrasound and subcarinal lymph node biopsy. On 01/11/2023, the patient is nothing by mouth awaiting a bronchoscopy as mentioned earlier. She has no new complaints. The white cell count is 11.7 with a hemoglobin 13.2, the sedimentation rate was 35 and the level dropped down to 18. The pro-calcitonin level on 2 separate occasions were low and the levels are 0.08 and 0.06. WILMER, rheumatoid factor, anti-GBM antibodies are all negative. Patient remains on room air oxygen. She is also normal saline at rate of 75 mL an hour. Home medications have been resumed. No antibiotics for now. On 01/12/2023, the patient is doing well. The chest x-ray showed a tiny right apical pneumothorax. Nevertheless, the patient is clinically asymptomatic. The majority of the cemetery markers came back negative. Patient is on room air oxygen. Objective - Vital Signs Vital signs: Vital Signs Temp 97.7 F 01/12/23 08:26 Pulse 72 01/12/23 08:26 Resp 20 01/12/23 08:26 BP 129/71 01/12/23 08:26 Pulse Ox 94 L 01/12/23 08:26 FiO2 Intake & Output 01/11/23 01/12/23 01/12/23 18:59 06:59 18:59 Intake Total 950 Balance 950 Weight 70.307 kg Intake: IV 950 Other: Voiding Method Toilet Toilet Toilet # Voids 2 1 - Exam GENERAL EXAM: Alert, 42-year-old white female, comfortable in no apparent distress. The patient is currently on room air oxygen with a pulse ox of 96% HEAD: Normocephalic and atraumatic EYES: Normal reaction of pupils, equal size. NOSE: Clear with pink turbinates. THROAT: No erythema or exudates. NECK: No masses, no JVD. CHEST: No chest wall deformity. LUNGS: Equal air entry with no crackles, wheeze, rhonchi or dullness. On room air. No conversational dyspnea or accessory muscle use.. CVS: S1 and S2 normal with no audible murmur, regular rhythm. No extra heart sounds ABDOMEN: No hepatosplenomegaly, active bowel sounds, no guarding or rigidity. SPINE: No scoliosis or deformity SKIN: No rashes CENTRAL NERVOUS SYSTEM: No focal deficits, tone is normal in all 4 extremities. EXTREMITIES: There is no peripheral edema, clubbing, or cyanosis. Peripheral pu lses are intact. - Labs CBC & Chem 7: 01/11/23 07:16 01/11/23 07:16 Labs: Abnormal Lab Results - Last 24 Hours (Table) 01/11/23 Range/Units 07:16 Anion Gap 12.70 H (4.00-12.00) mmol/L BUN 8.6 L (9.0-27.0) mg/dL Glucose 125 H (70-110) mg/dL Microbiology - Last 24 Hours (Table) 01/09/23 10:35 Blood Culture - Preliminary Blood 01/09/23 10:20 Blood Culture - Preliminary Blood Assessment and Plan Plan: Persistent recurrent pneumonia of unknown cause. The patient is presenting with worsening shortness of breath and the patient had a repeat CAT scan of the chest that showed patchy infiltrates in the right middle lobe and the right lower lobe as well as in the superior segment of the left lower lobe and the patient continues to have a cavitating mass in the left lower lobe measuring 2 x 1.9 cm in size. Extensive workup including microbial cultures and serologic markers were negative. History of lung abscess with a previous wedge resection that was done in 2019 and the cultures were all negative History of a cavitating left lower lobe pulmonary nodule of varying size. Previous fine-needle aspirate showed no microbial growth Mediastinal lymphadenopathy largest in the subcarinal area measuring 2.2 cm in size Episodic Hemoptysis, secondary to above Essential hypertension GERD Chronic ongoing nicotine dependence, vapes daily Chronic depression Chronic anxiety History of endometriosis Plan Clinically stable on room air oxygen Exact nature of the pulmonary infiltrates is not clear. Previous microbial cultures have been negative. Previous wedge resection of the left lower lobe opacity turn supervisor to be an abscess with negative cultures. Review of the series of CAT scans since and the patient has a slightly enlarging cavitating left lower lobe pulmonary lesion in addition to development of mediastinal lymphadenopathy and new pulmonary infiltrates as discussed above. Consider inflammatory causes/connective tissue disease. Consider pulmonary endometriosis. Consider recurrent infections. Inflammatory markers are negative thus far. We'll consult infectious disease, there is appreciated. Antibiotics on hold for now Awaiting complete inflammatory markers profile, noted WILMER and over the affected were negative. Pro-calcitonin level was low. The anti-GBM antibodies are negative I performed a robotic bronchoscopy and biopsies of the right upper lobe and the left lower lobe and endobronchial ultrasound and biopsy of the subcarinal lymph node. Cardiac apical pneumothorax, asymptomatic. No need for any further treatment regarding this issue. We'll be awaiting the final results of the pathology and the microbiology that was obtained during the bronchoscopy. In my opinion, the patient can be discharged home to be followed up on outpatient basis. Home medications have been resumed. She is on room air oxygen.
--- NOTE | 2023-01-12 15:46 | PN ---
PROGRESS NOTE DATE OF SERVICE: 01/12/2023 SUBJECTIVE: This is a 42-year-old woman, who was admitted with pneumonia and bilateral lung lesions currently. Dr. Breaux has performed bronchoscopy. Cultures are pending at this time. Please note, the patient had a wedge biopsy previously. The wedge biopsy fungal cultures were not performed apparently. There is no history of any fever, rigor, or chills. 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 PAST MEDICAL HISTORY: Reviewed. REVIEW OF SYSTEMS: Fourteen-point review is negative except as mentioned earlier. CURRENT MEDICATIONS: Reviewed include [place]. Doses and rest of the medications are noted. PHYSICAL EXAMINATION: VITAL SIGNS: Pulse is 61, blood pressure n respirations 16. HEENT: Conjunctivae are normal. NECK: No jugular venous distention. CARDIOVASCULAR: S1 and S2. RESPIRATORY: Breath sounds diminished at the bases. Few scattered rhonchi. ABDOMEN: Soft. NERVOUS SYSTEM: Nonfocal. LABORATORY DATA: Reviewed. ASSESSMENT: 1. Possible multifocal bilateral lung abscess versus chronic pneumonia with failure of outpatient treatment, left more than the right. Rule out atypical or fungal infections such as histoplasmosis or blastomycosis. 2. Diabetes mellitus, type 2. 3. Hypertension. 4. History of degenerative joint disease. 5. History of endometriosis. 6. History of previous left lower lung abscess and wedge resection. RECOMMENDATIONS: Recommend to continue current medications. Continue symptomatic treatment. Continue with antibiotics. Otherwise, I would recommend to follow the patient closely with Dr. Breaux. Various bronchoscopic cultures have been obtained. We will await for the fungal cultures specifically. Otherwise, closely monitor with multiple consultants. Immunological evaluation also has been negative. Overall prognosis is guarded. Further recommendations to follow. MMODL / IJN: [id number] / [facility]PITALRita
--- NOTE | 2023-01-12 19:50 | P.PN ---
Subjective Progress Note Date: 01/12/23 Principal diagnosis: Reason for follow-up is left lower lobe cavitating lesion question of atypical infection Patient is a 33-year-old female with a past medical history significant for recurrent admission Hospital for left lower lobe cystic mass/cavitating pneumonia did have a CT-guided aspiration FNA back in September 2019 that was negative for any malignancy and culture were negative now presented to hospital with worsening symptoms CT of the chest did shows cavitat ing mass left lower lobe may reflect cavitating pneumonia versus atypical infection. Pt is s/p Bronchoscopy and biopsy completed on 01/11/2023 On today's evaluation that is 01/12/2023, the patient remains to be afebrile, the patient is breathing comfortably on room air, the patient is c/o chest pain , cough but no worsening , patient denies abdominal pain, no nausea/vomiting and no diarrhea has been reported Patient did have white count of 11.72, creatinine 0.6 as of yesterday , no labs done today Objective - Vital Signs Vital signs: Vital Signs Temp 97.7 F 01/12/23 08:26 Pulse 72 01/12/23 08:26 Resp 20 01/12/23 08:26 BP 129/71 01/12/23 08:26 Pulse Ox 94 L 01/12/23 08:26 FiO2 Intake & Output 01/11/23 01/12/23 01/12/23 18:59 06:59 18:59 Intake Total 950 Balance 950 Weight 70.307 kg Intake: IV 950 Other: Voiding Method Toilet Toilet Toilet # Voids 2 1 - Exam GENERAL DESCRIPTION: A middle-age female up in bed in no distress RESPIRATORY SYSTEM: Unlabored breathing , coarse sounds with occasional wheeze HEART: S1 S2 regular rate and rhythm , ABDOMEN: Soft , no tenderness EXTREMITIES: No edema feet - Labs CBC & Chem 7: 01/11/23 07:16 01/11/23 07:16 Labs: Microbiology - Last 24 Hours (Table) 01/09/23 10:35 Blood Culture - Preliminary Blood 01/09/23 10:20 Blood Culture - Preliminary Blood Assessment and Plan (1) Pneumonia Current Visit: Yes Status: Acute Code(s): J18.9 - PNEUMONIA, UNSPECIFIED ORGANISM SNOMED Code(s): 715809247 (2) Cavitating mass of lung Current Visit: No Status: Acute Code(s): J98.4 - OTHER DISORDERS OF LUNG SNOMED Code(s): 920159230 Plan: 1-patient presented to the hospital with increasing shortness of breath or cough did have hemoptysis in this patient who did have a left lower lobe cavitary lesion with concern for possible infectious versus noninfectious etiology in this patient has been treated with a prolonged course of oral antibiotic for presumed aspiration and has not responded well to it 2-patient is s/p bronchoscopy biopsy as well as culture for AFB as well as fungal pathogen which are pending 3- patient will bel monitored closely off antibiotic therapy while waiting for workup to be completed Dictation was produced using [employer] dictation software. please excuse any grammatical, word or spelling errors. Time with Patient: Less than 30
[2023-01-12] MEDS: GABAPENTIN 300 MG CAP PO SCH (20:37)
[2023-01-12] MEDS: lisinopriL 20 MG TAB PO SCH (20:37)
[2023-01-12] MEDS: CITALOPRAM HYDROBROMIDE 20 MG TAB PO SCH (20:37)
[2023-01-12] MEDS: amLODIPine 5 MG TAB PO SCH (20:37)
[2023-01-12] MEDS: ALPRAZolam 0.5 MG TAB PO PRN (21:44)
[2023-01-13] MEDS: HYDROcodone/APAP 5-325MG 1 EACH TAB PO PRN ×3 (01:09→20:07)
[2023-01-13] MEDS: HYDROmorphone 0.5 MG/0.5 ML SYRINGE IVP PRN ×3 (04:25→16:47)
[2023-01-13] MEDS: MULTIVITAMINS, THERA 1 EACH TAB PO SCH (07:55)
[2023-01-13] MEDS: LORATADINE 10 MG TAB PO SCH (07:56)
[2023-01-13] MEDS: MONTELUKAST 10 MG TAB PO SCH (07:56)
[2023-01-13] MEDS: IBUPROFEN 800 MG TAB PO SCH ×2 (07:56→20:08)
[2023-01-13] MEDS: FAMOTIDINE 20 MG TAB PO SCH ×2 (07:56→20:08)
[2023-01-13] MEDS: NICOTINE 14MG/24HR PATCH TRANSDERM SCH (07:57)
--- NOTE | 2023-01-13 11:43 | PN ---
PROGRESS NOTE DATE OF SERVICE: 01/13/2023 SUBJECTIVE: This is a 42-year-old woman, who was admitted with recurrent pneumonia and possibly cavitating lesion, she is being evaluated. Bronchoscopy cultures are pending at this time. OBJECTIVE: VITAL SIGNS: Pulse is 67, blood pressure 130/70, respirations 17. CHEST: Few scattered rhonchi. ABDOMEN: Soft. NERVOUS SYSTEM: Nonfocal. LABORATORY DATA: Reviewed. ASSESSMENT: 1. Possible multifocal bilateral lung abscess versus chronic recurrent pneumonia with failure of outpatient treatment, left more than the right. Rule out atypical or fungal infections such as histoplasmosis or blastomycosis. 2. Diabetes mellitus, type 2. 3. Hypertension. 4. History of degenerative joint disease. 5. History of endometriosis. 6. History of previous lower lung abscess and wedge resection. RECOMMENDATIONS: Recommend to continue current medications. Continue symptomatic treatment. Otherwise, we will await the cultures which are negative so far. Further recommendations to follow. MMODL / IJN: [id number] /
--- NOTE | 2023-01-13 12:11 | P.PN ---
Subjective Progress Note Date: 01/13/23 Principal diagnosis: Reason for follow-up is left lower lobe cavitating lesion question of atypical infection Patient is a 33-year-old female with a past medical history significant for recurrent admission Hospital for left lower lobe cystic mass/cavitating pneumonia did have a CT-guided aspiration FNA back in September 2019 that was negative for any malignancy and culture were negative now presented to hospital with worsening symptoms CT of the chest did shows cavitat ing mass left lower lobe may reflect cavitating pneumonia versus atypical infection. Pt is s/p Bronchoscopy and biopsy completed on 01/11/2023 On today's evaluation that is 01/13/2023, the patient continues to be afebrile, the patient is breathing comfortably on room air and no need for supplemental oxygen, the patient did have minimal chest pain and cough with some brawny sputum, patient denies nausea/vomiting , no abdominal pain and no diarrhea has been reported Patient did have white count of 11.72, creatinine 0.6 as of 01/11/2023 , BAL cultures are pending Objective - Vital Signs Vital signs: Vital Signs Temp 98.0 F 01/13/23 07:08 Pulse 67 01/13/23 07:08 Resp 17 01/13/23 07:08 BP 125/78 01/13/23 07:08 Pulse Ox 94 L 01/13/23 07:08 FiO2 Intake & Output 01/12/23 01/13/23 01/13/23 18:59 06:59 18:59 Other: Voiding Method Toilet Toilet Toilet # Voids 3 2 - Exam GENERAL DESCRIPTION: A middle-age female up in bed in no distress RESPIRATORY SYSTEM: Unlabored breathing , coarse sounds with occasional wheeze HEART: S1 S2 regular rate and rhythm , ABDOMEN: Soft , no tenderness EXTREMITIES: No edema feet - Labs CBC & Chem 7: 01/11/23 07:16 01/11/23 07:16 Labs: Microbiology - Last 24 Hours (Table) 01/11/23 16:15 Gram Stain - Preliminary Bronchoalviolar Lavage - Right Bronchial Washings Culture - Preliminary 01/11/23 16:13 Gram Stain - Preliminary Bronchoalviolar Lavage - Left Bronchial Washings Culture - Preliminary 01/11/23 16:15 Acid Fast Bacilli Smear - Preliminary Bronchoalviolar Lavage - Right 01/11/23 16:13 Acid Fast Bacilli Smear - Preliminary Bronchoalviolar Lavage - Left 01/09/23 10:35 Blood Culture - Preliminary Blood 01/09/23 10:20 Blood Culture - Preliminary Blood Assessment and Plan (1) Pneumonia Current Visit: Yes Status: Acute Code(s): J18.9 - PNEUMONIA, UNSPECIFIED ORGANISM SNOMED Code(s): 587714301 (2) Cavitating mass of lung Current Visit: No Status: Acute Code(s): J98.4 - OTHER DISORDERS OF LUNG SNOMED Code(s): 083448796 Plan: 1-patient presented to the hospital with increasing shortness of breath or cough did have hemoptysis in this patient who did have a left lower lobe cavitary lesion with concern for possible infectious versus noninfectious etiology in this patient has been treated with a prolonged course of oral antibiotic for presumed aspiration and has not responded well to it 2-patient is s/p bronchoscopy biopsy as well as culture for AFB as well as fungal pathogen which are pending 3- patient currently being monitor closely off antibiotic therapy while waiting for the cultures to be finalize Dictation was produced using [employer] dictation software. please excuse any grammatical, word or spelling errors. Time with Patient: Less than 30
[2023-01-13] MEDS: SODIUM CHLORIDE 0.9% 1,000 ML IV SCH ×2 (12:53→23:04)
--- NOTE | 2023-01-13 13:25 | P.PN ---
Subjective Progress Note Date: 01/13/23 This is a 42-year-old female patient who follows on an outpatient basis with Dr. Jorden Paz for her primary care. The patient was hospitalized because of worsening shortness of breath and chest pain. The patient has chronic problems with pulmonary masses and lesions and recurrent pneumonias and she has been followed up by pulmonology, cardiothoracic surgery and infectious disease. She has been having symptoms of URI along with increased cough and congestion and chest pain. The patient has been treated on multiple occasions with antibiotics including Augmentin. She continued to have difficulties in breathing and her symptoms remains unchanged and the patient decided to come into the hospital. Denies having any fever or chills. She has body aches. No nausea or vomiting or emesis. The patient had a WBC count of 9.7 with a hemoglobin 15.7 and a platelet count of 293. Renal function is stable with a BUN of 7 with a creatinine of 0.55 and a sodium level is 141. UA is negative. Troponins are negative. CRP is at 1.9. The viral screen is negative. A computed tomography scan of the chest was done and this was compared to the earlier CAT scan from 11/19/2022 and the patient was found to have a cavitary mass in the left lower lobe which may reflect a cavitating pneumonia. Areas of patchy infiltrates bilaterally compatible with pneumonia and the patient has a subcarinal adenopat hy measuring up to 2.2 cm in size and the precarinal lymphadenopathy measuring 1.1 cm in size in the low right paratracheal lymph node measuring 8.3 mm in size and the height paratracheal lymph node measuring 9 mm in size. The patient's past medical history is quite extensive. She has a previous h istory of a 5 cm left lower lobe lung abscess, status post left thoracoscopy wedge resection left lower lobe in September 2019 and the pathology back then was consistent with abscess and all of the cultures came back negative. The patient also has endometriosis status post multiple D&Cs and total hysterectomy, hypertension, GERD, anxiety, depression, new onset diabetes mellitus type 2 with a hemoglobin A1c of 6.9, and chronic ongoing nicotine dependence in the form of vaping. On 10/10/2022 she presented to the emergency department here at [facility] with complaints of shortness of breath, burning type chest pain/epigastric pain, and hemoptysis which is been ongoing for about a 1 month period. Due to the patient's above-mentioned symptoms she was treated with a course of antibiotics and steroids on an outpatient basis without relief. In April [address] of the chest with contrast due to her history of pulmonary nodule which demonstrated a left lower lobe 1.9 x 1.3 cm nodular component at the site of her previous surgery. On CAT scan of the chest that was on 01/08/2023, the mass is measuring 2 x 1.9 cm size. Note that back in September 2022 and due to to the increasing size of the left lower lobe mass, interventional radiology was consulted and a CT guided abscess drainage was performed on 10/12/2022, however the material was too thick for aspiration. All of the cultures came back negative. Cytology came back negative. She has had a previous bronchoscopy on 07/22/2021 that showed no fungal elements, no TB or AFB elements and her AFB cultures were all negative. Her Aspergillus titers are negative. Fungal cultures are negative in the lungs. Cryptococcal antigen in the serum has been negative. Histoplasma antibodies are negative. Legionella urine antigen has been negative. On today's evaluation of 01/10/2023, the patient is essentially the same condition. She has no new complaints. She remains on room air oxygen. WILMER was negative, rheumatoid factor was negative, progesterone level was low at 0.08. The patient will benefit from of the bronchoscopy, biopsies and endobronchial ultrasound and subcarinal lymph node biopsy. On 01/11/2023, the patient is nothing by mouth awaiting a bronchoscopy as mentioned earlier. She has no new complaints. The white cell count is 11.7 with a hemoglobin 13.2, the sedimentation rate was 35 and the level dropped down to 18. The pro-calcitonin level on 2 separate occasions were low and the levels are 0.08 and 0.06. WILMER, rheumatoid factor, anti-GBM antibodies are all negative. Patient remains on room air oxygen. She is also normal saline at rate of 75 mL an hour. Home medications have been resumed. No antibiotics for now. On 01/12/2023, the patient is doing well. The chest x-ray showed a tiny right apical pneumothorax. Nevertheless, the patient is clinically asymptomatic. The majority of the cemetery markers came back negative. Patient is on room air oxygen. On 01/12/2023, no active issues for now. The patient remains on room air oxygen with a pulse ox of 94%. Afebrile. He was directly stable. Awaiting biopsy results Objective - Vital Signs Vital signs: Vital Signs Temp 98.0 F 01/13/23 07:08 Pulse 67 01/13/23 07:08 Resp 17 01/13/23 07:08 BP 125/78 01/13/23 07:08 Pulse Ox 94 L 01/13/23 07:08 FiO2 Intake & Output 01/12/23 01/13/23 01/13/23 18:59 06:59 18:59 Other: Voiding Method Toilet Toilet Toilet # Voids 3 2 - Exam GENERAL EXAM: Alert, 42-year-old white female, comfortable in no apparent distress. The patient is currently on room air oxygen with a pulse ox of 96% HEAD: Normocephalic and atraumatic EYES: Normal reaction of pupils, equal size. NOSE: Clear with pink turbinates. THROAT: No erythema or exudates. NECK: No masses, no JVD. CHEST: No chest wall deformity. LUNGS: Equal air entry with no crackles, wheeze, rhonchi or dullness. On room air. No conversational dyspnea or accessory muscle use.. CVS: S1 and S2 normal with no audible murmur, regular rhythm. No extra heart sounds ABDOMEN: No hepatosplenomegaly, active bowel sounds, no guarding or rigidity. SPINE: No scoliosis or deformity SKIN: No rashes CENTRAL NERVOUS SYSTEM: No focal deficits, tone is normal in all 4 extremities. EXTREMITIES: There is no peripheral edema, clubbing, or cyanosis. Peripheral pulses are intact. - Labs CBC & Chem 7: 01/11/23 07:16 01/11/23 07:16 Labs: Microbiology - Last 24 Hours (Table) 01/11/23 16:15 Gram Stain - Preliminary Bronchoalviolar Lavage - Right Bronchial Washings Culture - Preliminary 01/11/23 16:13 Gram Stain - Preliminary Bronchoalviolar Lavage - Left Bronchial Washings Culture - Preliminary 01/11/23 16:15 Acid Fast Bacilli Smear - Preliminary Bronchoalviolar Lavage - Right 01/11/23 16:13 Acid Fast Bacilli Smear - Preliminary Bronchoalviolar Lavage - Left 01/09/23 10:35 Blood Culture - Preliminary Blood 01/09/23 10:20 Blood Culture - Preliminary Blood Assessment and Plan Plan: Persistent recurrent pneumonia of unknown cause. The patient is presenting with worsening shortness of breath and the patient had a repeat CAT scan of the chest that showed patchy infiltrates in the right middle lobe and the right lower lobe as well as in the superior segment of the left lower lobe and the patient continues to have a cavitating mass in the left lower lobe measuring 2 x 1.9 cm in size. Extensive workup including microbial cultures and serologic markers were negative. History of lung abscess with a previous wedge resection that was done in 2019 and the cultures were all negative History of a cavitating left lower lobe pulmonary nodule of varying size. Previous fine-needle aspirate showed no microbial growth Mediastinal lymphadenopathy largest in the subcarinal area measuring 2.2 cm in size Episodic Hemoptysis, secondary to above Essential hypertension GERD Chronic ongoing nicotine dependence, vapes daily Chronic depression Chronic anxiety History of endometriosis Plan Clinically stable on room air oxygen, no new complaints. Pulse ox is 94% on room air oxygen. Exact nature of the pulmonary infiltrates is not clear. Previous microbial cultures have been negative. 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 Review of the series of CAT scans since and the patient has a slightly enlarging cavitating left lower lobe pulmonary lesion in addition to development of mediastinal lymphadenopathy and new pulmonary infiltrates as discussed above. Consider inflammatory causes/connective tissue disease. Consider pulmonary endometr iosis. Consider recurrent infections. Inflammatory markers are negative thus far. We'll consult infectious disease, there is appreciated. Antibiotics on hold for now Awaiting complete inflammatory markers profile, noted WILMER and over the affected were negative. Pro-calcitonin level was low. The anti-GBM antibodies are negative I performed a robotic bronchoscopy and biopsies of the right upper lobe and the left lower lobe and endobronchial ultrasound and biopsy of the subcarinal lymph node. Cardiac apical pneumothorax, asymptomatic. No need for any further treatment regarding this issue. We'll be awaiting the final results of the pathology and the microbiology that was obtained during the bronchoscopy. In my opinion, the patient can be discharged home to be followed up on outpatient basis. Home medications have been resumed. She is on room air oxygen.
[2023-01-13] MEDS: lisinopriL 20 MG TAB PO SCH (20:06)
[2023-01-13] MEDS: GABAPENTIN 300 MG CAP PO SCH (20:07)
[2023-01-13] MEDS: CITALOPRAM HYDROBROMIDE 20 MG TAB PO SCH (20:07)
[2023-01-13] MEDS: amLODIPine 5 MG TAB PO SCH (20:07)
[2023-01-13] MEDS: ALPRAZolam 0.5 MG TAB PO PRN (20:10)
[2023-01-14] MEDS: HYDROmorphone 0.5 MG/0.5 ML SYRINGE IVP PRN (01:52)
[2023-01-14] MEDS: HYDROcodone/APAP 5-325MG 1 EACH TAB PO PRN ×2 (05:13→11:45)
[2023-01-14 07:53] VITALS: BP 121/77; PULSE 72; RESP 18; TEMP 97.6
[2023-01-14] MEDS: MULTIVITAMINS, THERA 1 EACH TAB PO SCH (08:10)
[2023-01-14] MEDS: MONTELUKAST 10 MG TAB PO SCH (08:10)
[2023-01-14] MEDS: IBUPROFEN 800 MG TAB PO SCH (08:10)
[2023-01-14] MEDS: LORATADINE 10 MG TAB PO SCH (08:10)
[2023-01-14] MEDS: FAMOTIDINE 20 MG TAB PO SCH (08:10)
[2023-01-14] MEDS: NICOTINE 14MG/24HR PATCH TRANSDERM SCH (08:12)
--- NOTE | 2023-01-14 12:23 | P.PN ---
Subjective Progress Note Date: 01/14/23 Principal diagnosis: Reason for follow-up is left lower lobe cavitating lesion question of atypical infection Patient is a 33-year-old female with a past medical history significant for recurrent admission Hospital for left lower lobe cystic mass/cavitating pneumonia did have a CT-guided aspiration FNA back in September 2019 that was negative for any malignancy and culture were negative now presented to hospital with worsening symptoms CT of the chest did shows cavitat ing mass left lower lobe may reflect cavitating pneumonia versus atypical infection. Pt is s/p Bronchoscopy and biopsy completed on 01/11/2023 On today's evaluation that is 01/14/2023, the patient remains to be afebrile, the patient is breathing comfortably on room air and denies any shortness of b reath, the patient central chest pain has improved and did have occasional dry cough , patient denies abdominal pain, no nausea/vomiting and no diarrhea Patient did have white count of 11.72, creatinine 0.6 as of 01/11/2023 no lab draw today, BAL cultures are pending Objective - Vital Signs Vital signs: Vital Signs Temp 97.6 F 01/14/23 06:55 Pulse 72 01/14/23 06:55 Resp 18 01/14/23 06:55 BP 121/77 01/14/23 06:55 Pulse Ox 94 L 01/14/23 06:55 FiO2 Intake & Output 01/13/23 01/14/23 01/14/23 18:59 06:59 18:59 Other: Voiding Method Toilet Toilet # Voids 3 3 - Exam GENERAL DESCRIPTION: A middle-age female up in bed in no distress RESPIRATORY SYSTEM: Unlabored breathing , coarse sounds with occasional wheeze HEART: S1 S2 regular rate and rhythm , ABDOMEN: Soft , no tenderness EXTREMITIES: No edema feet - Labs CBC & Chem 7: 01/11/23 07:16 01/11/23 07:16 Labs: Microbiology - Last 24 Hours (Table) 01/11/23 16:15 Gram Stain - Final Bronchoalviolar Lavage - Right Bronchial Washings Culture - Final 01/11/23 16:13 Gram Stain - Final Bronchoalviolar Lavage - Left Bronchial Washings Culture - Final Assessment and Plan (1) Pneumonia Current Visit: Yes Status: Acute Code(s): J18.9 - PNEUMONIA, UNSPECIFIED ORGANISM SNOMED Code(s): 747790306 (2) Cavitating mass of lung Current Visit: No Status: Acute Code(s): J98.4 - OTHER DISORDERS OF LUNG SNOMED Code(s): 553594616 Plan: 1-patient presented to the hospital with increasing shortness of breath or cough did have hemoptysis in this patient who did have a left lower lobe cavitary lesion with concern for possible infectious versus noninfectious etiology in this patient has been treated with a prolonged course of oral antibiotic for presumed aspiration and has not responded well to it 2-patient is s/p bronchoscopy biopsy as well as culture for AFB as well as fungal pathogen which are pending 3- patient currently being monitor closely off antibiotic therapy while waiting for the cultures to be finalize, if patient ended up getting discharged home, there is no need for antibiotics on discharge and this was discussed with NEURO OPHTHALMOLOGIST for admitting team however will need close outpatient follow-up Dictation was produced using [employer] dictation software. please excuse any grammatical, word or spelling errors. Time with Patient: Less than 30
== END 2023-01-14 13:19 | disposition home or self-care (01) | DRG 139 ==
LOC: EC 09:43 → 4SSUR 11:41
PROVIDERS: ADMIT Internal Medicine; ATTEND Internal Medicine
PROC: 0B9F8ZX Drainage of Right Lower Lung Lobe, Via Natural or Artificial Opening Endoscopic, Diagnostic (ICD-10-PCS; principal; 2023-01-11 16:00)
PROC: 0B9D8ZX Drainage of Right Middle Lung Lobe, Via Natural or Artificial Opening Endoscopic, Diagnostic (ICD-10-PCS; 2023-01-11 16:00)
PROC: 0BBJ8ZX Excision of Left Lower Lung Lobe, Via Natural or Artificial Opening Endoscopic, Diagnostic (ICD-10-PCS; 2023-01-11 16:00)
PROC: 0BBD8ZX Excision of Right Middle Lung Lobe, Via Natural or Artificial Opening Endoscopic, Diagnostic (ICD-10-PCS; 2023-01-11 16:00)
PROC: 8E0W8CZ Robotic Assisted Procedure of Trunk Region, Via Natural or Artificial Opening Endoscopic (ICD-10-PCS; 2023-01-11 16:00)
DX: J16.8 Pneumonia due to other specified infectious organisms (principal); J85.1 Abscess of lung with pneumonia; J06.9 Acute upper respiratory infection, unspecified; R04.2 Hemoptysis; J44.0 Chronic obstructive pulmonary disease with (acute) lower respiratory infection; R59.0 Localized enlarged lymph nodes; K58.9 Irritable bowel syndrome, unspecified; Z20.822 Contact with and (suspected) exposure to COVID-19; J98.4 Other disorders of lung; K21.9 Gastro-esophageal reflux disease without esophagitis; F17.290 Nicotine dependence, other tobacco product, uncomplicated; I10 Essential (primary) hypertension; Z77.090 Contact with and (suspected) exposure to asbestos; Z79.890 Hormone replacement therapy; Z79.899 Other long term (current) drug therapy; Z82.49 Family history of ischemic heart disease and other diseases of the circulatory system; Z87.01 Personal history of pneumonia (recurrent); Z90.710 Acquired absence of both cervix and uterus
CPT/HCPCS: 31623; 31624; 31628; 31652; 36415; 71045; 71250; 80048; 80053; 81003; 81025; 83516; 83605; 84145; 84484; 85025; 85652; 86038; 86140; 86255; 86431; 86698; 87040; 87070; 87102; 87116; 87205; 87206; 87636; 88108; 88305; 93005; 94640; 96365; 96366; 96367; 96375; 99285

== ENCOUNTER → 2023-01-31 | Outpatient (CLI) | payer OTHER ==
--- NOTE | 2023-01-31 12:33 | CT ---
EXAMINATION TYPE: CT chest w con DATE OF EXAM: 01/31/2023 COMPARISON: Most recent CT January 11, 2023 and older CTs HISTORY: lung nodule f/u, midline chest pain and right scapular pain CT DLP: 292.5 mGycm. Automated Exposure Control for Dose Reduction was Utilized. TECHNIQUE: CT scan of the thorax is performed following with IV Contrast, patient injected with 100 mL of Isovue 300. FINDINGS: LUNGS: There is linear scarring and sutures left lung base . There is some residual nodule or nodular consolidation measuring measuring 2.7 x 2.4 cm axial image 40 . This is less prominent versus most r ecent study but this had more prominent additional areas of groundglass opacity and organizing consol idation. Some groundglass opacity with slight nodularity in the right middle lobe remains. Present fo r reference there is 5 mm pulmonary nodule image 31 noted. There is no pleural effusion or pneumothor ax seen. The tracheobronchial tree is patent. MEDIASTINUM: There are no new greater than 1 cm hilar or mediastinal lymph nodes. No cardiomegaly o r pericardial effusion is seen. OTHER: Posterior spur disc complexes efface the anterior thecal sac at several levels in the thoracic spine. Mild to moderate multilevel anterior and lateral spurring in the thoracic spine is redemonstr ated. IMPRESSION: Less prominent nonspecific 2.7 x 2.4 cm posterior left basilar pulmonary nodule. Improved areas of groundglass opacity and organizing consolidation bilaterally with some residual areas of gr oundglass opacity with small nodularity in the right middle lobe is present. Findings are nonspecific . Consider PET CT correlation.
== END | disposition home or self-care (01) ==
LOC: RADCTMAIN 11:38
PROVIDERS: ATTEND Internal Medicine
DX: R91.8 Other nonspecific abnormal finding of lung field (principal)
CPT/HCPCS: 71260; Q9967

== ENCOUNTER 2024-02-06 09:05 | Observation (INO) | payer OTHER ==
--- NOTE | 2024-02-06 10:07 | ED ---
General Adult HPI - General Chief complaint: Abdominal Pain Stated complaint: chest pain,rib pain Time Seen by Provider: 02/06/24 09:13 Source: patient, family, RN notes reviewed Mode of arrival: ambulatory Limitations: no limitations - History of Present Illness Initial comments: 43-year-old female presents emergency department complaint of left lower q uadrant abdominal pain, bilateral lower rib pain. Patient states has been worsening states it comes and goes feels a cramp in her ribs states has not been sick she states she has noticed some lumps. Patient has no urinary frequency or dysuria no change in bowel habits. Patient states she had colonoscopy and EGD in the past showing some polyps, hiatal hernia she had last scope 6 months ago. Patient states she has no history of diverticulitis denies any chance . - Related Data Home Medications Medication Instructions Recorded Confirmed Citalopram Hydrobromide [CeleXA] 20 mg PO HS 06/12/17 02/06/24 Famotidine [Pepcid] 20 mg PO HS 06/12/17 02/06/24 amLODIPine [Norvasc] 5 mg PO HS 06/12/17 02/06/24 lisinopriL 40 mg PO HS 06/12/17 02/06/24 Ibuprofen [Motrin] 800 mg PO BID 07/21/19 02/06/24 estradioL [Estrace] 1 mg PO DAILY 07/21/19 02/06/24 Levocetirizine Dihydrochloride 5 mg PO DAILY 01/01/22 02/06/24 [Xyzal] Montelukast [Singulair] 10 mg PO DAILY 01/01/22 02/06/24 ALPRAZolam [Xanax] 0.5 mg PO DAILY PRN 10/10/22 02/06/24 Gabapentin 300 mg PO HS 10/10/22 02/06/24 Multivitamin Gummy With Immune 1 tab PO DAILY 10/10/22 02/06/24 Support L.acidoph,Paracasei, B.lactis 1 cap PO HS 02/06/24 02/06/24 [Probiotic] Omeprazole [PriLOSEC] 20 mg PO DAILY 02/06/24 02/06/24 metFORMIN HCL [Glucophage] 500 mg PO DAILY 02/06/24 02/06/24 Allergies Allergy/AdvReac Type Severity Reaction Status Date / Time prochlorperazine AdvReac Extreme Verified 02/06/24 11:51 [From Compazine] anxiety Review of Systems ROS Statement: Those systems with pertinent positive or pertinent negative responses have been documented in the HPI. ROS Other: All systems not noted in ROS Statement are negative. Past Medical History Past Medical History: Diabetes Mellitus, GERD/Reflux, Hypertension, Osteoarthritis (OA) Additional Past Medical History / Comment(s): Endometriosis, constant nasal congestion, bloating, nausea, and IBS. 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 left lung nodule biopsy. Wedge resection left lower lobe September 2019 Past Anesthesia/Blood Transfusion Reactions: Postoperative Nausea & Vomiting (PONV) Past Psychological History: Anxiety, Depression Smoking Status: Vaper Past Alcohol Use History: None Reported Past Drug Use History: None Reported - Past Family History Mother Family Medical History: No Reported History Additional Family Medical History / Comment(s): Rosacea Father Family Medical History: Diabetes Mellitus, Hypertension Additional Family Medical History / Comment(s): EtOH abuse General Exam Limitations: no limitations General appearance: alert, in no apparent distress Head exam: Present: atraumatic, normocephalic, normal inspection Eye exam: Present: normal appearance, PERRL, EOMI. Absent: scleral icterus, conjunctival injection, periorbital swelling ENT exam: Present: normal exam, normal oropharynx, mucous membranes moist Neck exam: Present: normal inspection, full ROM. Absent: tenderness, meningismus, lymphadenopathy Respiratory exam: Present: normal lung sounds bilaterally. Absent: respiratory distress, wheezes, rales, rhonchi, stridor Cardiovascular Exam: Present: regular rate, normal rhythm, normal heart sounds. Absent: systolic murmur, diastolic murmur, rubs, gallop, clicks GI/Abdominal exam: Present: soft, tenderness, normal bowel sounds. Absent: distended, guarding, rebound, rigid Back exam: Absent: CVA tenderness (R), CVA tenderness (L) Neurological exam: Present: alert Skin exam: Present: warm, dry, intact, normal color. Absent: rash Course Vital Signs 02/06/24 02/06/24 09:09 11:03 Temperature 98 F Pulse Rate 81 80 Respiratory 18 16 Rate Blood Pressure 166/89 143/85 O2 Sat by Pulse 95 97 Oximetry EKG Findings - EKG Comments: EKG Findings:: EKG performed at 9: 40 sinus rhythm rate of 66 DC 181 QRS 93 QT/QTc 416/429 - EKG Results: EKG: interpreted by KARMEN Medical Decision Making - Medical Decision Making Was pt. sent in by a medical professional or institution (, PA, [employer], urgent care, hospital, or assisted...) When possible be specific @ -No Did you speak to anyone other than the patient for history (EMS, parent, family, police, friend...)? What history was obtained from this source @ -No Did you review nursing and triage notes (agree or disagree)? Why? @ -I reviewed and agree with nursing and triage notes Were old charts reviewed (outside hosp., previous admission, EMS record, old EKG, old radiological studies, urgent care reports/EKG's, assisted records)? Report findings @ -No old charts were reviewed Differential Diagnosis (chest pain, altered mental status, abdominal pain women, abdominal pain men, vaginal bleeding, weakness, fever, dyspnea, syncope, headache, dizziness, GI bleed, back pain, seizure, CVA, palpatations, mental health, musculoskeletal)? @ -Differential Abdominal Pain Women: Appendicitis, Cholecystitis, diverticulosis, ischemic bowel, pancreatitis, hepatitis, UTI, gastroenteritis, AAA, incarcerated hernia, bowel obstruction, constipation, inflammatory bowel, hepatitis, peptic ulcer disease, splenic infarction, perforated viscus, vulvitis, ovarian torsion, PID, kidney stone, placenta abruption, this is not meant to be an all-inclusive list EKG interpreted by me (3pts min.). @ -As above X-rays interpreted by me (1pt min.). @ -X-ray shows possible atelectasis. CT interpreted by me (1pt min.). @ -CT abdomen pelvis showing lower lung abscess, necrotic mass U/S interpreted by me (1pt. min.). @ -None done What testing was considered but not performed or refused? (CT, X-rays, U/S, labs)? Why? @ -None What meds were considered but not given or refused? Why? @ -None Did you discuss the management of the patient with other professionals (professionals i.e. , PA, [employer], lab, RT, psych nurse, high school social studies teacher, entry level mechanical engineer, teacher, tank officer, upper caser)? Give summary @ -EMH for admission Was smoking cessation discussed for >3mins.? @ -No Was critical care preformed (if so, how long)? @ -No Were there social determinants of health that impacted care today? How? (Homelessness, low income, unemployed, alcoholism, drug addiction, transportation, low edu. Level, literacy, decrease access to med. care, long-term, rehab)? @ -No Was there de-escalation of care discussed even if they declined (Discuss DNR or withdrawal of care, Hospice)? DNR status @ -No What co-morbidities impacted this encounter? (DM, HTN, Smoking, COPD, CAD, Cancer, CVA, ARF, Chemo, Hep., AIDS, mental health diagnosis, sleep apnea, morbid obesity)? @ -None Was patient admitted / discharged? Hospital course, mention meds given and route, prescriptions, significant lab abnormalities, going to OR and other pertinent info. @ -Admitted patient is found to have lung abscess versus necrotic malignancy. Patient to be mated for pulmonary and oncology evaluation, possible cardiothoracic evaluation. Undiagnosed new problem with uncertain prognosis? @ -No Drug Therapy requiring intensive monitoring for toxicity (Heparin, Nitro, Insulin, Cardizem)? @ -No Were any procedures done? @ -No Diagnosis/symptom? @ -Lung necrotic mass versus abscess Acute, or Chronic, or Acute on Chronic? @ -Acute Uncomplicated (without systemic symptoms) or Complicated (systemic symptoms)? @ -Complicated Side effects of treatment? @ -No Exacerbation, Progression, or Severe Exacerbation? @ -No Poses a threat to life or bodily function? How? (Chest pain, [place], ME, pneumonia, PE, COPD, DKA, ARF, appy, cholecystitis, CVA, Diverticulitis, Homicidal, Suicidal, threat to staff... and all critical care pts) @ -Yes respiratory failure - Lab Data Result diagrams: 02/06/24 10:20 02/06/24 10:20 Lab Results 02/06/24 02/06/24 02/06/24 Range/Units 09:56 10:20 10:20 WBC 10.4 (3.8-10.6) k/uL RBC 4.49 (3.80-5.40) m/uL Hgb 13.8 (11.4-16.0) gm/dL Hct 41.6 (34.0-46.0) % MCV 92.5 (80.0-100.0) fL MCH 30.8 (25.0-35.0) pg MCHC 33.3 (31.0-37.0) g/dL RDW 12.5 (11.5-15.5) % Plt Count 312 (150-450) k/uL MPV 7.8 Neutrophils % 60 % Lymphocytes % 27 % Monocytes % 6 % Eosinophils % 3 % Basophils % 1 % Neutrophils # 6.3 (1.3-7.7) k/uL Lymphocytes # 2.9 (1.0-4.8) k/uL Monocytes # 0.6 (0-1.0) k/uL Eosinophils # 0.3 (0-0.7) k/uL Basophils # 0.1 (0-0.2) k/uL Sodium 139 (137-145) mmol/L Potassium 5.0 (3.5-5.1) mmol/L Chloride 108 H (98-107) mmol/L Carbon Dioxide 22 (22-30) mmol/L Anion Gap 9 mmol/L BUN 9 (7-17) mg/dL Creatinine 0.52 (0.52-1.04) mg/dL Est GFR (CKD-EPI)AfAm >90 (>60 ml/min/1.73 sqM) Est GFR (CKD-EPI)NonAf >90 (>60 ml/min/1.73 sqM) Glucose 98 (74-99) mg/dL Plasma Lactic Acid Saw (0.7-2.0) mmol/L Calcium 9.9 (8.4-10.2) mg/dL Total Bilirubin 1.3 (0.2-1.3) mg/dL AST 41 H (14-36) U/L ALT 34 (4-34) U/L Alkaline Phosphatase 82 (38-126) U/L Troponin I (0.000-0.034) ng/mL Total Protein 8.2 (6.3-8.2) g/dL Albumin 5.0 (3.5-5.0) g/dL Lipase 77 (23-300) U/L Urine Color Colorless Urine Appearance Clear (Clear) Urine pH 6.5 (5.0-8.0) Ur Specific [place] 1.004 (1.001-1.035) Urine Protein Negative (Negative) Urine Glucose (UA) Negative (Negative) Urine Ketones Negative (Negative) Urine Blood Negative (Negative) Urine Nitrite Negative (Negative) Urine Bilirubin Negative (Negative) Urine Urobilinogen <2.0 (<2.0) mg/dL Ur Leukocyte Esterase Negative (Negative) 02/06/24 02/06/24 Range/Units 10:20 10:20 WBC (3.8-10.6) k/uL RBC (3.80-5.40) m/uL Hgb (11.4-16.0) gm/dL Hct (34.0-46.0) % MCV (80.0-100.0) fL MCH (25.0-35.0) pg MCHC (31.0-37.0) g/dL RDW (11.5-15.5) % Plt Count (150-450) k/uL MPV Neutrophils % % Lymphocytes % % Monocytes % % Eosinophils % % Basophils % % Neutrophils # (1.3-7.7) k/uL Lymphocytes # (1.0-4.8) k/uL Monocytes # (0-1.0) k/uL Eosinophils # (0-0.7) k/uL Basophils # (0-0.2) k/uL Sodium (137-145) mmol/L Potassium (3.5-5.1) mmol/L Chloride (98-107) mmol/L Carbon Dioxide (22-30) mmol/L Anion Gap mmol/L BUN (7-17) mg/dL Creatinine (0.52-1.04) mg/dL Est GFR (CKD-EPI)AfAm (>60 ml/min/1.73 sqM) Est GFR (CKD-EPI)NonAf (>60 ml/min/1.73 sqM) Glucose (74-99) mg/dL Plasma Lactic Acid Saw 2.2 H* (0.7-2.0) mmol/L Calcium (8.4-10.2) mg/dL Total Bilirubin (0.2-1.3) mg/dL AST (14-36) U/L ALT (4-34) U/L Alkaline Phosphatase (38-126) U/L Troponin I <0.012 (0.000-0.034) ng/mL Total Protein (6.3-8.2) g/dL Albumin (3.5-5.0) g/dL Lipase (23-300) U/L Urine Color Urine Appearance (Clear) Urine pH (5.0-8.0) Ur Specific [place] (1.001-1.035) Urine Protein (Negative) Urine Glucose (UA) (Negative) Urine Ketones (Negative) Urine Blood (Negative) Urine Nitrite (Negative) Urine Bilirubin (Negative) Urine Urobilinogen (<2.0) mg/dL Ur Leukocyte Esterase (Negative) Disposition Clinical Impression: Lung abscess Disposition: ADMITTED IP TO THIS HOSP Condition: Fair Referrals: Jorden Paz MD [Primary Care Provider] - 1-2 days Time of Disposition: 12:00
[2024-02-06 10:12] LABS: Appearance,Urine Clear (Clear); Bilirubin,Urine Negative (Negative); Blood,Urine Negative (Negative); Color,Urine Colorless; Glucose,Urine (UA) Negative (Negative); Ketones,Urine Negative (Negative); Leukocyte Esterase,Urine Negative (Negative); Nitrite,Urine Negative (Negative); PH, Urine 6.5 (5.0-8.0); Protein,Urine Negative (Negative); Specific Gravity,Urine 1.004 (1.001-1.035); Urobilinogen,Urine <2.0 mg/dL (<2.0)
[2024-02-06] MEDS: SODIUM CHLORIDE 0.9% 1,000 ML IV STA (10:15)
[2024-02-06] MEDS: SODIUM CHLORIDE 0.9% 500 ML 500 ML IV STA (10:15)
[2024-02-06] MEDS: KETOROLAC 15 MG/ML 1 ML VIAL IVP STA (10:15)
[2024-02-06 10:32] LABS: Basophils # (A) 0.1 k/uL (0-0.2); Basophils % (A) 1 %; Eosinophils # (A) 0.3 k/uL (0-0.7); Eosinophils % (A) 3 %; HCT 41.6 % (34.0-46.0); HGB 13.8 gm/dL (11.4-16.0); Lymphocytes # (A) 2.9 k/uL (1.0-4.8); Lymphocytes % (A) 27 %; MCH 30.8 pg (25.0-35.0); MCHC 33.3 g/dL (31.0-37.0); MCV 92.5 fL (80.0-100.0); Mean Platelet Volume 7.8; Monocytes # (A) 0.6 k/uL (0-1.0); Monocytes % (A) 6 %; Neutrophils # (A) 6.3 k/uL (1.3-7.7); Neutrophils % (A) 60 %; Platelet Count 312 k/uL (150-450); RBC 4.49 m/uL (3.80-5.40); RDW 12.5 % (11.5-15.5); WBC 10.4 k/uL (3.8-10.6)
[2024-02-06 10:52] LABS: ALT 34 U/L (4-34); African American GFR (CKD) >90 (>60 ml/min/1.73 sqM); Anion Gap 9 mmol/L; Blood Urea Nitrogen 9 mg/dL (7-17); Calcium 9.9 mg/dL (8.4-10.2); Carbon Dioxide 22 mmol/L (22-30); Chloride 108 mmol/L (98-107); Glucose 98 mg/dL (74-99); Lipase 77 U/L (23-300); Non-African American GFR(CKD) >90 (>60 ml/min/1.73 sqM); Sodium 139 mmol/L (137-145); Total Bilirubin 1.3 mg/dL (0.2-1.3)
[2024-02-06 10:54] LABS: Total Protein 8.2 g/dL (6.3-8.2)
[2024-02-06 10:55] LABS: AST 41 U/L (14-36); Alkaline Phosphatase 82 U/L (38-126)
--- NOTE | 2024-02-06 11:28 | XR ---
EXAMINATION TYPE: XR chest 2V DATE OF EXAM: 02/06/2024 11:22 AM COMPARISON: 01/11/2023 CLINICAL INDICATION: Female, 43 years old with history of pain, TECHNIQUE: XR chest 2V view(s) obtained. FINDINGS: The heart size is normal. The pulmonary vasculature is normal. There may be some minimal subsegmental atelectasis at the left base IMPRESSION: 1. Suggestion of minimal atelectasis at thee left lung base. 2. No acute pulmonary process otherwise apparent [facility], , 02/06/2024 11:26 AM
--- NOTE | 2024-02-06 11:32 | CT ---
EXAMINATION TYPE: CT abdomen pelvis w con DATE OF EXAM: 02/06/2024 COMPARISON: 10/10/2022 CLINICAL INDICATION: Female, 43 years old with history of LLQ pain; PHH, LLQ pain TECHNIQUE: Performed without Oral Contrast and with IV Contrast, patient injected with 100 mL of Isovue 300. CT DLP: 755.[address] CTDI: mGy Automated exposure control for dose reduction was used. FINDINGS: There are 2 lung nodules in the left lower lobe on measuring approximately 11 mm and the other measur ing approximately 8 mm. Previously in this location there was a larger mass with an air-fluid level c onsistent with a necrotic malignancy or abscess. Right lung is clear. The gallbladder is normal without distention, wall thickening, pericholecystic fluid or gallstones. T here is no biliary ductal dilatation. There is a stable 12 mm hypodensity in the left lobe of the liver most likely representing a benign c yst or hemangioma. The pancreas, spleen and adrenal glands are normal. There is no solid renal mass or hydronephrosis and there is homogeneous contrast enhancement of the r enal parenchyma. The caliber the abdominal aorta is normal is no retroperitoneal adenopathy or hemorrhage. The bowel loops are normal in caliber and there is no evidence of dilatation or obstruction. No infla mmatory changes are identified in the bowel wall or mesentery. There is no free intraperitoneal air or fluid. No pelvic mass, free fluid, abscess or adenopathy. The osseous structures and soft tissues are intact. IMPRESSION: 1. 2 adjacent left lower lobe nodules in the location of a previous larger mass with air-fluid level which is likely indicated either abscess or necrotic neoplasm. Either short-term follow-up in 3 month s follow-up CT thorax or PET scan is recommended for further evaluation. 2. No acute changes within the abdomen or pelvis. [facility], , 02/06/2024 11:30 AM
[2024-02-06] MEDS ORDERED: NALOXONE 0.4 MG/ML 1 ML VIAL IV PRN (12:00)
[2024-02-06] MEDS ORDERED: ACETAMINOPHEN TAB 325 MG TAB PO PRN (12:00)
[2024-02-06] MEDS ORDERED: VANCOMYCIN IV PER PHARMACY 1 EACH MISC MISCELLANE PRN (12:01)
[2024-02-06] MEDS: VANCOMYCIN 1,250 MG in SODIUM CHLORIDE 0.9% 250 ML IVPB ONE (13:27)
[2024-02-06] MEDS: HYDROcodone/APAP 5-325MG 1 EACH TAB PO PRN (13:43)
--- NOTE | 2024-02-06 15:16 | P.CNPUL ---
History of Present Illness Consult date: 02/06/24 Requesting physician: Po Yanes Reason for consult: abnormal CXR/CT Chief complaint: Rib pain, GI distress. History of present illness: Pulmonary consult dated February 06, 2024. 43-year-old female seen in the emergency department, at 9:00 this morning, February 05, for abdominal pain, and rib discomfort. The patient apparently was complaining of pain in the left lower quadrant of the abdomen, and bilateral lower rib pain. She also is complaining of crampy sensations in her abdomen. She denies any significant pulmonary issues. She had a colonoscopy and EGD about 6 months ago, which showed some hiatal hernia, as well as some colonic polyps. The patient was seen back in December 2022, by my partner, for a "lung abscess". The patient underwent extensive evaluation, with bronchoscopy, and a BAL of the right middle lobe and left lower lobe, fine-needle aspiration of the subcarinal/station 7 node, and brushings in the left lower lobe, as well as biopsies of the right middle lobe and left lower lobe. She ended up seeing one of my other partners in the office for period of time, and also saw the infectious disease doctor, who prescribed antibiotics for prolonged period of time, and did multiple scans of the chest. Currently, she is on room air. She was placed on Zosyn and vancomycin. She apparently has a history of diabetes, GERD, hypertension, osteoarthritis, endometriosis, irritable bowel syndrome, and left lower lobe lung abscess, beginning in September 2019. She apparently had a wedge resection at that time. She also has a history of anxiety/depression, does not smoke, but does vape. White count 10.4, hemoglobin 13.8, hematocrit 41.6, platelet count 312,000. Sodium 139, potassium 5, chlorides 108, CO2 22, BUN 9, creatinine 0.52. The rest of her comprehensive metabolic profile is mostly normal. Initial lactic acid was 2.2. Repeat was 1.5. Urine was negative. Chest x-ray suggest some scarring or atelectasis at the left lung base. CT of the abdomen and pelvis, is essentially negative, and in the left lower lobe, there are 2 adjacent left lower lobe nodules, which is in the previous location of the larger mass, with air-fluid level. Follow-up CT scan in 3 months was recommended, or a PET scan. The patient has had previous drainage of a abscess, in the left lower lobe, and a wedge resection, done in September 2019 of that same lesion. The wedge resection was positive for a lung abscess, with fibrosis, and focal organization. Review of Systems REVIEW OF SYSTEMS: CONSTITUTIONAL: [Negative.] NEUROLOGIC: [ Negative.] HEENT: [ Negative.] CARDIAC: [Negative.] PULMONARY: [Negative.] GI: Abdominal cramping, rib pain. : [Negative.] RHEUMATOLOGIC: [ Negative.] IMMUNOLOGIC: [ Negative.] ENDOCRINE: [Negative. ] DERMATOLOGIC: [Negative.] Past Medical History Past Medical History: Diabetes Mellitus, GERD/Reflux, Hypertension, Osteoarthritis (OA) Additional Past Medical History / Comment(s): Endometriosis, constant nasal congestion, bloating, nausea, and IBS. 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 left lung nodule biopsy. Wedge resection left lower lobe September 2019 Past Anesthesia/Blood Transfusion Reactions: Postoperative Nausea & Vomiting (PONV) Past Psychological History: Anxiety, Depression Smoking Status: Vaper Past Alcohol Use History: None Reported Past Drug Use History: None Reported - Past Family History Mother Family Medical History: No Reported History Additional Family Medical History / Comment(s): Rosacea Father Family Medical History: Diabetes Mellitus, Hypertension Additional Family Medical History / Comment(s): EtOH abuse Medications and Allergies Home Medications Medication Instructions Recorded Confirmed Type Citalopram Hydrobromide [CeleXA] 20 mg PO HS 06/12/17 02/06/24 History Famotidine [Pepcid] 20 mg PO HS 06/12/17 02/06/24 History amLODIPine [Norvasc] 5 mg PO HS 06/12/17 02/06/24 History lisinopriL 40 mg PO HS 06/12/17 02/06/24 History Ibuprofen [Motrin] 800 mg PO BID 07/21/19 02/06/24 History estradioL [Estrace] 1 mg PO DAILY 07/21/19 02/06/24 History Levocetirizine Dihydrochloride 5 mg PO DAILY 01/01/22 02/06/24 History [Xyzal] Montelukast [Singulair] 10 mg PO DAILY 01/01/22 02/06/24 History ALPRAZolam [Xanax] 0.5 mg PO DAILY PRN 10/10/22 02/06/24 History Gabapentin 300 mg PO HS 10/10/22 02/06/24 History Multivitamin Gummy With Immune 1 tab PO DAILY 10/10/22 02/06/24 History Support L.acidoph,Paracasei, B.lactis 1 cap PO HS 02/06/24 02/06/24 History [Probiotic] Omeprazole [PriLOSEC] 20 mg PO DAILY 02/06/24 02/06/24 History metFORMIN HCL [Glucophage] 500 mg PO DAILY 02/06/24 02/06/24 History Allergies Allergy/AdvReac Type Severity Reaction Status Date / Time prochlorperazine AdvReac Extreme Verified 02/06/24 11:51 [From Compazine] anxiety Physical Exam Osteopathic Statement: *. No significant issues noted on an osteopathic structural exam other than those noted in the History and Physical/Consult. Vitals: Vital Signs Temp Pulse Resp BP Pulse Ox 02/06/24 13:20 84 18 151/93 02/06/24 11:03 80 16 143/85 97 02/06/24 09:09 98 F 81 18 166/89 95 Intake and Output 02/05/24 02/06/24 02/06/24 22:59 06:59 14:59 Other: Weight 72.575 kg No acute distress, oriented 3. Currently on room air. No respiratory issues at this time. HEENT examination is grossly unremarkable. Mucous membranes are moist. No oral lesions. Neck supple. Full range of motion. No adenopathy thyromegaly or neck vein dis tention. Cardiovascular examination reveals regular rhythm rate. S1-S2 normal. No S3 or S4. No discernible murmur noted. Lungs reveal clear breath sounds. Breath sounds are equal bilaterally. No adventitious lung sounds including wheezes rhonchi or crackles. Abdomen soft bowel sounds are heard. No masses or tenderness. Extremities are intact. No cyanosis clubbing or edema. Skin is without rash or lesion. Neurologic examination is brief but nonfocal. Results - Laboratory Findings CBC and BMP: 02/06/24 10:20 02/06/24 10:20 Abnormal lab findings: Abnormal Labs 02/06/24 02/06/24 10:20 10:20 Chloride 108 H Plasma Lactic Acid Saw 2.2 H* AST 41 H - Diagnostic Findings Chest x-ray: image reviewed CT scan - chest: image reviewed Assessment and Plan Assessment: Abdominal pain, rib pain, abdominal cramping, of unclear etiology. CT scan of the abdomen and pelvis, were negative. Previous history of lung abscess, left lower lobe, status post wedge resection (2019), showing abscess, with fibrosis and organization. Previous bronchoscopy, December 2022, with BAL right middle lobe, left lower lobe, fine-needle aspiration of subcarinal/station 7 node, brushings, left lower lobe, and transbronchial biopsies of the right middle lobe and left lower lobe, all of which were negative. History of diabetes mellitus. History of hypertension. History of GERD. History of osteoarthritis. History of endometriosis. History of irritable bowel syndrome. History of anxiety/depression. Plan: Plan dated February 06, 2024. I went back and look at all of her scans, for a number of years, and in the past, she did have a lung abscess, in the left lower lobe. It was thoroughly evaluated by cardiothoracic surgery with a wedge resection, as well as by one of my partners, with bronchoscopy, biopsies, etc. All sampling, was negative. The patient came in to the hospital, with complaints primarily of abdominal pain and cramping, rib pain, and lower chest discomfort. I do not believe any of these issues related to the lung at all. Looking at the CT scan of the abdomen/pelvis that was done on this admission, there is some residual scarring in the left lower lobe, but it does not appear to be active in any sort of way. I am going to check a procalcitonin level. The patient was started on vancomycin and Zosyn. If the procalcitonin level is normal, and I would continue all antibiotics. Again I do not believe that she has any active lung issues at this time. Time with Patient: Greater than 30
[2024-02-06] MEDS: PIPERACILLIN-TAZOBACTAM 3.375 GM in SODIUM CHLORIDE 0.9% 100 ML IVPB SCH (16:11)
[2024-02-06] MEDS: NICOTINE 14MG/24HR PATCH TRANSDERM STA (17:56)
[2024-02-06] MEDS: HYDROcodone/APAP 7.5-325MG 1 EACH TAB PO PRN (18:59)
[2024-02-06] MEDS: VANCOMYCIN 1,250 MG in SODIUM CHLORIDE 0.9% 250 ML IVPB SCH (23:02)
--- NOTE | 2024-02-06 23:31 | P.HPIM ---
History of Present Illness This is a pleasant 43 years old female with past medical history of multiple medical problems Presents because of rib cage pain, she refers to the area underneath breast on both sides. Her pain was going on about 3 days about 7/10 in severity like aching and nonspecific with no precipitating or relieving factor Also she has been feeling bloating and cramping her abdomen and some discomfort in the left lower quadrant with similar pain characteristics as in her chest pain above Patient has no nausea vomiting. Has normal bowel movement. She peed 3 times last night which is normal for her No headache dizziness weakness or numbness Patient vapes nicotine and she was counseled to quit and she agrees to the nicotine patch. No alcohol or illicit drugs Vital stable, patient afebrile Labs all unremarkable including CBC, BMP, LFT troponin and urine analysis Lactic acid was slightly elevated 2.2 came back to normal 1.5 CT of the abdomen pelvis showing 2 left lower lobe pulmonary nodule in the location of the previous abscess. Radiologist was considering mass or fluid lesion suspicious for abscess. Chest x-ray is negative for acute process Pro- Calcitonin is pending Patient was suspected to have pulmonary abscess and admitted with IV antibiotic Zosyn and IV vancomycin started in the emergency room However patient does not look septic, she has no fever or leukocytosis. She does not have malaise. Pulmonary team also suspecting the diagnosis of infection However further workup is requested and patient will be monitored for another 24 hours Review of Systems Review of systems CONSTITUTIONAL: No fever, no malaise, no fatigue. HEENT: No recent visual problems or hearing problems. Denied any sore throat. CARDIOVASCULAR: No orthopnea, PND, no palpitations, no syncope. PULMONARY: No shortness of breath, no cough, no hemoptysis. GASTROINTESTINAL: No diarrhea, no nausea, no vomiting, no abdominal pain. Normoactive bowel sounds. NEUROLOGICAL: No headaches, no weakness, no numbness. HEMATOLOGICAL: Denies any bleeding or petechiae. GENITOURINARY: Denies any burning micturition, frequency, or urgency. MUSCULOSKELETAL/RHEUMATOLOGICAL: Denies any joint pain, swelling, or any muscle pain. ENDOCRINE: Denies any polyuria or polydipsia. Past Medical History Past Medical History: Diabetes Mellitus, GERD/Reflux, Hypertension, Osteoarthritis (OA) Additional Past Medical History / Comment(s): Endometriosis, constant nasal congestion, bloating, nausea, and IBS. 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 left lung nodule biopsy. Wedge resection left lower lobe September 2019 Past Anesthesia/Blood Transfusion Reactions: Postoperative Nausea & Vomiting (PONV) Past Psychological History: Anxiety, Depression Smoking Status: Vaper Past Alcohol Use History: None Reported Past Drug Use History: None Reported - Past Family History Mother Family Medical History: No Reported History Additional Family Medical History / Comment(s): Rosacea Father Family Medical History: Diabetes Mellitus, Hypertension Additional Family Medical History / Comment(s): EtOH abuse Medications and Allergies Home Medications Medication Instructions Recorded Confirmed Type RX: Citalopram Hydrobromide 20 mg PO HS 06/12/17 02/06/24 History [CeleXA] RX: Famotidine [Pepcid] 20 mg PO HS 06/12/17 02/06/24 History RX: amLODIPine [Norvasc] 5 mg PO HS 06/12/17 02/06/24 History RX: lisinopriL 40 mg PO HS 06/12/17 02/06/24 History RX: Ibuprofen [Motrin] 800 mg PO BID 07/21/19 02/06/24 History RX: estradioL [Estrace] 1 mg PO DAILY 07/21/19 02/06/24 History RX: Levocetirizine Dihydrochloride 5 mg PO DAILY 01/01/22 02/06/24 History [Xyzal] RX: Montelukast [Singulair] 10 mg PO DAILY 01/01/22 02/06/24 History Multivitamin Gummy With Immune 1 tab PO DAILY 10/10/22 02/06/24 History Support RX: ALPRAZolam [Xanax] 0.5 mg PO DAILY PRN 10/10/22 02/06/24 History RX: Gabapentin 300 mg PO HS 10/10/22 02/06/24 History L.acidoph,Paracasei, B.lactis 1 cap PO HS 02/06/24 02/06/24 History [Probiotic] Omeprazole [PriLOSEC] 20 mg PO DAILY 02/06/24 02/06/24 History metFORMIN HCL [Glucophage] 500 mg PO DAILY 02/06/24 02/06/24 History Allergies Allergy/AdvReac Type Severity Reaction Status Date / Time prochlorperazine AdvReac Extreme Verified 02/06/24 11:51 [From Compazine] anxiety Physical Exam Vitals: Vital Signs Temp Pulse Resp BP Pulse Ox 02/06/24 13:20 84 18 151/93 02/06/24 11:03 80 16 143/85 97 02/06/24 09:09 98 F 81 18 166/89 95 Intake and Output 02/06/24 02/06/24 02/06/24 06:59 14:59 22:59 Other: Weight 72.575 kg Results CBC & Chem 7: 02/06/24 10:20 02/06/24 10:20 Labs: Abnormal Lab Results - Last 24 Hours (Table) 02/06/24 02/06/24 Range/Units 10:20 10:20 Chloride 108 H (98-107) mmol/L Plasma Lactic Acid Saw 2.2 H* (0.7-2.0) mmol/L AST 41 H (14-36) U/L Assessment and Plan Assessment: -2 left lower lobe pulmonary nodules at the location of large mass. Suspicious for abscess versus neoplasm. But also goes more with pulmonary fibrosis area from her previous abscess -Bilateral rib cage pain. Her breast radiology I -Mild abdominal discomfort with a bloated and mild pain in the left lower quadrant with no change in bowel function. The symptoms close with her diagnosis of irritable bowel syndrome. CT of the abdomen and pelvis is negative -Nicotine dependence Plan: Patient was started on IV vancomycin and Zosyn in the emergency room Check pro- Calcitonin Pulmonary team consult. Would recommend the suspicion of infection is low but they requested further workup and will monitor the patient Patient was instructed to follow-up outpatient in 2 to 3 months to repeat CAT scan to assess stability Labs and medication were reviewed.. Continue same treatment. Continue with symptomatic treatment. Resume home medication. Monitor labs and vitals. DVT and GI prophylaxis. Further recommendations as per clinical course of the patient DVT prophylaxis: Subcutaneous heparin GI Prophylaxis: Pepcid
[2024-02-07 02:14] LABS: Glucose,Whole Blood 132 mg/dL (70-110)
[2024-02-07] MEDS ORDERED: ALPRAZolam 0.5 MG TAB PO PRN (02:33)
[2024-02-07] MEDS: FAMOTIDINE 20 MG TAB PO SCH (03:06)
[2024-02-07] MEDS: CITALOPRAM HYDROBROMIDE 20 MG TAB PO SCH (03:06)
[2024-02-07] MEDS: GABAPENTIN 300 MG CAP PO SCH (03:06)
[2024-02-07] MEDS: amLODIPine 5 MG TAB PO SCH (03:06)
[2024-02-07] MEDS: PANTOPRAZOLE 40 MG TABLET PO SCH (06:40)
[2024-02-07 06:41] LABS: Glucose,Whole Blood 119 mg/dL (70-110)
[2024-02-07] MEDS: metFORMIN 500 MG TAB PO SCH (08:16)
[2024-02-07] MEDS: LORATADINE 10 MG TAB PO SCH (08:16)
[2024-02-07] MEDS: MONTELUKAST 10 MG TAB PO SCH (08:16)
[2024-02-07] MEDS: IBUPROFEN 800 MG TAB PO SCH (08:16)
[2024-02-07 10:58] LABS: Basophils # (A) 0.15 X 10*3/uL (0.00-0.10); Basophils % (A) 1.4 %; Eosinophils # (A) 0.31 X 10*3/uL (0.04-0.35); Eosinophils % (A) 2.9 %; HCT 39.2 % (37.2-50.0); HGB 12.8 g/dL (12.0-17.0); Lymphocytes % (A) 36.4 %; MCH 30.6 pg (27.0-32.0); MCHC 32.7 g/dL (32.0-37.0); MCV 93.8 FL (80.0-97.0); Mean Platelet Volume 10.7 FL (9.5-12.2); Monocytes # (A) 0.86 X 10*3/uL (0.20-1.00); NRBC Per 100 WBC 0 X 10*3/uL (0.00-0.01); Neutrophils # (A) 5.45 X 10*3/uL (1.80-7.70); Neutrophils % (A) 50.9 %; Platelet Count 288 X 10*3/uL (140-440); RBC 4.18 X 10*6/uL (4.10-5.60); RDW 12.7 % (11.5-14.5); WBC 10.71 X 10*3/uL (4.50-10.00)
[2024-02-07 11:00] LABS: Blood Urea Nitrogen 9.3 mg/dL (9.0-27.0); Calcium 9.3 mg/dL (8.7-10.3); Carbon Dioxide 26.3 mmol/L (21.6-31.8); Chloride 103 mmol/L (96-109); Glucose 95 mg/dL (70-110); Potassium 4.2 mmol/L (3.5-5.5); Sodium 141 mmol/L (135-145)
[2024-02-07 12:22] LABS: Glucose,Whole Blood 107 mg/dL (70-110)
--- NOTE | 2024-02-07 13:38 | P.PN ---
Subjective Progress Note Date: 02/07/24 43-year-old female seen in the emergency department, at 9:00 this morning, February 05, for abdominal pain, and rib discomfort. The patient apparently was complaining of pain in the left lower quadrant of the abdomen, and bilateral lower rib pain. She also is complaining of crampy sensations in her abdomen. She denies any significant pulmonary issues. She had a colonoscopy and EGD about 6 months ago, which showed some hiatal hernia, as well as some colonic polyps. The patient was seen back in December 2022, by my partner, for a "lung abscess". The patient underwent extensive evaluation, with bronchoscopy, and a BAL of the right middle lobe and left lower lobe, fine-needle aspiration of the subcarinal/station 7 node, and brushings in the left lower lobe, as well as biopsies of the right middle lobe and left lower lobe. She ended up seeing one of my other partners in the office for period of time, and also saw the infectious disease doctor, who prescribed antibiotics for prolonged period of time, and did multiple scans of the chest. Currently, she is on room air. She was placed on Zosyn and vancomycin. She apparently has a history of diabetes, GERD, hypertension, osteoarthritis, endometriosis, irritable bowel syndrome, and left lower lobe lung abscess, beginning in September 2019. She apparently had a wedge resection at that time. She also has a history of anxiety/depression, does not smoke, but does vape. White count 10.4, hemoglobin 13.8, hematocrit 41.6, platelet count 312,000. Sodium 139, potassium 5, chlorides 108, CO2 22, BUN 9, creatinine 0.52. The rest of her comprehensive metabolic profile is mostly normal. Initial lactic acid was 2.2. Repeat was 1.5. Urine was negative. Chest x-ray suggest some scarring or atelectasis at the left lung base. CT of the abdomen and pelvis, is essentially negative, and in the left lower lobe, there are 2 adjacent left lower lobe nodules, which is in the previous location of the larger mass, with air-fluid level. Follow-up CT scan in 3 months was recommended, or a PET scan. The patient has had previous drainage of a abscess, in the left lower lobe, and a wedge resection, done in September 2019 of that same lesion. The wedge resection was positive for a lung abscess, with fibrosis, and focal organization. The patient is seen today February 07, 2024 in follow-up on the regular medical floor. She is currently awake and alert in no acute distress. She is maintaining O2 saturations in the 90s on room air. She has been afebrile. Hemodynamically stable. White count 10.7. Hemoglobin 12.8. Platelets 288. S odium 141. Potassium 4.2. Bicarb 26. BUN 9. Creatinine 0.6. She had been initiated on vancomycin and Zosyn yesterday. Procalcitonin came back negative at 0.03. Objective - Vital Signs Vital signs: Vital Signs Temp 97.8 F 02/07/24 07:47 Pulse 63 02/07/24 07:47 Resp 14 02/07/24 07:47 BP 136/68 02/07/24 07:47 Pulse Ox 98 02/07/24 07:47 FiO2 Intake & Output 02/06/24 02/07/24 02/07/24 18:59 06:59 18:59 Weight 72.575 kg 72.575 kg - Exam GENERAL EXAM: Alert, 43-year-old female, on room air, comfortable in no apparent distress. HEAD: Normocephalic. EYES: Normal reaction of pupils, equal size. NOSE: Clear with pink turbinates. THROAT: No erythema or exudates. NECK: No masses, no JVD. CHEST: No chest wall deformity. LUNGS: Equal air entry with no crackles, wheeze, rhonchi or dullness. CVS: S1 and S2 normal with no audible murmur, regular rhythm. ABDOMEN: No hepatosplenomegaly, normal bowel sounds, no guarding or rigidity. SPINE: No scoliosis or deformity SKIN: No rashes CENTRAL NERVOUS SYSTEM: No focal deficits, tone is normal in all 4 extremities. EXTREMITIES: There is no peripheral edema. No clubbing, no cyanosis. Peripheral pulses are intact. - Labs CBC & Chem 7: 02/07/24 06:12 02/07/24 06:12 Labs: Abnormal Lab Results - Last 24 Hours (Table) 02/07/24 02/07/24 02/07/24 Range/Units 02:12 06:12 06:39 WBC 10.71 H (4.50-10.00) X 10*3/uL Basophils # 0.15 H (0.00-0.10) X 10*3/uL POC Glucose (mg/dL) 132 H 119 H (70-110) mg/dL Assessment and Plan Assessment: Abdominal pain, rib pain, abdominal cramping, of unclear etiology. CT scan of the abdomen and pelvis, were negative. Previous history of lung abscess, left lower lobe, status post wedge resection (2019), showing abscess, with fibrosis and organization. Procalcitonin negative. Previous bronchoscopy, December 2022, with BAL right middle lobe, left lower lobe, fine-needle aspiration of subcarinal/station 7 node, brushings, left lower lobe, and transbronchial biopsies of the right middle lobe and left lower lobe, all of which were negative. History of diabetes mellitus. History of hypertension. History of GERD. History of osteoarthritis. History of endometriosis. History of irritable bowel syndrome. History of anxiety/depression. Plan: The patient was seen and evaluated Stable and on room air Medications and labs reviewed Procalcitonin negative No need for antibiotics Cleared for discharge from the pulmonary standpoint This patient was seen independently by the pulmonary nurse practitioner addressing pulmonary issues I have personally seen and examined the patient, performed the documentation and the assessment and plan as written. Number of minutes spent on the visit: 20 Dictation was produced using [employer] dictation software. Please excuse any grammatical, word or spelling errors.
[2024-02-07 13:53] VITALS: BP 142/98; PULSE 69; RESP 16; TEMP 97.7
[2024-02-07] MEDS ORDERED: lisinopriL 20 MG TAB PO SCH (21:00)
[2024-02-07] MEDS ORDERED: LACTOBACILLUS ACIDOPHILUS/PECT 1 EACH CAPSULE PO SCH (21:00)
--- NOTE | 2024-02-08 00:35 | P.DS ---
Providers Date of admission: 02/06/24 11:39 Attending physician: Po Yanes MD Consults: 02/06/24 12:00 Consult Physician Urgent Consulting Provider: Fransisco Goodrich Consult Reason/Comments: Lung abscess versus necrotic malignancy Do you want consulting provider notified?: Yes Primary care physician: Jorden Paz Hospital Course: Diagnoses: -2 left lower lobe pulmonary nodules at the location of large mass. Suspicious for abscess versus neoplasm per radiologist . But also goes more with pulmonary fibrosis area from her previous abscess. -Bilateral rib cage pain pain , musculoskeletal. Significantly improved upon discharge -Mild abdominal discomfort with a bloated and mild pain in the left lower quadrant with no change in bowel function. The symptoms close with her diagnosis of irritable bowel syndrome. CT of the abdomen and pelvis is negative. Patient showed interval improvement with symptomatic treatment -Nicotine dependence Hospital course: This is a pleasant 43 years old female with past medical history of multiple medical problems Presents because of rib cage pain, she refers to the area underneath breast on both sides. Her pain was going on about 3 days about 7/10 in severity like aching and nonspecific with no precipitating or relieving factor CT of the abdomen pelvis showing 2 left lower lobe pulmonary nodule in the location of the previous abscess. Radiologist was considering mass or fluid lesion suspicious for abscess.. So patient was started on IV vancomycin and Zosyn and admitted with pulmonary team consult. Patient evaluated by disease education specialist Dr. Goodrich who felt it is more related to fibrous tissue from previous abscess. Patient has no fever, no leukocytosis, no dyspnea or coughing or typical chest pain or tenderness. She was admitted to the hospital monitored over 24 hours and she remained clinically stable actually clinically she improved today her pain regressed to only minimal area in the back and left. Her get up and go test is very low risk and normal. Breathing is normal and oxygen is saturating well on room air. No respiratory symptoms. Her abdominal symptoms resolved as well. She tolerates diet well. Procalcitonin was checked was negative. Labs remains unremarkable Patient denies any other new complaint and she agrees to be discharged and follow-up outpatient. Pulmonary team recommended to discontinue antibiotics. I agree with this as the risk of infection is very low and this antibiotics has more risk than benefit Patient was cleared for discharge by pulmonary service Problems and management plan were discussed with the patient and he verbalized understanding and acceptance Patient was found stable and can be discharged home in guarded prognosis however he needs follow-up as an outpatient. Patient was instructed to follow up with PCP within one week and patient agrees Patient was instructed to follow-up with her disease education specialist Dr. Goodrich in 1 week after discharge and she agrees Physical exam Gen: patient is a AAOx3, no distress CVS: S1-S2, RRR, no murmur Lungs: B/L CTA, no wheezing Abdomen: soft, no distention, no tenderness, positive bowel sounds Extremity: no leg edema or induration Time spent more than 35 minutes Patient Condition at Discharge: Fair Plan - Discharge Summary Discharge Rx Participant: No New Discharge Prescriptions: Continue RX: amLODIPine [Norvasc] 5 mg PO HS RX: lisinopriL 40 mg PO HS RX: Famotidine [Pepcid] 20 mg PO HS RX: Citalopram Hydrobromide [CeleXA] 20 mg PO HS RX: estradioL [Estrace] 1 mg PO DAILY RX: Gabapentin 300 mg PO HS Multivitamin Gummy With Immune Support 1 tab PO DAILY RX: Montelukast [Singulair] 10 mg PO DAILY RX: Levocetirizine Dihydrochloride [Xyzal] 5 mg PO DAILY RX: ALPRAZolam [Xanax] 0.5 mg PO DAILY PRN PRN Reason: Anxiety RX: metFORMIN HCL [Glucophage] 500 mg PO DAILY RX: Omeprazole [PriLOSEC] 20 mg PO DAILY RX: L.acidoph,Paracasei, B.lactis [Probiotic] 1 cap PO HS Changed RX: Ibuprofen [Motrin] 800 mg PO BID PRN 3 Days #0 PRN Reason: Pain Discharge Medication List RX: Citalopram Hydrobromide [CeleXA] 20 mg PO HS 06/12/17 [History] RX: Famotidine [Pepcid] 20 mg PO HS 06/12/17 [History] RX: amLODIPine [Norvasc] 5 mg PO HS 06/12/17 [History] RX: lisinopriL 40 mg PO HS 06/12/17 [History] RX: estradioL [Estrace] 1 mg PO DAILY 07/21/19 [History] RX: Levocetirizine Dihydrochloride [Xyzal] 5 mg PO DAILY 01/01/22 [History] RX: Montelukast [Singulair] 10 mg PO DAILY 01/01/22 [History] Multivitamin Gummy With Immune Support 1 tab PO DAILY 10/10/22 [History] RX: ALPRAZolam [Xanax] 0.5 mg PO DAILY PRN 10/10/22 [History] RX: Gabapentin 300 mg PO HS 10/10/22 [History] RX: L.acidoph,Paracasei, B.lactis [Probiotic] 1 cap PO HS 02/06/24 [History] RX: Omeprazole [PriLOSEC] 20 mg PO DAILY 02/06/24 [History] RX: metFORMIN HCL [Glucophage] 500 mg PO DAILY 02/06/24 [History] RX: Ibuprofen [Motrin] 800 mg PO BID PRN 3 Days #0 02/07/24 [Rx] Follow up Appointment(s)/Referral(s): Fransisco Goodrich DO [Doctor of Osteopathic Medicine] - 1 Week (Please call office and make follow up appointment ) Jorden Paz MD [Primary Care Provider] - 1-2 days (Please call office and make follow up appointment ) Activity/Diet/Wound Care/Special Instructions: heart healthy diet activity is restricted till you see your doctor Discharge Disposition: HOME SELF-CARE
[2024-02-08] MEDS ORDERED: VANCOMYCIN TROUGH DUE 1 EACH MISC MISCELLANE ONE (04:00)
== END 2024-02-07 16:41 | disposition home or self-care (01) ==
LOC: EC 09:05 → 5NMEDONC 11:39 → INTOOBSV 11:39 → 5NMEDONC 02-07 06:30
PROVIDERS: ADMIT Internal Medicine; ATTEND Internal Medicine
DX: R91.8 Other nonspecific abnormal finding of lung field (principal); J84.10 Pulmonary fibrosis, unspecified; R10.32 Left lower quadrant pain; R14.0 Abdominal distension (gaseous); R07.81 Pleurodynia; I10 Essential (primary) hypertension; E11.9 Type 2 diabetes mellitus without complications; K21.9 Gastro-esophageal reflux disease without esophagitis; F32.A Depression, unspecified; F41.9 Anxiety disorder, unspecified; M19.90 Unspecified osteoarthritis, unspecified site; K58.9 Irritable bowel syndrome, unspecified; F17.290 Nicotine dependence, other tobacco product, uncomplicated; Z87.42 Personal history of other diseases of the female genital tract; Z79.84 Long term (current) use of oral hypoglycemic drugs; Z79.890 Hormone replacement therapy; Z79.899 Other long term (current) drug therapy
CPT/HCPCS: 96366 ×3; 96365 ×2; 96367; 96375; 99285; 36415; 93005; 80053; 80048; 83605; 83690; 84484; 85025 ×2; 81003; 84703; 87040; 87070; 84145; 71046; 74177; G0378 ×2; S4990; J2543 ×2; J3370 ×2; J1885; Q9967